=== PATIENT | male | born 1975 | race Caucasian/White ===

== ENCOUNTER 2017-10-21 10:51 | Inpatient (IN) ==
[2017-10-21] MEDS ORDERED: 0.9 % SODIUM CHLORIDE 2,000 ML IV ONE (11:05)
--- NOTE | 2017-10-21 11:15 | Emergency Department Note ---
Altered Mental Status HPI - General Chief Complaint: Altered Mental Status Stated Complaint: n/v, decreased loc Time Seen by Provider: 10/21/17 10:59 Source: patient Mode of arrival: ambulatory Limitations: no limitations - History of Present Illness HPI Narrative: 42-year-old male with altered mental status comes in via EMS. He has a history of cerebral palsy infantile type and has a caregiver. Temperature 100.1 and the ambulance given 1 mg Zofran and IV fluids by EMS. Decreased level of consciousness and unable to give me a reasonable history. I in fact had to do chest rub to get him to answer basic questions-he is able to follow commands, is just not answering questions very well. So very limited review of systems and history. Most from past records and EMS-they report he has been having nausea and vomiting His caregiver followed the ambulance and notes that he is significantly weaker not able to get up on his own or dress himself toilet himself. Last time this happened he had a severe UTI - Related Data Home Medications Medication Instructions Recorded Confirmed venlafaxine ER 150 mg 150 mg PO QAM 06/12/15 10/21/17 tablet,extended release 24 hr buspirone 15 mg tablet 15 mg PO BID 12/15/16 10/21/17 lithium carbonate ER 450 mg 450 mg PO BID tab 12/15/16 10/21/17 tablet,extended release lorazepam 0.5 mg tablet 0.5 mg PO TID PRN tab 12/30/16 10/21/17 Acetaminophen [Non-Aspirin] 325 mg PO Q4HP PRN 10/21/17 10/21/17 Aripiprazole [Abilify] 7 mg PO QHS 10/21/17 10/21/17 Previous Rx's Medication Instructions Recorded ketoconazole 2 % shampoo 1 applic TOPICAL Q2W #120 ml 04/27/16 ketoconazole 2 % topical cream 1 applic TOPICAL BID 14 Days #60 g 08/06/16 Nitrile exam gloves (Large) #200 each 10/28/16 hand held plastic urinal #2 each 10/28/16 silver sulfadiazine 1 % topical 1 applic TOPICAL QDAY 14 Days #25 g 02/10/17 cream meloxicam 7.5 mg tablet 7.5 mg PO QDAY PRN 30 Days #30 tab 04/12/17 clobetasol 0.05 % scalp solution 1 applic TOPICAL .COMPLEX PRN #50 07/14/17 ml nystatin 100,000 unit/gram topical 1 applic TOPICAL .COMPLEX #60 each 07/14/17 powder amlodipine 10 mg tablet 5 mg PO BID 30 Days #30 tab 07/22/17 hydrochlorothiazide 25 mg tablet 25 mg PO QDAY #30 tab 09/28/17 losartan 100 mg tablet 100 mg PO QDAY #30 tab 09/28/17 omeprazole 20 mg capsule,delayed 20 mg PO QDAY #30 cap 09/28/17 release oxybutynin chloride 5 mg tablet 5 mg PO BID #60 tab 09/28/17 carbamide peroxide 6.5 % ear drops 3 drp OTIC .COMPLEX #30 ml 10/04/17 cholecalciferol (vitamin D3) 4,000 4,000 unit PO QDAY #30 cap 10/21/17 unit capsule metoprolol tartrate 50 mg tablet 50 mg PO BID #60 tab 10/21/17 Allergies Allergy/AdvReac Type Severity Reaction Status Date / Time No Known Drug Allergies Allergy Verified 08/09/17 14:35 Review of Systems Limitations: ROS unobtainable due to patients medical condition Past Medical History - Past Medical History Attestation: Yes: The following information was validated with the patient. Medical history: Reports: arthritis, hypertension, other (Cerebral palsy, obesity, obstructive sleep apnea, recurrent UTIs) Psychiatric history: Reports: bipolar, other (Obsessive-compulsive) Surgical history ED: Reports: other (hamstring repair, Achilles tendon repair) - Social History smoking status: Never smoker Alcohol use: Reports: None Drug use: Reports: none Physical Exam Obese male in no acute distress. Normocephalic atraumatic. Conjunctive are clear sclerae nonicteric. Pupils are equal reactive to light. No nasal discharge or congestion. Oropharynx shows crusted material around his mouth , dry mucous membranes and tongue. Neck is supple without lymphadenopathy or thyromegaly. Heart is regular rate and rhythm no murmur appreciated. Lungs are clear to auscultation bilaterally without wheezes rales rhonchi or respiratory distress. Abdomen soft nontender nondistended. Normoactive bowel sounds. No pedal edema. Coello is in place with dark yellow urine. Somnolent but will follow commands such as "take a deep breath, let it out", will answer simple questions with significant prodding Limitations: no limitations Course Vital Signs Temperature 98.4 F 10/21/17 10:52 Pulse Rate 84 10/21/17 10:52 Respiratory Rate 21 10/21/17 10:52 Blood Pressure 155/83 10/21/17 10:52 Pulse Oximetry (%) 97 10/21/17 10:52 Temperature 98.1 F 10/21/17 12:23 Pulse Rate 81 10/21/17 12:23 Respiratory Rate 18 10/21/17 12:23 Blood Pressure 145/82 10/21/17 11:15 Pulse Oximetry (%) 96 10/21/17 12:23 Altered Mental Status - Lab Data Lab results reviewed: Yes I reviewed the patient's lab results. Result diagrams: 10/21/17 11:19 10/21/17 11:18 Lab Results 10/21/17 10/21/17 10/21/17 Range/Units 11:16 11:17 11:18 WBC (4.5-11.0) K/mcL RBC (4.50-5.90) M/mcL Hgb (13.5-16.5) g/dL Hct (41.0-55.0) % POC Hct 41.0 (41.0-55.0) % MCV (80.0-100.0) fL MCH (26.0-34.0) pg MCHC (31.0-36.0) g/dL RDW (11.5-14.5) % Plt Count (140-440) K/mcL MPV (7.4-10.4) fL Gran % (38.0-78.0) % Lymph % (Auto) (15.5-49.0) % [place] % (Auto) (1.0-12.0) % Eos % (Auto) (0.0-7.0) % Baso % (Auto) (0.0-2.0) % Gran # (1.8-8.0) K/mcL Lymph # (Auto) (1.5-4.8) K/mcL [place] # (Auto) (0.1-0.9) K/mcL Eos # (Auto) (0.0-0.7) K/mcL Baso # (Auto) (0.0-0.3) K/mcL POC PT (11.9-14.5) sec POC INR (0.9-1.2) VBG Lactic Acid (0.5-2.2) mmol/L POC Sodium 142 (133-145) mmol/L Sodium 141 (133-145) mmol/L POC Potassium 3.7 (3.3-5.1) mmol/L Potassium 3.8 (3.3-5.1) mmol/L POC Chloride 106 (96-108) mmol/L Chloride 105 (96-108) mmol/L Carbon Dioxide 23 (22-30) mmol/L POC Total CO2 27 (22-30) mmol/L Anion Gap 13.0 (8-16) POC BUN 23 H (6-20) mg/dl BUN 20 (6-20) mg/dl Creatinine 0.8 (0.7-1.2) mg/dl POC Creatinine 0.9 (0.7-1.2) mg/dl GFR Calculation 111 Glucose 101 (70-105) mg/dL POC Glucose 107 H (70-105) mg/dL Calcium 9.5 (8.6-10.4) mg/dl POC WB Ioniz Calcium 1.21 (1.16-1.32) mmol/L Total Bilirubin 0.8 (0.0-1.0) mg/dL AST 19 (0-37) U/l ALT 24 (0-40) U/l Alkaline Phosphatase 78 (39-117) U/L Ammonia (16-60) umol/L Total Creatine Kinase 228 H (24-195) IU/L Troponin T (0-0.03) ng/ml Total Protein 7.3 (5.9-8.4) gm/dL Albumin 4.4 (3.2-5.2) gm/dL Globulin 2.9 (2.2-3.7) gm/dL Albumin/Globulin Ratio 1.5 (1.0-2.3) Urine Color Yellow Urine Appearance Hazy Urine pH 6.0 (5.0-9.0) Ur Specific [place] 1.018 (1.000-1.035) Urine Protein 30 A (NEG) mg/dL Urine Glucose (UA) Negative (NEG) mg/dL Urine Ketones 20 A (NEG) mg/dL Urine Occult Blood Neg (<0.03) mg/dL Urine Nitrate Neg (NEG) Urine Bilirubin Neg (NEG) mg/dL Urine Urobilinogen Neg (NEG) mg/dL Ur Leukocyte Esterase 500 A (NEG) /uL Urine RBC 6 H (0-1) /hpf Urine WBC > 182 H (0-4) /hpf Ur Squamous Epith Cells 2 (0-4) /hpf Ur Transition Epith Cell < 1 (0-2) /hpf Urine Bacteria 0 (0) /hpf Urine Mucus Mod (0) /hpf Ur Culture Indicated? Yes [place] 0.7 mmol/L 10/21/17 10/21/17 10/21/17 Range/Units 11:19 11:19 11:19 WBC 15.0 H (4.5-11.0) K/mcL RBC 5.05 (4.50-5.90) M/mcL Hgb 13.7 (13.5-16.5) g/dL Hct 41.8 (41.0-55.0) % POC Hct (41.0-55.0) % MCV 82.7 (80.0-100.0) fL MCH 27.1 (26.0-34.0) pg MCHC 32.8 (31.0-36.0) g/dL RDW 14.9 H (11.5-14.5) % Plt Count 260 (140-440) K/mcL MPV 7.5 (7.4-10.4) fL Gran % 77.2 (38.0-78.0) % Lymph % (Auto) 12.7 L (15.5-49.0) % [place] % (Auto) 6.9 (1.0-12.0) % Eos % (Auto) 2.9 (0.0-7.0) % Baso % (Auto) 0.3 (0.0-2.0) % Gran # 11.6 H (1.8-8.0) K/mcL Lymph # (Auto) 1.9 (1.5-4.8) K/mcL [place] # (Auto) 1.0 H (0.1-0.9) K/mcL Eos # (Auto) 0.4 (0.0-0.7) K/mcL Baso # (Auto) 0.1 (0.0-0.3) K/mcL POC PT (11.9-14.5) sec POC INR (0.9-1.2) VBG Lactic Acid 0.9 (0.5-2.2) mmol/L POC Sodium (133-145) mmol/L Sodium (133-145) mmol/L POC Potassium (3.3-5.1) mmol/L Potassium (3.3-5.1) mmol/L POC Chloride (96-108) mmol/L Chloride (96-108) mmol/L Carbon Dioxide (22-30) mmol/L POC Total CO2 (22-30) mmol/L Anion Gap (8-16) POC BUN (6-20) mg/dl BUN (6-20) mg/dl Creatinine (0.7-1.2) mg/dl POC Creatinine (0.7-1.2) mg/dl GFR Calculation Glucose (70-105) mg/dL POC Glucose (70-105) mg/dL Calcium (8.6-10.4) mg/dl POC WB Ioniz Calcium (1.16-1.32) mmol/L Total Bilirubin (0.0-1.0) mg/dL AST (0-37) U/l ALT (0-40) U/l Alkaline Phosphatase (39-117) U/L Ammonia 31 (16-60) umol/L Total Creatine Kinase (24-195) IU/L Troponin T (0-0.03) ng/ml Total Protein (5.9-8.4) gm/dL Albumin (3.2-5.2) gm/dL Globulin (2.2-3.7) gm/dL Albumin/Globulin Ratio (1.0-2.3) Urine Color Urine Appearance Urine pH (5.0-9.0) Ur Specific [place] (1.000-1.035) Urine Protein (NEG) mg/dL Urine Glucose (UA) (NEG) mg/dL Urine Ketones (NEG) mg/dL Urine Occult Blood (<0.03) mg/dL Urine Nitrate (NEG) Urine Bilirubin (NEG) mg/dL Urine Urobilinogen (NEG) mg/dL Ur Leukocyte Esterase (NEG) /uL Urine RBC (0-1) /hpf Urine WBC (0-4) /hpf Ur Squamous Epith Cells (0-4) /hpf Ur Transition Epith Cell (0-2) /hpf Urine Bacteria (0) /hpf Urine Mucus (0) /hpf Ur Culture Indicated? [place] mmol/L 10/21/17 10/21/17 Range/Units 11:19 11:49 WBC (4.5-11.0) K/mcL RBC (4.50-5.90) M/mcL Hgb (13.5-16.5) g/dL Hct (41.0-55.0) % POC Hct (41.0-55.0) % MCV (80.0-100.0) fL MCH (26.0-34.0) pg MCHC (31.0-36.0) g/dL RDW (11.5-14.5) % Plt Count (140-440) K/mcL MPV (7.4-10.4) fL Gran % (38.0-78.0) % Lymph % (Auto) (15.5-49.0) % [place] % (Auto) (1.0-12.0) % Eos % (Auto) (0.0-7.0) % Baso % (Auto) (0.0-2.0) % Gran # (1.8-8.0) K/mcL Lymph # (Auto) (1.5-4.8) K/mcL Pike # (Auto) (0.1-0.9) K/mcL Eos # (Auto) (0.0-0.7) K/mcL Baso # (Auto) (0.0-0.3) K/mcL POC PT 14.4 (11.9-14.5) sec POC INR 1.2 (0.9-1.2) VBG Lactic Acid (0.5-2.2) mmol/L POC Sodium (133-145) mmol/L Sodium (133-145) mmol/L POC Potassium (3.3-5.1) mmol/L Potassium (3.3-5.1) mmol/L POC Chloride (96-108) mmol/L Chloride (96-108) mmol/L Carbon Dioxide (22-30) mmol/L POC Total CO2 (22-30) mmol/L Anion Gap (8-16) POC BUN (6-20) mg/dl BUN (6-20) mg/dl Creatinine (0.7-1.2) mg/dl POC Creatinine (0.7-1.2) mg/dl GFR Calculation Glucose (70-105) mg/dL POC Glucose (70-105) mg/dL Calcium (8.6-10.4) mg/dl POC WB Ioniz Calcium (1.16-1.32) mmol/L Total Bilirubin (0.0-1.0) mg/dL AST (0-37) U/l ALT (0-40) U/l Alkaline Phosphatase (39-117) U/L Ammonia (16-60) umol/L Total Creatine Kinase (24-195) IU/L Troponin T < 0.01 (0-0.03) ng/ml Total Protein (5.9-8.4) gm/dL Albumin (3.2-5.2) gm/dL Globulin (2.2-3.7) gm/dL Albumin/Globulin Ratio (1.0-2.3) Urine Color Urine Appearance Urine pH (5.0-9.0) Ur Specific [place] (1.000-1.035) Urine Protein (NEG) mg/dL Urine Glucose (UA) (NEG) mg/dL Urine Ketones (NEG) mg/dL Urine Occult Blood (<0.03) mg/dL Urine Nitrate (NEG) Urine Bilirubin (NEG) mg/dL Urine Urobilinogen (NEG) mg/dL Ur Leukocyte Esterase (NEG) /uL Urine RBC (0-1) /hpf Urine WBC (0-4) /hpf Ur Squamous Epith Cells (0-4) /hpf Ur Transition Epith Cell (0-2) /hpf Urine Bacteria (0) /hpf Urine Mucus (0) /hpf Ur Culture Indicated? [place] mmol/L Preliminary urinalysis with [id number] dipstick shows large amount of leukocytes positive nitrites and a large amount of blood. Antibiotics are started after blood culture - Radiology Data Radiology results reviewed: Yes I reviewed the patient's radiology results. Chest x-ray shows no acute abnormality. CT scan of the head shows possible lateral ventricle enlargements but this is not certain without comparison studies and relevance is questionable - EKG Data EKG attestation: Yes I reviewed and interpreted this EKG. EKG results narrative: EKG shows a rate of 80 right bundle branch block and long NV. No evidence of ischemia Disposition Pt seen by MATE FIRST/PA only: No Clinical Impression: Dehydration Altered mental status Qualifiers: Altered mental status type: somnolence Qualified Code(s): R40.0 - Somnolence UTI (urinary tract infection) Qualifiers: Urinary tract infection type: acute cystitis Hematuria presence: with hematuria Qualified Code(s): N30.01 - Acute cystitis with hematuria Summary: After initial exam and workup, fluids are continued and antibiotic- levaquin- started for UTI dehydration and altered mental status. Workup with further laboratory and imaging. Coello with temp probe was placed He had significant improvement with IV fluids and levofloxacin. He was answering questions better, opened his eyes spontaneously moved his hands. He had no further vomiting. However he was still weak enough that he was not moving around in the bed at all-I do think he requires admission for IV fluid rehydration and IV antibiotics as he has been vomiting. I discussed his case with Dr. Parks who agreed to accept the patient for further inpatient treatment Disposition: Xfer As Inpt ([facility]) Condition: Serious Referrals: Nick Jones MD [Primary Care Provider] -
[2017-10-21] MEDS ORDERED: LEVOFLOXACIN 500 MG/100 ML BAG IV ONE (11:18)
--- NOTE | 2017-10-21 11:38 | XRay Report ---
INDICATION: Altered mental status TECHNIQUE: AP chest x-ray,portable examination performed on the patient's stretcher COMPARISON: Chest x-rays dated 08/09/2016, 02/19/2010 FINDINGS:Lungs are negative. No parenchymal infiltrate or mass. Heart size appears enlarged but this is probably related to AP, supine positioning. No pulmonary edema. No pulmonary congestion. No acute or focal abnormality IMPRESSION: No acute abnormality. Interpreted and Authenticated by: Brent Eldridge 10/21/17
--- NOTE | 2017-10-21 11:41 | Cat Scan Report ---
CLINICAL INFORMATION: Altered mental status. Fever. Nausea and vomiting. COMPARISON: None. TECHNIQUE: Axial noncontrast-enhanced images through the brain. FINDINGS: No acute intracranial hemorrhage. No subdural hematoma. No subarachnoid hemorrhage. No intra-axial hematoma. No focal intra-axial attenuation abnormality. No localized mass effect. No midline shift. Brain stem and cerebellum are negative. There is ventriculomegaly. The lateral ventricles are enlarged. 3rd and 4th ventricles are within normal limits. No other morphologic abnormalities. Chronicity of this lateral ventricular enlargement is not certain without comparison studies. Periventricular white matter is unremarkable without evidence for interstitial edema disappearance may be chronic. If clinically indicated follow-up examination may be of benefit. No calvarial lesions. No lytic lesion or no fracture. Temporal bones are negative. Basilar cisterns are normal. IMPRESSION: 1. Lateral ventricular enlargement. This may be a chronic abnormality. 2. No acute intracranial hemorrhage. No focal abnormality. The exam was performed using radiation dose optimization techniques including, but not limited to, automated exposure control, adjustment of the mA and/or kV according to patient size and use of iterative reconstruction technique. Interpreted and Authenticated by: Brent Eldridge 10/21/17
[2017-10-21 11:48] LABS: Basophils # (Auto) 0.1 K/mcL (0.0-0.3); Basophils % (Auto) 0.3 % (0.0-2.0); Eosinophils # (Auto) 0.4 K/mcL (0.0-0.7); Eosinophils % (Auto) 2.9 % (0.0-7.0); Granulocytes % (Auto) 77.2 % (38.0-78.0); Lymphocytes # (Auto) 1.9 K/mcL (1.5-4.8); Lymphocytes % (Auto) 12.7 % (15.5-49.0); Mean Cell Volume 82.7 fL (80.0-100.0); Mean Corpuscular HGB Conc 32.8 g/dL (31.0-36.0); Mean Corpuscular Hemoglobin 27.1 pg (26.0-34.0); Monocytes % (Auto) 6.9 % (1.0-12.0); Platelet Count 260 K/mcL (140-440); RBC 5.05 M/mcL (4.50-5.90); Red Cell Distribution Width 14.9 % (11.5-14.5)
[2017-10-21 12:05] LABS: Appearance,Urine HAZY; Bacteria,Urine 0 /hpf (0); Bilirubin,Urine NEG (NEG); Color,Urine YELLOW; Glucose,Urine (UA) NEGATIVE (NEG); Leukocyte Esterase,Urine 500 /uL (NEG); Mucus,Urine MOD /hpf (0); Protein,Urine 30 mg/dL (NEG); Specific Gravity,Urine 1.018 (1.000-1.035); Urine Blood NEG mg/dL (<0.03); Urine RBC 6 /hpf (0-1); Urine Squamous Epithelial Cell 2 /hpf (0-4); Urine Transitional Epi Cells < 1 /hpf (0-2); Urine WBC > 182 /hpf (0-4); Urobilinogen,Urine NEG (NEG)
[2017-10-21 12:14] LABS: ALT/SGPT 24 U/l (0-40); Albumin 4.4 gm/dL (3.2-5.2); Albumin/Globulin Ratio 1.5 (1.0-2.3); Alkaline Phosphatase 78 U/L (39-117); Blood Urea Nitrogen 20 mg/dl (6-20); Creatine Kinase 228 IU/L (24-195)
--- NOTE | 2017-10-21 14:27 | Internal Med History&Physical ---
Medical - H&P: HPI Patient information: Note initiated : 10/21/17 at 2:24 pm Service Date, if different from initiated Date: [] Patient: Jorge Luis Castrejon a 42 y/o M admitted on for n/v, decreased loc. Chief Complaint: [] History of present illness: Mr. Castrejon is a 42 year old Male with h/o cerebral palsy infantile type, presents to the emergency room with complaints of altered mental status. Patient's caregiver not available to provide the history, patient has history of cerebral palsy and not able to provide any meaningful history, history obtained from chart review. The patient was brought in with complaints of altered mental status was quite obtunded on presentation, according to the caregivers the patient does have a history of urinary tract infections and resents with altered mental status whenever he has an infection. The patient in the emergency room was quite obtunded according to the ED note needed chest rub to wake him up. He had a chest x-ray which was negative, head CT which showed bilaterally enlarged ventricles acutely not certain. EKG showed right bundle branch block but sinus rhythm, his labs showed leukocytosis with WBC count of 15,000, hemoglobin 13.7 platelets 260, INR 1.2, chemistry unremarkable Patient had an abnormal UA suggestive of UTI. Patient was given IV fluids and IV antibiotics and the patient's condition started to improve by the time of my evaluation the patient was awake and was able to follow some commands however was deemed to be too weak to be able to stand or ambulate The patient is therefore being admitted to the hospital for urinary tract infection and weakness ROS unobtainable: due to mental status Medical - H&P: PMH Medical history: Medical History UTI (urinary tract infection) (Acute) Gastroenteritis (Acute) Dehydration, moderate (Acute) Cerebral palsy (Acute) Conjunctivitis (Chronic) Vitamin D deficiency (Chronic) Toxic encephalopathy (Chronic) Gastroesophageal reflux disease (Chronic) Osteoarthritis (Chronic) Hypokalemia (Chronic) Volume depletion (Chronic) Metabolic acidosis (Chronic) Urinary tract infection (Chronic) Altered level of consciousness (Chronic) Obsessive compulsive disorder (Chronic) Obesity (Chronic) Hypertension, essential (Chronic) Palsy, cerebral infantile (Chronic) Legal blindness (Chronic) Bipolar disorder (Chronic) Surgical history: Past Surgical History Hx of Achilles tendon repair (Acute) Pertinent family history: Family History mother Anxiety disorder, Onset Age: 55 none listed Atherosclerosis of coronary artery father Essential hypertension, Onset Age: 57 Medical - H&P: Meds Home Medications Medication Instructions Recorded Confirmed Type venlafaxine ER 150 mg 150 mg PO QAM 06/12/15 10/21/17 History tablet,extended release 24 hr ketoconazole 2 % shampoo 1 applic TOPICAL Q2W #120 ml 04/27/16 10/21/17 Rx ketoconazole 2 % topical cream 1 applic TOPICAL BID 14 Days #60 g 08/06/1610/21 Rx Nitrile exam gloves (Large) #200 each 10/28/16 08/09/17 Rx hand held plastic urinal #2 each 10/28/16 08/09/17 Rx buspirone 15 mg tablet 15 mg PO BID 12/15/16 10/21/17 History lithium carbonate ER 450 mg 450 mg PO BID tab 12/15/16 10/21/17 History tablet,extended release lorazepam 0.5 mg tablet 0.5 mg PO TID PRN tab 12/30/16 10/21/17 History silver sulfadiazine 1 % topical 1 applic TOPICAL QDAY 14 Days #25 g 02/10/17 Rx cream meloxicam 7.5 mg tablet 7.5 mg PO QDAY PRN 30 Days #30 tab 04/12/17 10/21/17 Rx clobetasol 0.05 % scalp solution 1 applic TOPICAL .COMPLEX PRN #50 07/14/17 Rx ml nystatin 100,000 unit/gram topical 1 applic TOPICAL .COMPLEX #60 each 07/14/17 10/21/17 Rx powder amlodipine 10 mg tablet 5 mg PO BID 30 Days #30 tab 07/22/17 10/21/17 Rx hydrochlorothiazide 25 mg tablet 25 mg PO QDAY #30 tab 09/28/17 10/21/17 Rx losartan 100 mg tablet 100 mg PO QDAY #30 tab 09/28/17 10/21/17 Rx omeprazole 20 mg capsule,delayed 20 mg PO QDAY #30 cap 09/28/17 10/21/17 Rx release oxybutynin chloride 5 mg tablet 5 mg PO BID #60 tab 09/28/17 10/21/17 Rx carbamide peroxide 6.5 % ear drops 3 drp OTIC .COMPLEX #30 ml 10/04/17 10/21/17 Rx Acetaminophen [Non-Aspirin] 325 mg PO Q4HP PRN 10/21/17 10/21/17 History Aripiprazole [Abilify] 7 mg PO QHS 10/21/17 10/21/17 History cholecalciferol (vitamin D3) 4,000 4,000 unit PO QDAY #30 cap 10/21/17 10/21/17 Rx unit capsule metoprolol tartrate 50 mg tablet 50 mg PO BID #60 tab 10/21/17 10/21/17 Rx Allergies Allergy/AdvReac Type Severity Reaction Status Date / Time No Known Drug Allergies Allergy Verified 08/09/17 14:35 Medical - H&P: Exam - Constitutional Vitals: Temp Pulse Resp BP Pulse Ox 98.5 F 80 22 145/78 95 10/21/17 14:22 10/21/17 14:22 10/21/17 14:22 10/21/17 14:16 10/21/17 14:22 Exam: GENERAL: The patient is a well-developed, well-nourished in no apparent distress. Is oriented x3. Obese individual VITAL SIGNS: Reviewed and as noted elsewhere. HEENT: Head is normocephalic and atraumatic. Extraocular muscles are intact. Pupils are equal, round, and reactive to light. Nares appeared normal. Mouth appears any without lesions. Mucous membranes are dry NECK: Normal to inspection, Supple, No lymphadenopathy or thyromegaly. LUNGS: Air entry equal on both sides, no wheezing, crackles or rhonchi noted. No accessory muscles of respiration HEART: Regular rate and rhythm normal, S1 and S2 heard, no Gallop, S3 or Rub Noted, No Gross murmur heard. ABDOMEN: Soft, nontender, and nondistended. Positive bowel sounds. No hepatosplenomegaly was noted. No CVA tenderness noted EXTREMITIES: No cyanosis, clubbing, rash, lesions , edema +1 NEUROLOGIC: Cranial nerves II through XII are grossly intact. Motor and Sensory System Grossly Intact, patient somewhat drowsy PSYCHIATRIC: Flat affect, confused mildly, not agitated SKIN: No ulceration or wounds noted, No jaundice, No rash noted. Medical - H&P: Reslt - Labs CBC & Chem 7: 10/21/17 11:19 10/21/17 11:18 Labs: Short CBC 10/21/17 Range/Units 11:19 WBC 15.0 H (4.5-11.0) K/mcL Hgb 13.7 (13.5-16.5) g/dL Hct 41.8 (41.0-55.0) % Plt Count 260 (140-440) K/mcL BMP 10/21/17 11:18 Sodium 141 Potassium 3.8 Chloride 105 Carbon Dioxide 23 BUN 20 Creatinine 0.8 Glucose 101 Calcium 9.5 Cardiac Enzymes 10/21/17 10/21/17 Range/Units 11:18 11:19 Total Creatine Kinase 228 H (24-195) IU/L Troponin T < 0.01 (0-0.03) ng/ml Liver Function 10/21/17 Range/Units 11:18 Total Bilirubin 0.8 (0.0-1.0) mg/dL AST 19 (0-37) U/l ALT 24 (0-40) U/l Alkaline Phosphatase 78 (39-117) U/L Albumin 4.4 (3.2-5.2) gm/dL Urine 10/21/17 Range/Units 11:17 Urine Color Yellow Urine Appearance Hazy Urine pH 6.0 (5.0-9.0) Ur Specific [place] 1.018 (1.000-1.035) Urine Protein 30 A (NEG) mg/dL Urine Glucose (UA) Negative (NEG) mg/dL Medical - H&P: A/P - Narrative A/P Narrative: A/P Urinary Tract Infection Encephalopathy, Related to UTI vs Medications Obesity Enlarged lateral Ventricles Plan Place to obs status IV rocephin, urine culture sent, await results IV antibiotics, IV fluids, IV thiamine PT/OT/ST eval MRI head to be considered if patients mental status does not improve, not sure regarding enlargement of ventricles , but may be chronic DVT hep sq Diet regular Full code. Social History - Tobacco smoking status: Never smoker - Alcohol alcohol intake frequency: does not drink
[2017-10-21] MEDS ORDERED: CARBAMIDE PEROXIDE OTIC SCH (14:46)
[2017-10-21] MEDS ORDERED: ONDANSETRON 4 MG/2 ML VIAL IV PRN (14:46)
[2017-10-21] MEDS ORDERED: ACETAMINOPHEN 325 MG TABLET PO PRN (14:46)
[2017-10-21] MEDS ORDERED: MELOXICAM 7.5 MG TABLET PO PRN (14:46)
[2017-10-21] MEDS ORDERED: CLOBETASOL 0.05% TOPICAL PRN (15:03)
--- NOTE | 2017-10-21 16:57 | Ultrasound Report ---
CLINICAL INFORMATION: Urinary tract infection TECHNIQUE: Grayscale and color flow Doppler spectral imaging COMPARISON: None. FINDINGS: Right kidney measures 12.7 x 6.6 x 6.7 cm. No solid or cystic mass. No hydronephrosis. No detectable calculi. Normal sinus and cortical echoes. Left kidney measures 13.1 x 5.3 x 5.5 cm. There is a 2.3 cm left lower pole cyst. No solid mass. No hydronephrosis. No detectable calculi. Otherwise normal sinus and cortical echoes. Urinary bladder is not identified as the patient was catheterized IMPRESSION: Negative renal ultrasound Interpreted and Authenticated by: Brent Eldridge 10/21/17
[2017-10-21] MEDS: cefTRIAXone 2 GM VIAL IV SCH (17:01)
[2017-10-21] MEDS: 0.9 % SODIUM CHLORIDE 10 ML SYRINGE IV SCH ×2 (17:01→20:57)
[2017-10-21] MEDS: THIAMINE 100 MG in 0.9 % SODIUM CHLORIDE 50 ML IV SCH (17:12)
[2017-10-21] MEDS: LITHIUM CARBONATE 450 MG TAB.SR.12H PO SCH (17:57)
[2017-10-21] MEDS: OXYBUTYNIN CHLORIDE 5 MG TABLET PO SCH (20:57)
[2017-10-21] MEDS: amLODIPine 5 MG TABLET PO SCH (20:57)
[2017-10-21] MEDS: busPIRone 15 MG TABLET PO SCH (20:57)
[2017-10-21] MEDS: HEPARIN 5,000 UNIT/ML VIAL SQ SCH (20:57)
[2017-10-21] MEDS: METOPROLOL TARTRATE 50 MG TABLET PO SCH (20:57)
[2017-10-21] MEDS: KETOCONAZOLE 2% TOP CRM 15GM TUBE TOPICAL SCH (20:58)
[2017-10-21] MEDS: ARIPIPRAZOLE 7 MG PO SCH (20:58)
[2017-10-22] MEDS: cefTRIAXone 2 GM VIAL IV SCH ×3 (00:05→20:11)
[2017-10-22] MEDS: 0.9 % SODIUM CHLORIDE 10 ML SYRINGE IV SCH ×3 (05:21→20:12)
[2017-10-22] MEDS: LITHIUM CARBONATE 450 MG TAB.SR.12H PO SCH ×2 (07:44→17:47)
[2017-10-22] MEDS: OMEPRAZOLE 20 MG CAPSULE PO SCH (07:44)
[2017-10-22] MEDS: amLODIPine 5 MG TABLET PO SCH ×2 (08:51→20:12)
[2017-10-22] MEDS: VITAMIN D3 1,000 UNIT TABLET PO SCH (08:51)
[2017-10-22] MEDS: VENLAFAXINE 150 MG CAP.XL.24H PO SCH (08:51)
[2017-10-22] MEDS: THIAMINE 100 MG in 0.9 % SODIUM CHLORIDE 50 ML IV SCH (08:51)
[2017-10-22] MEDS: LOSARTAN 50 MG TABLET PO SCH (08:51)
[2017-10-22] MEDS: CLOBETASOL 0.05% TOPICAL SCH (08:52)
[2017-10-22] MEDS: busPIRone 15 MG TABLET PO SCH ×2 (08:52→20:12)
[2017-10-22] MEDS: HYDROCHLOROTHIAZIDE 25 MG TABLET PO SCH (08:52)
[2017-10-22] MEDS: METOPROLOL TARTRATE 50 MG TABLET PO SCH ×2 (08:52→20:12)
[2017-10-22] MEDS: OXYBUTYNIN CHLORIDE 5 MG TABLET PO SCH ×2 (08:52→20:12)
[2017-10-22] MEDS: HEPARIN 5,000 UNIT/ML VIAL SQ SCH ×2 (08:52→20:12)
[2017-10-22] MEDS: KETOCONAZOLE 2% TOP CRM 15GM TUBE TOPICAL SCH ×2 (08:53→20:12)
[2017-10-22 09:09] LABS: Basophils # (Auto) 0 K/mcL (0.0-0.3); Basophils % (Auto) 0.3 % (0.0-2.0); Eosinophils # (Auto) 0.6 K/mcL (0.0-0.7); Granulocytes % (Auto) 74.5 % (38.0-78.0); Lymphocytes # (Auto) 2.4 K/mcL (1.5-4.8); Lymphocytes % (Auto) 15.2 % (15.5-49.0); Mean Cell Volume 83.8 fL (80.0-100.0); Mean Corpuscular Hemoglobin 27.7 pg (26.0-34.0); Platelet Count 275 K/mcL (140-440); RBC 5.35 M/mcL (4.50-5.90); Red Cell Distribution Width 14.7 % (11.5-14.5)
[2017-10-22] MEDS ORDERED: VANCOMYCIN PER PHARMACY IV SCH (09:12)
[2017-10-22 09:35] LABS: ALT/SGPT 25 U/l (0-40); Albumin 4.2 gm/dL (3.2-5.2); Albumin/Globulin Ratio 1.2 (1.0-2.3); Alkaline Phosphatase 86 U/L (39-117); Bilirubin,Direct < 0.2 mg/dL (0.0-0.3); Blood Urea Nitrogen 16 mg/dl (6-20); Gamma Glutamyl Transpeptidase 52 U/L (8-61); Uric Acid 7.8 mg/dL (2.5-8.0)
[2017-10-22] MEDS: VANCOMYCIN 1,500 MG in 0.9 % SODIUM CHLORIDE 500 ML IV SCH ×2 (10:21→20:12)
[2017-10-22] MEDS: SILVER SULFADIAZINE CREAM.TOP 25GM TOPICAL SCH (10:22)
[2017-10-22] MEDS ORDERED: MAGNESIUM HYDROXIDE 30 ML ORAL.SUSP PO ONE (12:06)
[2017-10-22] MEDS ORDERED: MAGNESIUM HYDROXIDE 30 ML ORAL.SUSP PO PRN (12:06)
--- NOTE | 2017-10-22 12:09 | Internal Med Progress Note ---
Medical - PN: Subj Patient information: Note initiated : 10/22/17 at 12:06 pm Service Date, if different from initiated Date: [] Patient: Jorge Luis Castrejon a 42 y/o M admitted on 10/21/17 for n/v, decreased loc. Chief Complaint: [] Interval history: Mr. Castrejon is a 42 year old Male with h/o cerebral palsy infantile type, presents to the emergency room with complaints of altered mental status. Patient's caregiver not available to provide the history, patient has history of cerebral palsy and not able to provide any meaningful history, history obtained from chart review. The patient was brought in with complaints of altered mental status was quite obtunded on presentation, according to the caregivers the patient does have a history of urinary tract infections and resents with altered mental status whenever he has an infection. The patient in the emergency room was quite obtunded according to the ED note needed chest rub to wake him up. He had a chest x-ray which was negative, head CT which showed bilaterally enlarged ventricles acutely not certain. EKG showed right bundle branch block but sinus rhythm, his labs showed leukocytosis with WBC count of 15,000, hemoglobin 13.7 platelets 260, INR 1.2, chemistry unremarkable Patient had an abnormal UA suggestive of UTI. Patient was given IV fluids and IV antibiotics and the patient's condition started to improve by the time of my evaluation the patient was awake and was able to follow some commands however was deemed to be too weak to be able to stand or ambulate The patient is therefore being admitted to the hospital for urinary tract infection and weakness october 22 Patient seen and examined no acute overnight event, pt much more awake this am, he notes he is still very tired and fatigued, feels weak not sure about his baseline status, but it seems he is wheel chair bound Urine culture is growing enterococcus, patient started on vancomycin till sensitivities come back wbc worse today, 15.9, but pt clinically stable Renal USG is negative. Pertinent ROS: Denies headache, dizziness Denies chest pain, palpitations Denies cough or shortness of breath Denies abdominal pain, nausea or vomiting. Does have constipation. - Constitutional Vitals: Vital Signs Temp Pulse Resp BP Pulse Ox 98.6 F 80 18 135/92 90 10/22/17 06:51 10/22/17 04:00 10/22/17 06:51 10/22/17 06:51 10/22/17 06:51 Period Temp Pulse Resp BP Sys/Jung Pulse Ox Last 24 Hr 97.6 F-99.2 F 75-94 15-25 123-154/73-92 90-96 Intake and Output 10/21/17 10/22/17 10/22/17 21:59 05:59 13:59 Intake Total 2171 / 2171 200 / 200 Output Total 2150 / 2150 650 / 650 Balance -450 / -450 Weight 257 lb 8 oz Intake & Output: Intake & Output 10/21/17 10/22/17 10/22/17 21:59 05:59 13:59 Intake Total 2171 / 2171 200 / 200 Output Total 2150 / 2150 650 / 650 Balance -450 / -450 Weight 257 lb 8 oz Intake: IV 2050 Sodium Chloride 0.9% 2,000 ml @ 1999 / 1999 Wide Open IV .Q0M ONE Rx#: [id number] Vitamin B1 100 mg In Sodium 51 / 51 Chloride 0.9% 50 ml @ 50 mls/hr IV DAILY [facility] Rx#:[id number] Oral 120 / 120 200 / 200 Output: Urine Catheter Amount 2150 / 2150 650 / 650 Other: Meal Dinner Percent of Meal Consumed 50% Feeding Ability Needs Supervision Exam: Constitutional; Afebrile, cooperative, alert, not in distress. obese individual Eyes- , No periorbital swelling, did not open eyes, legally blind Ears- Ext ear normal, hearing normal to conversation. Neck- Midline trachea, supple Respiratory system: Air Entry equal on both sides, No crackles or wheezing, no rhonchi. CVS- Rate rhythm regular, S1,S2 heard, no gallop, no rub. Abdomen- Soft nontender abdomen, no organomegaly, no tenderness, no guarding or rigidity, [employer]SING [employer]NER- AOOx3, moving all extremities, no gross focal deficit noted. Medical - PN: Obj Da - Labs CBC & Chem 7: 10/22/17 07:43 10/22/17 07:43 Labs: Abnormal Lab Results 10/22/17 10/22/17 10/21/17 07:43 07:43 11:19 WBC 15.9 H 15.0 H RDW 14.7 H 14.9 H Lymph % (Auto) 15.2 L 12.7 L Gran # 11.9 H 11.6 H [place] # (Auto) 1.0 H 1.0 H Carbon Dioxide 20 L Anion Gap 17.0 H POC BUN POC Glucose Total Creatine Kinase Urine Protein Urine Ketones Ur Leukocyte Esterase Urine RBC Urine WBC 10/21/17 10/21/17 11:18 11:17 WBC RDW Lymph % (Auto) Gran # [place] # (Auto) Carbon Dioxide Anion Gap POC BUN 23 H POC Glucose 107 H Total Creatine Kinase 228 H Urine Protein 30 A Urine Ketones 20 A Ur Leukocyte Esterase 500 A Urine RBC 6 H Urine WBC > 182 H Meds: Medications Acetaminophen (Tylenol) 650 mg PO Q6HP PRN PRN Reason: PAIN/FEVER > 101 Amlodipine Besylate (Norvasc) 5 mg PO BID [facility] Last Admin: 10/22/17 08:51 Dose: 5 mg Buspirone HCl (Buspar) 15 mg PO BID [facility] Last Admin: 10/22/17 08:52 Dose: 15 mg Ceftriaxone Sodium (Rocephin) 2 gm IV Q12H [facility] Last Admin: 10/22/17 08:51 Dose: 2 gm Heparin Sodium (Porcine) (Heparin) 5,000 unit SQ Q12 [facility] Last Admin: 10/22/17 08:52 Dose: 5,000 unit Hydrochlorothiazide (Oretic) 25 mg PO QDAY [facility] Last Admin: 10/22/17 08:52 Dose: 25 mg Thiamine HCl 100 mg/ Sodium (Chloride) 51 mls @ 50 mls/hr IV DAILY [facility] Stop: 10/23/17 10:02 Last Admin: 10/22/17 08:51 Dose: 50 mls/hr Vancomycin HCl 1,500 mg/ (Sodium Chloride) 500 mls @ 333.3 mls/hr IV Q12H [facility] Last Admin: 10/22/17 10:21 Dose: 333.3 mls/hr Ketoconazole (Nizoral 2% Top Crm) 1 dose TOPICAL BID [facility] Last Admin: 10/22/17 08:53 Dose: Not Given [place] Carbonate (Eskalith Cr) 450 mg PO BID@0800,1700 [facility] Last Admin: 10/22/17 07:44 Dose: 450 mg Lorazepam (Ativan) 0.5 mg PO TIDP PRN PRN Reason: agitation Losartan Potassium (Cozaar) 100 mg PO DAILY [facility] Last Admin: 10/22/17 08:51 Dose: 100 mg Meloxicam (Mobic) 7.5 mg PO DAILYP PRN PRN Reason: joint pain Metoprolol Tartrate (Lopressor) 50 mg PO BID [facility] Last Admin: 10/22/17 08:52 Dose: 50 mg Non-Formulary Medication (Aripiprazole) 7 mg PO QHS [facility] Last Admin: 10/21/17 20:58 Dose: 7 mg Omeprazole (Prilosec) 20 mg PO ACB [facility] Last Admin: 10/22/17 07:44 Dose: 20 mg Ondansetron HCl (Zofran) 4 mg IV Q6HP PRN PRN Reason: Nausea And Vomiting Oxybutynin Chloride (Ditropan) 5 mg PO BID [facility] Last Admin: 10/22/17 08:52 Dose: 5 mg Clobetasol 0.05% (Scalp Solution) 1 dose TOPICAL DAILY [facility] Last Admin: 10/22/17 08:52 Dose: Not Given Clobetasol 0.05% (Scalp Solution) 1 dose TOPICAL HSP PRN PRN Reason: Itching Silver Sulfadiazine (Silvadene) 1 dose TOPICAL QDAY [facility] Last Admin: 10/22/17 10:22 Dose: Not Given Sodium Chloride (Saline Flush) 10 ml IV Q8 [facility] Last Admin: 10/22/17 05:21 Dose: 10 ml Vancomycin HCl (Vancomycin Per Pharmacy) 1 order IV UD [facility] Venlafaxine HCl (Effexor Xr) 150 mg PO DAILY [facility] Last Admin: 10/22/17 08:51 Dose: 150 mg Vitamin D (Vitamin D3) 4,000 unit PO DAILY [facility] Last Admin: 10/22/17 08:51 Dose: 4,000 unit Medical - PN: A/P - Time Spent With Patient Total time spent is greater than 50% in coordination of care (as documented) at patient's floor/unit and/or counseling patient: - Narrative A/P Narrative: A/P Urinary Tract Infection Encephalopathy, Related to UTI vs Medications Obesity Enlarged lateral Ventricles Constipation Plan Continue to monitor IV ceftriaxone, given enterococcus the urine IV vancomycin started De-escalate antibiotics based on sensitivity 1 L saline today Continue to see if he can participate in therapy Will defer to outpatient physician for evaluation of enlarged ventricles unless acute change in mental condition, the patient's mental condition seems to have improved since admission Milk of magnesia to be given today Continue home medications DVT hep sq Diet regular Full code. Medical - PN: Qual - VTE Deep Vein Thrombosis/Pulmonary Embolism Present on Admission: No
[2017-10-22] MEDS ORDERED: 0.9 % SODIUM CHLORIDE 1,000 ML IV SCH (12:15)
[2017-10-22] MEDS: ARIPIPRAZOLE 7 MG PO SCH (20:11)
[2017-10-23] MEDS: LORazepam 0.5 MG TABLET PO PRN (00:32)
[2017-10-23] MEDS: 0.9 % SODIUM CHLORIDE 10 ML SYRINGE IV SCH ×3 (05:32→22:34)
[2017-10-23 06:06] LABS: Basophils # (Auto) 0.1 K/mcL (0.0-0.3); Basophils % (Auto) 0.4 % (0.0-2.0); Eosinophils # (Auto) 0.4 K/mcL (0.0-0.7); Eosinophils % (Auto) 2.9 % (0.0-7.0); Granulocytes % (Auto) 70.3 % (38.0-78.0); Lymphocytes # (Auto) 2.8 K/mcL (1.5-4.8); Lymphocytes % (Auto) 19.8 % (15.5-49.0); Mean Cell Volume 83.4 fL (80.0-100.0); Mean Corpuscular HGB Conc 32.8 g/dL (31.0-36.0); Mean Corpuscular Hemoglobin 27.3 pg (26.0-34.0); Monocytes # (Auto) 0.9 K/mcL (0.1-0.9); Monocytes % (Auto) 6.6 % (1.0-12.0); Platelet Count 268 K/mcL (140-440); RBC 5.12 M/mcL (4.50-5.90); Red Cell Distribution Width 14.7 % (11.5-14.5)
[2017-10-23 06:40] LABS: ALT/SGPT 26 U/l (0-40); Albumin/Globulin Ratio 1.3 (1.0-2.3); Alkaline Phosphatase 81 U/L (39-117); Bilirubin,Direct < 0.2 mg/dL (0.0-0.3); Blood Urea Nitrogen 17 mg/dl (6-20); Gamma Glutamyl Transpeptidase 47 U/L (8-61)
[2017-10-23] MEDS: OMEPRAZOLE 20 MG CAPSULE PO SCH (07:35)
[2017-10-23] MEDS: HEPARIN 5,000 UNIT/ML VIAL SQ SCH ×2 (09:47→22:33)
[2017-10-23] MEDS: LITHIUM CARBONATE 450 MG TAB.SR.12H PO SCH ×2 (09:47→17:42)
[2017-10-23] MEDS: amLODIPine 5 MG TABLET PO SCH ×2 (09:48→22:33)
[2017-10-23] MEDS: LOSARTAN 50 MG TABLET PO SCH (09:48)
[2017-10-23] MEDS: HYDROCHLOROTHIAZIDE 25 MG TABLET PO SCH (09:48)
[2017-10-23] MEDS: VENLAFAXINE 150 MG CAP.XL.24H PO SCH (09:48)
[2017-10-23] MEDS: VITAMIN D3 1,000 UNIT TABLET PO SCH (09:48)
[2017-10-23] MEDS: OXYBUTYNIN CHLORIDE 5 MG TABLET PO SCH ×2 (09:48→22:32)
[2017-10-23] MEDS: METOPROLOL TARTRATE 50 MG TABLET PO SCH ×2 (09:48→22:32)
[2017-10-23] MEDS: THIAMINE 100 MG in 0.9 % SODIUM CHLORIDE 50 ML IV SCH (09:48)
[2017-10-23] MEDS: cefTRIAXone 2 GM VIAL IV SCH ×2 (09:49→22:34)
[2017-10-23] MEDS: ARIPIPRAZOLE 5 MG TABLET PO SCH (09:49)
[2017-10-23] MEDS: busPIRone 15 MG TABLET PO SCH ×2 (09:49→22:32)
[2017-10-23] MEDS: VANCOMYCIN 1,500 MG in 0.9 % SODIUM CHLORIDE 500 ML IV SCH (10:52)
[2017-10-23] MEDS: CLOBETASOL 0.05% TOPICAL SCH (10:55)
[2017-10-23] MEDS: KETOCONAZOLE 2% TOP CRM 15GM TUBE TOPICAL SCH ×2 (10:55→22:34)
[2017-10-23] MEDS: SILVER SULFADIAZINE CREAM.TOP 25GM TOPICAL SCH (10:55)
[2017-10-23] MEDS ORDERED: AMPICILLIN SODIUM 1 GM in 0.9 % SODIUM CHLORIDE 50 ML IV SCH (16:00)
--- NOTE | 2017-10-23 16:47 | Internal Med Progress Note ---
Medical - PN: Subj Patient information: Note initiated : 10/23/17 at 4:44 pm Service Date, if different from initiated Date: [] Patient: Jorge Luis Castrejon a 42 y/o M admitted on 10/21/17 for n/v, decreased loc. Chief Complaint: [] Interval history: Mr. Castrejon is a 42 year old Male with h/o cerebral palsy infantile type, presents to the emergency room with complaints of altered mental status. Patient's caregiver not available to provide the history, patient has history of cerebral palsy and not able to provide any meaningful history, history obtained from chart review. The patient was brought in with complaints of altered mental status was quite obtunded on presentation, according to the caregivers the patient does have a history of urinary tract infections and resents with altered mental status whenever he has an infection. The patient in the emergency room was quite obtunded according to the ED note needed chest rub to wake him up. He had a chest x-ray which was negative, head CT which showed bilaterally enlarged ventricles acutely not certain. EKG showed right bundle branch block but sinus rhythm, his labs showed leukocytosis with WBC count of 15,000, hemoglobin 13.7 platelets 260, INR 1.2, chemistry unremarkable Patient had an abnormal UA suggestive of UTI. Patient was given IV fluids and IV antibiotics and the patient's condition started to improve by the time of my evaluation the patient was awake and was able to follow some commands however was deemed to be too weak to be able to stand or ambulate The patient is therefore being admitted to the hospital for urinary tract infection and weakness october 22 Patient seen and examined no acute overnight event, pt much more awake this am, he notes he is still very tired and fatigued, feels weak not sure about his baseline status, but it seems he is wheel chair bound Urine culture is growing enterococcus, patient started on vancomycin till sensitivities come back wbc worse today, 15.9, but pt clinically stable Renal USG is negative. October 23 Patient seen examined, no acute overnight issues, Pt tolerating po diet well. Medical status is much better today. Patient still complains about weakness. WBC count is trending down. Patient is unable to transfers from bed to the wheelchair as he is used to. Patient will likely need to stay another day or 2 to improve his strength so that he can be discharged back to his home. Plan of care reviewed with the patient and his father Pertinent ROS: Denies headache, dizziness Denies chest pain, palpitations Denies cough or shortness of breath Denies abdominal pain, nausea or vomiting. - Constitutional Vitals: Vital Signs Temp Pulse Resp BP Pulse Ox 98.5 F 76 18 148/79 97 10/23/17 16:00 10/23/17 03:57 10/23/17 16:00 10/23/17 16:00 10/23/17 16:13 Period Temp Pulse Resp BP Sys/Jung Pulse Ox Last 24 Hr 97.8 F-99.0 F 70-94 16-20 125-148/79-93 91-97 Intake and Output 10/23/17 10/23/17 10/23/17 05:59 13:59 21:59 Intake Total 2375 / 2375 680 / 680 Output Total 1050 / 1050 1050 / 1050 2 / 2 Balance 1325 / 1325 -370 / -370 -2 / -2 Intake & Output: Intake & Output 10/23/17 10/23/17 10/23/17 05:59 13:59 21:59 Intake Total 2375 / 2375 680 / 680 Output Total 1050 / 1050 1050 / 1050 2 / 2 Balance 1325 / 1325 -370 / -370 -2 / -2 Intake: IV 1500 / 1500 Sodium Chloride 0.9% 1,000 ml @ 1000 / 1000 100 mls/hr IV .Q10H [facility] Rx#: [id number] Vancomycin 1,500 mg In Sodium 500 / 500 Chloride 0.9% 500 ml @ 333.3 mls/hr IV Q12H [facility] Rx#: [id number] Oral 875 / 875 680 / 680 Output: Urine Catheter Amount 1050 / 1050 1050 / 1050 # of times incontinent of urine 2 / 2 Other: Meal Lunch Percent of Meal Consumed 75% Feeding Ability Needs Supervision Stool Size Smear Small # of times incontinent of 1 Bowels Exam: Constitutional; Afebrile, cooperative, alert, not in distress. Morbidly obese individual Eyes- No icterus, , No periorbital swelling Ears- Ext ear normal, hearing normal to conversation. Neck- Midline trachea, supple Respiratory system: Air Entry equal on both sides, No crackles or wheezing, no rhonchi. CVS- Rate rhythm regular, S1,S2 heard, no gallop, no rub. Abdomen- Soft nontender abdomen, no organomegaly, no tenderness, no guarding or rigidity, VEIN PU[employer]ER- AOOx3, moving all extremities, no gross focal deficit noted. Medical - PN: Obj Da - Labs CBC & Chem 7: 10/23/17 04:38 10/23/17 04:38 Labs: Abnormal Lab Results 10/23/17 10/23/17 10/22/17 04:38 04:38 07:43 WBC 13.9 H RDW 14.7 H Lymph % (Auto) Gran # 9.8 H [place] # (Auto) Carbon Dioxide 20 L Anion Gap 17.0 H POC BUN POC Glucose Phosphorus 2.3 L Total Creatine Kinase Urine Protein Urine Ketones Ur Leukocyte Esterase Urine RBC Urine WBC 10/22/17 10/21/17 10/21/17 07:43 11:19 11:18 WBC 15.9 H 15.0 H RDW 14.7 H 14.9 H Lymph % (Auto) 15.2 L 12.7 L Gran # 11.9 H 11.6 H [place] # (Auto) 1.0 H 1.0 H Carbon Dioxide Anion Gap POC BUN 23 H POC Glucose 107 H Phosphorus Total Creatine Kinase 228 H Urine Protein Urine Ketones Ur Leukocyte Esterase Urine RBC Urine WBC 10/21/17 11:17 WBC RDW Lymph % (Auto) Gran # [place] # (Auto) Carbon Dioxide Anion Gap POC BUN POC Glucose Phosphorus Total Creatine Kinase Urine Protein 30 A Urine Ketones 20 A Ur Leukocyte Esterase 500 A Urine RBC 6 H Urine WBC > 182 H Meds: Medications Acetaminophen (Tylenol) 650 mg PO Q6HP PRN PRN Reason: PAIN/FEVER > 101 Amlodipine Besylate (Norvasc) 5 mg PO BID [facility] Last Admin: 10/23/17 09:48 Dose: 5 mg Buspirone HCl (Buspar) 15 mg PO BID [facility] Last Admin: 10/23/17 09:49 Dose: 15 mg Ceftriaxone Sodium (Rocephin) 2 gm IV Q12H [facility] Last Admin: 10/23/17 09:49 Dose: 2 gm Heparin Sodium (Porcine) (Heparin) 5,000 unit SQ Q12 [facility] Last Admin: 10/23/17 09:47 Dose: 5,000 unit Hydrochlorothiazide (Oretic) 25 mg PO QDAY [facility] Last Admin: 10/23/17 09:48 Dose: 25 mg Ketoconazole (Nizoral 2% Top Crm) 1 dose TOPICAL BID [facility] Last Admin: 10/23/17 10:55 Dose: Not Given [place] Carbonate (Eskalith Cr) 450 mg PO BID@0800,1700 [facility] Last Admin: 10/23/17 09:47 Dose: 450 mg Lorazepam (Ativan) 0.5 mg PO TIDP PRN PRN Reason: agitation Last Admin: 10/23/17 00:32 Dose: 0.5 mg Losartan Potassium (Cozaar) 100 mg PO DAILY [facility] Last Admin: 10/23/17 09:48 Dose: 100 mg Magnesium Hydroxide (Milk Of Magnesia) 30 ml PO DAILYP PRN PRN Reason: Constipation Meloxicam (Mobic) 7.5 mg PO DAILYP PRN PRN Reason: joint pain Metoprolol Tartrate (Lopressor) 50 mg PO BID [facility] Last Admin: 10/23/17 09:48 Dose: 50 mg Omeprazole (Prilosec) 20 mg PO ACB [facility] Last Admin: 10/23/17 07:35 Dose: 20 mg Ondansetron HCl (Zofran) 4 mg IV Q6HP PRN PRN Reason: Nausea And Vomiting Oxybutynin Chloride (Ditropan) 5 mg PO BID [facility] Last Admin: 10/23/17 09:48 Dose: 5 mg Clobetasol 0.05% (Scalp Solution) 1 dose TOPICAL DAILY [facility] Last Admin: 10/23/17 10:55 Dose: Not Given Clobetasol 0.05% (Scalp Solution) 1 dose TOPICAL [facility] PRN PRN Reason: Itching Silver Sulfadiazine (Silvadene) 1 dose TOPICAL QDAY [facility] Last Admin: 10/23/17 10:55 Dose: Not Given Sodium Chloride (Saline Flush) 10 ml IV Q8 [facility] Last Admin: 10/23/17 16:04 Dose: 10 ml Venlafaxine HCl (Effexor Xr) 150 mg PO DAILY [facility] Last Admin: 10/23/17 09:48 Dose: 150 mg Vitamin D (Vitamin D3) 4,000 unit PO DAILY [facility] Last Admin: 10/23/17 09:48 Dose: 4,000 unit Medical - PN: A/P - Time Spent With Patient Total time spent is greater than 50% in coordination of care (as documented) at patient's floor/unit and/or counseling patient: - Narrative A/P Narrative: A/P Urinary Tract Infection, enterococcus Encephalopathy, Related to UTI vs Medications- Obesity Enlarged lateral Ventricles Constipation Plan Continue to monitor Mental status seems to be back to baseline She does still fatigued and tired unable to do basic transfers Patient needs ongoing therapy will continue IV antibiotics Today's date to vancomycin, sensitivity reviewed patient patient's enterococcus is pansensitive start on ampicillin Will defer to outpatient physician for evaluation of enlarged ventricles unless acute change in mental condition, the patient's mental condition seems to have Continue home medications Patient had a documented bowel movement DVT hep sq Diet regular Full code. Medical - PN: Qual - VTE Deep Vein Thrombosis/Pulmonary Embolism Present on Admission: No
[2017-10-23] MEDS: SODIUM CHLORIDE 0.9% IV SCH (17:43)
[2017-10-23] MEDS: AMPICILLIN SODIUM IV SCH (17:43)
[2017-10-24] MEDS: AMPICILLIN SODIUM IV SCH ×3 (00:55→11:14)
[2017-10-24] MEDS: SODIUM CHLORIDE 0.9% IV SCH ×3 (00:55→11:14)
[2017-10-24 05:13] LABS: Basophils # (Auto) 0 K/mcL (0.0-0.3); Basophils % (Auto) 0.1 % (0.0-2.0); Eosinophils # (Auto) 0.5 K/mcL (0.0-0.7); Eosinophils % (Auto) 3.4 % (0.0-7.0); Lymphocytes # (Auto) 3.2 K/mcL (1.5-4.8); Lymphocytes % (Auto) 20.4 % (15.5-49.0); Mean Cell Volume 83.4 fL (80.0-100.0); Mean Corpuscular HGB Conc 33.1 g/dL (31.0-36.0); Mean Corpuscular Hemoglobin 27.6 pg (26.0-34.0); Monocytes # (Auto) 0.8 K/mcL (0.1-0.9); Monocytes % (Auto) 5.1 % (1.0-12.0); Platelet Count 290 K/mcL (140-440); RBC 5.22 M/mcL (4.50-5.90); Red Cell Distribution Width 14.8 % (11.5-14.5)
[2017-10-24 05:50] LABS: ALT/SGPT 24 U/l (0-40); Albumin 3.9 gm/dL (3.2-5.2); Albumin/Globulin Ratio 1.1 (1.0-2.3); Alkaline Phosphatase 86 U/L (39-117); Bilirubin,Direct < 0.2 mg/dL (0.0-0.3); Blood Urea Nitrogen 17 mg/dl (6-20); Gamma Glutamyl Transpeptidase 51 U/L (8-61); Uric Acid 6.4 mg/dL (2.5-8.0)
[2017-10-24] MEDS: 0.9 % SODIUM CHLORIDE 10 ML SYRINGE IV SCH ×3 (06:33→20:24)
[2017-10-24] MEDS: OMEPRAZOLE 20 MG CAPSULE PO SCH (08:29)
[2017-10-24] MEDS: busPIRone 15 MG TABLET PO SCH ×2 (10:33→20:22)
[2017-10-24] MEDS: LOSARTAN 50 MG TABLET PO SCH (10:33)
[2017-10-24] MEDS: VENLAFAXINE 150 MG CAP.XL.24H PO SCH (10:33)
[2017-10-24] MEDS: OXYBUTYNIN CHLORIDE 5 MG TABLET PO SCH ×2 (10:34→20:24)
[2017-10-24] MEDS: METOPROLOL TARTRATE 50 MG TABLET PO SCH ×2 (10:34→20:24)
[2017-10-24] MEDS: amLODIPine 5 MG TABLET PO SCH ×2 (10:35→20:24)
[2017-10-24] MEDS: HYDROCHLOROTHIAZIDE 25 MG TABLET PO SCH (10:35)
[2017-10-24] MEDS: VITAMIN D3 1,000 UNIT TABLET PO SCH (10:35)
[2017-10-24] MEDS: HEPARIN 5,000 UNIT/ML VIAL SQ SCH ×2 (10:36→20:24)
[2017-10-24] MEDS: cefTRIAXone 2 GM VIAL IV SCH ×2 (11:01→20:28)
[2017-10-24] MEDS: KETOCONAZOLE 2% TOP CRM 15GM TUBE TOPICAL SCH ×2 (11:27→20:25)
[2017-10-24] MEDS: SILVER SULFADIAZINE CREAM.TOP 25GM TOPICAL SCH (11:27)
[2017-10-24] MEDS: CLOBETASOL 0.05% TOPICAL SCH (11:27)
[2017-10-24] MEDS: LITHIUM CARBONATE 450 MG TAB.SR.12H PO SCH ×2 (11:30→20:21)
[2017-10-24] MEDS: ARIPIPRAZOLE 5 MG TABLET PO SCH ×2 (14:56→20:23)
[2017-10-24] MEDS: AMPICILLIN SODIUM 2 GM in 0.9 % SODIUM CHLORIDE 100 ML IV SCH (17:55)
[2017-10-24] MEDS: ARIPIPRAZOLE 2 MG TABLET PO SCH (20:22)
--- NOTE | 2017-10-24 20:56 | Internal Med Progress Note ---
Medical - PN: Subj Patient information: Note initiated : 10/24/17 at 8:56 pm Service Date, if different from initiated Date: [] Patient: Jorge Luis Castrejon a 42 y/o M admitted on 10/23/17 for N/V, Decreased LOC/ UTI. Chief Complaint: [] Interval history: Mr. Castrejon is a 42 year old Male with h/o cerebral palsy infantile type, presents to the emergency room with complaints of altered mental status. Patient's caregiver not available to provide the history, patient has history of cerebral palsy and not able to provide any meaningful history, history obtained from chart review. The patient was brought in with complaints of altered mental status was quite obtunded on presentation, according to the caregivers the patient does have a history of urinary tract infections and resents with altered mental status whenever he has an infection. The patient in the emergency room was quite obtunded according to the ED note needed chest rub to wake him up. He had a chest x-ray which was negative, head CT which showed bilaterally enlarged ventricles acutely not certain. EKG showed right bundle branch block but sinus rhythm, his labs showed leukocytosis with WBC count of 15,000, hemoglobin 13.7 platelets 260, INR 1.2, chemistry unremarkable Patient had an abnormal UA suggestive of UTI. Patient was given IV fluids and IV antibiotics and the patient's condition started to improve by the time of my evaluation the patient was awake and was able to follow some commands however was deemed to be too weak to be able to stand or ambulate The patient is therefore being admitted to the hospital for urinary tract infection and weakness october 22 Patient seen and examined no acute overnight event, pt much more awake this am, he notes he is still very tired and fatigued, feels weak not sure about his baseline status, but it seems he is wheel chair bound Urine culture is growing enterococcus, patient started on vancomycin till sensitivities come back wbc worse today, 15.9, but pt clinically stable Renal USG is negative. October 23 Patient seen examined, no acute overnight issues, Pt tolerating po diet well. Medical status is much better today. Patient still complains about weakness. WBC count is trending down. Patient is unable to transfers from bed to the wheelchair as he is used to. Patient will likely need to stay another day or 2 to improve his strength so that he can be discharged back to his home. Plan of care reviewed with the patient and his father October 24-patient doing well. However white count trending up. At 15.9. Patient remains unable to transfer from bed to chair. Ongoing physical therapy.no fever chills or concerns per staff.on antibiotic coverage for enterococci. continue existing treatment - Constitutional Vitals: Vital Signs Temp Pulse Resp BP Pulse Ox 98.2 F 86 24 H 167/77 94 10/24/17 20:00 10/24/17 20:00 10/24/17 20:00 10/24/17 20:00 10/24/17 20:00 Period Temp Pulse Resp BP Sys/Jung Pulse Ox Last 24 Hr 98.2 F-98.9 F 72-99 20-24 116-167/77-95 90-94 Intake and Output 10/24/17 10/24/17 10/24/17 05:59 13:59 21:59 Intake Total 450 / 450 300 / 300 1060 / 1060 Output Total 301 / 301 202 / 202 Balance 449 / 449 -1 / -1 858 / 858 Weight 260 lb Patient Weight 10/25/17 05:59 Weight 260 lb Intake & Output: Intake & Output 10/24/17 10/24/17 10/24/17 05:59 13:59 21:59 Intake Total 450 / 450 300 / 300 1060 / 1060 Output Total 301 / 301 202 / 202 Balance 449 / 449 -1 / -1 858 / 858 Weight 260 lb Intake: IV 50 / 50 100 / 100 100 / 100 Ampicillin 2 gm In Sodium 100 / 100 Chloride 0.9% 100 ml @ 100 mls/ hr IV Q6H [facility] Rx#:[id number] Ampicillin 2 gm In Sodium 50 / 50 100 / 100 Chloride 0.9% 50 ml @ 100 mls/ hr IV Q6H [facility] Rx#:[id number] Oral 400 / 400 200 / 200 960 / 960 Output: Void Amount 300 / 300 200 / 200 # of times incontinent of urine 1 / 2 / 2 Other: Meal Lunch Dinner Percent of Meal Consumed 50% 50% Feeding Ability Needs Supervision Independent Stool Size Smear Stool Color Brown Stool Consistency Soft # Bowel Movements 0 # of times incontinent of 1 Bowels General appearance: cooperative, no acute distress, obese Exam: nonlabored breathing Slow to respond no anxiety or agitation Medical - PN: Obj Da - Labs CBC & Chem 7: 10/24/17 03:56 10/24/17 03:56 Labs: Abnormal Lab Results 10/24/17 10/24/17 10/23/17 03:56 03:56 04:38 WBC 15.9 H RDW 14.8 H Lymph % (Auto) Gran # 11.3 H [place] # (Auto) Carbon Dioxide 21 L Anion Gap 18.0 H Phosphorus 2.3 L Lactate Dehydrogenase 252 H 10/23/17 10/22/17 10/22/17 04:38 07:43 07:43 WBC 13.9 H 15.9 H RDW 14.7 H 14.7 H Lymph % (Auto) 15.2 L Gran # 9.8 H 11.9 H [place] # (Auto) 1.0 H Carbon Dioxide 20 L Anion Gap 17.0 H Phosphorus Lactate Dehydrogenase Meds: Medications Acetaminophen (Tylenol) 650 mg PO Q6HP PRN PRN Reason: PAIN/FEVER > 101 Amlodipine Besylate (Norvasc) 5 mg PO BID [facility] Last Admin: 10/24/17 20:24 Dose: 5 mg Buspirone HCl (Buspar) 15 mg PO BID [facility] Last Admin: 10/24/17 20:22 Dose: 15 mg Ceftriaxone Sodium (Rocephin) 2 gm IV Q12H [facility] Last Admin: 10/24/17 20:28 Dose: 2 gm Heparin Sodium (Porcine) (Heparin) 5,000 unit SQ Q12 [facility] Last Admin: 10/24/17 20:24 Dose: 5,000 unit Hydrochlorothiazide (Oretic) 25 mg PO QDAY [facility] Last Admin: 10/24/17 10:35 Dose: 25 mg Ampicillin Sodium 2 gm/ Sodium (Chloride) 100 mls @ 100 mls/hr IV Q6H [facility] Last Infusion: 10/24/17 19:01 Dose: Infused Ketoconazole (Nizoral 2% Top Crm) 1 dose TOPICAL BID [facility] Last Admin: 10/24/17 20:25 Dose: Not Given [place] Carbonate (Eskalith Cr) 450 mg PO BID@0800,1700 [facility] Last Admin: 10/24/17 20:21 Dose: 450 mg Lorazepam (Ativan) 0.5 mg PO TIDP PRN PRN Reason: agitation Last Admin: 10/23/17 00:32 Dose: 0.5 mg Losartan Potassium (Cozaar) 100 mg PO DAILY [facility] Last Admin: 10/24/17 10:33 Dose: 100 mg Magnesium Hydroxide (Milk Of Magnesia) 30 ml PO DAILYP PRN PRN Reason: Constipation Meloxicam (Mobic) 7.5 mg PO DAILYP PRN PRN Reason: joint pain Metoprolol Tartrate (Lopressor) 50 mg PO BID [facility] Last Admin: 10/24/17 20:24 Dose: 50 mg Omeprazole (Prilosec) 20 mg PO ACB [facility] Last Admin: 10/24/17 08:29 Dose: 20 mg Ondansetron HCl (Zofran) 4 mg IV Q6HP PRN PRN Reason: Nausea And Vomiting Oxybutynin Chloride (Ditropan) 5 mg PO BID [facility] Last Admin: 10/24/17 20:24 Dose: 5 mg Clobetasol 0.05% (Scalp Solution) 1 dose TOPICAL DAILY [facility] Last Admin: 10/24/17 11:27 Dose: Not Given Clobetasol 0.05% (Scalp Solution) 1 dose TOPICAL HSP PRN PRN Reason: Itching Aripiprazole 2 Mg (Tablet) 2 dose PO HS [facility] Last Admin: 10/24/17 20:22 Dose: 2 dose Silver Sulfadiazine (Silvadene) 1 dose TOPICAL QDAY [facility] Last Admin: 10/24/17 11:27 Dose: Not Given Sodium Chloride (Saline Flush) 10 ml IV Q8 [facility] Last Admin: 10/24/17 20:24 Dose: 10 ml Venlafaxine HCl (Effexor Xr) 150 mg PO DAILY [facility] Last Admin: 10/24/17 10:33 Dose: 150 mg Vitamin D (Vitamin D3) 4,000 unit PO DAILY [facility] Last Admin: 10/24/17 10:35 Dose: 4,000 unit Medical - PN: A/P - Time Spent With Patient Total time spent is greater than 50% in coordination of care (as documented) at patient's floor/unit and/or counseling patient: 15 - 24 minutes - Narrative A/P Narrative: A/P Urinary Tract Infection, enterococcus-On IV ampicillin Encephalopathy, Related to UTI vs Medications-clinically improving Obesity Enlarged lateral Ventricles Constipation Plan continue IV antibiotics Physical therapy Will defer to outpatient physician for evaluation of enlarged ventricles unless acute change in mental condition, the patient's mental condition seems to have Continue home medications DVT hep sq Diet regular Full code. Medical - PN: Qual - VTE Deep Vein Thrombosis/Pulmonary Embolism Present on Admission: No
[2017-10-25] MEDS: AMPICILLIN SODIUM 2 GM in 0.9 % SODIUM CHLORIDE 100 ML IV SCH ×4 (00:09→17:56)
[2017-10-25 05:47] LABS: Basophils # (Auto) 0 K/mcL (0.0-0.3); Basophils % (Auto) 0.3 % (0.0-2.0); Eosinophils # (Auto) 0.6 K/mcL (0.0-0.7); Eosinophils % (Auto) 4.5 % (0.0-7.0); Granulocytes % (Auto) 67.3 % (38.0-78.0); Lymphocytes % (Auto) 21.5 % (15.5-49.0); Mean Cell Volume 83.2 fL (80.0-100.0); Mean Corpuscular Hemoglobin 27.5 pg (26.0-34.0); Monocytes # (Auto) 0.9 K/mcL (0.1-0.9); Monocytes % (Auto) 6.4 % (1.0-12.0); Platelet Count 286 K/mcL (140-440); RBC 5.24 M/mcL (4.50-5.90); Red Cell Distribution Width 14.6 % (11.5-14.5)
[2017-10-25] MEDS: 0.9 % SODIUM CHLORIDE 10 ML SYRINGE IV SCH ×3 (05:56→20:13)
[2017-10-25 06:09] LABS: ALT/SGPT 34 U/l (0-40); Albumin 4.1 gm/dL (3.2-5.2); Albumin/Globulin Ratio 1.4 (1.0-2.3); Alkaline Phosphatase 79 U/L (39-117); Bilirubin,Direct < 0.2 mg/dL (0.0-0.3); Blood Urea Nitrogen 19 mg/dl (6-20); Gamma Glutamyl Transpeptidase 50 U/L (8-61); Uric Acid 6.8 mg/dL (2.5-8.0)
[2017-10-25] MEDS: OMEPRAZOLE 20 MG CAPSULE PO SCH (08:00)
[2017-10-25] MEDS: OXYBUTYNIN CHLORIDE 5 MG TABLET PO SCH ×2 (09:35→20:13)
[2017-10-25] MEDS: METOPROLOL TARTRATE 50 MG TABLET PO SCH ×2 (09:35→20:13)
[2017-10-25] MEDS: VENLAFAXINE 150 MG CAP.XL.24H PO SCH (09:35)
[2017-10-25] MEDS: HYDROCHLOROTHIAZIDE 25 MG TABLET PO SCH (09:35)
[2017-10-25] MEDS: LOSARTAN 50 MG TABLET PO SCH (09:35)
[2017-10-25] MEDS: VITAMIN D3 1,000 UNIT TABLET PO SCH (09:36)
[2017-10-25] MEDS: amLODIPine 5 MG TABLET PO SCH ×2 (09:36→20:14)
[2017-10-25] MEDS: busPIRone 15 MG TABLET PO SCH ×2 (09:36→20:14)
[2017-10-25] MEDS: LITHIUM CARBONATE 450 MG TAB.SR.12H PO SCH ×2 (09:36→18:04)
[2017-10-25] MEDS: HEPARIN 5,000 UNIT/ML VIAL SQ SCH ×2 (09:36→20:14)
[2017-10-25] MEDS: SILVER SULFADIAZINE CREAM.TOP 25GM TOPICAL SCH (09:37)
[2017-10-25] MEDS: CLOBETASOL 0.05% TOPICAL SCH (09:37)
[2017-10-25] MEDS: KETOCONAZOLE 2% TOP CRM 15GM TUBE TOPICAL SCH ×2 (09:37→20:15)
[2017-10-25] MEDS ORDERED: POTASSIUM CHLORIDE 20 MEQ TABLET PO ONE (10:11)
--- NOTE | 2017-10-25 10:49 | Internal Med Progress Note ---
Medical - PN: Subj Patient information: Note initiated : 10/25/17 at 10:46 am Service Date, if different from initiated Date: [] Patient: Jorge Luis Castrejon a 42 y/o M admitted on 10/23/17 for N/V, Decreased LOC/ UTI. Chief Complaint: [] Interval history: Mr. Castrejon is a 42 year old Male with h/o cerebral palsy infantile type, presents to the emergency room with complaints of altered mental status. Patient's caregiver not available to provide the history, patient has history of cerebral palsy and not able to provide any meaningful history, history obtained from chart review. The patient was brought in with complaints of altered mental status was quite obtunded on presentation, according to the caregivers the patient does have a history of urinary tract infections and resents with altered mental status whenever he has an infection. The patient in the emergency room was quite obtunded according to the ED note needed chest rub to wake him up. He had a chest x-ray which was negative, head CT which showed bilaterally enlarged ventricles acutely not certain. EKG showed right bundle branch block but sinus rhythm, his labs showed leukocytosis with WBC count of 15,000, hemoglobin 13.7 platelets 260, INR 1.2, chemistry unremarkable Patient had an abnormal UA suggestive of UTI. Patient was given IV fluids and IV antibiotics and the patient's condition started to improve by the time of my evaluation the patient was awake and was able to follow some commands however was deemed to be too weak to be able to stand or ambulate The patient is therefore being admitted to the hospital for urinary tract infection and weakness october 22 Patient seen and examined no acute overnight event, pt much more awake this am, he notes he is still very tired and fatigued, feels weak not sure about his baseline status, but it seems he is wheel chair bound Urine culture is growing enterococcus, patient started on vancomycin till sensitivities come back wbc worse today, 15.9, but pt clinically stable Renal USG is negative. October 23 Patient seen examined, no acute overnight issues, Pt tolerating po diet well. Medical status is much better today. Patient still complains about weakness. WBC count is trending down. Patient is unable to transfers from bed to the wheelchair as he is used to. Patient will likely need to stay another day or 2 to improve his strength so that he can be discharged back to his home. Plan of care reviewed with the patient and his father October 24-patient doing well. However white count trending up. At 15.9. Patient remains unable to transfer from bed to chair. Ongoing physical therapy.no fever chills or concerns per staff.on antibiotic coverage for enterococci. continue existing treatment October 25-patient doing well. Sitting on chair eating breakfast. Persistent lethargy but able to get out of bed to chair. Ongoing physical therapy. No overnight fever chills. White count downtrending from 15.6-14.5. No fever chills nausea vomiting or concerns per staff. On IV ampicillin. - Constitutional Vitals: Vital Signs Temp Pulse Resp BP Pulse Ox 97.7 F 77 16 176/76 93 10/25/17 07:51 10/25/17 07:51 10/25/17 07:51 10/25/17 07:51 10/25/17 07:51 Period Temp Pulse Resp BP Sys/Jung Pulse Ox Last 24 Hr 97.7 F-98.9 F 68-99 16-24 120-176/72-95 91-94 Intake and Output 10/24/17 10/25/17 10/25/17 21:59 05:59 13:59 Intake Total 1060 / 1060 500 / 500 Output Total Balance 858 / 858 499 / 499 Weight 258 lb Intake & Output: Intake & Output 10/24/17 10/25/17 10/25/17 21:59 05:59 13:59 Intake Total 1060 / 1060 500 / 500 Output Total Balance 858 / 858 499 / 499 Weight 258 lb Intake: IV 100 / 100 100 / 100 Ampicillin 2 gm In Sodium 100 / 100 100 / 100 Chloride 0.9% 100 ml @ 100 mls/ hr IV Q6H [facility] Rx#:[id number] Oral 960 / 960 400 / 400 Output: Void Amount 200 / 200 # of times incontinent of urine 2 / 2 Other: Meal Dinner Percent of Meal Consumed 50% Feeding Ability Independent # Bowel Movements 0 General appearance: cooperative, morbidly obese, no acute distress Exam: lethargic but responding to commands. NOn labor breathing nondistended abdomen no anxiety Medical - PN: Obj Da - Labs CBC & Chem 7: 10/25/17 04:10 10/25/17 04:10 Labs: Abnormal Lab Results 10/25/17 10/24/17 10/24/17 04:10 03:56 03:56 WBC 14.2 H 15.9 H RDW 14.6 H 14.8 H Gran # 9.5 H 11.3 H Carbon Dioxide 21 L Anion Gap 18.0 H Phosphorus Lactate Dehydrogenase 252 H 10/23/17 10/23/17 04:38 04:38 WBC 13.9 H RDW 14.7 H Gran # 9.8 H Carbon Dioxide Anion Gap Phosphorus 2.3 L Lactate Dehydrogenase Meds: Medications Acetaminophen (Tylenol) 650 mg PO Q6HP PRN PRN Reason: PAIN/FEVER > 101 Amlodipine Besylate (Norvasc) 5 mg PO BID [facility] Last Admin: 10/25/17 09:36 Dose: 5 mg Buspirone HCl (Buspar) 15 mg PO BID [facility] Last Admin: 10/25/17 09:36 Dose: 15 mg Heparin Sodium (Porcine) (Heparin) 5,000 unit SQ Q12 [facility] Last Admin: 10/25/17 09:36 Dose: 5,000 unit Hydrochlorothiazide (Oretic) 25 mg PO QDAY [facility] Last Admin: 10/25/17 09:35 Dose: 25 mg Ampicillin Sodium 2 gm/ Sodium (Chloride) 100 mls @ 100 mls/hr IV Q6H [facility] Last Admin: 10/25/17 05:57 Dose: 100 mls/hr Ketoconazole (Nizoral 2% Top Crm) 1 dose TOPICAL BID [facility] Last Admin: 10/25/17 09:37 Dose: Not Given [place] Carbonate (Eskalith Cr) 450 mg PO BID@0800,1700 [facility] Last Admin: 10/25/17 09:36 Dose: 450 mg Lorazepam (Ativan) 0.5 mg PO TIDP PRN PRN Reason: agitation Last Admin: 10/23/17 00:32 Dose: 0.5 mg Losartan Potassium (Cozaar) 100 mg PO DAILY [facility] Last Admin: 10/25/17 09:35 Dose: 100 mg Magnesium Hydroxide (Milk Of Magnesia) 30 ml PO DAILYP PRN PRN Reason: Constipation Meloxicam (Mobic) 7.5 mg PO DAILYP PRN PRN Reason: joint pain Metoprolol Tartrate (Lopressor) 50 mg PO BID [facility] Last Admin: 03/20/18 09:35 Dose: 50 mg Omeprazole (Prilosec) 20 mg PO ACB [facility] Last Admin: 10/25/17 08:00 Dose: 20 mg Ondansetron HCl (Zofran) 4 mg IV Q6HP PRN PRN Reason: Nausea And Vomiting Oxybutynin Chloride (Ditropan) 5 mg PO BID [facility] Last Admin: 10/25/17 09:35 Dose: 5 mg Clobetasol 0.05% (Scalp Solution) 1 dose TOPICAL DAILY [facility] Last Admin: 10/25/17 09:37 Dose: Not Given Clobetasol 0.05% (Scalp Solution) 1 dose TOPICAL HSP PRN PRN Reason: Itching Aripiprazole 2 Mg (Tablet) 2 dose PO HS [facility] Last Admin: 10/24/17 20:22 Dose: 2 dose Silver Sulfadiazine (Silvadene) 1 dose TOPICAL QDAY [facility] Last Admin: 10/25/17 09:37 Dose: Not Given Sodium Chloride (Saline Flush) 10 ml IV Q8 [facility] Last Admin: 10/25/17 05:56 Dose: 10 ml Venlafaxine HCl (Effexor Xr) 150 mg PO DAILY [facility] Last Admin: 10/25/17 09:35 Dose: 150 mg Vitamin D (Vitamin D3) 4,000 unit PO DAILY [facility] Last Admin: 10/25/17 09:36 Dose: 4,000 unit Medical - PN: A/P - Time Spent With Patient Total time spent is greater than 50% in coordination of care (as documented) at patient's floor/unit and/or counseling patient: 15 - 24 minutes - Narrative A/P Narrative: A/P * complicated enterococcal UTIU- continue IV ampicillin.downtrending white count from 15-14,500 * Toxic Encephalopathy secondary to UTI vs Medications-clinically improving * Obesity * Enlarged lateral Ventricles * Constipation Plan continue IV antibioticsand transition to oral ampicillin on discharge Physical therapy Will defer to outpatient physician for evaluation of enlarged ventricles unless acute change in mental condition, the patient's mental condition seems to have Continue home medications DVT hep sq Diet regular Full code. Medical - PN: Qual - VTE Deep Vein Thrombosis/Pulmonary Embolism Present on Admission: No
[2017-10-25] MEDS: ARIPIPRAZOLE 2 MG TABLET PO SCH (20:14)
[2017-10-25] MEDS: LORazepam 0.5 MG TABLET PO PRN (20:14)
[2017-10-25] MEDS: ARIPIPRAZOLE 5 MG TABLET PO SCH (20:15)
[2017-10-26] MEDS: AMPICILLIN SODIUM 2 GM in 0.9 % SODIUM CHLORIDE 100 ML IV SCH ×2 (01:00→06:23)
[2017-10-26 05:55] LABS: Basophils # (Auto) 0 K/mcL (0.0-0.3); Basophils % (Auto) 0.3 % (0.0-2.0); Eosinophils # (Auto) 0.6 K/mcL (0.0-0.7); Eosinophils % (Auto) 4.5 % (0.0-7.0); Granulocytes % (Auto) 66.2 % (38.0-78.0); Lymphocytes # (Auto) 3.2 K/mcL (1.5-4.8); Lymphocytes % (Auto) 23.6 % (15.5-49.0); Mean Corpuscular Hemoglobin 27.4 pg (26.0-34.0); Monocytes # (Auto) 0.7 K/mcL (0.1-0.9); Monocytes % (Auto) 5.4 % (1.0-12.0); Platelet Count 275 K/mcL (140-440); RBC 5.09 M/mcL (4.50-5.90); Red Cell Distribution Width 14.8 % (11.5-14.5)
[2017-10-26] MEDS: 0.9 % SODIUM CHLORIDE 10 ML SYRINGE IV SCH (06:23)
[2017-10-26 06:44] LABS: ALT/SGPT 40 U/l (0-40); Albumin 3.9 gm/dL (3.2-5.2); Albumin/Globulin Ratio 1.3 (1.0-2.3); Alkaline Phosphatase 78 U/L (39-117); Bilirubin,Direct < 0.2 mg/dL (0.0-0.3); Blood Urea Nitrogen 18 mg/dl (6-20); Gamma Glutamyl Transpeptidase 48 U/L (8-61); Uric Acid 6.5 mg/dL (2.5-8.0)
[2017-10-26] MEDS: OMEPRAZOLE 20 MG CAPSULE PO SCH (07:52)
[2017-10-26] MEDS: LOSARTAN 50 MG TABLET PO SCH (09:28)
[2017-10-26] MEDS: VITAMIN D3 1,000 UNIT TABLET PO SCH (09:28)
[2017-10-26] MEDS: OXYBUTYNIN CHLORIDE 5 MG TABLET PO SCH (09:29)
[2017-10-26] MEDS: amLODIPine 5 MG TABLET PO SCH (09:29)
[2017-10-26] MEDS: LITHIUM CARBONATE 450 MG TAB.SR.12H PO SCH (09:29)
[2017-10-26] MEDS: METOPROLOL TARTRATE 50 MG TABLET PO SCH (09:29)
[2017-10-26] MEDS: HYDROCHLOROTHIAZIDE 25 MG TABLET PO SCH (09:29)
[2017-10-26] MEDS: VENLAFAXINE 150 MG CAP.XL.24H PO SCH (09:29)
[2017-10-26] MEDS: HEPARIN 5,000 UNIT/ML VIAL SQ SCH (09:29)
[2017-10-26] MEDS: busPIRone 15 MG TABLET PO SCH (09:29)
[2017-10-26] MEDS: KETOCONAZOLE 2% TOP CRM 15GM TUBE TOPICAL SCH (09:30)
[2017-10-26] MEDS: SILVER SULFADIAZINE CREAM.TOP 25GM TOPICAL SCH (09:30)
[2017-10-26] MEDS: CLOBETASOL 0.05% TOPICAL SCH (09:30)
--- NOTE | 2017-10-26 10:51 | Discharge Summary ---
Medical - DS: Prov Patient information: Note initiated : 10/26/17 at 10:49 am Service Date, if different from initiated Date: [] Patient: Jorge Luis Castrejon 42 y/o M admitted on 10/23/17 for N/V, Decreased LOC/ UTI. Chief Complaint: [] Date of admission: 10/23/17 09:25 Discharge date: 10/26/17 Primary care physician: Nick Jones Consults: 10/21/17 12:30 Consult to Physician [CONS] Stat Comment: Consulting Provider: Mandeep Parks Reason For Exam: Physician to Consult Medical - DS: Meds - Discharge Medications Prescriptions: Ampicillin Trihydrate 500 mg PO Q6 #32 cap Active and Home Medications: Home Medications venlafaxine ER 150 mg tablet,extended release 24 hr 150 mg PO QAM 06/12/15 [ History Confirmed 10/21/17 Last Taken Unknown] ketoconazole 2 % shampoo 1 applic TOPICAL Q2W #120 ml 04/27/16 [Rx Confirmed Last Taken Unknown] ketoconazole 2 % topical cream 1 applic TOPICAL BID 14 Days #60 g 08/06/16 [Rx Confirmed 10/21/17 Last Taken Unknown] buspirone 15 mg tablet 15 mg PO BID 12/15/16 [History Confirmed 10/21/17 Last Taken Unknown] lithium carbonate ER 450 mg tablet,extended release 450 mg PO BID tab 12/15/16 [History Confirmed 10/21/17 Last Taken Unknown] lorazepam 0.5 mg tablet 0.5 mg PO TID PRN tab 12/30/16 [History Confirmed 10/21 Last Taken Unknown] silver sulfadiazine 1 % topical cream 1 applic TOPICAL QDAY 14 Days #25 g [Rx Confirmed 10/21/17 Last Taken Unknown] meloxicam 7.5 mg tablet 7.5 mg PO QDAY PRN 30 Days #30 tab 04/12/17 [Rx Confirmed 10/21/17 Last Taken Unknown] clobetasol 0.05 % scalp solution 1 applic TOPICAL .COMPLEX PRN #50 ml 07/14/17 [ Rx Confirmed 10/21/17 Last Taken Unknown] nystatin 100,000 unit/gram topical powder 1 applic TOPICAL .COMPLEX #60 each 02/21 [Rx Confirmed 10/21/17 Last Taken Unknown] amlodipine 10 mg tablet 5 mg PO BID 30 Days #30 tab 07/22/17 [Rx Confirmed 10/21 Last Taken Unknown] hydrochlorothiazide 25 mg tablet 25 mg PO QDAY #30 tab 09/28/17 [Rx Confirmed Last Taken Unknown] losartan 100 mg tablet 100 mg PO QDAY #30 tab 09/28/17 [Rx Confirmed 10/21/17 Last Taken Unknown] omeprazole 20 mg capsule,delayed release 20 mg PO QDAY #30 cap 09/28/17 [Rx Confirmed 10/21/17 Last Taken Unknown] oxybutynin chloride 5 mg tablet 5 mg PO BID #60 tab 09/28/17 [Rx Confirmed 10/21 Last Taken Unknown] carbamide peroxide 6.5 % ear drops 3 drp OTIC .COMPLEX #30 ml 10/04/17 [Rx Confirmed 10/21/17 Last Taken Unknown] Acetaminophen [Non-Aspirin] 325 mg PO Q4HP PRN 10/21/17 [History Confirmed 10/21 Last Taken Unknown] Aripiprazole [Abilify] 9 mg PO HS 10/21/17 [History Confirmed 10/24/17 Last Taken Unknown] Hydrochlorothiazide [Oretic] 25 mg PO DAILY 10/21/17 [History Confirmed Last Taken Unknown] cholecalciferol (vitamin D3) 4,000 unit capsule 4,000 unit PO QDAY #30 cap 10/21 [Rx Confirmed 10/21/17 Last Taken Unknown] metoprolol tartrate 50 mg tablet 50 mg PO BID #60 tab 10/21/17 [Rx Confirmed Last Taken Unknown] Ampicillin Trihydrate 500 mg PO Q6 #32 cap 10/26/17 [Rx Last Taken Unknown] Medical - DS: Hosp Hospital course: DISCHARGE DIAGNOSES * complicated enterococcal UTI- continue oral ampicillin for additional 4 days.patient to be stable. Discharge to SNF * Toxic Encephalopathy secondary to UTI vs Medications-daily back to baseline * Obesity * Constipation [facility] Mr. Castrejon is a 42 year old Male with h/o cerebral palsy infantile type, presents to the emergency room with complaints of altered mental status. Patient's caregiver not available to provide the history, patient has history of cerebral palsy and not able to provide any meaningful history, history obtained from chart review. The patient was brought in with complaints of altered mental status was quite obtunded on presentation, according to the caregivers the patient does have a history of urinary tract infections and resents with altered mental status whenever he has an infection. The patient in the emergency room was quite obtunded according to the ED note needed chest rub to wake him up. He had a chest x-ray which was negative, head CT which showed bilaterally enlarged ventricles acutely not certain. EKG showed right bundle branch block but sinus rhythm, his labs showed leukocytosis with WBC count of 15,000, hemoglobin 13.7 platelets 260, INR 1.2, chemistry unremarkable Patient had an abnormal UA suggestive of UTI. Patient was given IV fluids and IV antibiotics and the patient's condition started to improve by the time of my evaluation the patient was awake and was able to follow some commands however was deemed to be too weak to be able to stand or ambulate The patient is therefore being admitted to the hospital for urinary tract infection and weakness october 22 Patient seen and examined no acute overnight event, pt much more awake this am, he notes he is still very tired and fatigued, feels weak not sure about his baseline status, but it seems he is wheel chair bound Urine culture is growing enterococcus, patient started on vancomycin till sensitivities come back wbc worse today, 15.9, but pt clinically stable Renal USG is negative. October 23 Patient seen examined, no acute overnight issues, Pt tolerating po diet well. Medical status is much better today. Patient still complains about weakness. WBC count is trending down. Patient is unable to transfers from bed to the wheelchair as he is used to. Patient will likely need to stay another day or 2 to improve his strength so that he can be discharged back to his home. Plan of care reviewed with the patient and his father October 24-patient doing well. However white count trending up. At 15.9. Patient remains unable to transfer from bed to chair. Ongoing physical therapy.no fever chills or concerns per staff.on antibiotic coverage for enterococci. continue existing treatment October 25-patient doing well. Sitting on chair eating breakfast. Persistent lethargy but able to get out of bed to chair. Ongoing physical therapy. No overnight fever chills. White count downtrending from 15.6-14.5. No fever chills nausea vomiting or concerns per staff. On IV ampicillin. October 26- patient doing well. Ongoing physical therapy. on oral diet. Sitting on chair. Able to transfer from bed to chair. No overnight fever chills concerns per staff. Transferring to SNF. Detailed instructions and recommendations below Discharge diagnosis: . - Time Spent with Patient Total time spent providing and/or coordinating discharge services: Greater than 30 minutes Medical - DS: Exam - Constitutional Vitals: Vital Signs Temp Pulse Resp BP BP Pulse Ox 10/26/17 07:42 97.7 F 66 18 132/79 93 10/26/17 06:48 69 16 93 10/26/17 06:45 93 10/26/17 04:00 97.7 F 68 18 129/82 93 10/25/17 23:56 98.1 F 64 18 128/78 93 10/25/17 23:55 93 10/25/17 20:00 97.5 F 81 18 164/77 92 10/25/17 16:00 98.9 F 75 16 123/75 94 10/25/17 12:00 95 10/25/17 11:38 98.3 F 80 16 143/89 95 Intake and Output 10/25/17 10/26/17 10/26/17 21:59 05:59 13:59 Intake Total 1180 / 1180 400 / 400 600 / 600 Output Total 205 / 205 2 / 2 Balance 975 / 975 398 / 398 600 / 600 Intake: IV 100 / 100 100 / 100 100 / 100 Ampicillin 2 gm In Sodium 100 / 100 100 / 100 100 / 100 Chloride 0.9% 100 ml @ 100 mls/ hr IV Q6H [facility] Rx#:[id number] Oral 1080 / 1080 300 / 300 500 / 500 Output: Void Amount 200 / 200 # of times incontinent of urine 5 / 5 2 / 2 Other: Meal Nourishment/Supplement Breakfast Percent of Meal Consumed 100% 75% Feeding Ability Assist with Tray Set Up Assist with Tray Set Up Weight 258 lb 8 oz Medical - DS: Data Labs on day of discharge: Labs from last 24 hours 10/26/17 10/26/17 04:10 04:10 WBC 13.7 H RBC 5.09 Hgb 14.0 Hct 42.3 MCV 83.0 MCH 27.4 MCHC 33.0 RDW 14.8 H Plt Count 275 MPV 7.5 Gran % 66.2 Lymph % (Auto) 23.6 Jasper % (Auto) 5.4 Eos % (Auto) 4.5 Baso % (Auto) 0.3 Gran # 9.0 H Lymph # (Auto) 3.2 Jasper # (Auto) 0.7 Eos # (Auto) 0.6 Baso # (Auto) 0 Sodium 141 Potassium 3.7 Chloride 105 Carbon Dioxide 23 Anion Gap 13.0 BUN 18 Creatinine 0.8 GFR Calculation 111 Glucose 85 Uric Acid 6.5 Calcium 9.3 Phosphorus 3.2 Magnesium 2.3 Total Bilirubin 0.3 Direct Bilirubin < 0.2 GGT 48 AST 20 ALT 40 Alkaline Phosphatase 78 Lactate Dehydrogenase 186 Total Protein 6.8 Albumin 3.9 Globulin 2.9 Albumin/Globulin Ratio 1.3 Triglycerides 118 Preliminary micro results at discharge 10/21/17 11:34 Blood Culture - Preliminary Blood 10/21/17 11:43 Blood Culture - Preliminary Blood Medical - DS: A/P - Patient/Caregiver Discharge Instructions Activity: as per physical therapy Diet: Regular Diet Additional Instructions: Follow-up PCP in 5 days I recommend SNF physician to check CBC BMP UA as a posthospital follow-up in 1 week. Antibiotics for additional 4 days oral [id number] every 6 hours Continue aggressive bowel regimen to prevent constipation Continue fall precautions Continue aggressive PT OT evaluation and treatment at [facility]. ST eval and treatment if indicated All meals on chair sitting upright at 90 degrees to prevent aspiration Return to ER if worsening fever chills shortness of breath, diarrhea, bleeding Review risk and side effect profile of medications including antibiotics. Side effect may include mild to severe reaction including rash, diarrhea, cdiff and even which can be prevented by close follow-up with PCP and monitoring for side effects Continue diet and activity as advised please encourage hydration Discussed importance of medication adherence Please review medication list with patient prior to discharge Please schedule follow-up with PCP/Providers prior to discharge and provide printouts Portions of this chart may have been created with [employer] voice recognition software. Occasional wrong-word or ?sound-like? substitutions may have occurred due to the inherent limitations of voice recognition software. Please read the chart carefully and recognize, using context, where the substitutions have occurred. CC- PCP Prescriptions: Ampicillin Trihydrate 500 mg PO Q6 #32 cap - Follow up Plan Follow up with: Nick Jones MD [Primary Care Provider] - Disposition: [facility] Prognosis: Serious Rehab Potential: Fair I certify that the patient requires SNF services: Yes Overall status at discharge: patient is back to baseline Medical - DS: Qual - VTE Deep Vein Thrombosis/Pulmonary Embolism Present on Admission: No
== END 2017-10-26 11:40 | DRG 689 ==
LOC: ED 10:51 → MEDSUR 10:51
PROVIDERS: ADMIT Internal Medicine; ATTEND Internal Medicine

== ENCOUNTER 2020-07-23 06:24 | Inpatient (IN) ==
--- NOTE | 2020-07-17 14:00 | XRay Report ---
INDICATION: Pre-Op TECHNIQUE: PA and lateral upright chest x-ray COMPARISON: Previous chest x-rays dated 06/18/2020, 10/21/2017, 08/09/2016 FINDINGS: Lungs: Lungs are negative. No focal pulmonary parenchymal infiltrate or mass Heart, vascular: No significant cardiomegaly. Pulmonary vascularity is normal. No pulmonary edema or pulmonary congestion Mediastinum, lucy: No mediastinal widening. No hilar mass Pleura:No pleural fluid. No pleural-based mass or calcification Thoracic spine, ribs: No thoracic compression fracture. Ribs are negative. No fracture. No lytic lesion IMPRESSION: 1. No acute abnormality 2. No significant interval change Interpreted and Authenticated by: Brent Eldridge 07/17/20
[2020-07-17 15:42] LABS: Basophils # (Auto) 0.05 K/mcL (0.00-0.20); Basophils % (Auto) 0.4 % (0.0-2.0); Eosinophils # (Auto) 0.44 K/mcL (0.00-0.70); Eosinophils % (Auto) 3.5 % (0.0-7.0); Hematocrit 40.7 % (41.0-55.0); Hemoglobin 13.2 g/dL (13.5-16.5); Lymphocytes # (Auto) 2.81 K/mcL (1.50-4.80); Lymphocytes % (Auto) 22.6 % (15.0-49.0); Mean Corpuscular HGB Conc 32.4 g/dL (31.0-36.0); Mean Platelet Volume 9.2 fL (7.4-10.4); Monocytes # (Auto) 0.78 K/mcL (0.10-0.90); Monocytes % (Auto) 6.3 % (1.0-12.0); Neutrophils % (Auto) 67.2 % (38.0-78.0); Platelet Count 244 K/mcL (140-440); RBC 4.79 M/mcL (4.50-5.90); Red Cell Distribution Width 14.6 % (11.5-14.5); WBC 12.4 K/mcL (4.5-11.0)
[2020-07-17 16:09] LABS: INR 0.8 (0.9-1.1); Partial Thromboplastin Time 31.2 sec (20.0-37.0); Prothrombin Time 11.7 sec (11.9-14.5)
[2020-07-17 16:33] LABS: ALT/SGPT 63 U/L (<40); AST/SGOT 29 U/L (<40); Albumin 4.1 gm/dL (3.2-5.2); Albumin/Globulin Ratio 1.3 (1.0-2.3); Alkaline Phosphatase 139 U/L (39-117); Bilirubin,Total 0.5 mg/dL (0.1-1.0); Blood Urea Nitrogen 12 mg/dL (6-20); Calcium 10.4 mg/dL (8.6-10.4); Carbon Dioxide 26 mmol/L (22-30); Chloride 103 mmol/L (96-108); Globulin 3.2 gm/dL (2.2-3.7); Glomerular Filtration Rate 91; Glucose 83 mg/dL (70-105)
[~2020-07-23 06:24] MED LIST: ceFAZolin 3 GM in DEXTROSE 5% IN WATER 50 ML IV SCH
[2020-07-23] MEDS ORDERED: ONDANSETRON 4 MG/2 ML VIAL ONE (07:34)
[2020-07-23] MEDS ORDERED: fentaNYL 100 MCG/2 ML VIAL IV ONE (07:34)
[2020-07-23] MEDS ORDERED: KETAMINE 100 MG/ML ML ONE (07:34)
[2020-07-23] MEDS ORDERED: MIDAZOLAM 2 MG/2 ML VIAL ONE (07:34)
[2020-07-23] MEDS ORDERED: PROPOFOL 200 MG/20 ML VIAL IV ONE (07:34)
[2020-07-23] MEDS ORDERED: LIDOCAINE HCL/PF 100 MG/5 ML SYRINGE IV ONE (07:34)
[2020-07-23] MEDS ORDERED: ROCURONIUM 10 MG/ML ML IV ONE (07:34)
[2020-07-23] MEDS ORDERED: GLYCOPYRROLATE 0.2 MG/ML VIAL IV ONE (07:34)
[2020-07-23] MEDS ORDERED: PHENYLEPHRINE 10 MG/ML VIAL ONE (07:34)
[2020-07-23] MEDS ORDERED: DEXAMETHASONE 10 MG/ML VIAL ONE (07:34)
[2020-07-23] MEDS ORDERED: SUGAMMADEX SODIUM 200 MG/2 ML VIAL IV ONE (07:34)
[2020-07-23] MEDS ORDERED: ACETAMINOPHEN 1,000 MG/100 ML BAG IV ONE (08:34)
[2020-07-23] MEDS ORDERED: MEPERIDINE 50 MG/ML INJECTION IM PRN (08:34)
[2020-07-23] MEDS ORDERED: diphenhydrAMINE 50 MG/ML VIAL IV PRN (08:34)
[2020-07-23] MEDS ORDERED: BENZOCAINE/MENTHOL 1 LOZENGE PO PRN (08:34)
[2020-07-23] MEDS ORDERED: fentaNYL 100 MCG/2 ML VIAL IV PRN (08:34)
[2020-07-23] MEDS ORDERED: MEPERIDINE 25 MG/ML SYRINGE IV PRN (08:34)
[2020-07-23] MEDS ORDERED: KETOROLAC 30 MG/ML VIAL IV PRN (08:34)
[2020-07-23] MEDS ORDERED: IPRATROPIUM/ALBUTEROL 3 ML AMPUL.NEB NEB PRN (08:34)
[2020-07-23] MEDS ORDERED: PROMETHAZINE 25 MG/ML VIAL IV PRN ×2 (08:34→09:59)
[2020-07-23] MEDS ORDERED: PROMETHAZINE 25 MG/ML VIAL IM PRN (08:34)
[2020-07-23] MEDS ORDERED: ONDANSETRON 4 MG/2 ML VIAL IV PRN ×2 (08:34→09:59)
[2020-07-23] MEDS ORDERED: LACTATED RINGERS 1,000 ML IV SCH (08:45)
--- NOTE | 2020-07-23 09:53 | Brief Operative Note ---
Brief Operative Note Date of procedure: 07/23/20 Pre-op diagnosis: ACUTE AND CHRONIC CHOLECYSTITIS Post-op diagnosis: other (ACUTE AND CHRONIC CHOLECYSTITIS) Procedure: LAPAROSCOPIC CHOLECYSTECTOMY Grafts/Implants: No (SYLVIA DRAIN X1) Anesthesia: GETA Findings: SEVERE ACUTE AND CHRONIC INFLAMMATION WITH PUS AND WALL NECROSIS GALLBLADDER FILLED WITH STONES OF VARIABLE SIZE Complications: none Surgeon: Araceli Knight Estimated blood loss (cc): 30 Specimens Removed/Pathology: other (GALLBLADDER AND STONES) Condition: stable Disposition: PACU
[2020-07-23] MEDS ORDERED: 0.9 % SODIUM CHLORIDE 1,000 ML IV SCH (10:00)
[2020-07-23] MEDS: oxyCODONE HCL 5 MG TABLET PO PRN ×3 (14:09→23:11)
[2020-07-23] MEDS: 0.9 % SODIUM CHLORIDE 10 ML SYRINGE IV SCH ×2 (14:10→22:59)
[2020-07-23] MEDS ORDERED: cefTRIAXone 1 GM VIAL IV SCH (15:00)
[2020-07-23] MEDS: ACETAMINOPHEN 1,000 MG/100 ML BAG IV SCH ×2 (15:52→22:46)
[2020-07-23] MEDS: PANTOPRAZOLE 40 MG TABLET PO SCH (16:11)
[2020-07-24] MEDS: ACETAMINOPHEN 1,000 MG/100 ML BAG IV SCH ×2 (04:47→10:57)
[2020-07-24] MEDS: oxyCODONE HCL 5 MG TABLET PO PRN ×2 (04:59→10:24)
[2020-07-24] MEDS: 0.9 % SODIUM CHLORIDE 10 ML SYRINGE IV SCH ×3 (06:32→21:50)
[2020-07-24 06:57] LABS: Basophils # (Auto) 0.02 K/mcL (0.00-0.20); Basophils % (Auto) 0.1 % (0.0-2.0); Eosinophils # (Auto) 0.01 K/mcL (0.00-0.70); Eosinophils % (Auto) 0 % (0.0-7.0); Hematocrit 36.7 % (41.0-55.0); Hemoglobin 11.7 g/dL (13.5-16.5); Lymphocytes # (Auto) 1.79 K/mcL (1.50-4.80); Lymphocytes % (Auto) 8.2 % (15.0-49.0); Mean Cell Volume 85.9 fL (80.0-100.0); Mean Corpuscular HGB Conc 31.9 g/dL (31.0-36.0); Mean Platelet Volume 9.2 fL (7.4-10.4); Monocytes # (Auto) 1.77 K/mcL (0.10-0.90); Monocytes % (Auto) 8.1 % (1.0-12.0); Neutrophils % (Auto) 83.6 % (38.0-78.0); Platelet Count 257 K/mcL (140-440); RBC 4.27 M/mcL (4.50-5.90); Red Cell Distribution Width 14.8 % (11.5-14.5); WBC 21.9 K/mcL (4.5-11.0)
[2020-07-24 07:44] LABS: ALT/SGPT 26 U/L (<40); AST/SGOT 17 U/L (<40); Albumin 3.7 gm/dL (3.2-5.2); Albumin/Globulin Ratio 1.3 (1.0-2.3); Alkaline Phosphatase 109 U/L (39-117); Bilirubin,Direct < 0.2 mg/dL (<0.3); Bilirubin,Total 0.7 mg/dL (0.1-1.0); Blood Urea Nitrogen 12 mg/dL (6-20); Calcium 10.1 mg/dL (8.6-10.4); Carbon Dioxide 24 mmol/L (22-30); Chloride 101 mmol/L (96-108); Globulin 2.9 gm/dL (2.2-3.7); Glomerular Filtration Rate 73; Glucose 114 mg/dL (70-105); Lactate Dehydrogenase 150 U/L (135-225); Phosphorous 3.7 mg/dL (2.5-4.5); Triglycerides 59 mg/dL (<150); Uric Acid 8.1 mg/dL (2.5-8.0)
[2020-07-24] MEDS: PANTOPRAZOLE 40 MG TABLET PO SCH ×2 (07:50→16:50)
[2020-07-24] MEDS: PIPERACILLIN SODIUM/TAZOBACTAM 3.375 GM in DEXTROSE 5% IN WATER 50 ML IV SCH ×3 (10:21→20:00)
[2020-07-24] MEDS: MAGNESIUM HYDROXIDE 30 ML ORAL.SUSP PO SCH ×4 (10:27→21:50)
[2020-07-24] MEDS: METOCLOPRAMIDE 10 MG/2 ML VIAL IV SCH ×2 (11:51→20:00)
--- NOTE | 2020-07-24 14:28 | XRay Report ---
CLINICAL INFORMATION: hypoxia COMPARISON: 07/17/2020 FINDINGS: The heart is mildly large but stable. There is mild stable mediastinal widening. Pulmonary vessels are normal. Small infiltrate is developing in the left base. No effusion IMPRESSION: Small left basilar infiltrate Interpreted and Authenticated by: Brent Prabhakar 07/24/20
--- NOTE | 2020-07-24 14:41 | General Surgery Progress Note ---
SUBJECTIVE Subjective Patient information: Note initiated : 07/24/20 at 2:40 pm Service Date, if different from initiated Date: [] Patient: Jorge Luis Castrejon 45 y/o M admitted on 07/24/20 for Laparoscopic Cholecystectomy. Chief Complaint: [] Principal diagnosis: postoperative cholecystectomy Interval history: patient is clinically stable but he's had low-grade temperatures and his weight blood count is elevated to 21,000. Liver panel is normal with normal LFTs and bilirubin. Hemoglobin 11.7, hematocrit 36.7; chest x-ray shows bilateral basilar atelectasis with poor inspiratory effort which is probably the reason for his mild hypoxemia. His MABLE drain has bilious drainage which suggest either a duct of Luschka leak or failed transection of the cystic duct with the automatic stapler. This was explained to the patient. He will need to have been ERCP if Dr. Arreola can perform it tomorrow. Constitutional Vitals: Vital Signs Temp Pulse Resp BP Pulse Ox 99.5 F H 106 H 20 130/70 92 07/24/20 13:35 07/24/20 13:35 07/24/20 13:35 07/24/20 13:35 07/24/20 14:34 Period Temp Pulse Resp BP Sys/Jung Pulse Ox Last 24 Hr 98.3 F-99.5 F 89-106 20-20 120-158/70-104 90-98 Intake and Output 07/24/20 07/24/20 07/24/20 05:59 13:59 21:59 Intake Total 790 250 Output Total 445 275 Balance 345 -25 Intake & Output: Intake & Output 07/24/20 07/24/20 07/24/20 05:59 13:59 21:59 Intake Total 790 250 Output Total 445 275 Balance 345 -25 Intake: IV 100 250 Zosyn 3.375 gm In Dextrose 5% 50 in Water 50 ml @ 100 mls/hr IV Q6H [facility] Rx#:[id number] Oral 690 Output: Drainage 145 Abdomen 145 Void Amount 300 275 Other: Urine Appearance Clear Clear Urine Color Dark Yellow Bright Yellow Neck Neck exam: Present full ROM; Absent lymphadenopathy Respiratory Respiratory exam: Present normal respiratory exam Additional comments: poor inspiratory effort but no evidence of wheezes or rhonchi. Cardiovascular Cardiovascular exam: Present RRR, +S1 and +S2; Absent JVD and tachycardia GI/Abdominal GI/Abdominal exam: Present normal bowel sounds, soft and distended Additional comments: port sites areunremarkable but there is bilious drainage via his MABLE Extremities Exam Extremities exam: Present full ROM, normal inspection and neurovascular intact Neurological Exam Neurological exam: Present alert and oriented X3 Psychiatric Psychiatric exam: Present flat affect Skin Skin exam: Present normal color A/P Assessment and plan (1) Cholelithiasis and acute cholecystitis without obstruction: Status: Acute (2) Postprocedural leakage from bile duct: Status: Acute (3) Hypoventilation associated with obesity syndrome: Status: Acute Narrative A/P Narrative: chest x-ray single view Reglan every 6 hours Milk of magnesia 4 doses. Discontinue Rocephin and start Zosyn for antibiotic coverage. Supplemental O2 as needed. Discuss possibility of ERCP with Dr. Arreola Time Spent With Patient Time: Total time spent is greater than 50% in coordination of care (as documented) at patient's floor/unit and/or counseling patient:
--- NOTE | 2020-07-24 15:32 | Surgical Pathology Report ---
Histology Microscopic Diagnosis Specimen A- GALLBLADDER, CHOLECYSTECTOMY: -- ACUTE/CHRONIC CHOLECYSTITIS WITH CHOLELITHIASIS AND GRANULATION TISSUE. (RLF:sln) Procedural Impression Cholelithiasis; cholecystitis. Gross Description Received in formalin labeled gallbladder, is a disrupted purple-brothers gallbladder measuring 6.3 x 2.7 x 1.3 cm. The duct is stapled. There are multiple yellow stones within the duct up to 0.5 cm in aggregate. Additionally there are multiple stones from less than 0.1 to 2.6 cm. The mucosa is dusky cervantes-brown. The wall is up to 0.5 cm thick. [employer]per sections are submitted in two cassettes with the factory representative sections of the duct and gallbladder neck in A1 and additional sections in A2. (SCB:adj) Electronically Signed Sera Thomas MD, FCAP Electronically Signed 07/24/2020 3:31 PM
[2020-07-24] MEDS ORDERED: NITROGLYCERIN 0.6 MG/HR PATCH TD ONE (16:19)
[2020-07-24] MEDS ORDERED: INDOMETHACIN 25 MG CAPSULE PO ONE (16:22)
--- NOTE | 2020-07-24 16:56 | Internal Medicine Consult Note ---
HPI Data of Consult Primary Care Provider: Nick Jones MD Consult Narrative Patient Information: Note initiated : 07/24/20 at 4:50 pm Service Date, if different from initiated Date: [] Patient: Jorge Luis Castrejon 45 y/o M admitted on 07/24/20 for Laparoscopic Cholecystectomy. Chief Complaint: [bile leak] 45 year old white male with cerebral palsy who presented with acute gangrenous cholecystitis and underwent laparoscopic cholecystectomy. He had persisting abdominal pain and started leaking bile from his MABLE. GI is consulted for ERCP with biliary stent placement to treat bile leak. cc:: CC: Araceli Knight MD [facility] PFS All Active Problems Hypoventilation associated with obesity syndrome (Acute) Postprocedural leakage from bile duct (Acute) Cholelithiasis and acute cholecystitis without obstruction (Acute) Cholelithiasis and cholecystitis with obstruction (Acute) Salmonella enteritis (Acute) Diarrhea (Acute) Bowel incontinence (Acute) Seborrheic dermatitis (Acute) Depression (Acute) Generalized anxiety disorder (Acute) Bipolar disorder with psychotic features (Acute) Urinary incontinence (Chronic) Cerebral palsy (Acute) Altered mental status (Acute) Hyperglycemia (Acute) Vitamin D deficiency (Chronic) Gastroesophageal reflux disease (Chronic) Osteoarthritis (Chronic) Hx of Achilles tendon repair (Acute) Obsessive compulsive disorder (Chronic) Obesity (Chronic) Hypertension, essential (Chronic) Legal blindness (Chronic) Bipolar disorder (Chronic) Medical History Acute conjunctivitis, bilateral (Inactive) Altered level of consciousness (Resolved) With other behavior changes and anorexia Bilateral impacted cerumen (Inactive) Bipolar disorder (Chronic) Cerebral palsy (Acute) Conjunctivitis (Resolved) On Ophthalmic Erythromycin ointment for five more days Dehydration (Inactive) Dehydration, moderate (Resolved) Gastroenteritis (Resolved) Gastroesophageal reflux disease (Chronic) Hypertension, essential (Chronic) Hypokalemia (Resolved) Possibly secondary to diuretic use Legal blindness (Chronic) Metabolic acidosis (Resolved) Anion gap metabolic acidosis, possibly secondary to starvation (Lactic acid level is normal at 0.83) Obesity (Chronic) Obsessive compulsive disorder (Chronic) Osteoarthritis (Chronic) With chronic use of anti-inflammatories Salmonella enteritis (Acute) Seborrheic dermatitis (Acute) Toxic encephalopathy (Resolved) Secondary to infection Urinary incontinence (Chronic) Urinary tract infection (Resolved) Partially treated UTI (urinary tract infection) (Resolved) Vitamin D deficiency (Chronic) Now on replacement therapy Volume depletion (Resolved) Volume depletion secondary to infection without renal injury at this time Surgical History Hx of Achilles tendon repair (Acute) bilateral hamstring and achelles tendon releases Family History mother Anxiety disorder, Onset Age: 55 none listed Atherosclerosis of coronary artery father Essential hypertension, Onset Age: 57 Social History education level: high school smoking status: Former smoker alcohol intake frequency: does not drink substance use type: does not use MEDS/ALLERGIES Home Medications and Allergies Home Medications Medication Instructions Recorded Confirmed Type Core Spun Compression Garments (to 1 dose .ROUTE .MEDSUPPLY 09/15/18 07/23/20 History below knees) Wheelchair 1 each .ROUTE DAILY 09/15/18 07/23/20 History Funnel for top of plastic urinal #1 ea 04/25/19 07/23/20 Rx nystatin 100,000 unit/gram topical 1 applic TOPICAL .COMPLEX #60 each 05/09/19 07/23/20 Rx powder Depends (Adult Underwear) #1 each 08/14/19 07/23/20 Rx Powder Free Nitrile gloves #1 ea 08/14/19 07/23/20 Rx Surgical masks #1 each 08/14/19 07/23/20 Rx bedisde commode #1 ea 08/14/19 07/23/20 Rx castile towelettes #1 ea 08/14/19 07/23/20 Rx acetaminophen 325 mg tablet 325 mg PO Q4HP PRN #100 tab 08/23/19 07/23/20 Rx carbamide peroxide 6.5 % ear drops 3 drp OTIC .COMPLEX #30 ml 08/23/19 07/23/20 Rx benzocaine 20 %-menthol 0.1 %-zinc 1 each MUCOUS MEM QID PRN #5.1 g 02/13/20 07/23/20 Rx chloride 0.15 % mucosal gel cholecalciferol (vitamin D3) 50 4,000 unit PO QDAY 90 Days #180 cap 02/15/20 07/23/20 Rx mcg (2,000 unit) capsule venlafaxine 150 mg 150 mg PO QAM #30 cap 02/20/20 07/23/20 Rx capsule,extended release 24 hr zinc oxide 13 % topical cream See Rx Instructions TOPICAL 5XD 04/16/20 07/23/20 Rx PRN #454 g losartan 100 mg tablet 100 mg PO QDAY #30 tab 04/23/20 07/23/20 Rx ketoconazole 2 % shampoo 1 applic TOPICAL .COMPLEX #120 ml 05/01/20 07/23/20 Rx lithium carbonate 450 mg 900 mg PO QHS #62 tab 05/14/20 07/23/20 Rx tablet,extended release amlodipine 10 mg tablet 5 mg PO BID #90 tab 05/20/20 07/23/20 Rx metoprolol tartrate 50 mg tablet 50 mg PO BID #180 tab 05/20/20 07/23/20 Rx omeprazole 20 mg capsule,delayed 20 mg PO QDAY #90 cap 05/20/20 07/23/20 Rx release cranberry fruit concentrate 450 mg 450 mg PO BID #180 tab 06/18/20 07/23/20 Rx tablet ondansetron 4 mg PO Q6H PRN #10 tab 06/18/20 07/23/20 Rx D-MANNOSE 500 MG CAPS 500 Capsule 1 cap PO DAILY 07/18/20 07/23/20 History aripiprazole [Abilify] 10 mg PO QHS 07/18/20 07/23/20 History ketoconazole 1 applic TOPICAL BID PRN 07/18/20 07/23/20 History lorazepam [Ativan] 0.5 mg PO QDAY PRN 07/18/20 07/23/20 History meloxicam [Mobic] 7.5 mg PO QDAY PRN 07/18/20 07/23/20 History venlafaxine 75 mg PO QAM 07/18/20 07/23/20 History Allergies Allergy/AdvReac Type Severity Reaction Status Date / Time No Known Drug Allergies Allergy Verified 07/23/20 06:29 EXAM Constitutional Vitals: Temp Pulse Resp BP Pulse Ox 99.5 F H 106 H 20 130/70 92 07/24/20 13:35 07/24/20 13:35 07/24/20 13:35 07/24/20 13:35 07/24/20 14:34 Head Head exam: Present atraumatic, normal inspection and normocephalic Eye Additional comments: legally blind Neck Neck exam: Present normal inspection and thyromegaly; Absent lymphadenopathy Respiratory Respiratory exam: Present normal respiratory exam and CTAB; Absent accessory muscle use GI/Abdominal GI/Abdominal exam: Present normal bowel sounds, hernia and tenderness; Absent organomegaly Additional comments: MABLE draining bile, erythema over umbilicus Psychiatric Psychiatric exam: Present normal affect and normal mood Skin Additional comments: erythema over umbilicus DATA Data Completed and Pending Labs: Labs from last 24 hours 07/24/20 07/24/20 05:43 05:43 WBC 21.9 H RBC 4.27 L Hgb 11.7 L Hct 36.7 L MCV 85.9 MCH 27.4 MCHC 31.9 RDW 14.8 H Plt Count 257 MPV 9.2 Neut % (Auto) 83.6 H Lymph % (Auto) 8.2 L [place] % (Auto) 8.1 Eos % (Auto) 0 Baso % (Auto) 0.1 Lymph # (Auto) 1.79 [place] # (Auto) 1.77 H Eos # (Auto) 0.01 Baso # (Auto) 0.02 Absolute Neutrophils 18.33 H Sodium 139 Potassium 3.9 Chloride 101 Carbon Dioxide 24 Anion Gap 14.0 BUN 12 Creatinine 1.2 GFR Calculation 73 Glucose 114 H Uric Acid 8.1 H Calcium 10.1 Phosphorus 3.7 Magnesium 1.9 Total Bilirubin 0.7 Direct Bilirubin < 0.2 GGT 104 H AST 17 ALT 26 Alkaline Phosphatase 109 Lactate Dehydrogenase 150 Total Protein 6.6 Albumin 3.7 Globulin 2.9 Albumin/Globulin Ratio 1.3 Triglycerides 59 Preliminary micro results at discharge 07/23/20 08:18 Anaerobic Culture - Preliminary Gallbladder 07/23/20 08:19 Gram Stain - Preliminary Gallbladder Body Fluid Culture - Preliminary A/P Narrative A/P Narrative: Bile leak: We will arrange for ERCP this afternoon with Dr. Arreola. The patient asked I call his father and stepmother, Navi and Анна Castrejon. I explained the purpose of the procedure including the need for biliary stent removal in several weeks and potential risks/complications of bleeding, perforation, infection or pancreatitis. He will be given nitro patch and oral indocin prior to ERCP. Time Spent With Patient Time: Total time spent is greater than 50% in coordination of care (as documented) at patient's floor/unit and/or counseling patient: Total time spent with greater than 50% in coordination of care (as documented) at patient's floor/unit and/or counseling patient:: 15 - 24 minutes
[2020-07-24] MEDS ORDERED: ROCURONIUM 10 MG/ML ML IV ONE (17:04)
[2020-07-24] MEDS ORDERED: fentaNYL 100 MCG/2 ML VIAL IV ONE (17:04)
[2020-07-24] MEDS ORDERED: DEXAMETHASONE 10 MG/ML VIAL ONE (17:04)
[2020-07-24] MEDS ORDERED: SUGAMMADEX SODIUM 200 MG/2 ML VIAL IV ONE (17:04)
[2020-07-24] MEDS ORDERED: ONDANSETRON 4 MG/2 ML VIAL ONE (17:04)
[2020-07-24] MEDS ORDERED: KETAMINE 100 MG/ML ML ONE (17:04)
[2020-07-24] MEDS ORDERED: LIDOCAINE HCL/PF 100 MG/5 ML SYRINGE IV ONE (17:04)
[2020-07-24] MEDS ORDERED: PROPOFOL 200 MG/20 ML VIAL IV ONE (17:04)
[2020-07-24] MEDS ORDERED: GLYCOPYRROLATE 0.2 MG/ML VIAL IV ONE (17:04)
[2020-07-24] MEDS ORDERED: GLUCAGON,HUMAN RECOMBINANT 1 MG VIAL IV PRN (17:12)
[2020-07-24] MEDS ORDERED: GENTAMICIN SULFATE 80 MG/2 ML VIAL IR ONE (17:50)
[2020-07-24] MEDS ORDERED: IOPAMIDOL 50 ML BOTTLE IJ ONE (18:38)
[2020-07-24] MEDS ORDERED: ONDANSETRON 4 MG/2 ML VIAL IV PRN (18:42)
[2020-07-24] MEDS ORDERED: BENZOCAINE/MENTHOL 1 LOZENGE PO PRN (18:42)
[2020-07-24] MEDS ORDERED: IPRATROPIUM/ALBUTEROL 3 ML AMPUL.NEB NEB PRN (18:42)
[2020-07-24] MEDS ORDERED: fentaNYL 100 MCG/2 ML VIAL IV PRN (18:42)
[2020-07-24] MEDS ORDERED: METHOCARBAMOL 1,000 MG/10 ML VIAL IV PRN (18:42)
[2020-07-24] MEDS ORDERED: LACTATED RINGERS 1,000 ML IV SCH (18:45)
[2020-07-24] MEDS ORDERED: METOPROLOL TARTRATE 5 MG/5 ML VIAL IV ONE ×2 (18:56→19:04)
[2020-07-24] MEDS: LACTATED RINGERS 1,000 ML IV SCH (20:00)
[2020-07-25] MEDS: PIPERACILLIN SODIUM/TAZOBACTAM 3.375 GM in DEXTROSE 5% IN WATER 50 ML IV SCH ×5 (00:17→23:51)
[2020-07-25] MEDS: METOCLOPRAMIDE 10 MG/2 ML VIAL IV SCH ×5 (00:18→23:51)
[2020-07-25] MEDS: LACTATED RINGERS 1,000 ML IV SCH ×4 (01:18→17:45)
[2020-07-25] MEDS: 0.9 % SODIUM CHLORIDE 10 ML SYRINGE IV SCH ×3 (06:58→20:57)
--- NOTE | 2020-07-25 08:17 | ERCP Procedure Note ---
ERCP Procedure Note Procedure Information Patient information: Note initiated : 07/25/20 at 8:13 am Service Date: 07/24/20 Patient: Jorge Luis Castrejon 45 y/o M admitted on 07/24/20 for Laparoscopic Cholecystectomy. Bile leak. Pre-op diagnosis general: Bile leak. Post-op diagnosis general: Bile leak. Procedure: ERCP with Stent Placement Procedure narrative: The procedures, alternatives and risks were discussed with the patient and the patient's questions were answered. With endoscopist-administered intravenous sedation, the Olympus side viewing operating duodenoscope was introduced into the esophagus and advanced to the second part of the duodenum without difficulty. The ampulla of Vater was identified and the pancreatic duct was cannulated. A pancreatic stent was placed . A precut papillotomy was performed. I could not identify the bile leak due to the quailty of the fluorsocopy and patient's supine positioning. The bile duct was cannulated and a 10 x 7fr biliary stent was placed. The scope was withdrawn. Assessment: Bile leak. He will require ERCP again in 3-4 weeks for stent removal.
[2020-07-25 09:30] LABS: ALT/SGPT 19 U/L (<40); AST/SGOT 12 U/L (<40); Albumin 3.9 gm/dL (3.2-5.2); Albumin/Globulin Ratio 1.3 (1.0-2.3); Alkaline Phosphatase 105 U/L (39-117); Bilirubin,Direct < 0.2 mg/dL (<0.3); Bilirubin,Total 0.8 mg/dL (0.1-1.0); Blood Urea Nitrogen 12 mg/dL (6-20); Calcium 10.3 mg/dL (8.6-10.4); Carbon Dioxide 25 mmol/L (22-30); Chloride 103 mmol/L (96-108); Globulin 2.9 gm/dL (2.2-3.7); Glomerular Filtration Rate 66; Glucose 135 mg/dL (70-105); Lactate Dehydrogenase 156 U/L (135-225); Phosphorous 2.6 mg/dL (2.5-4.5); Triglycerides 67 mg/dL (<150)
[2020-07-25] MEDS: PANTOPRAZOLE 40 MG TABLET PO SCH ×3 (09:55→17:45)
[2020-07-25 13:28] LABS: Basophils # (Auto) 0.03 K/mcL (0.00-0.20); Basophils % (Auto) 0.1 % (0.0-2.0); Eosinophils # (Auto) 0 K/mcL (0.00-0.70); Eosinophils % (Auto) 0 % (0.0-7.0); Hematocrit 36.6 % (41.0-55.0); Hemoglobin 11.5 g/dL (13.5-16.5); Lymphocytes # (Auto) 1.72 K/mcL (1.50-4.80); Lymphocytes % (Auto) 8.1 % (15.0-49.0); Mean Cell Volume 88.4 fL (80.0-100.0); Mean Corpuscular HGB Conc 31.4 g/dL (31.0-36.0); Mean Platelet Volume 9.3 fL (7.4-10.4); Monocytes # (Auto) 1.21 K/mcL (0.10-0.90); Monocytes % (Auto) 5.7 % (1.0-12.0); Neutrophils % (Auto) 86.1 % (38.0-78.0); Platelet Count 285 K/mcL (140-440); RBC 4.14 M/mcL (4.50-5.90); Red Cell Distribution Width 15.1 % (11.5-14.5); WBC 21.4 K/mcL (4.5-11.0)
--- NOTE | 2020-07-25 16:01 | General Surgery Progress Note ---
SUBJECTIVE Subjective Patient information: Note initiated : 07/25/20 at 3:56 pm Service Date, if different from initiated Date: [] Patient: Jorge Luis Castrejon 45 y/o M admitted on 07/24/20 for Laparoscopic Cholecystectomy. Chief Complaint: [] Principal diagnosis: postoperative cholecystectomy Interval history: patient is significantly improved. He is not having any respiratory difficulty. His white blood count is down to 12.4 AND HIS LIVER PANEL is normal. Drainage from his MABLE is very thin and has significantly decreased in volume. Patient's pain is controlled and he is oxygenating well. Arrangements have been made for him to be discharged to the nursing care facility and if he remains stable he can be discharged tomorrow. Constitutional Vitals: Vital Signs Temp Pulse Resp BP Pulse Ox 98.8 F 115 H 22 158/84 91 07/25/20 13:00 07/25/20 13:00 07/25/20 13:00 07/25/20 13:00 07/25/20 13:00 Period Temp Pulse Resp BP Sys/Jung Pulse Ox Last 24 Hr 97.1 F-99.9 F 83-118 15-28 123-201/79-106 78-96 Intake and Output 07/25/20 07/25/20 07/25/20 05:59 13:59 21:59 Intake Total 819 50 Output Total 453 Balance 366 50 Intake & Output: Intake & Output 07/25/20 07/25/20 07/25/20 05:59 13:59 21:59 Intake Total 819 50 Output Total 453 Balance 366 50 Intake: IV 819 50 Lactated Ringers 1,000 ml @ 125 769 mls/hr IV .Q8H [facility] Rx#: [id number] Zosyn 3.375 gm In Dextrose 5% 50 50 in Water 50 ml @ 100 mls/hr IV Q6H [facility] Rx#:[id number] Output: Drainage 30 Abdomen 30 Void Amount 420 # of times incontinent of urine 3 Head Head exam: Present atraumatic, normal inspection and normocephalic Eye Eye exam: Present EOMI; Absent scleral icterus Pupils: Present PERRL ENT ENT exam: Present normal exam and normal oropharynx Neck Neck exam: Present full ROM; Absent tenderness Respiratory Respiratory exam: Present rhonchi (hypoventilation with decreased breath sounds at bases; no wheezes noted) Cardiovascular Cardiovascular exam: Present RRR, +S1 and +S2; Absent JVD and tachycardia GI/Abdominal GI/Abdominal exam: Present normal bowel sounds, soft and distended Additional comments: port sites are unremarkable but there is decreased bilious drainage via his MABLE Extremities Exam Extremities exam: Present full ROM, normal inspection and neurovascular intact Psychiatric Psychiatric exam: Present flat affect A/P Assessment and plan (1) Cholelithiasis and acute cholecystitis without obstruction: Status: Acute (2) Postprocedural leakage from bile duct: Status: Acute (3) Hypoventilation associated with obesity syndrome: Status: Acute (4) Generalized anxiety disorder: Status: Acute (5) Cerebral palsy: Status: Acute Qualifiers: Cerebral palsy type: unspecified type Qualified Code(s): G80.9 - Cerebral palsy, unspecified (6) Legal blindness: Status: Chronic Narrative A/P Narrative: patient is clinically stable and can probably be [facility]. I will follow him up in the office in 2 weeks. Time Spent With Patient Time: Total time spent is greater than 50% in coordination of care (as documented) at patient's floor/unit and/or counseling patient:
[2020-07-25] MEDS: oxyCODONE HCL 5 MG TABLET PO PRN (23:51)
[2020-07-26] MEDS: PIPERACILLIN SODIUM/TAZOBACTAM 3.375 GM in DEXTROSE 5% IN WATER 50 ML IV SCH ×4 (05:28→23:41)
[2020-07-26] MEDS: METOCLOPRAMIDE 10 MG/2 ML VIAL IV SCH ×4 (05:28→23:40)
[2020-07-26] MEDS: 0.9 % SODIUM CHLORIDE 10 ML SYRINGE IV SCH ×3 (05:29→20:57)
[2020-07-26 06:33] LABS: Basophils # (Auto) 0.03 K/mcL (0.00-0.20); Basophils % (Auto) 0.2 % (0.0-2.0); Eosinophils # (Auto) 0.46 K/mcL (0.00-0.70); Eosinophils % (Auto) 3.2 % (0.0-7.0); Hematocrit 35.2 % (41.0-55.0); Hemoglobin 10.9 g/dL (13.5-16.5); Lymphocytes # (Auto) 3.14 K/mcL (1.50-4.80); Lymphocytes % (Auto) 21.9 % (15.0-49.0); Mean Cell Volume 88.4 fL (80.0-100.0); Neutrophils % (Auto) 67.7 % (38.0-78.0); Platelet Count 249 K/mcL (140-440); RBC 3.98 M/mcL (4.50-5.90); Red Cell Distribution Width 14.8 % (11.5-14.5); WBC 14.4 K/mcL (4.5-11.0)
[2020-07-26] MEDS: PANTOPRAZOLE 40 MG TABLET PO SCH ×2 (08:52→16:59)
--- NOTE | 2020-07-26 09:41 | General Surgery Progress Note ---
SUBJECTIVE Subjective Patient information: Note initiated : 07/26/20 at 9:24 am Service Date, if different from initiated Date: [] Patient: Jorge Luis Castrejon 45 y/o M admitted on 07/25/20 for Laparoscopic Cholecystectomy. Feeling well, minimal abdominal pain, hungery Has yet to mobilize since surgery CP in wheel chair Principal diagnosis: postoperative cholecystectomy Constitutional Vitals: Looks well sitting up eating breakfast Speach clear, making needs known abd rotund, soft, wounds CDI, umbilical hernia nontender Drain in place with serosang output, no bile, much reduced output after ERCP Vital Signs Temp Pulse Resp BP Pulse Ox 36.3 C 73 18 153/95 94 07/26/20 08:00 07/26/20 08:00 07/26/20 08:00 07/26/20 08:00 07/26/20 08:00 Period Temp Pulse Resp BP Sys/Jung Pulse Ox Last 24 Hr 36.3 C-37.1 C 63-115 18-22 120-158/77-95 91-94 Intake and Output 07/25/20 07/26/20 07/26/20 21:59 05:59 13:59 Intake Total 850 850 50 Output Total 42 Balance 850 808 50 Weight 108.771 kg Intake & Output: Intake & Output 07/25/20 07/26/20 07/26/20 21:59 05:59 13:59 Intake Total 850 850 50 Output Total 42 Balance 850 808 50 Weight 108.771 kg Intake: IV 850 50 50 Lactated Ringers 1,000 ml @ 125 800 mls/hr IV .Q8H [facility] Rx#: [id number] Zosyn 3.375 gm In Dextrose 5% 50 50 50 in Water 50 ml @ 100 mls/hr IV Q6H [facility] Rx#:[id number] Oral 800 Output: Drainage 40 Abdomen 40 # of times incontinent of urine 2 Other: Urine Appearance Clear Urine Color Bright Yellow Urine Odor Normal A/P Assessment and plan (1) Cholelithiasis and acute cholecystitis without obstruction: Status: Acute Comment: 45 yo man with BMI of 37 POD3 s/p lap mel for acute gangrenous cholecystitis with post op bile leak. Has surgical drain in place s/p ERCP wed. Now doing well. Plan: WBC falling will stop Pip/tax tomorrow Mobilize with PT today Lives in home with roommate, with cognative challanges plan to keep over weekend and discharge on tuesday. will likely remove drain upon discharge SQ heparin for DVT proph OK for general diet Royer Murray MD - Surgery Time Spent With Patient Time: Total time spent is greater than 50% in coordination of care (as documented) at patient's floor/unit and/or counseling patient:
--- NOTE | 2020-07-26 10:15 | XRay Report ---
CLINICAL INFORMATION: History of laparoscopic cholecystectomy. Evaluate for bile leak COMPARISON: None. FINDINGS: Procedure report not available the time of dictation. Common bile was cannulated and injected by Dr. Escobar. Common hepatic and common bile ducts are mildly dilated. Small bile leak was seen within the cystic duct. A stent was placed satisfactorily: the proximal in the common hepatic duct. Apparently the pancreatic duct was stented with final films do not demonstrate pancreatic duct stent IMPRESSION: Bile leak from cystic duct stump successfully stented by Dr. Escobar. Interpreted and Authenticated by: Brent Prabhakar 07/26/20
[2020-07-26] MEDS: ACETAMINOPHEN 325 MG TABLET PO PRN ×2 (13:25→21:53)
[2020-07-26] MEDS: HEPARIN 5,000 UNIT/ML VIAL SQ SCH ×2 (14:07→20:56)
[2020-07-26] MEDS: oxyCODONE HCL 5 MG TABLET PO PRN (21:03)
[2020-07-26] MEDS: diphenhydrAMINE 25 MG CAPSULE PO PRN (23:21)
[2020-07-27] MEDS: oxyCODONE HCL 5 MG TABLET PO PRN ×2 (02:30→21:01)
[2020-07-27] MEDS: PIPERACILLIN SODIUM/TAZOBACTAM 3.375 GM in DEXTROSE 5% IN WATER 50 ML IV SCH ×4 (05:45→23:26)
[2020-07-27] MEDS: METOCLOPRAMIDE 10 MG/2 ML VIAL IV SCH ×4 (05:45→23:26)
[2020-07-27] MEDS: HEPARIN 5,000 UNIT/ML VIAL SQ SCH ×3 (05:45→21:03)
[2020-07-27] MEDS: 0.9 % SODIUM CHLORIDE 10 ML SYRINGE IV SCH ×3 (05:46→21:03)
[2020-07-27 06:25] LABS: Basophils # (Auto) 0.04 K/mcL (0.00-0.20); Basophils % (Auto) 0.3 % (0.0-2.0); Eosinophils # (Auto) 0.76 K/mcL (0.00-0.70); Eosinophils % (Auto) 4.8 % (0.0-7.0); Hematocrit 35.1 % (41.0-55.0); Lymphocytes # (Auto) 2.98 K/mcL (1.50-4.80); Lymphocytes % (Auto) 18.8 % (15.0-49.0); Mean Cell Volume 87.1 fL (80.0-100.0); Mean Corpuscular HGB Conc 31.3 g/dL (31.0-36.0); Mean Platelet Volume 8.7 fL (7.4-10.4); Monocytes % (Auto) 8.2 % (1.0-12.0); Neutrophils % (Auto) 67.9 % (38.0-78.0); Platelet Count 275 K/mcL (140-440); RBC 4.03 M/mcL (4.50-5.90); Red Cell Distribution Width 14.6 % (11.5-14.5); WBC 15.9 K/mcL (4.5-11.0)
[2020-07-27] MEDS: ACETAMINOPHEN 325 MG TABLET PO PRN ×2 (07:59→13:33)
[2020-07-27] MEDS: PANTOPRAZOLE 40 MG TABLET PO SCH ×2 (07:59→18:01)
[2020-07-27] MEDS ORDERED: LORazepam 0.5 MG TABLET PO ONE (09:53)
[2020-07-27] MEDS ORDERED: LORazepam 0.5 MG TABLET PO PRN (10:48)
[2020-07-27] MEDS ORDERED: ONDANSETRON 4 MG ODT TABLET SL PRN (11:00)
[2020-07-27] MEDS ORDERED: VENLAFAXINE 150 MG CAP.XL.24H PO SCH (11:00)
[2020-07-27] MEDS: VENLAFAXINE 75 MG CAP.XL.24H PO SCH (11:17)
--- NOTE | 2020-07-27 11:23 | General Surgery Progress Note ---
SUBJECTIVE Subjective Patient information: Note initiated : 07/27/20 at 11:13 am Service Date, if different from initiated Date: [] Patient: Jorge Luis Castrejon 45 y/o M admitted on 07/25/20 for Laparoscopic Cholecystectomy. S: considerable anziety this am, given hm lorazapam with improvement, Has not m eaningfully mobilized since surgery. Passing flatus, BM 2 days ago. Still with RUQ pain at ribs - feeling about the same O: Tm 38 Tc 37.6 NAD, RR somewhat elevated, Minimal wheeze on auscultation RRR no mger Abd soft mimially tender wounds CDI, umbilical hernia nontender, drain 40ml of serrous output periphery warm 45 yo man with BMI of 37 POD4 s/p lap mel for acute gangrenous cholecystitis w ith post op bile leak. Has surgical drain in place s/p ERCP wed. Now doing well. Plan: WBC elevated today, with fever overnight - will continue abx Mobilize with PT t Will likely need SNF SQ heparin for DVT proph OK for general diet Royer Murray MD - Surgery Principal diagnosis: postoperative cholecystectomy Constitutional Vitals: Vital Signs Temp Pulse Resp BP Pulse Ox 37.6 C H 89 20 157/92 91 07/27/20 08:00 07/27/20 08:00 07/27/20 08:00 07/27/20 08:00 07/27/20 08:00 Period Temp Pulse Resp BP Sys/Jung Pulse Ox Last 24 Hr 36.6 C-38.0 C 68-89 14-20 130-157/71-92 91-96 Intake and Output 07/26/20 07/27/20 07/27/20 21:59 05:59 13:59 Intake Total 1330 850 610 Output Total 478 10 1 Balance 852 840 609 Weight 109.633 kg Intake & Output: Intake & Output 07/26/20 07/27/20 07/27/20 21:59 05:59 13:59 Intake Total 1330 850 610 Output Total 478 10 1 Balance 852 840 609 Weight 109.633 kg Intake: IV 50 50 50 Zosyn 3.375 gm In Dextrose 5% 50 50 50 in Water 50 ml @ 100 mls/hr IV Q6H [facility] Rx#:[id number] Oral 1280 800 560 Output: Drainage 10 Abdomen 10 Void Amount 475 # of times incontinent of urine 3 1 Other: Meal Lunch Breakfast Percent of Meal Consumed 25% 0% Feeding Ability Independent Urine Appearance Clear Urine Color Pale # Voids 1 1 A/P Assessment and plan (1) Cholelithiasis and acute cholecystitis without obstruction: Status: Acute Comment: 45 yo man with BMI of 37 POD4 s/p lap mel for acute gangrenous cholecystitis with post op bile leak. Has surgical drain in place s/p ERCP wed. slow to mobilize. Anxiety. Plan: RR elevated, checking CXR - may need diuretic Restarting home venlafaxine, lithium, aripiprazole WBC elevated today with isolated fever to 38 overnight - will continue Pip/karuna today Very much needs to mobilize - to chair with lift. Will likely need SNF upon discharge FEN Off ivf, E pending, General diet Proph SQ heparin for DVT proph PEG daily Royer Murray MD - Surgery Time Spent With Patient Time: Total time spent is greater than 50% in coordination of care (as documented) at patient's floor/unit and/or counseling patient:
[2020-07-27] MEDS ORDERED: FUROSEMIDE 20 MG/2 ML VIAL IV ONE (11:24)
[2020-07-27 12:34] LABS: Blood Urea Nitrogen 9 mg/dL (6-20); Calcium 9.7 mg/dL (8.6-10.4); Carbon Dioxide 26 mmol/L (22-30); Chloride 99 mmol/L (96-108); Glomerular Filtration Rate 91; Glucose 100 mg/dL (70-105)
[2020-07-27] MEDS ORDERED: POTASSIUM CHLORIDE 20 MEQ TABLET PO ONE (14:06)
--- NOTE | 2020-07-27 14:44 | XRay Report ---
CLINICAL INFORMATION: SOB COMPARISON: 07/24/2020 FINDINGS: Cardiomediastinal silhouette and pulmonary vasculature are accentuated by poor inspiratory result. Small patchy bibasilar infiltrates have progressed. No effusion IMPRESSION: Small patchy bibasilar infiltrates - progressing from exam three days ago Interpreted and Authenticated by: Brent Prabhakar 07/27/20
[2020-07-27] MEDS: ARIPIPRAZOLE 5 MG TABLET PO SCH (21:02)
[2020-07-27] MEDS: diphenhydrAMINE 25 MG CAPSULE PO PRN (21:02)
[2020-07-27] MEDS: METOPROLOL TARTRATE 50 MG TABLET PO SCH (21:02)
[2020-07-27] MEDS: NYSTATIN POWDER BOTTLE 15GM TOPICAL PRN (21:02)
[2020-07-27] MEDS: LITHIUM CARBONATE 450 MG TAB.SR.12H PO SCH (21:03)
[2020-07-28] MEDS: oxyCODONE HCL 5 MG TABLET PO PRN (03:46)
[2020-07-28 06:02] LABS: Basophils # (Auto) 0.05 K/mcL (0.00-0.20); Basophils % (Auto) 0.3 % (0.0-2.0); Hematocrit 36.3 % (41.0-55.0); Hemoglobin 11.4 g/dL (13.5-16.5); Lymphocytes % (Auto) 17.3 % (15.0-49.0); Mean Corpuscular HGB Conc 31.4 g/dL (31.0-36.0); Mean Platelet Volume 8.7 fL (7.4-10.4); Monocytes # (Auto) 1.15 K/mcL (0.10-0.90); Monocytes % (Auto) 7.6 % (1.0-12.0); Neutrophils % (Auto) 70.8 % (38.0-78.0); Platelet Count 274 K/mcL (140-440); RBC 4.22 M/mcL (4.50-5.90); Red Cell Distribution Width 14.5 % (11.5-14.5); WBC 15.1 K/mcL (4.5-11.0)
[2020-07-28] MEDS: HEPARIN 5,000 UNIT/ML VIAL SQ SCH ×3 (06:29→21:38)
[2020-07-28] MEDS: METOCLOPRAMIDE 10 MG/2 ML VIAL IV SCH ×4 (06:29→23:32)
[2020-07-28] MEDS: PIPERACILLIN SODIUM/TAZOBACTAM 3.375 GM in DEXTROSE 5% IN WATER 50 ML IV SCH ×2 (06:29→12:37)
[2020-07-28] MEDS: 0.9 % SODIUM CHLORIDE 10 ML SYRINGE IV SCH ×3 (06:29→21:41)
[2020-07-28 06:47] LABS: Blood Urea Nitrogen 12 mg/dL (6-20); Calcium 10.1 mg/dL (8.6-10.4); Carbon Dioxide 25 mmol/L (22-30); Chloride 102 mmol/L (96-108); Glomerular Filtration Rate 81; Glucose 92 mg/dL (70-105)
[2020-07-28] MEDS: PANTOPRAZOLE 40 MG TABLET PO SCH ×2 (08:14→17:38)
[2020-07-28] MEDS: METOPROLOL TARTRATE 50 MG TABLET PO SCH ×2 (08:21→20:25)
[2020-07-28] MEDS: VENLAFAXINE 75 MG CAP.XL.24H PO SCH (08:21)
[2020-07-28] MEDS: POLYETHYLENE GLYCOL 3350 17 GM PACKET PO SCH (08:21)
[2020-07-28] MEDS: VITAMIN D3 1,000 UNIT TABLET PO SCH (08:21)
[2020-07-28] MEDS ORDERED: FUROSEMIDE 20 MG/2 ML VIAL IV ONE (09:13)
[2020-07-28] MEDS: D MANNOSE 500 MG PO SCH (09:45)
--- NOTE | 2020-07-28 13:12 | General Surgery Progress Note ---
SUBJECTIVE Subjective Patient information: Note initiated : 07/28/20 at 1:06 pm Service Date, if different from initiated Date: [] Patient: Jorge Luis Castrejon 45 y/o M admitted on 07/25/20 for Laparoscopic Cholecystectomy. Chief Complaint: [] S: up in chair this morning, eating breakfast with ease. still reporting RUQ pain, Some anziety. All hm psyche meds started yesterday O: VSS Looks well LCTAB RRR Abd rotund, wounds CDI, drain in GB fossa with serrous output, total amount falling, minimally tender in RUQ, no wound errythema Periphery warm WBC minimally down today 14 45 yo man with BMI of 37 POD5 s/p lap mel for acute gangrenous cholecystitis with post op bile leak. Has surgical drain in place s/p ERCP wed. Now doing well but with persistently elevated waxing and waining leukocytosis Plan: Clinically well but with perisistent leukocytotis, stopping pip/tax, trial of meropenum - institutionalized in care home ?ESBL, gangrenous gallbladder reportedly difficulty. Probiotic Ongoing mobilization Furosemide x 1 again today for volume overload SQ heparin for DVT proph OK for general diet will need SNF upon discharge pending WBC resolution Royer Murray MD - Surgery Principal diagnosis: postoperative cholecystectomy Constitutional Vitals: Vital Signs Temp Pulse Resp BP Pulse Ox 37.4 C H 83 22 155/97 93 07/28/20 07:49 07/28/20 07:49 07/28/20 07:49 07/28/20 07:49 07/28/20 07:49 Period Temp Pulse Resp BP Sys/Jung Pulse Ox Last 24 Hr 36.8 C-37.4 C 64-104 18-25 142-155/75-97 88-101 Intake and Output 07/27/20 07/28/20 07/28/20 21:59 05:59 13:59 Intake Total 1290 250 170 Output Total 2 8 203 Balance 1288 242 -33 Weight 105.324 kg Intake & Output: Intake & Output 07/27/20 07/28/20 07/28/20 21:59 05:59 13:59 Intake Total 1290 250 170 Output Total 2 8 203 Balance 1288 242 -33 Weight 105.324 kg Intake: IV 50 50 50 Zosyn 3.375 gm In Dextrose 5% 50 50 50 in Water 50 ml @ 100 mls/hr IV Q6H [facility] Rx#:[id number] Oral 1240 200 120 Output: Drainage 8 Abdomen 8 Void Amount 200 # of times incontinent of urine 2 3 Other: Meal Dinner Breakfast Percent of Meal Consumed 75% 50% Feeding Ability Assist with Tray Set Up Independent Urine Appearance Clear Clear Urine Color Bright Yellow Bright Yellow Bright Yellow Stool Size Copious Stool Color Brown Stool Consistency Soft # Voids 1 # Bowel Movements 1 # of times incontinent of 1 Bowels A/P Time Spent With Patient Time: Total time spent is greater than 50% in coordination of care (as documented) at patient's floor/unit and/or counseling patient:
[2020-07-28] MEDS: MEROPENEM 1 GM in 0.9 % SODIUM CHLORIDE 50 ML IV SCH ×2 (13:55→21:38)
[2020-07-28] MEDS: POTASSIUM CHLORIDE 20 MEQ TABLET PO SCH (17:39)
[2020-07-28] MEDS: ARIPIPRAZOLE 5 MG TABLET PO SCH (20:25)
[2020-07-28] MEDS: LACTOBACILLUS 1 CAPSULE PO SCH (20:25)
[2020-07-28] MEDS: LITHIUM CARBONATE 450 MG TAB.SR.12H PO SCH (20:26)
[2020-07-28] MEDS: diphenhydrAMINE 25 MG CAPSULE PO PRN (22:45)
[2020-07-29] MEDS: HEPARIN 5,000 UNIT/ML VIAL SQ SCH ×3 (05:57→20:09)
[2020-07-29] MEDS: MEROPENEM 1 GM in 0.9 % SODIUM CHLORIDE 50 ML IV SCH ×3 (05:57→20:07)
[2020-07-29] MEDS: METOCLOPRAMIDE 10 MG/2 ML VIAL IV SCH ×2 (05:57→12:56)
[2020-07-29] MEDS: 0.9 % SODIUM CHLORIDE 10 ML SYRINGE IV SCH ×3 (05:59→20:09)
[2020-07-29 06:44] LABS: Basophils # (Auto) 0.07 K/mcL (0.00-0.20); Basophils % (Auto) 0.4 % (0.0-2.0); Eosinophils # (Auto) 0.64 K/mcL (0.00-0.70); Eosinophils % (Auto) 4.1 % (0.0-7.0); Hematocrit 35.9 % (41.0-55.0); Hemoglobin 11.4 g/dL (13.5-16.5); Lymphocytes # (Auto) 3.14 K/mcL (1.50-4.80); Lymphocytes % (Auto) 20.1 % (15.0-49.0); Mean Cell Volume 86.1 fL (80.0-100.0); Mean Corpuscular HGB Conc 31.8 g/dL (31.0-36.0); Neutrophils % (Auto) 68.4 % (38.0-78.0); Platelet Count 275 K/mcL (140-440); RBC 4.17 M/mcL (4.50-5.90); Red Cell Distribution Width 14.4 % (11.5-14.5); WBC 15.6 K/mcL (4.5-11.0)
[2020-07-29] MEDS: PANTOPRAZOLE 40 MG TABLET PO SCH ×2 (07:03→20:09)
[2020-07-29 07:08] LABS: Blood Urea Nitrogen 14 mg/dL (6-20); Calcium 9.7 mg/dL (8.6-10.4); Carbon Dioxide 26 mmol/L (22-30); Chloride 101 mmol/L (96-108); Glomerular Filtration Rate 91; Glucose 88 mg/dL (70-105)
[2020-07-29] MEDS: POTASSIUM CHLORIDE 20 MEQ TABLET PO SCH ×4 (07:57→20:12)
[2020-07-29] MEDS: VENLAFAXINE 75 MG CAP.XL.24H PO SCH (09:19)
[2020-07-29] MEDS: METOPROLOL TARTRATE 50 MG TABLET PO SCH ×2 (09:20→20:08)
[2020-07-29] MEDS: D MANNOSE 500 MG PO SCH (09:20)
[2020-07-29] MEDS: LACTOBACILLUS 1 CAPSULE PO SCH ×2 (09:20→20:08)
[2020-07-29] MEDS: VITAMIN D3 1,000 UNIT TABLET PO SCH (09:20)
[2020-07-29] MEDS: POLYETHYLENE GLYCOL 3350 17 GM PACKET PO SCH (09:20)
[2020-07-29] MEDS ORDERED: FUROSEMIDE 20 MG/2 ML VIAL IV ONE (13:08)
--- NOTE | 2020-07-29 13:30 | General Surgery Progress Note ---
SUBJECTIVE Subjective Patient information: Note initiated : 07/29/20 at 1:25 pm Service Date, if different from initiated Date: [] Patient: Jorge Luis Castrejon 45 y/o M admitted on 07/25/20 for Laparoscopic Cholecystectomy. Chief Complaint: post op S: continues to eat better, anziety resolved, feels is clearly getting better, breathing improved. O: VSS Looks well LCTAB, breath sounds distant RRR Abd rotund, wounds CDI, drain in GB fossa with serrous output, minimally tender in RUQ, no wound errythema, large umbilical hernia is nontender. Periphery warm WBC elevated after switch to meropenum yesterday 45 yo man with BMI of 37 POD6 s/p lap mel for acute gangrenous cholecystitis with post op bile leak. Has surgical drain in place s/p ERCP wed. Now doing well but with persistently elevated waxing and waining leukocytosis - clinically he does not apper infected IE continues to improve. Plan for infectious workup today. If unremarkable may be drug/residual effect Plan: CT abd/pelvis to eval for post op abscess, CXR, C diff testing with diarrhea On going empiric meropenum Probiotic Ongoing mobilization Furosemide x 1 again today for volume overload, ongoing K repletion SQ heparin for DVT proph OK for general diet will need SNF upon discharge pending WBC resolution/plan Royer Murray MD - Surgery Principal diagnosis: postoperative cholecystectomy Constitutional Vitals: Vital Signs Temp Pulse Resp BP Pulse Ox 37.2 C 74 28 H 152/90 90 07/29/20 08:00 07/29/20 08:00 07/29/20 08:00 07/29/20 08:00 07/29/20 08:00 Period Temp Pulse Resp BP Sys/Jung Pulse Ox Last 24 Hr 36.9 C-37.3 C 63-88 22-28 141-152/79-94 90-94 Intake and Output 07/28/20 07/29/20 07/29/20 21:59 05:59 13:59 Intake Total 590 670 Output Total 227 211 1 Balance 363 459 -1 Weight 105.233 kg Intake & Output: Intake & Output 07/28/20 07/29/20 07/29/20 21:59 05:59 13:59 Intake Total 590 670 Output Total 227 211 1 Balance 363 459 -1 Weight 105.233 kg Intake: IV 50 50 Merrem 1 gm In Sodium Chloride 50 50 0.9% 50 ml @ 100 mls/hr IV Q8H [facility] Rx#:[id number] Oral 540 620 Output: Drainage 10 Abdomen 10 Void Amount 225 200 # of times incontinent of urine 2 1 1 Other: Meal Dinner Percent of Meal Consumed 50% Feeding Ability Needs Supervision Urine Appearance Clear Clear Urine Color Bright Yellow Bright Yellow Stool Size Moderate Stool Color Brown Black Stool Consistency Liquid # of times incontinent of 1 Bowels A/P Time Spent With Patient Time: Total time spent is greater than 50% in coordination of care (as documented) at patient's floor/unit and/or counseling patient:
--- NOTE | 2020-07-29 13:33 | XRay Report ---
CLINICAL INFORMATION: leukocytosis workup COMPARISON: 07/27/2020 FINDINGS: The heart is accentuated by suboptimal inspiratory result, lordotic positioning and right rotation. It is within normal limits. Mediastinum and pulmonary vessels are normal. Bibasilar infiltrates have improved considerably over the past two days: The left is nearly resolved in the right is smaller. IMPRESSION: Improving bibasilar infiltrates. Interpreted and Authenticated by: Brent Prabhakar 07/29/20
[2020-07-29] MEDS ORDERED: IOPAMIDOL 100 ML BOTTLE IV ONE (16:28)
--- NOTE | 2020-07-29 16:53 | Cat Scan Report ---
CLINICAL INFORMATION: Recent laparoscopic cholecystectomy. Elevated white blood cell count and abdominal pain. COMPARISON: None. TECHNIQUE: Following enteric contrast, 80 cc of Isovue-370 were injected intravenously, and 60 seconds later, 0.625 mm helical slices were obtained from the mid heart through the subtrochanteric regions. Following reconstruction, 2.5 mm sagittal, coronal and axial reformatted images were processed and reviewed at bone, lung and soft tissue windows. Five minutes later, 0.625 mm helical slices were obtained from the mid heart through the kidneys and viewed at soft tissue windows.The exam was performed using radiation dose optimization techniques including, but not limited to, automated exposure control, adjustment of the mA and/or kV according to patient size and use of iterative reconstruction technique. FINDINGS: Lung bases show a small right pleural effusion and subsegmental atelectasis in the posterior right lower lobe with minimal atelectasis in the posterior left lower lobe. Visualized heart is normal. Abdominal images show cholecystectomy changes. An internal biliary stent is properly positioned within the common bile duct. The intrahepatic and common hepatic ducts are normal caliber: stent appears to be functional. No periductal fluid appreciated to suggest leak. Cholecystectomy changes noted. A surgical drain in the nila hepatis region extends through the inferior subhepatic space and at the exit anteriorly in the right mid abdomen. A small amount of ascites is present in the inferior and superior perihepatic space. Superiorly, there is a 2.8 cm fluid collection with a small amount of gas invaginating the posterior segment right hepatic lobe in the subdiaphragmatic regions. This may represent a small subcapsular hepatic abscess. It is incompletely imaged. The pancreas is normal in size, configuration and attenuation. A small (3.5 cm) focus of edema in the peripancreatic fat, lateral to the pancreatic tail, is uncertain etiology and significance. It could represent focal pancreatitis. There is a 1 mm nonobstructing stone mid calyx of the left kidney. Afew small simple cysts are present in both kidneys range up to 2.6 cm in the inferior pole the left kidney. Both adrenal glands spleen and aorta are normal. There is no free air or adenopathy Pelvic images show prostate, seminal vesicles and urinary bladder are normal. The distal sigmoid and rectum are moderately dilated. The remaining colon, appendix small bowel and stomach are grossly normal. Bone windows show no osseous abnormality. A 5 cm periumbilical hernia contains mesenteric fat. IMPRESSION: 1. Internal biliary stent in satisfactory position. Intrahepatic and common hepatic ducts are normal caliber: stent appears to be functional. No periductal fluid to suggest biliary leak 2. Small amount of ascites in the perihepatic region. There is a 3 cm low-attenuation fluid collection with gas in the posterior segment of the right hepatic lobe. This may represent a subcapsular abscess. 3. Focal edema in the fat planes adjacent to the pancreatic tail. Exact etiology and significance unknown. Please correlate with lipase and amylase to ensure the absence of focal simple pancreatitis. 4. 1 mm nonobstructing stone mid calyx left kidney. Scattered simple cysts in both kidneys ranging up to 3 cm inferior pole left kidney. 5. 5 cm periumbilical hernia containing only mesenteric fat. 6. Small right pleural effusion with subsegmental atelectasis posterior right lower lobe Interpreted and Authenticated by: Brent Prabhakar 07/29/20
[2020-07-29] MEDS: LITHIUM CARBONATE 450 MG TAB.SR.12H PO SCH (20:07)
[2020-07-29] MEDS: ARIPIPRAZOLE 5 MG TABLET PO SCH (20:09)
[2020-07-30] MEDS: POTASSIUM CHLORIDE 20 MEQ TABLET PO SCH ×5 (02:24→19:08)
[2020-07-30] MEDS: MEROPENEM 1 GM in 0.9 % SODIUM CHLORIDE 50 ML IV SCH ×2 (04:59→14:10)
[2020-07-30] MEDS: HEPARIN 5,000 UNIT/ML VIAL SQ SCH ×3 (04:59→20:32)
[2020-07-30] MEDS: 0.9 % SODIUM CHLORIDE 10 ML SYRINGE IV SCH ×3 (05:00→23:03)
[2020-07-30] MEDS: VENLAFAXINE 75 MG CAP.XL.24H PO SCH (10:22)
[2020-07-30] MEDS: METOPROLOL TARTRATE 50 MG TABLET PO SCH ×2 (10:22→20:32)
[2020-07-30] MEDS: D MANNOSE 500 MG PO SCH (10:23)
[2020-07-30] MEDS: VITAMIN D3 1,000 UNIT TABLET PO SCH (10:23)
[2020-07-30] MEDS: LACTOBACILLUS 1 CAPSULE PO SCH ×2 (10:23→20:32)
[2020-07-30 12:54] LABS: Basophils # (Auto) 0.08 K/mcL (0.00-0.20); Basophils % (Auto) 0.4 % (0.0-2.0); Eosinophils # (Auto) 0.67 K/mcL (0.00-0.70); Eosinophils % (Auto) 3.4 % (0.0-7.0); Hematocrit 38.5 % (41.0-55.0); Hemoglobin 12.2 g/dL (13.5-16.5); Lymphocytes % (Auto) 15.2 % (15.0-49.0); Mean Cell Volume 86.7 fL (80.0-100.0); Mean Corpuscular HGB Conc 31.7 g/dL (31.0-36.0); Mean Platelet Volume 8.9 fL (7.4-10.4); Monocytes # (Auto) 1.26 K/mcL (0.10-0.90); Monocytes % (Auto) 6.4 % (1.0-12.0); Neutrophils % (Auto) 74.6 % (38.0-78.0); Platelet Count 335 K/mcL (140-440); RBC 4.44 M/mcL (4.50-5.90); Red Cell Distribution Width 14.3 % (11.5-14.5); WBC 19.7 K/mcL (4.5-11.0)
[2020-07-30 13:18] LABS: Blood Urea Nitrogen 13 mg/dL (6-20); Calcium 10.6 mg/dL (8.6-10.4); Carbon Dioxide 24 mmol/L (22-30); Chloride 104 mmol/L (96-108); Glomerular Filtration Rate 81; Glucose 108 mg/dL (70-105)
--- NOTE | 2020-07-30 13:24 | General Surgery Progress Note ---
SUBJECTIVE Subjective Patient information: Note initiated : 07/30/20 at 1:12 pm Service Date, if different from initiated Date: [] Patient: Jorge Luis Castrejon 45 y/o M admitted on 07/25/20 for Laparoscopic Cholecystectomy. Chief Complaint: POST OP S: Eating well, a bit more depressed today, post op pain continues to improved. denies R medial flank/back pain O: VSS Looks well LCTAB RRR Abd rotund, wounds CDI, drain in GB fossa with minimal serrous output, minimally tender in RUQ continues to improve. Mild tenderness to deep palpation on posterior flank, no wound erythema, large umbilical hernia is nontender. Periphery warm WBC continues to be elevated to 19 today 45 yo man with BMI of 37 POD7 s/p lap mel for acute gangrenous cholecystitis with post op bile leak. Has surgical drain in place s/p ERCP wed. Now clinically well but now with climbing WBC. Work up yesterday demonstrated a 3cm subcapsular vs parahepatic abscess posterior to the R hepatic lobe quite high - adjacent to posterior diaphragm. Images reviewed with radiology this am. No feasible way for IR drainage. Surgical drainage option is via exlap and hepatic mobilization - a not a insignificant undertaking. Given clinically well - plan for ID consult and trial of abx therapy. may need tailoring given elevation of leukocytosis today. Call out to ID. Plan: ID consult as above On going empiric meropenem Probiotic Ongoing mobilization SQ heparin for DVT proph OK for general diet will need SNF upon discharge pending parahepatic abscess plan Royer Murray MD - Surgery Principal diagnosis: postoperative cholecystectomy Constitutional Vitals: Vital Signs Temp Pulse Resp BP Pulse Ox 37.4 C H 86 20 145/92 92 07/30/20 12:00 07/30/20 12:00 07/30/20 12:00 07/30/20 12:00 07/30/20 12:00 Period Temp Pulse Resp BP Sys/Jung Pulse Ox Last 24 Hr 36.3 C-37.6 C 68-95 18-24 141-151/72-94 91-97 Intake and Output 07/29/20 07/30/20 07/30/20 21:59 05:59 13:59 Intake Total 2000 500 740 Output Total 332 360 1 Balance 1668 140 739 Weight 106.776 kg Intake & Output: Intake & Output 07/29/20 07/30/20 07/30/20 21:59 05:59 13:59 Intake Total 1999 500 740 Output Total 332 360 1 Balance 1668 140 739 Weight 106.776 kg Intake: IV 100 Merrem 1 gm In Sodium Chloride 100 0.9% 50 ml @ 100 mls/hr IV Q8H [facility] Rx#:[id number] Oral 1900 500 740 Output: Drainage 8 Abdomen 8 Void Amount 325 350 # of times incontinent of urine 7 2 1 Other: Meal Dinner Breakfast Percent of Meal Consumed 25% 100% Feeding Ability Assist with Tray Set Up Total Assistance Urine Appearance Clear Clear Clear Urine Color Pale Bright Yellow Pale Urine Odor Normal Normal Stool Size Copious Small Stool Color Brown Brown Brown Stool Consistency Soft Loose Soft # of times incontinent of 1 1 1 Bowels A/P Time Spent With Patient Time: Total time spent is greater than 50% in coordination of care (as documented) at patient's floor/unit and/or counseling patient:
[2020-07-30] MEDS ORDERED: VANCOMYCIN PER PHARMACY IV SCH (13:43)
[2020-07-30] MEDS ORDERED: MEROPENEM 2 GM in 0.9 % SODIUM CHLORIDE 50 ML IV SCH (13:49)
--- NOTE | 2020-07-30 13:51 | General Surgery Progress Note ---
SUBJECTIVE Subjective Patient information: Note initiated : 07/30/20 at 1:49 pm PT discussed with Dr Kendrick - ID With hepatic/para hepatic abscess Rec Vanco coverage for enterococcus and MRSA Increase Meropenum to 2g Q8 Royer Murray MD Principal diagnosis: postoperative cholecystectomy Constitutional Vitals: Vital Signs Temp Pulse Resp BP Pulse Ox 37.4 C H 86 20 145/92 92 07/30/20 12:00 07/30/20 12:00 07/30/20 12:00 07/30/20 12:00 07/30/20 12:00 Period Temp Pulse Resp BP Sys/Jung Pulse Ox Last 24 Hr 36.3 C-37.6 C 68-95 18-24 141-151/72-94 91-97 Intake and Output 07/29/20 07/30/20 07/30/20 21:59 05:59 13:59 Intake Total 1999 500 740 Output Total 332 360 1 Balance 1668 140 739 Weight 106.776 kg Intake & Output: Intake & Output 07/29/20 07/30/20 07/30/20 21:59 05:59 13:59 Intake Total 1999 500 740 Output Total 332 360 1 Balance 1668 140 739 Weight 106.776 kg Intake: IV 100 Merrem 1 gm In Sodium Chloride 100 0.9% 50 ml @ 100 mls/hr IV Q8H [facility] Rx#:[id number] Oral 1900 500 740 Output: Drainage 8 Abdomen 8 Void Amount 325 350 # of times incontinent of urine 7 2 1 Other: Meal Dinner Breakfast Percent of Meal Consumed 25% 100% Feeding Ability Assist with Tray Set Up Total Assistance Urine Appearance Clear Clear Clear Urine Color Pale Bright Yellow Pale Urine Odor Normal Normal Stool Size Copious Small Stool Color Brown Brown Brown Stool Consistency Soft Loose Soft # of times incontinent of 1 1 1 Bowels A/P Time Spent With Patient Time: Total time spent is greater than 50% in coordination of care (as documented) at patient's floor/unit and/or counseling patient:
[2020-07-30] MEDS ORDERED: MEROPENEM 2 GM in 0.9 % SODIUM CHLORIDE 100 ML IV SCH (14:00)
[2020-07-30] MEDS ORDERED: MEROPENEM 1 GM in 0.9 % SODIUM CHLORIDE 50 ML IV ONE (15:00)
[2020-07-30] MEDS: VANCOMYCIN 1,500 MG in 0.9 % SODIUM CHLORIDE 500 ML IV SCH ×2 (15:31→23:03)
[2020-07-30] MEDS: LITHIUM CARBONATE 450 MG TAB.SR.12H PO SCH (20:31)
[2020-07-30] MEDS: PANTOPRAZOLE 40 MG TABLET PO SCH (20:32)
[2020-07-30] MEDS: oxyCODONE HCL 5 MG TABLET PO PRN (20:32)
[2020-07-30] MEDS: ARIPIPRAZOLE 5 MG TABLET PO SCH (20:33)
[2020-07-30] MEDS: MEROPENEM 2 GM in 0.9 % SODIUM CHLORIDE 100 ML IV SCH (23:02)
[2020-07-31] MEDS: 0.9 % SODIUM CHLORIDE 10 ML SYRINGE IV SCH ×3 (05:44→21:42)
[2020-07-31] MEDS: HEPARIN 5,000 UNIT/ML VIAL SQ SCH ×3 (05:45→21:41)
[2020-07-31] MEDS: oxyCODONE HCL 5 MG TABLET PO PRN (05:45)
[2020-07-31 06:44] LABS: Basophils % (Auto) 0.6 % (0.0-2.0); Eosinophils % (Auto) 3.6 % (0.0-7.0); Hematocrit 39.5 % (41.0-55.0); Lymphocytes # (Auto) 3.61 K/mcL (1.50-4.80); Lymphocytes % (Auto) 21.7 % (15.0-49.0); Mean Cell Volume 89.2 fL (80.0-100.0); Mean Corpuscular HGB Conc 30.4 g/dL (31.0-36.0); Mean Platelet Volume 8.9 fL (7.4-10.4); Monocytes # (Auto) 1.24 K/mcL (0.10-0.90); Monocytes % (Auto) 7.5 % (1.0-12.0); Neutrophils % (Auto) 66.6 % (38.0-78.0); Platelet Count 308 K/mcL (140-440); RBC 4.43 M/mcL (4.50-5.90); Red Cell Distribution Width 14.3 % (11.5-14.5); WBC 16.6 K/mcL (4.5-11.0)
[2020-07-31] MEDS: MEROPENEM 2 GM in 0.9 % SODIUM CHLORIDE 100 ML IV SCH ×3 (06:47→21:42)
[2020-07-31 07:19] LABS: Blood Urea Nitrogen 13 mg/dL (6-20); Calcium 10.1 mg/dL (8.6-10.4); Carbon Dioxide 24 mmol/L (22-30); Chloride 108 mmol/L (96-108); Glomerular Filtration Rate 81; Glucose 93 mg/dL (70-105)
[2020-07-31] MEDS: VENLAFAXINE 75 MG CAP.XL.24H PO SCH (08:23)
[2020-07-31] MEDS: LACTOBACILLUS 1 CAPSULE PO SCH ×2 (08:23→21:41)
[2020-07-31] MEDS: POTASSIUM CHLORIDE 20 MEQ TABLET PO SCH (08:23)
[2020-07-31] MEDS: VITAMIN D3 1,000 UNIT TABLET PO SCH (08:23)
[2020-07-31] MEDS: METOPROLOL TARTRATE 50 MG TABLET PO SCH ×2 (08:24→21:41)
[2020-07-31] MEDS ORDERED: FUROSEMIDE 20 MG/2 ML VIAL IV ONE (08:45)
[2020-07-31] MEDS ORDERED: POTASSIUM CHLORIDE 20 MEQ TABLET PO ONE (08:45)
[2020-07-31] MEDS: D MANNOSE 500 MG PO SCH (09:02)
[2020-07-31] MEDS: VANCOMYCIN 1,500 MG in 0.9 % SODIUM CHLORIDE 500 ML IV SCH ×2 (09:21→22:26)
--- NOTE | 2020-07-31 11:29 | General Surgery Progress Note ---
SUBJECTIVE Subjective Patient information: Note initiated : 07/31/20 at 11:24 am Service Date, if different from initiated Date: [] Patient: Jorge Luis Castrejon 45 y/o M admitted on 07/25/20 for Laparoscopic Cholecystectomy. Chief Complaint: S: continues to feel well. pain improving, denies significant flank pain O: VSS Looks well LCTAB RRR Abd rotund, wounds CDI, drain in GB fossa with minimal serrous output, large umbilical hernia is nontender. Significant pressure in R flank is non tender Periphery warm WBC 19->16 45 yo man with BMI of 37 POD8 s/p lap mel for acute gangrenous cholecystitis with post op bile leak. Has surgical drain in place s/p ERCP. Now clinically well but with recent climbing WBC from 3cm subcapsular vs parahepatic abscess posterior to the R hepatic lobe quite high - adjacent to posterior diaphragm - not accessable to non operative drainage. Improving wbc with addition of vanco/enterococcus coverage and increasing meropenum dosing Will continue to tx via abx Plan: ID consulted with abx choices in place On going empiric meropenem/vanco therapy Probiotic Ongoing mobilization Additional gentle diuresis today for post op edema SQ heparin for DVT proph OK for general diet will need SNF upon discharge pending parahepatic abscess plan Royer Murray MD - Surgery Principal diagnosis: postoperative cholecystectomy Constitutional Vitals: Vital Signs Temp Pulse Resp BP Pulse Ox 36.4 C 64 14 128/69 93 07/31/20 06:59 07/31/20 06:59 07/31/20 08:00 07/31/20 06:59 07/31/20 08:00 Period Temp Pulse Resp BP Sys/Jung Pulse Ox Last 24 Hr 36.4 C-37.4 C 64-86 14-24 128-162/69-98 90-93 Intake and Output 07/30/20 07/31/20 07/31/20 21:59 05:59 13:59 Intake Total 1260 200 240 Output Total 4 2 301 Balance 1256 198 -61 Weight 107.093 kg 107.093 kg Patient Weight 08/01/20 05:59 Weight 107.093 kg Intake & Output: Intake & Output 07/30/20 07/31/20 07/31/20 21:59 05:59 13:59 Intake Total 1260 200 240 Output Total 4 2 301 Balance 1256 198 -61 Weight 107.093 kg 107.093 kg Intake: IV 500 100 Merrem 2 gm In Sodium Chloride 100 0.9% 100 ml @ 100 mls/hr IV Q8H [facility] Rx#:[id number] Vancomycin 1,500 mg In Sodium 500 Chloride 0.9% 500 ml @ 333.3 mls/hr IV Q12H [facility] Rx#: [id number] Oral 760 100 240 Output: Void Amount 300 # of times incontinent of urine 4 2 1 Other: Meal Dinner Breakfast Percent of Meal Consumed 100% 100% Feeding Ability Independent Assist with Tray Set Up Urine Appearance Clear Clear Urine Color Pale Bright Yellow Urine Odor Normal Stool Size Moderate Stool Color Brown Stool Consistency Liquid # Voids 1 # of times incontinent of 1 Bowels A/P Time Spent With Patient Time: Total time spent is greater than 50% in coordination of care (as documented) at patient's floor/unit and/or counseling patient:
[2020-07-31] MEDS: ARIPIPRAZOLE 5 MG TABLET PO SCH (21:41)
[2020-07-31] MEDS: LITHIUM CARBONATE 450 MG TAB.SR.12H PO SCH (21:42)
[2020-07-31] MEDS: PANTOPRAZOLE 40 MG TABLET PO SCH (21:42)
[2020-08-01] MEDS: MEROPENEM 2 GM in 0.9 % SODIUM CHLORIDE 100 ML IV SCH ×3 (05:43→21:36)
[2020-08-01] MEDS: 0.9 % SODIUM CHLORIDE 10 ML SYRINGE IV SCH ×3 (05:43→21:36)
[2020-08-01] MEDS: HEPARIN 5,000 UNIT/ML VIAL SQ SCH ×3 (05:46→21:37)
[2020-08-01 07:52] LABS: Basophils # (Auto) 0.04 K/mcL (0.00-0.20); Basophils % (Auto) 0.3 % (0.0-2.0); Eosinophils # (Auto) 0.52 K/mcL (0.00-0.70); Eosinophils % (Auto) 4.2 % (0.0-7.0); Hematocrit 37.3 % (41.0-55.0); Hemoglobin 11.6 g/dL (13.5-16.5); Lymphocytes # (Auto) 2.33 K/mcL (1.50-4.80); Lymphocytes % (Auto) 18.8 % (15.0-49.0); Mean Cell Volume 87.1 fL (80.0-100.0); Mean Corpuscular HGB Conc 31.1 g/dL (31.0-36.0); Monocytes # (Auto) 1.03 K/mcL (0.10-0.90); Monocytes % (Auto) 8.3 % (1.0-12.0); Neutrophils % (Auto) 68.4 % (38.0-78.0); Platelet Count 291 K/mcL (140-440); RBC 4.28 M/mcL (4.50-5.90); Red Cell Distribution Width 14.2 % (11.5-14.5); WBC 12.4 K/mcL (4.5-11.0)
[2020-08-01 08:22] LABS: ALT/SGPT 28 U/L (<40); AST/SGOT 15 U/L (<40); Albumin 3.5 gm/dL (3.2-5.2); Albumin/Globulin Ratio 1.2 (1.0-2.3); Alkaline Phosphatase 107 U/L (39-117); Bilirubin,Total 0.3 mg/dL (0.1-1.0); Blood Urea Nitrogen 12 mg/dL (6-20); Calcium 9.9 mg/dL (8.6-10.4); Carbon Dioxide 25 mmol/L (22-30); Chloride 101 mmol/L (96-108); Globulin 2.9 gm/dL (2.2-3.7); Glomerular Filtration Rate 91; Glucose 92 mg/dL (70-105)
[2020-08-01] MEDS: METOPROLOL TARTRATE 50 MG TABLET PO SCH ×2 (09:46→21:37)
[2020-08-01] MEDS: VENLAFAXINE 75 MG CAP.XL.24H PO SCH (09:46)
[2020-08-01] MEDS: VITAMIN D3 1,000 UNIT TABLET PO SCH (09:46)
[2020-08-01] MEDS: LACTOBACILLUS 1 CAPSULE PO SCH ×2 (09:46→21:37)
[2020-08-01] MEDS: NYSTATIN POWDER BOTTLE 15GM TOPICAL PRN (09:47)
[2020-08-01] MEDS: D MANNOSE 500 MG PO SCH (09:47)
--- NOTE | 2020-08-01 18:14 | General Surgery Progress Note ---
SUBJECTIVE Subjective Patient information: Note initiated : 08/01/20 at 6:13 pm Service Date, if different from initiated Date: [] Patient: Jorge Luis Castrejon 45 y/o M admitted on 07/25/20 for Laparoscopic Cholecystectomy. Chief Complaint: [] S: continues to feel well. no flank pain O: VSS Looks well Abd rotund, wounds CDI, drain in GB fossa with minimal serrous output, large umbilical hernia is nontender. Significant pressure in R flank is non tender - drain removed Periphery warm WBC 19->16->12 45 yo man with BMI of 37 POD9 s/p lap mel for acute gangrenous cholecystitis with post op bile leak. s/p ERCP. Now clinically well but with recent climbing WBC from 3cm subcapsular vs parahepatic abscess posterior to the R hepatic lobe quite high - adjacent to posterior diaphragm - not accessable to non operative drainage. Clearly improving wbc with addition of vanco/enterococcus coverage and increasing meropenum dosing Will continue to tx via abx Plan: ID consulted with abx choices in place On going empiric meropenem/vanco therapy Probiotic Ongoing mobilization SQ heparin for DVT proph OK for general diet will need SNF upon discharge pending parahepatic abscess plan Principal diagnosis: postoperative cholecystectomy Constitutional Vitals: Vital Signs Temp Pulse Resp BP Pulse Ox 36.9 C 61 18 129/84 94 08/01/20 15:57 08/01/20 15:57 08/01/20 15:57 08/01/20 15:57 08/01/20 15:57 Period Temp Pulse Resp BP Sys/Jung Pulse Ox Last 24 Hr 36.9 C-38.0 C 60-94 16-20 128-146/74-87 92-99 Intake and Output 08/01/20 08/01/20 08/01/20 05:59 13:59 21:59 Intake Total 600 100 580 Output Total 3 2 Balance 597 98 580 Intake & Output: Intake & Output 08/01/20 08/01/20 08/01/20 05:59 13:59 21:59 Intake Total 600 100 580 Output Total 3 2 Balance 597 98 580 Intake: IV 600 100 100 Merrem 2 gm In Sodium Chloride 100 100 100 0.9% 100 ml @ 100 mls/hr IV Q8H [facility] Rx#:[id number] Vancomycin 1,500 mg In Sodium 500 Chloride 0.9% 500 ml @ 333.3 mls/hr IV Q12H [facility] Rx#: [id number] Oral 480 Output: # of times incontinent of urine 3 2 Other: Meal Breakfast Lunch Percent of Meal Consumed 100% 25% Feeding Ability Independent Nourishment/Supplement name Boost # Voids 2 A/P Time Spent With Patient Time: Total time spent is greater than 50% in coordination of care (as documented) at patient's floor/unit and/or counseling patient:
[2020-08-01] MEDS: ARIPIPRAZOLE 5 MG TABLET PO SCH (21:37)
[2020-08-01] MEDS: PANTOPRAZOLE 40 MG TABLET PO SCH (21:37)
[2020-08-01] MEDS: LITHIUM CARBONATE 450 MG TAB.SR.12H PO SCH (21:42)
[2020-08-02] MEDS: oxyCODONE HCL 5 MG TABLET PO PRN ×2 (04:13→18:26)
[2020-08-02] MEDS: 0.9 % SODIUM CHLORIDE 10 ML SYRINGE IV SCH ×3 (05:57→21:11)
[2020-08-02] MEDS: MEROPENEM 2 GM in 0.9 % SODIUM CHLORIDE 100 ML IV SCH ×3 (05:57→22:20)
[2020-08-02] MEDS: HEPARIN 5,000 UNIT/ML VIAL SQ SCH ×3 (06:36→21:27)
[2020-08-02 07:04] LABS: Basophils # (Auto) 0.07 K/mcL (0.00-0.20); Basophils % (Auto) 0.5 % (0.0-2.0); Eosinophils # (Auto) 0.54 K/mcL (0.00-0.70); Eosinophils % (Auto) 3.6 % (0.0-7.0); Hematocrit 38.1 % (41.0-55.0); Hemoglobin 11.7 g/dL (13.5-16.5); Lymphocytes # (Auto) 3.24 K/mcL (1.50-4.80); Lymphocytes % (Auto) 21.7 % (15.0-49.0); Mean Corpuscular HGB Conc 30.7 g/dL (31.0-36.0); Mean Platelet Volume 8.9 fL (7.4-10.4); Monocytes # (Auto) 1.35 K/mcL (0.10-0.90); Monocytes % (Auto) 9.1 % (1.0-12.0); Neutrophils % (Auto) 65.1 % (38.0-78.0); Platelet Count 270 K/mcL (140-440); RBC 4.28 M/mcL (4.50-5.90); Red Cell Distribution Width 14.2 % (11.5-14.5); WBC 14.9 K/mcL (4.5-11.0)
[2020-08-02] MEDS: D MANNOSE 500 MG PO SCH (08:48)
[2020-08-02] MEDS ORDERED: VANCOMYCIN 1,500 MG in 0.9 % SODIUM CHLORIDE 500 ML IV SCH (09:00)
[2020-08-02] MEDS: VITAMIN D3 1,000 UNIT TABLET PO SCH (09:18)
[2020-08-02] MEDS: LACTOBACILLUS 1 CAPSULE PO SCH ×2 (09:19→21:27)
[2020-08-02] MEDS: VENLAFAXINE 75 MG CAP.XL.24H PO SCH (09:19)
[2020-08-02] MEDS: METOPROLOL TARTRATE 50 MG TABLET PO SCH ×2 (09:45→21:27)
[2020-08-02] MEDS: VANCOMYCIN 1,000 MG in 0.9 % SODIUM CHLORIDE 250 ML IV SCH ×2 (10:25→21:10)
--- NOTE | 2020-08-02 15:08 | General Surgery Progress Note ---
SUBJECTIVE Subjective Patient information: Note initiated : 08/02/20 at 3:05 pm Service Date, if different from initiated Date: [] Patient: Jorge Luis Castrejon 45 y/o M admitted on 07/25/20 for Laparoscopic Cholecystectomy. Chief Complaint: S: withdrawn and fatigued today. Some drain site pain after removal yesteray. O: VSS Looks well Abd rotund, wounds CDI, large umbilical hernia is nontender. Significant pressure in R flank is non tender again Periphery warm WBC 19->16->12 ->14 45 yo man with BMI of 37 POD10 s/p lap mel for acute gangrenous cholecystitis with post op bile leak. s/p ERCP. Now clinically well but with recent climbing WBC from 3cm subcapsular vs parahepatic abscess posterior to the R hepatic lobe quite high - adjacent to posterior diaphragm - not accessable to non operative drainage. Had improving wbc with addition of vanco/enterococcus coverage and increasing meropenum dosing until today when again triending upward Will continue to tx via abx Plan: ID consulted with abx choices in place On going empiric meropenem/vanco therapy - will continue, f/u WBC tomorrow Probiotic Ongoing mobilization SQ heparin for DVT proph OK for general diet will need SNF upon discharge pending parahepatic abscess plan Principal diagnosis: postoperative cholecystectomy Constitutional Vitals: Vital Signs Temp Pulse Resp BP Pulse Ox 36.7 C 73 14 140/92 98 08/02/20 11:46 08/02/20 11:46 08/02/20 11:46 08/02/20 11:46 08/02/20 11:46 Period Temp Pulse Resp BP Sys/Jung Pulse Ox Last 24 Hr 36.6 C-37.5 C 52-73 14-22 127-145/74-92 93-98 Intake and Output 08/02/20 08/02/20 08/02/20 05:59 13:59 21:59 Intake Total 100 820 Output Total 2 1 1 Balance 98 819 -1 Intake & Output: Intake & Output 08/02/20 08/02/20 08/02/20 05:59 13:59 21:59 Intake Total 100 820 Output Total 2 1 1 Balance 98 819 -1 Intake: IV 100 100 Merrem 2 gm In Sodium Chloride 100 100 0.9% 100 ml @ 100 mls/hr IV Q8H [facility] Rx#:[id number] Oral 0 720 Output: # of times incontinent of urine 2 1 1 Other: Meal Breakfast Percent of Meal Consumed 75% Feeding Ability Assist with Tray Set Up Stool Color Brown Stool Consistency Soft # Voids 1 1 # Bowel Movements 1 # of times incontinent of 1 Bowels A/P Time Spent With Patient Time: Total time spent is greater than 50% in coordination of care (as documented) at patient's floor/unit and/or counseling patient:
[2020-08-02] MEDS: PANTOPRAZOLE 40 MG TABLET PO SCH (21:27)
[2020-08-02] MEDS: ARIPIPRAZOLE 5 MG TABLET PO SCH (21:27)
[2020-08-02] MEDS: LITHIUM CARBONATE 450 MG TAB.SR.12H PO SCH (21:27)
[2020-08-03] MEDS: MEROPENEM 2 GM in 0.9 % SODIUM CHLORIDE 100 ML IV SCH ×4 (05:56→22:34)
[2020-08-03] MEDS: 0.9 % SODIUM CHLORIDE 10 ML SYRINGE IV SCH ×3 (05:56→21:28)
[2020-08-03] MEDS: HEPARIN 5,000 UNIT/ML VIAL SQ SCH ×3 (05:58→21:29)
[2020-08-03 07:01] LABS: Basophils # (Auto) 0.07 K/mcL (0.00-0.20); Basophils % (Auto) 0.5 % (0.0-2.0); Eosinophils # (Auto) 0.58 K/mcL (0.00-0.70); Eosinophils % (Auto) 4.2 % (0.0-7.0); Hematocrit 39.2 % (41.0-55.0); Hemoglobin 12.1 g/dL (13.5-16.5); Lymphocytes # (Auto) 2.94 K/mcL (1.50-4.80); Lymphocytes % (Auto) 21.3 % (15.0-49.0); Mean Cell Volume 87.7 fL (80.0-100.0); Mean Corpuscular HGB Conc 30.9 g/dL (31.0-36.0); Mean Platelet Volume 9.1 fL (7.4-10.4); Monocytes # (Auto) 1.27 K/mcL (0.10-0.90); Monocytes % (Auto) 9.2 % (1.0-12.0); Neutrophils % (Auto) 64.8 % (38.0-78.0); Platelet Count 260 K/mcL (140-440); RBC 4.47 M/mcL (4.50-5.90); WBC 13.8 K/mcL (4.5-11.0)
[2020-08-03 07:47] LABS: Blood Urea Nitrogen 14 mg/dL (6-20); Calcium 10.1 mg/dL (8.6-10.4); Carbon Dioxide 24 mmol/L (22-30); Chloride 103 mmol/L (96-108); Glomerular Filtration Rate 103; Glucose 85 mg/dL (70-105)
[2020-08-03] MEDS: VENLAFAXINE 75 MG CAP.XL.24H PO SCH (09:28)
[2020-08-03] MEDS: LACTOBACILLUS 1 CAPSULE PO SCH ×2 (09:28→21:29)
[2020-08-03] MEDS: METOPROLOL TARTRATE 50 MG TABLET PO SCH ×2 (09:28→21:29)
[2020-08-03] MEDS: VITAMIN D3 1,000 UNIT TABLET PO SCH (09:28)
[2020-08-03] MEDS: D MANNOSE 500 MG PO SCH (09:29)
[2020-08-03] MEDS: VANCOMYCIN 1,000 MG in 0.9 % SODIUM CHLORIDE 250 ML IV SCH ×2 (09:56→21:24)
--- NOTE | 2020-08-03 11:48 | General Surgery Progress Note ---
SUBJECTIVE Subjective Patient information: Note initiated : 08/03/20 at 11:46 am Service Date, if different from initiated Date: [] Patient: Jorge Luis Castrejon 45 y/o M admitted on 07/25/20 for Laparoscopic Cholecystectomy. Chief Complaint: S: no complaints, eating O: VSS Looks well Abd rotund, wounds CDI, large umbilical hernia is nontender. Significant pressure in R flank is tender today. Periphery warm WBC 19->16->12 ->14->13 45 yo man with BMI of 37 POD11 s/p lap mel for acute gangrenous cholecystitis with post op bile leak. s/p ERCP. Now clinically well but with recent climbing WBC from 3cm subcapsular vs parahepatic abscess posterior to the R hepatic lobe quite high - adjacent to posterior diaphragm - not accessable to non operative drainage. Had improving wbc with addition of vanco/enterococcus coverage and increasing meropenum now waxing and waining - somewhat improved today Will continue to tx via abx Plan: ID consulted with abx choices in place On going empiric meropenem/vanco therapy - will continue, f/u WBC tomorrow if not clearly improving will re CT abdomen Probiotic Ongoing mobilization SQ heparin for DVT proph OK for general diet will need SNF upon discharge pending parahepatic abscess plan Principal diagnosis: postoperative cholecystectomy Constitutional Vitals: Vital Signs Temp Pulse Resp BP Pulse Ox 36.8 C 74 18 123/82 98 08/03/20 07:30 08/03/20 07:30 08/03/20 07:30 08/03/20 07:30 08/03/20 07:30 Period Temp Pulse Resp BP Sys/Jung Pulse Ox Last 24 Hr 36.2 C-36.9 C 55-74 - 121-139/72-85 91-98 Intake and Output 08/02/20 08/03/20 08/03/20 21:59 05:59 13:59 Intake Total 1670 350 960 Output Total 2 3 501 Balance 1668 347 459 Weight 107.774 kg Intake & Output: Intake & Output 08/02/20 08/03/20 08/03/20 21:59 05:59 13:59 Intake Total 1670 350 960 Output Total 2 3 501 Balance 1668 347 459 Weight 107.774 kg Intake: IV 100 350 Merrem 2 gm In Sodium Chloride 100 100 0.9% 100 ml @ 100 mls/hr IV Q8H [facility] Rx#:[id number] Vancomycin 1,000 mg In Sodium 250 Chloride 0.9% 250 ml @ 250 mls/ hr IV Q12H [facility] Rx#:[id number] Oral 1570 0 960 Output: Void Amount 500 # of times incontinent of urine 2 3 1 Other: Meal Dinner Breakfast Percent of Meal Consumed 95% 25% Feeding Ability Assist with Tray Set Up Assist with Tray Set Up Urine Appearance Clear Urine Color Bright Yellow Stool Size Large Stool Color Brown Brown Stool Consistency Soft Soft # Voids 1 1 # Bowel Movements 1 1 # of times incontinent of 1 1 Bowels A/P Time Spent With Patient Time: Total time spent is greater than 50% in coordination of care (as documented) at patient's floor/unit and/or counseling patient:
[2020-08-03] MEDS: oxyCODONE HCL 5 MG TABLET PO PRN (19:33)
[2020-08-03] MEDS: ARIPIPRAZOLE 5 MG TABLET PO SCH (21:29)
[2020-08-03] MEDS: LITHIUM CARBONATE 450 MG TAB.SR.12H PO SCH (21:29)
[2020-08-03] MEDS: PANTOPRAZOLE 40 MG TABLET PO SCH (21:29)
[2020-08-04] MEDS: oxyCODONE HCL 5 MG TABLET PO PRN (05:43)
[2020-08-04] MEDS: HEPARIN 5,000 UNIT/ML VIAL SQ SCH ×3 (05:59→20:46)
[2020-08-04] MEDS: MEROPENEM 2 GM in 0.9 % SODIUM CHLORIDE 100 ML IV SCH ×2 (05:59→17:57)
[2020-08-04] MEDS: 0.9 % SODIUM CHLORIDE 10 ML SYRINGE IV SCH ×2 (05:59→17:57)
[2020-08-04 06:39] LABS: Basophils # (Auto) 0.09 K/mcL (0.00-0.20); Basophils % (Auto) 0.6 % (0.0-2.0); Eosinophils # (Auto) 0.64 K/mcL (0.00-0.70); Eosinophils % (Auto) 4.3 % (0.0-7.0); Hematocrit 40.6 % (41.0-55.0); Hemoglobin 12.5 g/dL (13.5-16.5); Lymphocytes # (Auto) 3.31 K/mcL (1.50-4.80); Lymphocytes % (Auto) 22.5 % (15.0-49.0); Mean Cell Volume 87.1 fL (80.0-100.0); Mean Corpuscular HGB Conc 30.8 g/dL (31.0-36.0); Mean Platelet Volume 9.1 fL (7.4-10.4); Monocytes # (Auto) 1.23 K/mcL (0.10-0.90); Monocytes % (Auto) 8.4 % (1.0-12.0); Neutrophils % (Auto) 64.2 % (38.0-78.0); Platelet Count 315 K/mcL (140-440); RBC 4.66 M/mcL (4.50-5.90); Red Cell Distribution Width 14.1 % (11.5-14.5); WBC 14.7 K/mcL (4.5-11.0)
[2020-08-04 07:04] LABS: Blood Urea Nitrogen 15 mg/dL (6-20); Carbon Dioxide 22 mmol/L (22-30); Chloride 102 mmol/L (96-108); Glomerular Filtration Rate 103; Glucose 96 mg/dL (70-105)
[2020-08-04] MEDS: METOPROLOL TARTRATE 50 MG TABLET PO SCH ×2 (08:45→20:46)
[2020-08-04] MEDS: VENLAFAXINE 75 MG CAP.XL.24H PO SCH (08:45)
[2020-08-04] MEDS: VITAMIN D3 1,000 UNIT TABLET PO SCH (08:45)
[2020-08-04] MEDS: LACTOBACILLUS 1 CAPSULE PO SCH ×2 (08:45→20:45)
[2020-08-04] MEDS: D MANNOSE 500 MG PO SCH (08:45)
[2020-08-04] MEDS ORDERED: IOPAMIDOL 100 ML BOTTLE IV ONE (09:58)
[2020-08-04] MEDS: VANCOMYCIN 750 MG in 0.9 % SODIUM CHLORIDE 250 ML IV SCH ×2 (10:18→20:56)
--- NOTE | 2020-08-04 10:20 | Cat Scan Report ---
History: Follow-up liver abscess TECHNIQUE: The patient was imaged following injection of intravenous nonionic contrast scanning from the lung bases to the iliac crest. Sagittal and coronal reformats were created. The radiation exposure was limited using dose reduction technology. FINDINGS: There is a small right-sided pleural effusion which has diminished in volume since 07/29/20. There is no thickening of the pleura to indicate an empyema. There is mild atelectasis in the adjacent posterior basal segment of the right lower lobe. This has improved. A band of discoid atelectasis is also present posteriorly in the left lung base. This has also improved. No left-sided pleural effusion is present. A subcapsular abscess is again seen posteriorly and high in segment seven of the right lobe. It contains a tiny bubble of gas. The fluid collection measures 1.8 x 2.2 x 4.1 cm. This has remained stable since the prior CT done on 07/29/20. The remainder of the liver is homogeneous. There is a small amount of gas in the central portion of the intrahepatic ducts near the nila hepatis. This was not seen on the prior exam. There is a stent extending from the common hepatic duct into the duodenum. The percutaneous drain seen previously in the gallbladder fossa has been removed. There is stranding of the fat in the gallbladder fossa but no evidence of an abscess or fluid collection. Small amount of ascites is seen inferiorly to the right lobe of the liver, extending to the upper recess of the paracolic gutter. This is unchanged. The pancreas is normal without evidence of inflammation or dilatation of the duct. The spleen is normal in size and homogeneous. The adrenals are normal. There are stable simple cysts in the left kidney. There is no kidney stone or hydronephrosis. The aorta and inferior vena cava are normal. No adenopathy is present. The bowel pattern is normal. IMPRESSION: Stable small subcapsular abscess high in segment seven of the right lobe of the liver Improving small right-sided pleural effusion and improving atelectasis in both lung bases. Small amount gas within the intrahepatic bile ducts. This may be related to the biliary stent. Interpreted and Authenticated by: Samm Castillo 08/04/20
[2020-08-04] MEDS: VANCOMYCIN 1,000 MG in 0.9 % SODIUM CHLORIDE 250 ML IV SCH (10:34)
--- NOTE | 2020-08-04 13:39 | General Surgery Progress Note ---
SUBJECTIVE Subjective Patient information: Note initiated : 08/04/20 at 1:37 pm Service Date, if different from initiated Date: [] Patient: Jorge Luis Castrejon 45 y/o M admitted on 07/25/20 for Laparoscopic Cholecystectomy. Chief Complaint: [] Chief Complaint: S: patient and father in room fatigued with long hospitalization, Pt hungry, having normal bowel function. Denies significant abdominal pain, no pluritic chest pain O: VSS Looks well Abd rotund, wounds CDI, large umbilical hernia is nontender. Significant pressure on R flank continues to be tender. Periphery warm WBC 19->16->12 ->14->13->[address] abd today - perihepatic vs sub capsular abscess quite superior in R posterior/superior liver. 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 Essentially the same size 45 yo man with BMI of 37 POD12 s/p lap mel for acute gangrenous cholecystitis with post op bile leak. s/p ERCP with biliary stent in place. Now clinically well but non resolving 4 cm subcapsular vs parahepatic abscess in R hepatic lobe quite high - adjacent to posterior diaphragm - not accessable to non operative drainage. WBC continues to vasilate in mid teens. Abx day 6 of vanco/enterococcus coverage + increasing meropenum dose Prior to this on pip/karuna for 1 week Plan: Given significant surgical risk in nontoxic pt - plan for trial of personal lines sales executive abx therapy - if fails will need transperitoneal drainage with hepatic mobilization. Obtain PICC today Dr Paty Kendrick of ID will see today - much appreciated. Probiotic Ongoing mobilization SQ heparin for DVT proph OK for general diet will need SNF upon discharge once Abx plan established Royer Murray MD Surgery Principal diagnosis: postoperative cholecystectomy Constitutional Vitals: Vital Signs Temp Pulse Resp BP Pulse Ox 37.0 C 67 20 133/85 96 08/04/20 07:52 08/04/20 07:52 08/04/20 07:52 08/04/20 07:52 08/04/20 07:52 Period Temp Pulse Resp BP Sys/Jung Pulse Ox Last 24 Hr 36.4 C-37.0 C 58-73 16-20 120-138/77-85 94-98 Intake and Output 08/03/20 08/04/20 08/04/20 21:59 05:59 13:59 Intake Total 1260 475 Output Total 2 1 1 Balance 1258 474 -1 Weight 108.046 kg Intake & Output: Intake & Output 08/03/20 08/04/20 08/04/20 21:59 05:59 13:59 Intake Total 1260 475 Output Total 2 1 1 Balance 1258 474 -1 Weight 108.046 kg Intake: IV 100 100 Merrem 2 gm In Sodium Chloride 100 100 0.9% 100 ml @ 100 mls/hr IV Q8H [facility] Rx#:[id number] Oral 1160 375 Output: # of times incontinent of urine 2 1 1 Other: Meal Dinner Percent of Meal Consumed 90% Stool Size Large Stool Color Brown Stool Consistency Soft # Bowel Movements 1 # of times incontinent of 1 Bowels A/P Time Spent With Patient Time: Total time spent is greater than 50% in coordination of care (as documented) at patient's floor/unit and/or counseling patient:
--- NOTE | 2020-08-04 15:56 | Infectious Disease Consult ---
HPI Data of Consult Primary Care Provider: Nick Jones MD Consult Narrative Patient Information: Note initiated : 08/04/20 at 3:34 pm Service Date, if different from initiated Date: [] Patient: Jorge Luis Castrejon a 45 y/o M admitted on 07/25/20 for Laparoscopic Cholecystectomy. Chief Complaint: [] Jorge Luis is a 45-year-old obese cerebral palsy man who was admitted into the hospital July 23 for laparoscopic cholecystectomy. He is postop day #12. He developed biliary leak requiring common hepatic duct stenting and ERCP on July 24. He developed postoperative leukocytosis. A follow-up CT scan was completed July 29 which identified a collection right hepatic lobe of the liver subcapsular. Postoperatively, he was receiving Zosyn. Antibiotic treatment was expanded to meropenem and vancomycin. There was an intraoperative culture on July 23 that only grew an alpha strep. CT scan was not repeated today revealing stable collection measuring 1.8 x 2.2 x 4.1 cm. White count 14.7 today. Meropenem dosing currently at 2 g IV every 8 hours and vancomycin at 1.5 g IV every 12 hours. Jorge Luis denies abdominal pain. He has minimal movement of lower extremities secondary to CP. He is being transferred to [facility] tomorrow. Interestingly, he has a history of Salmonella enteritis on May 30, 2020. It was not speciated nor sensitivities provided. General surgery asked for consultation. Dr. nick Jones is his primary provider. Dr. Knight completed the original cho lecystectomy. cc:: CC: Araceli Knight MD Constitutional Additional comments: General: No complaints of fevers or chills. HEENT: No history of eye surgery. He is considered legally blind. No neck complaints. Pulmonary: No complaints of cough or shortness of breath. Cardiac: No chest pain. GI: No abdominal pain. Extremities: Minimal lower extremity movement. No history of lumbar surgery. He is currently getting a PICC line placed in his right arm. Skin: History of seborrheic dermatitis on the face. PFSH PFSH All Active Problems (Updated 08/04/20 @ 15:45 by Blake Kendrick MD) Liver abscess (Acute) Hypoventilation associated with obesity syndrome (Acute) Postprocedural leakage from bile duct (Acute) Cholelithiasis and acute cholecystitis without obstruction (Acute) Cholelithiasis and cholecystitis with obstruction (Acute) Salmonella enteritis (Acute) Diarrhea (Acute) Bowel incontinence (Acute) Seborrheic dermatitis (Acute) Depression (Acute) Generalized anxiety disorder (Acute) Bipolar disorder with psychotic features (Acute) Urinary incontinence (Chronic) Cerebral palsy (Acute) Altered mental status (Acute) Hyperglycemia (Acute) Vitamin D deficiency (Chronic) Gastroesophageal reflux disease (Chronic) Osteoarthritis (Chronic) Hx of Achilles tendon repair (Acute) Obsessive compulsive disorder (Chronic) Obesity (Chronic) Hypertension, essential (Chronic) Legal blindness (Chronic) Bipolar disorder (Chronic) Medical History (Updated 08/04/20 @ 15:45 by Blake Kendrick MD) Acute conjunctivitis, bilateral (Inactive) Altered level of consciousness (Resolved) With other behavior changes and anorexia Bilateral impacted cerumen (Inactive) Bipolar disorder (Chronic) Cerebral palsy (Acute) Conjunctivitis (Resolved) On Ophthalmic Erythromycin ointment for five more days Dehydration (Inactive) Dehydration, moderate (Resolved) Gastroenteritis (Resolved) Gastroesophageal reflux disease (Chronic) Hypertension, essential (Chronic) Hypokalemia (Resolved) Possibly secondary to diuretic use Legal blindness (Chronic) Metabolic acidosis (Resolved) Anion gap metabolic acidosis, possibly secondary to starvation (Lactic acid level is normal at 0.83) Obesity (Chronic) Obsessive compulsive disorder (Chronic) Osteoarthritis (Chronic) With chronic use of anti-inflammatories Salmonella enteritis (Acute) Seborrheic dermatitis (Acute) Toxic encephalopathy (Resolved) Secondary to infection Urinary incontinence (Chronic) Urinary tract infection (Resolved) Partially treated UTI (urinary tract infection) (Resolved) Vitamin D deficiency (Chronic) Now on replacement therapy Volume depletion (Resolved) Volume depletion secondary to infection without renal injury at this time Surgical History (Updated 08/04/20 @ 10:02 by Aliya Navas [facility]) History of laparoscopic cholecystectomy (Acute) 07/25/2020 Hx of Achilles tendon repair (Acute) bilateral hamstring and achelles tendon releases Family History mother Anxiety disorder, Onset Age: 55 none listed Atherosclerosis of coronary artery father Essential hypertension, Onset Age: 57 Social History education level: high school smoking status: Former smoker alcohol intake frequency: does not drink substance use type: does not use MEDS/ALLERGIES Home Medications and Allergies Home Medications Medication Instructions Recorded Confirmed Type Core Spun Compression Garments (to 1 dose .ROUTE .MEDSUPPLY 09/15/18 07/23/20 History below knees) Wheelchair 1 each .ROUTE DAILY 09/15/18 07/23/20 History Funnel for top of plastic urinal #1 ea 04/25/19 07/23/20 Rx nystatin 100,000 unit/gram topical 1 applic TOPICAL .COMPLEX #60 each 05/09/19 07/23/20 Rx powder Depends (Adult Underwear) #1 each 08/14/19 07/23/20 Rx Powder Free Nitrile gloves #1 ea 08/14/19 07/23/20 Rx Surgical masks #1 each 08/14/19 07/23/20 Rx bedisde commode #1 ea 08/14/19 07/23/20 Rx castile towelettes #1 ea 08/14/19 07/23/20 Rx acetaminophen 325 mg tablet 325 mg PO Q4HP PRN #100 tab 08/23/19 07/23/20 Rx carbamide peroxide 6.5 % ear drops 3 drp OTIC .COMPLEX #30 ml 08/23/19 07/23/20 Rx benzocaine 20 %-menthol 0.1 %-zinc 1 each MUCOUS MEM QID PRN #5.1 g 02/13/20 07/23/20 Rx chloride 0.15 % mucosal gel cholecalciferol (vitamin D3) 50 4,000 unit PO QDAY 90 Days #180 cap 02/15/20 07/23/20 Rx mcg (2,000 unit) capsule venlafaxine 150 mg 150 mg PO QAM #30 cap 02/20/20 07/23/20 Rx capsule,extended release 24 hr zinc oxide 13 % topical cream See Rx Instructions TOPICAL 5XD 04/16/20 07/23/20 Rx PRN #454 g losartan 100 mg tablet 100 mg PO QDAY #30 tab 04/23/20 07/23/20 Rx ketoconazole 2 % shampoo 1 applic TOPICAL .COMPLEX #120 ml 05/01/20 07/23/20 Rx lithium carbonate 450 mg 900 mg PO QHS #62 tab 05/14/20 07/23/20 Rx tablet,extended release amlodipine 10 mg tablet 5 mg PO BID #90 tab 05/20/20 07/23/20 Rx metoprolol tartrate 50 mg tablet 50 mg PO BID #180 tab 05/20/20 07/23/20 Rx omeprazole 20 mg capsule,delayed 20 mg PO QDAY #90 cap 05/20/20 07/23/20 Rx release cranberry fruit concentrate 450 mg 450 mg PO BID #180 tab 06/18/20 07/23/20 Rx tablet ondansetron 4 mg PO Q6H PRN #10 tab 06/18/20 07/23/20 Rx D-MANNOSE 500 MG CAPS 500 Capsule 1 cap PO DAILY 07/18/20 07/23/20 History aripiprazole [Abilify] 10 mg PO QHS 07/18/20 07/23/20 History ketoconazole 1 applic TOPICAL BID PRN 07/18/20 07/23/20 History lorazepam [Ativan] 0.5 mg PO QDAY PRN 07/18/20 07/23/20 History meloxicam [Mobic] 7.5 mg PO QDAY PRN 07/18/20 07/23/20 History venlafaxine 75 mg PO QAM 07/18/20 07/23/20 History Allergies Allergy/AdvReac Type Severity Reaction Status Date / Time No Known Drug Allergies Allergy Verified 07/23/20 06:29 Physical Examination Vital Signs Vital signs: Temp Pulse Resp BP Pulse Ox 98.6 F 67 20 133/85 96 08/04/20 07:52 08/04/20 07:52 08/04/20 07:52 08/04/20 07:52 08/04/20 07:52 Additional Exam Additional exam: General: He is laying in bed. He has developmental delay. HEENT: Strabismus present. Anicteric sclera. Seborrheic dermatitis in facial chin skin folds. Neck is full. Lungs: Clear without wheezing. Heart: Regular rate and rhythm without murmur. Abdomen: Soft nontender positive bowel sounds. Obese. Supraumbilical laparoscopic staple line intact no erythema nontender no drainage. No right upper quadrant tenderness. Extremities: Mild differential specialist strength bilateral hands. Minimal movement feet. Results Laboratory Findings CBC and BMP: 08/04/20 05:40 08/04/20 05:40 ABG, PT/INR, D-dimer: PT/INR, D-dimer PT 11.7 sec (11.9-14.5) L 07/17/20 13:53 INR 0.8 (0.9-1.1) L 07/17/20 13:53 Abnormal lab findings: Abnormal Labs 07/17/20 07/17/20 07/17/20 13:53 13:53 13:53 WBC 12.4 H RBC Hgb 13.2 L Hct 40.7 L MCHC RDW 14.6 H Neut % (Auto) Lymph % (Auto) Hughes # (Auto) Eos # (Auto) Absolute Neutrophils 8.35 H PT 11.7 L INR 0.8 L Creatinine Glucose Uric Acid Calcium GGT ALT 63 H Alkaline Phosphatase 139 H Vancomycin Trough 07/24/20 07/24/20 07/25/20 05:43 05:43 07:47 WBC 21.9 H RBC 4.27 L Hgb 11.7 L Hct 36.7 L MCHC RDW 14.8 H Neut % (Auto) 83.6 H Lymph % (Auto) 8.2 L Hughes # (Auto) 1.77 H Eos # (Auto) Absolute Neutrophils 18.33 H PT INR Creatinine 1.3 H Glucose 114 H 135 H Uric Acid 8.1 H Calcium GGT 104 H 91 H ALT Alkaline Phosphatase Vancomycin Trough 07/25/20 07/26/20 07/27/20 08:20 05:06 05:41 WBC 21.4 H 14.4 H 15.9 H RBC 4.14 L 3.98 L 4.03 L Hgb 11.5 L 10.9 L 11.0 L Hct 36.6 L 35.2 L 35.1 L MCHC RDW 15.1 H 14.8 H 14.6 H Neut % (Auto) 86.1 H Lymph % (Auto) 8.1 L Hughes # (Auto) 1.21 H 1.00 H 1.30 H Eos # (Auto) 0.76 H Absolute Neutrophils 18.40 H 9.72 H 10.77 H PT INR Creatinine Glucose Uric Acid Calcium GGT ALT Alkaline Phosphatase Vancomycin Trough 07/28/20 07/29/20 07/30/20 05:14 05:17 12:02 WBC 15.1 H 15.6 H 19.7 H RBC 4.22 L 4.17 L 4.44 L Hgb 11.4 L 11.4 L 12.2 L Hct 36.3 L 35.9 L 38.5 L MCHC RDW Neut % (Auto) Lymph % (Auto) Hughes # (Auto) 1.15 H 1.10 H 1.26 H Eos # (Auto) Absolute Neutrophils 10.65 H 10.67 H 14.72 H PT INR Creatinine Glucose Uric Acid Calcium GGT ALT Alkaline Phosphatase Vancomycin Trough 07/30/20 07/31/20 07/31/20 12:02 05:49 07:58 WBC 16.6 H RBC 4.43 L Hgb 12.0 L Hct 39.5 L MCHC 30.4 L RDW Neut % (Auto) Lymph % (Auto) Hughes # (Auto) 1.24 H Eos # (Auto) Absolute Neutrophils 11.09 H PT INR Creatinine Glucose 108 H Uric Acid Calcium 10.6 H GGT ALT Alkaline Phosphatase Vancomycin Trough 21.9 H* 08/01/20 08/02/20 08/03/20 06:28 05:46 05:58 WBC 12.4 H 14.9 H 13.8 H RBC 4.28 L 4.28 L 4.47 L Hgb 11.6 L 11.7 L 12.1 L Hct 37.3 L 38.1 L 39.2 L MCHC 30.7 L 30.9 L RDW Neut % (Auto) Lymph % (Auto) Hughes # (Auto) 1.03 H 1.35 H 1.27 H Eos # (Auto) Absolute Neutrophils 8.49 H 9.70 H 8.92 H PT INR Creatinine Glucose Uric Acid Calcium GGT ALT Alkaline Phosphatase Vancomycin Trough 08/04/20 05:40 WBC 14.7 H RBC Hgb 12.5 L Hct 40.6 L MCHC 30.8 L RDW Neut % (Auto) Lymph % (Auto) Hughes # (Auto) 1.23 H Eos # (Auto) Absolute Neutrophils 9.46 H PT INR Creatinine Glucose Uric Acid Calcium GGT ALT Alkaline Phosphatase Vancomycin Trough Microbiology: Microbiology 07/29/20 17:52 Stool C. difficile GDH Antigen & Toxins - Final 07/23/20 08:18 Gallbladder Gram Stain - Final 07/23/20 08:18 Gallbladder Gram Stain - Final 07/23/20 08:18 Gallbladder Anaerobic Culture - Final 07/23/20 08:19 Gallbladder Gram Stain - Preliminary 07/23/20 08:19 Gallbladder Body Fluid Culture - Preliminary Alpha strep 07/23/20 08:19 Gallbladder Wound Culture - Final 07/17/20 13:50 Nose MRSA (PCR) - Final A/P Assessment and plan (1) Liver abscess: Status: Acute (2) Postprocedural leakage from bile duct: Status: Acute (3) Cerebral palsy: Status: Acute Qualifiers: Cerebral palsy type: unspecified type Qualified Code(s): G80.9 - Cereb ral palsy, unspecified (4) Obesity: Status: Chronic Narrative A/P Narrative: Jorge Luis is a 45-year-old obese cerebral palsy patient with history of bipolar illness. He is postop day #12 from laparoscopic cholecystectomy. Postoperatively, he had a biliary leak requiring ERCP and common hepatic duct stent. He was found to have a right hepatic lobe subcapsular fluid collection postoperatively with leukocytosis. Today's white count 14.7. Collection today remains stable at 1.8 x 2.2 x 4.1 cm. The location of the collection is in a challenging area for percutaneous drainage. Patient was initially placed on Zosyn followed by IV meropenem and vancomycin. There is a culture from July 23 that only grew alpha strep. No further identification available. General surgery has suggested open procedure if unable to resolve with medical treatment. Therefore, he is on maximal antibiotic therapy of meropenem and vancomycin. It does not appear that collection has increased in size from comp [facility] CAT scans July 29 to August 04. I have recommended weekly labs to include CBC CMP Vanco trough and sed rate. I would also recommend repeat CAT scan in 2 to 3 weeks. Sooner if white blood cell count increases. White blood cell count appears stable at this time. I will arrange televideo visit in 2 weeks. Patient to be discharged to [facility] nursing [facility] tomorrow. I am estimating 4 more weeks of current regimen. Continue to evaluate in follow-up CAT scans to determine if collection becomes percutaneously accessible by radiology. If collection increases in size after antibiotic course completed, open surgical procedure may need to be completed. Thank you very much for allowing me to be involved in Jorge Luis's consultative care. Time Spent With Patient Time: Total time spent is greater than 50% in coordination of care (as documented) at patient's floor/unit and/or counseling patient:
--- NOTE | 2020-08-04 16:45 | XRay Report ---
HISTORY: PICC line insertion FINDINGS: A PICC line has been inserted through the right arm. The tip of the catheter is looped upon itself in the region of the innominate vein. I was informed that they could not advance the catheter and the catheter was subsequently removed. There is no widening of the mediastinum, pneumothorax or pleural effusion. Lung volumes are relatively small due to suboptimal inspiration. The heart appears mildly enlarged but is also magnified by poor inspiration and AP technique. There is a thin band of discoid atelectasis or scar medially in the right upper lobe. IMPRESSION: PICC line looped in the innominate vein Interpreted and Authenticated by: Samm Castillo 08/04/20
--- NOTE | 2020-08-04 17:10 | XRay Report ---
HISTORY: PICC line placement FINDINGS: PICC line passes through the right arm and superior vena cava into the right atrium of heart. There is no widening in the mediastinum, pleural effusion or pneumothorax. There are bands of discoid atelectasis in the right lower thorax and medially in the right upper lobe. The discoid atelectasis in right lower thorax has developed since the earlier study done at 1449 on the same date. The left lung is clear. The heart size is upper limits of normal. There is improved aeration of both lungs since the earlier study. IMPRESSION: no complication following PICC line insertion. Discoid atelectasis in the right lung Nursing was called with the results Interpreted and Authenticated by: Samm Castillo 08/04/20
[2020-08-04] MEDS: ARIPIPRAZOLE 5 MG TABLET PO SCH (20:45)
[2020-08-04] MEDS: PANTOPRAZOLE 40 MG TABLET PO SCH (20:46)
[2020-08-04] MEDS: LITHIUM CARBONATE 450 MG TAB.SR.12H PO SCH (20:50)
[2020-08-05] MEDS: 0.9 % SODIUM CHLORIDE 10 ML SYRINGE IV SCH (00:01)
[2020-08-05] MEDS ORDERED: 0.9 % SODIUM CHLORIDE 10 ML SYRINGE IV PRN (00:23)
[2020-08-05] MEDS: HEPARIN 5,000 UNIT/ML VIAL SQ SCH (05:40)
[2020-08-05] MEDS: MEROPENEM 2 GM in 0.9 % SODIUM CHLORIDE 100 ML IV SCH ×2 (05:40)
[2020-08-05] MEDS ORDERED: 0.9 % SODIUM CHLORIDE 10 ML SYRINGE IV SCH (09:00)
[2020-08-05] MEDS: VENLAFAXINE 75 MG CAP.XL.24H PO SCH (09:26)
[2020-08-05] MEDS: VITAMIN D3 1,000 UNIT TABLET PO SCH (09:27)
[2020-08-05] MEDS: D MANNOSE 500 MG PO SCH (09:27)
[2020-08-05] MEDS: METOPROLOL TARTRATE 50 MG TABLET PO SCH (09:27)
[2020-08-05] MEDS: LACTOBACILLUS 1 CAPSULE PO SCH (09:27)
--- NOTE | 2020-08-05 10:42 | Discharge Summary ---
Discharge Provider Provider Patient information: Note initiated : 08/05/20 at 10:28 am Service Date, if different from initiated Date: [] Patient: Jorge Luis Castrejon 45 y/o M admitted on 07/25/20 for Laparoscopic Cholecystectomy. Chief Complaint: [] Date of admission: 07/25/20 16:55 Discharge date: 08/05/20 Primary care physician: Nick Jones MD Consults: 08/04/20 15:07 Consult to Physician [CONS] Routine Comment: Consulting Provider: Blake Kendrick Reason For Exam: Physician to Consult COURSE Hospital Course Hospital course: 45 yo Man with BMI 37 and cerebral palsy also with history of bipolar illness, he had a late presentation of acute cholecystitis and went to OR 13 days ago for a difficult lap cholecystectomy - gallbladder was gangrenous. His post operative course with notable for tenuous respiratory status compounded by obesity hypoventilation syndrome. He responded to ongoing furosemide. He developed a bile leak controled by surgical drain and underwent ERCP with reduction and eventual resolution of bilious drain outputs. Drain was removed POD10. After initially improving pt developed a leukocytosis to 19 - he had been on pip/karuna since the time of surgery. Work revealed a very superior R posterior hepatic lobe pyogenic liver abscess. His antibiotics were expanded with the help of ID to meropenum/vanco - his WBC fell but then then ossilated in the 12-16 range for nearly a week. Follow up CT showed stable hepatic collection 1.8 x 2.2 x 4.1 cm. The location is quite superior - at the level of the 7th rib and inferior tip of scapula. It is not amenable to percutaneous drainage. As pt showed only mild R flank tenderness and no physiologic evidence of systemic infection decision was made to commit to long abx course. Dr Kendrick of Infectious disease was consulted and is managing outpt antibiotics a picc was placed with plans for on going meropenum/Vanco at SNF. Weekly CBC, CMP, Sed rate, Vanco trough all ordered with follow up abd CT to asses changes in liver abscess in 2 weeks. Anticipated 4 weeks of IV abx therapy as outpt. If fails to resolve or progresses would need significant dissection to access high location of abscess Discharge diagnosis: R hepatic abscess Secondary discharge diagnosis: acute gangrenous cholecystitis obesity cerebral palsy Bipolar mood disorder post operative bile leak Reason for admission: abd pain Complications: 1) bile leak 2) hepatic abscess Time Spent with Patient Time attestation: Total time spent providing and/or coordinating discharge services: Time spent: Greater than 30 minutes Specific discharge activities: No lifting over 15 lbs for 6 weeks after surgery Ok to bath and shower. wounds can get wet Ok to mobilize ad maryjane Physical Examination Vital Signs Vital signs: Temp Pulse Resp BP Pulse Ox 36.6 C 66 18 125/79 95 08/05/20 08:00 08/05/20 08:00 08/05/20 08:00 08/05/20 08:00 08/05/20 08:00 General physical appearance General physical exam: other (Well, NAD, some what withdrawn affect. abd soft nontender nondistended, wounds CDI, periphery warm ) Discharge Plan Patient/Caregiver Discharge Instructions Activity: increase activity as tolerated Diet: Regular Diet Instructions: Endoscopic Biliary Stent Placement (DC), Laparoscopic Chol ecystectomy (DC), ERCP (Endoscopic Retrograde Cholangiopancreatography) (DC) Activity Restrictions/Additional Instructions: Your next ERCP will be August 14 at 2:00 pm. Please call and confirm this appointment. 1) Ok to shower 2) OK to bath in tub after August 08 3) No lifting over 15lbs for 6 weeks post surgery Weekly CBC, CMP, Vanco trough, Sed rate CT scan abdomen with contrast in 2 weeks to eval for interval change of hepatic abscess Prescriptions: [facility] 10 billion cell -200 mg Capsule, Sprinkle 1 cap PO BID Qty: 60 RF: 0 meropenem 1 gram recon soln 2 g IV Q8H Qty: 84 RF: 0 vancomycin 750 mg recon soln 750 mg IV Q12H 28 Days Qty: 56 RF: 0 ascorbic acid (vitamin C) [Vitamin C] 1,000 mg tablet 1 g PO QDAY Qty: 30 RF: 0 Continued venlafaxine 150 mg capsule,extended release 24hr 150 mg PO QAM Qty: 30 RF: 5 nystatin 100,000 unit/gram powder 1 applic TOPICAL .COMPLEX Qty: 60 RF: 1 acetaminophen 325 mg tablet 325 mg PO Q4HP PRN (Reason: Pain/Fever > 101) Qty: 100 RF: 2 carbamide peroxide [Debrox] 6.5 % drops 3 drp OTIC .COMPLEX Qty: 30 RF: 5 Orajel 3X Mouth Sores 20-0.1-0.15 % gel 1 each MUCOUS MEM QID PRN (Reason: dental pain) Qty: 5.1 RF: 2 cholecalciferol (vitamin D3) [Vitamin D3] 50 mcg (2,000 unit) capsule 4,000 unit PO QDAY 90 Days Qty: 180 RF: 1 Desitin Rapid Relief 13 % cream See Rx Instructions TOPICAL 5XD PRN (Reason: skin irritation) Qty: 454 RF: 0 losartan [Cozaar] 100 mg tablet 100 mg PO QDAY Qty: 30 RF: 5 ketoconazole [Nizoral] 2 % shampoo 1 applic TOPICAL .COMPLEX Qty: 120 RF: 2 lithium carbonate 450 mg tablet extended release 900 mg PO QHS Qty: 62 RF: 3 metoprolol tartrate [Lopressor] 50 mg tablet 50 mg PO BID Qty: 180 RF: 1 amlodipine [Norvasc] 10 mg tablet 5 mg PO BID Qty: 90 RF: 1 omeprazole 20 mg capsule,delayed release(DR/EC) 20 mg PO QDAY Qty: 90 RF: 1 cranberry fruit concentrate 450 mg tablet 450 mg PO BID Qty: 180 RF: 1 (DME) Funnel for top of plastic urinal Qty: 1 RF: 0 (DME) Depends (Adult Underwear) Each 0 .Route .MEDSUPPLY Qty: 1 RF: 12 (DME) Powder Free Nitrile gloves Each 0 .Route .MEDSUPPLY Qty: 1 RF: 12 (DME) Surgical masks Qty: 1 RF: 12 (DME) bedisde commode Qty: 1 RF: 0 (DME) castile towelettes Qty: 1 RF: 12 Core Spun Compression Garments (to below knees) 1 dose .Route .MEDSUPPLY RF: 0 Wheelchair Each 1 each .Route DAILY RF: 0 ondansetron 4 mg tablet,disintegrating 4 mg PO Q6H PRN (Reason: nausea and vomiting) Qty: 10 RF: 0 venlafaxine 75 mg capsule,extended release 24hr 75 mg PO QAM RF: 0 meloxicam [Mobic] 7.5 mg tablet 7.5 mg PO QDAY PRN (Reason: Joint Pain) RF: 0 lorazepam [Ativan] 0.5 mg tablet 0.5 mg PO QDAY PRN (Reason: Anxiety) RF: 0 ketoconazole 2 % cream 1 applic TOPICAL BID PRN (Reason: Rash) RF: 0 aripiprazole [Abilify] 10 mg tablet 10 mg PO QHS RF: 0 D-MANNOSE 500 MG CAPS 500 Capsule 1 cap PO DAILY RF: 0 Other Ambulatory Orders: Complete Blood Count (WEEKLY) Timeframe: 20200812 Facility: [facility] - Location: Laboratory Ordered By: Royer Murray Comprehensive Metabolic Panel (WEEKLY) Timeframe: 20200812 Facility: [facility] - Location: Laboratory Ordered By: Royer Murray Erythrocyte Sedimentation Rate (WEEKLY) Timeframe: 20200812 Facility: [facility] - Location: Laboratory Ordered By: Royer Murray Vancomycin,Trough (WEEKLY) Timeframe: 20200812 Facility: [facility] - Location: Laboratory Ordered By: Royer Murray CT abdomen w con (Routine) Timeframe: 2 Weeks Facility: [facility] - Location: Radiology Ordered By: Royer Murray Follow Up Plan Follow up with: Araceli Knight MD [Physician] - 08/11/20 9:45 am Patient Disposition: Xfer SNF Rehab Potential: Fair I certify that the patient requires SNF services: Yes Overall status at discharge: patient is progressing back to baseline Discharge Orders: Discharge Order (Routine); Ordered 08/05/20 Ordered By: Royer Murray Pending Pending Pending: Resuscitation Status Full Code Diet Regular Diet Start TueAug 04 1334 Acetaminophen (Tylenol) 650 mg PO Q6HP PRN; Protocol PRN Reason: Per Pain Protocol Last Admin: 07/27/20 13:33 Dose: 650 mg Documented by: Admin: 07/27/20 07:59 Dose: 650 mg Documented by: Admin: 07/26/20 21:53 Dose: 650 mg Documented by: Admin: 07/26/20 13:25 Dose: 650 mg Documented by: ANTONIO Diphenhydramine HCl (Benadryl) 50 mg PO HSP PRN PRN Reason: Insomnia Last Admin: 07/28/20 22:45 Dose: 50 mg Documented by: Admin: 07/27/20 21:02 Dose: 50 mg Documented by: Admin: 07/26/20 23:21 Dose: 50 mg Documented by: ENRICO Heparin Sodium (Porcine) (Heparin) 5,000 unit SQ Q8 [facility] Admin: 08/05/20 05:40 Dose: 5,000 unit Documented by: Admin: 08/04/20 20:46 Dose: 5,000 unit Documented by: Admin: 08/04/20 17:57 Dose: 5,000 unit Documented by: Admin: 08/04/20 05:59 Dose: 5,000 unit Documented by: Admin: 08/03/20 21:29 Dose: 5,000 unit Documented by: Admin: 08/03/20 14:29 Dose: 5,000 unit Documented by: Admin: 08/03/20 05:58 Dose: 5,000 unit Documented by: Admin: 08/02/20 21:27 Dose: 5,000 unit Documented by: Admin: 08/02/20 13:45 Dose: 5,000 unit Documented by: Admin: 08/02/20 06:36 Dose: 5,000 unit Documented by: Admin: 08/01/20 21:37 Dose: 5,000 unit Documented by: Admin: 08/01/20 14:36 Dose: 5,000 unit Documented by: Admin: 08/01/20 05:46 Dose: 5,000 unit Documented by: Admin: 07/31/20 21:41 Dose: 5,000 unit Documented by: Admin: 07/31/20 13:09 Dose: 5,000 unit Documented by: Admin: 07/31/20 05:45 Dose: 5,000 unit Documented by: Admin: 07/30/20 20:32 Dose: 5,000 unit Documented by: Admin: 07/30/20 14:11 Dose: 5,000 unit Documented by: Admin: 07/30/20 04:59 Dose: 5,000 unit Documented by: Admin: 07/29/20 20:09 Dose: 5,000 unit Documented by: Admin: 07/29/20 14:08 Dose: 5,000 unit Documented by: Admin: 07/29/20 05:57 Dose: 5,000 unit Documented by: Admin: 07/28/20 21:38 Dose: 5,000 unit Documented by: Admin: 07/28/20 13:55 Dose: 5,000 unit Documented by: Admin: 07/28/20 06:29 Dose: 5,000 unit Documented by: Admin: 07/27/20 21:03 Dose: 5,000 unit Documented by: Admin: 07/27/20 15:43 Dose: 5,000 unit Documented by: Admin: 07/27/20 05:45 Dose: 5,000 unit Documented by: Admin: 07/26/20 20:56 Dose: 5,000 unit Documented by: Admin: 07/26/20 14:07 Dose: 5,000 unit Documented by: ANTONIO Heparin Sodium (Porcine) (Heparin 10 Units/Ml Flush) 2 ml IV Q12 [facility] Last Admin: 08/05/20 09:26 Dose: 2 ml Documented by: Admin: 08/04/20 20:46 Dose: 2 ml Documented by: ROMAIN Meropenem 2 gm/ Sodium (Chloride) 100 mls @ 100 mls/hr IV Q8H [facility] Last Admin: 08/05/20 05:40 Dose: 100 mls/hr Documented by: Infusion: 08/05/20 01:00 Dose: 0 mls/hr Documented by: Admin: 08/05/20 00:00 Dose: 100 mls/hr Documented by: Infusion: 08/04/20 19:00 Dose: 0 mls/hr Documented by: Admin: 08/04/20 17:57 Dose: 100 mls/hr Documented by: Infusion: 08/04/20 06:59 Dose: 100 mls/hr Documented by: Admin: 08/04/20 05:59 Dose: 100 mls/hr Documented by: Infusion: 08/03/20 23:34 Dose: 100 mls/hr Documented by: Admin: 08/03/20 22:34 Dose: 100 mls/hr Documented by: Infusion: 08/03/20 15:31 Dose: 100 mls/hr Documented by: Admin: 08/03/20 14:31 Dose: 100 mls/hr Documented by: Infusion: 08/03/20 07:34 Dose: 100 mls/hr Documented by: Admin: 08/03/20 06:34 Dose: 100 mls/hr Documented by: Infusion: 08/02/20 23:20 Dose: 100 mls/hr Documented by: Admin: 08/02/20 22:20 Dose: 100 mls/hr Documented by: Infusion: 08/02/20 14:46 Dose: 100 mls/hr Documented by: Admin: 08/02/20 13:46 Dose: 100 mls/hr Documented by: Infusion: 08/02/20 07:00 Dose: 0 mls/hr Documented by: Admin: 08/02/20 05:57 Dose: 100 mls/hr Documented by: Infusion: 08/01/20 22:36 Dose: 100 mls/hr Documented by: Admin: 08/01/20 21:36 Dose: 100 mls/hr Documented by: Infusion: 08/01/20 15:30 Dose: 0 mls/hr Documented by: [email or web address] Admin: 08/01/20 14:30 Dose: 100 mls/hr Documented by: [email or web address] Infusion: 08/01/20 06:43 Dose: 0 mls/hr Documented by: [email or web address] Admin: 08/01/20 05:43 Dose: 100 mls/hr Documented by: Infusion: 07/31/20 22:42 Dose: 100 mls/hr Documented by: Admin: 07/31/20 21:42 Dose: 100 mls/hr Documented by: Infusion: 07/31/20 14:39 Dose: 100 mls/hr Documented by: Admin: 07/31/20 13:39 Dose: 100 mls/hr Documented by: Infusion: 07/31/20 07:47 Dose: 100 mls/hr Documented by: Admin: 07/31/20 06:47 Dose: 100 mls/hr Documented by: Infusion: 07/31/20 00:02 Dose: 100 mls/hr Documented by: Admin: 07/30/20 23:02 Dose: 100 mls/hr Documented by: SLICK Vancomycin HCl 750 mg/ Sodium (Chloride) 250 mls @ 250 mls/hr IV Q12H [facility] Last Admin: 08/04/20 20:56 Dose: 250 mls/hr Documented by: Infusion: 08/04/20 11:18 Dose: 250 mls/hr Documented by: Admin: 08/04/20 10:18 Dose: 250 mls/hr Documented by: WILLIE Lactobacillus Rhamnosus (Culturelle) 1 cap PO BID [facility] Last Admin: 08/05/20 09:27 Dose: 1 cap Documented by: Admin: 08/04/20 20:45 Dose: 1 cap Documented by: Admin: 08/04/20 08:45 Dose: 1 cap Documented by: Admin: 08/03/20 21:29 Dose: 1 cap Documented by: Admin: 08/03/20 09:28 Dose: 1 cap Documented by: Admin: 08/02/20 21:27 Dose: 1 cap Documented by: Admin: 08/02/20 09:19 Dose: 1 cap Documented by: Admin: 08/01/20 21:37 Dose: 1 cap Documented by: Admin: 08/01/20 09:46 Dose: 1 cap Documented by: Admin: 07/31/20 21:41 Dose: 1 cap Documented by: Admin: 07/31/20 08:23 Dose: 1 cap Documented by: Admin: 07/30/20 20:32 Dose: 1 cap Documented by: Admin: 07/30/20 10:23 Dose: 1 cap Documented by: Admin: 07/29/20 20:08 Dose: 1 cap Documented by: Admin: 07/29/20 09:20 Dose: 1 cap Documented by: Admin: 07/28/20 20:25 Dose: 1 cap Documented by: HAGENTHE Sinton Carbonate (Eskalith Cr) 900 mg PO QHS [facility] Last Admin: 08/04/20 20:50 Dose: 900 mg Documented by: Admin: 08/03/20 21:29 Dose: 900 mg Documented by: Admin: 08/02/20 21:27 Dose: 900 mg Documented by: Admin: 08/01/20 21:42 Dose: 900 mg Documented by: Admin: 07/31/20 21:42 Dose: 900 mg Documented by: Admin: 07/30/20 20:31 Dose: 900 mg Documented by: Admin: 07/29/20 20:07 Dose: 900 mg Documented by: Admin: 07/28/20 20:26 Dose: 900 mg Documented by: Admin: 07/27/20 21:03 Dose: 900 mg Documented by: KAILASH Lorazepam (Ativan) 0.5 mg PO QDAY PRN PRN Reason: Anxiety Last Admin: 07/30/20 11:11 Dose: 0.5 mg Documented by: MJ Metoprolol Tartrate (Lopressor) 50 mg PO BID [facility] Admin: 08/05/20 09:27 Dose: 50 mg Documented by: Admin: 08/04/20 20:46 Dose: 50 mg Documented by: Admin: 08/04/20 08:45 Dose: 50 mg Documented by: Admin: 08/03/20 21:29 Dose: 50 mg Documented by: Admin: 08/03/20 09:28 Dose: 50 mg Documented by: Admin: 08/02/20 21:27 Dose: 50 mg Documented by: Admin: 08/02/20 09:45 Dose: 50 mg Documented by: Admin: 08/01/20 21:37 Dose: 50 mg Documented by: Admin: 08/01/20 09:46 Dose: 50 mg Documented by: Admin: 07/31/20 21:41 Dose: 50 mg Documented by: Admin: 07/31/20 08:24 Dose: 50 mg Documented by: Admin: 07/30/20 20:32 Dose: 50 mg Documented by: Admin: 07/30/20 10:22 Dose: 50 mg Documented by: Admin: 07/29/20 20:08 Dose: 50 mg Documented by: Admin: 07/29/20 09:20 Dose: 50 mg Documented by: Admin: 07/28/20 20:25 Dose: 50 mg Documented by: Admin: 07/28/20 08:21 Dose: 50 mg Documented by: Admin: 07/27/20 21:02 Dose: 50 mg Documented by: KAILASH Nystatin (Nystatin) 0 dose TOPICAL DAILYP PRN PRN Reason: Rash Last Admin: 08/01/20 09:47 Dose: 15 dose Documented by: Admin: 07/27/20 21:02 Dose: 1 dose Documented by: KAILASH Ondansetron HCl (Zofran) 4 mg IV Q4HP PRN; Protocol PRN Reason: Nausea/Vomiting Last Admin: 07/25/20 09:21 Dose: 4 mg Documented by: ANTONIO Oxycodone HCl (Roxicodone) 10 mg PO Q4HP PRN; Protocol PRN Reason: Per Pain Protocol Last Admin: 08/04/20 05:43 Dose: 10 mg Documented by: Admin: 08/03/20 19:33 Dose: 10 mg Documented by: Admin: 08/02/20 18:26 Dose: 10 mg Documented by: Admin: 08/02/20 04:13 Dose: 10 mg Documented by: Admin: 07/31/20 05:45 Dose: 10 mg Documented by: Admin: 07/30/20 20:32 Dose: 10 mg Documented by: Admin: 07/28/20 03:46 Dose: 10 mg Documented by: Admin: 07/27/20 21:01 Dose: 10 mg Documented by: Admin: 07/27/20 02:30 Dose: 10 mg Documented by: Admin: 07/26/20 21:03 Dose: 10 mg Documented by: Admin: 07/25/20 23:51 Dose: 10 mg Documented by: Admin: 07/24/20 10:24 Dose: 10 mg Documented by: Admin: 07/24/20 04:59 Dose: 10 mg Documented by: Admin: 07/23/20 23:11 Dose: 10 mg Documented by: Admin: 07/23/20 18:38 Dose: 10 mg Documented by: Admin: 07/23/20 14:09 Dose: 10 mg Documented by: WILLIE Pantoprazole Sodium (Protonix) 40 mg PO HS [facility] Last Admin: 08/04/20 20:46 Dose: 40 mg Documented by: Admin: 08/03/20 21:29 Dose: 40 mg Documented by: Admin: 08/02/20 21:27 Dose: 40 mg Documented by: Admin: 08/01/20 21:37 Dose: 40 mg Documented by: Admin: 07/31/20 21:42 Dose: 40 mg Documented by: Admin: 07/30/20 20:32 Dose: 40 mg Documented by: Admin: 07/29/20 20:09 Dose: 40 mg Documented by: SLICK D-Mannose 500 Mg (Caps) 1 dose PO DAILY [facility] Admin: 08/05/20 09:27 Dose: Not Given Documented by: Admin: 08/04/20 08:45 Dose: Not Given Documented by: Admin: 08/03/20 09:29 Dose: Not Given Documented by: Admin: 08/02/20 08:48 Dose: Not Given Documented by: Admin: 08/01/20 09:47 Dose: Not Given Documented by: [email or web address] Admin: 07/31/20 09:02 Dose: Not Given Documented by: Admin: 07/30/20 10:23 Dose: 1 dose Documented by: Admin: 07/29/20 09:20 Dose: 1 dose Documented by: Admin: 07/28/20 09:45 Dose: Not Given Documented by: WILLIE Sodium Chloride (Saline Flush) 10 ml IV Q12 [facility] Last Admin: 08/05/20 09:27 Dose: 10 ml Documented by: WILLIE Venlafaxine HCl (Effexor Xr) 225 mg PO QAM [facility] Last Admin: 08/05/20 09:26 Dose: 225 mg Documented by: Admin: 08/04/20 08:45 Dose: 225 mg Documented by: Admin: 08/03/20 09:28 Dose: 225 mg Documented by: Admin: 08/02/20 09:19 Dose: 225 mg Documented by: Admin: 08/01/20 09:46 Dose: 225 mg Documented by: Admin: 07/31/20 08:23 Dose: 225 mg Documented by: Admin: 07/30/20 10:22 Dose: 225 mg Documented by: Admin: 07/29/20 09:19 Dose: 225 mg Documented by: Admin: 07/28/20 08:21 Dose: 225 mg Documented by: Admin: 07/27/20 11:17 Dose: 225 mg Documented by: ANTONIO Vitamin D (Vitamin D3) 4,000 unit PO QDAY [facility] Last Admin: 08/05/20 09:27 Dose: 4,000 unit Documented by: Admin: 08/04/20 08:45 Dose: 4,000 unit Documented by: Admin: 08/03/20 09:28 Dose: 4,000 unit Documented by: Admin: 08/02/20 09:18 Dose: 4,000 unit Documented by: Admin: 08/01/20 09:46 Dose: 4,000 unit Documented by: Admin: 07/31/20 08:23 Dose: 4,000 unit Documented by: Admin: 07/30/20 10:23 Dose: 4,000 unit Documented by: Admin: 07/29/20 09:20 Dose: 4,000 unit Documented by: Admin: 07/28/20 08:21 Dose: 4,000 unit Documented by: WILLIE Shift Summary 08/05/20 03:46 Shift Summary by Alexus Younger A&O x4, slow to respond. Lap sites to abdomen, open to air with marcelino. Incontinent of bowel and bladder, large BM tonight, semi-liquid soft. Triple lumen PICC placed yesterday to right basilic. Receiving Vanco and Meropenem for noc shift. No complaints of pain. VSS on RA. ATR sheet with heelzup in use, turn Q2h. Up with 2 assist and Lubna Steady. D/C to [facility] [employer] ([place] today. Initialized on 08/05/20 03:46 - END OF NOTE
[2020-08-05] MEDS: VANCOMYCIN 750 MG in 0.9 % SODIUM CHLORIDE 250 ML IV SCH (10:56)
[2020-08-05] MEDS: oxyCODONE HCL 5 MG TABLET PO PRN (12:36)
--- NOTE | 2020-09-02 09:06 | Operative Note ---
DATE OF OPERATION: 07/25/2020 DATE OF PROCEDURE: 07/23/2020 PREOPERATIVE DIAGNOSIS: Acute and chronic cholecystitis. POSTOPERATIVE DIAGNOSIS: Acute and chronic cholecystitis. PROCEDURE: Laparoscopic cholecystectomy. SURGEON: Araceli Knight M.D. FINDINGS: Severe acute and chronic inflammation with pus and wall necrosis. The gallbladder was filled with stones of variable size. DESCRIPTION OF PROCEDURE: Under general anesthesia, the patient's abdomen was prepped and draped in the sterile field. Timeout procedure was carried out as per protocol. Supraumbilical incision was made and Veress needle was inserted. Abdomen was insufflated with 3 liters of CO2. A 12 mm port was placed. Laparoscope was placed. Under videoscopic guidance, a 12 mm port and two 5 mm ports were placed in the right subcostal region. The gallbladder was densely encased in omentum. It was removed with blunt dissection and electrocautery. Once the dome of the gallbladder could be found, the omentum was removed down to the infundibulum. The gallbladder was difficult to grasp because of the severe inflammation and thickness. The gallbladder was also filled with stones. I tried to decompress the gallbladder, but only a small amount of pus could be removed. The remainder of the contents were stones. Using blunt dissection, the cystic duct and cystic artery were carefully dissected. The cystic duct was very thick and would not hold clips. The window between the cystic duct and cystic artery was made larger, and the Endo ALISA stapler was placed through this window, and the duct was transected on the wall of the gallbladder. Cystic artery was clipped with four clips on the wall of the gallbladder. It was divided. The gallbladder was then from the infrahepatic bed. The wall was extremely thick posteriorly. Multiple stones spilled. All of these that could be seen or irrigated were removed using the stone forceps. The posterior wall of the gallbladder was totally necrotic. There was no plane noticeable. Posterior wall was left intact and the rest of the gallbladder with the stones were removed. Irrigation was carried out. The residual mucosa of the wall was cauterized. A #10 Agusto drain was placed. More irrigation was carried out. CO2 was allowed to escape from the abdomen and the ports were removed. Port at the umbilicus was closed with 0 Vicryl. The drain was secured with 2-0 nylon. Gabriels were used to close the incisions at port sites. Tegaderm dressings were placed. The patient tolerated the procedure well. He was awakened and transferred to the postanesthetic care unit in satisfactory condition. LCS:rafat Job ID: [id number] Doc ID: [id number] Araceli Knight M.D.
== END 2020-08-05 14:46 | DRG 417 ==
LOC: SUR 06:24 → MEDSUR 06:24
PROVIDERS: ADMIT Family Medicine Adult Medicine; ATTEND Surgery

== ENCOUNTER 2020-10-28 10:05 | Inpatient (IN) ==
[2020-10-28] MEDS ORDERED: IOPAMIDOL 100 ML BOTTLE IV ONE (10:06)
[2020-10-28] MEDS ORDERED: 0.9 % SODIUM CHLORIDE 1,000 ML IV ONE ×3 (10:32→13:53)
[2020-10-28] MEDS ORDERED: ACETAMINOPHEN 325 MG TABLET PO ONE (10:32)
--- NOTE | 2020-10-28 10:40 | Emergency Department Note ---
Fever HPI General Chief Complaint: Fever Stated Complaint: fever Time Seen by Provider: 10/28/20 10:23 Source: patient, EMS, RN notes reviewed, old records reviewed and other Mode of arrival: EMS Limitations: other History of Present Illness HPI Narrative: Narrative: Mr. Castrejon is a 45-year-old male. He is a CP patient and is total care. He has a known liver abscess for with which he just finished a course of Augmentin. [facility] from the [facility] and has home health care. Patient was noted to have a fever of 102.5 today. Complains of fevers chills and rigors. He has new thoracic back pain which is differentiated from his chronic lower back pain. He denies any nausea vomiting chest pain shortness of breath nominal pain bowel or bladder changes. States his bowel movements are normal a nd he has not had diarrhea. Patient is slow to respond but responds completely incoherently. MD complaint: fever Onset (ago): day(s) Maximum Temperature: 102.5 F Temperature Source: tympanic Context: recent antibiotic use (Known liver abscess) Associated symptoms: Reports chills, rigors, night sweats and other (Thoracic back pain new and different from his chronic lower back pain); Denies myalgias, headache, rhinorrhea, nasal congestion, sore throat, stiff neck, cough, chest pain, shortness of breath, abdominal pain, nausea, vomiting, dysuria, rash and weight loss Improves with: acetaminophen Worsens with: in morning Treatments prior to arrival fever: none Related Data Home Medications Medication Instructions Recorded Confirmed Wheelchair 1 each .ROUTE DAILY 09/15/18 08/18/20 D-MANNOSE 500 MG CAPS 500 Capsule 1 cap PO DAILY 07/18/20 10/15/20 ketoconazole 1 applic TOPICAL BID PRN 07/18/20 10/15/20 meloxicam [Mobic] 7.5 mg PO QDAY PRN 07/18/20 10/15/20 bisacodyl [Dulcolax (bisacodyl)] 10 mg VA ONCE PRN 08/18/20 10/15/20 magnesium hydroxide [Milk of 400 mg PO QDAY PRN 08/18/20 10/15/20 Magnesia] naproxen 500 mg PO BID PRN 08/18/20 10/15/20 sodium phosphates [Fleet Enema] 118 ml VA ONCE PRN 08/18/20 10/15/20 zinc oxide [Desitin Rapid Relief] 1 applic TOPICAL QID PRN 08/18/20 10/15/20 ascorbic acid (vitamin C) 1,000 mg 500 mg PO QDAY tab 10/15/20 tablet Previous Rx's Medication Instructions Recorded nystatin 100,000 unit/gram topical 1 applic TOPICAL .COMPLEX #60 each 05/09/19 powder Depends (Adult Underwear) #1 each 08/14/19 Powder Free Nitrile gloves #1 ea 08/14/19 Surgical masks #1 each 08/14/19 losartan 100 mg tablet 100 mg PO QDAY #30 tab 04/23/20 ketoconazole 2 % shampoo 1 applic TOPICAL .COMPLEX #120 ml 05/01/20 lithium carbonate 450 mg 900 mg PO QHS #62 tab 05/14/20 tablet,extended release amlodipine 10 mg tablet 5 mg PO BID #90 tab 05/20/20 metoprolol tartrate 50 mg tablet 50 mg PO BID #180 tab 05/20/20 omeprazole 20 mg capsule,delayed 20 mg PO QDAY #90 cap 05/20/20 release cranberry fruit concentrate 450 mg 450 mg PO BID #180 tab 06/18/20 tablet Lactobac. rhamnosus GG-inulin 1 cap PO BID #60 cap 08/05/20 [[facility]] aripiprazole 10 mg tablet See Rx Instructions .ROUTE 10/27/20 .COMPLEX #31 tablet venlafaxine 150 mg 150 mg PO QAM #30 cap 10/27/20 capsule,extended release 24 hr venlafaxine 75 mg capsule,extended 75 mg PO QAM #30 cap 10/27/20 release 24 hr acetaminophen 325 mg tablet 325 mg PO Q4HP PRN #100 tab 10/28/20 cholecalciferol (vitamin D3) 50 4,000 unit PO QDAY 90 Days #180 cap 10/28/20 mcg (2,000 unit) capsule hydralazine 10 mg tablet 10 mg PO TID 90 Days #270 tab 10/28/20 Allergies Allergy/AdvReac Type Severity Reaction Status Date / Time No Known Drug Allergies Allergy Verified 10/28/20 10:11 Review of Systems ROS ROS Narrative: Narrative: Constitutional: Reports fever and chills; Denies weakness Eyes: Reports vision change ENT ED: Denies throat pain Cardiovascular: Denies chest pain Respiratory: Denies shortness of breath Gastrointestinal: Denies abdominal pain, nausea, vomiting and diarrhea Genitourinary: Reports incontinence; Denies dysuria Musculoskeletal: Reports back pain Integumentary: Reports rash and lesions (Known pressure ulcers and tinea infections) Neurological: Reports as per HPI; Denies headache Psychiatric: Reports as per HPI; Denies depression Endocrine: Denies fatigue Hematological/Lymphatic: Denies easy bruising Allergic/Immunologic: Denies urticaria PFSH Narrative Patient History Narrative: Narrative: Medical/Surgical/Family History All Active Problems (Updated 10/28/20 @ 14:35 by Tim Gonzalez MD) Bacterial prostatitis (Acute) Sepsis associated hypotension (Acute) Tachycardia (Acute) Thrombophlebitis (Acute) Deep vein thrombosis (DVT) of right upper extremity (Acute) Medicare welcome visit (Acute) Liver abscess (Acute) Hypoventilation associated with obesity syndrome (Acute) Postprocedural leakage from bile duct (Acute) Cholelithiasis and acute cholecystitis without obstruction (Acute) Cholelithiasis and cholecystitis with obstruction (Acute) Salmonella enteritis (Acute) Diarrhea (Acute) Bowel incontinence (Acute) Seborrheic dermatitis (Acute) Depression (Acute) Generalized anxiety disorder (Acute) Bipolar disorder with psychotic features (Acute) Urinary incontinence (Chronic) Cerebral palsy (Acute) Altered mental status (Acute) Hyperglycemia (Acute) Vitamin D deficiency (Chronic) Gastroesophageal reflux disease (Chronic) Osteoarthritis (Chronic) Hx of Achilles tendon repair (Acute) Obsessive compulsive disorder (Chronic) Obesity (Chronic) Hypertension, essential (Chronic) Legal blindness (Chronic) Bipolar disorder (Chronic) Medical History Acute conjunctivitis, bilateral Altered level of consciousness With other behavior changes and anorexia Bilateral impacted cerumen Bipolar disorder Cerebral palsy Conjunctivitis On Ophthalmic Erythromycin ointment for five more days Deep vein thrombosis (DVT) of right upper extremity Dehydration Dehydration, moderate Gastroenteritis Gastroesophageal reflux disease Hypertension, essential Hypokalemia Possibly secondary to diuretic use Legal blindness Medicare welcome visit Metabolic acidosis Anion gap metabolic acidosis, possibly secondary to starvation (Lactic acid level is normal at 0.83) Obesity Obsessive compulsive disorder Osteoarthritis With chronic use of anti-inflammatories Salmonella enteritis Seborrheic dermatitis Tachycardia Thrombophlebitis Toxic encephalopathy Secondary to infection Urinary incontinence Urinary tract infection Partially treated UTI (urinary tract infection) Vitamin D deficiency Now on replacement therapy Volume depletion Volume depletion secondary to infection without renal injury at this time Surgical History History of laparoscopic cholecystectomy 07/25/2020 Hx of Achilles tendon repair bilateral hamstring and achelles tendon releases Family History mother Anxiety disorder, Onset Age: 55 none listed Atherosclerosis of coronary artery father Essential hypertension, Onset Age: 57 Social History Smoking Status: Former smoker Alcohol Intake Frequency: does not drink Substance Use: does not use Exam Narrative Narrative: Narrative: General Limitations: other General appearance: Present alert, in no apparent distress and obese Head Head: Present atraumatic Eye Eye: Present other (Legally blind) ENT ENT: Present mucous membranes dry Neck Neck: Present normal inspection and full ROM Chest Chest: Present normal inspection; Absent tenderness Respiratory Respiratory: Present normal lung sounds bilaterally; Absent respiratory distress Cardiovascular Cardiovascular: Present regular rate and normal rhythm; Absent systolic murmur Adbominal Abdominal: Present soft; Absent distention, tenderness, guarding and rebound Rectal Rectal: Present decreased rectal tone, heme (-) stool, prostate tenderness and prostate enlargement; Absent black stool, fecal impaction and hemorrhoids Extremities Extremities: Present tenderness, pedal edema and pretibial edema Back Back: Absent CVA tenderness (R) and CVA tenderness (L) Neurological Neurological: Present alert Psychiatric Psychiatric: Present polite and pleasant Skin Skin: Present rash and other Course Vital Signs Vital signs: Vital Signs Temperature 100.3 F H 10/28/20 10:06 Pulse Rate 96 H 10/28/20 10:06 Respiratory Rate 16 10/28/20 10:06 Blood Pressure 116/68 10/28/20 10:06 Pulse Oximetry (%) 94 10/28/20 10:06 Temperature 101.1 F H 10/28/20 12:10 Pulse Rate 73 10/28/20 13:17 Respiratory Rate 31 H 10/28/20 13:17 Blood Pressure 86/58 10/28/20 13:16 Pulse Oximetry (%) 91 10/28/20 13:17 MDM MDM Narrative Medical decision making narrative: Narrative: Jorge Luis Castrejon is a 45-year-old male with CP who is admitted for a liver abscess after his cholecystectomy in July of last year. He was at a [facility] and then discharged home today he started developing a fever of 102.5. CT scan of the abdomen shows marginal increase of the liver abscess area but it is felt by the general surgeon and the radiologist that this does not represent pus as it appears to be thinning and it does not appear to be empyema. His abdomen is soft and nontender his prostate is enlarged firm and boggy he does show a markedly elevated white count at 36.8 with greater than 100 WBCs in the urine and enlarged inflamed prostate with thickened bladder wall on CT scan compared to previous CT scan patient was evaluated by general surgery Dr. Knight. I discussed patient with ID doc who recommended Rocephin and Flagyl. Patient has received 3 L of IV normal saline Rocephin and Flagyl after culture. His lactate is 1.4 and this will also be followed discussed patient with hospitalist who graciously agreed to admission for IV antibiotics and IV fluids. Diagnosis 1 is CP diagnosis to his prostatitis diagnosis 3 his history of liver abscess Medical Records Medical records reviewed: Yes I reviewed the patient's medical records. Lab Data Lab results reviewed: Yes I reviewed the patient's lab results. Result diagrams: 10/28/20 11:06 10/28/20 11:06 Labs: Lab Results 10/28/20 10/28/20 10/28/20 Range/Units 11:06 11:06 11:06 WBC 36.8 H* (4.5-11.0) K/mcL RBC 4.05 L (4.50-5.90) M/mcL Hgb 10.9 L (13.5-16.5) g/dL Hct 34.0 L (41.0-55.0) % MCV 84.0 (80.0-100.0) fL MCH 26.9 (26.0-34.0) pg MCHC 32.1 (31.0-36.0) g/dL RDW 15.7 H (11.5-14.5) % Plt Count 149 (140-440) K/mcL MPV 9.9 (7.4-10.4) fL Neut % (Auto) 83.9 H (38.0-78.0) % Lymph % (Auto) 6.3 L (15.0-49.0) % [place] % (Auto) 9.5 (1.0-12.0) % Eos % (Auto) 0 (0.0-7.0) % Baso % (Auto) 0.3 (0.0-2.0) % Lymph # (Auto) 2.31 (1.50-4.80) K/mcL [place] # (Auto) 3.48 H (0.10-0.90) K/mcL Eos # (Auto) 0.01 (0.00-0.70) K/mcL Baso # (Auto) 0.11 (0.00-0.20) K/mcL Absolute Neutrophils 30.87 H (1.80-8.00) K/mcL VBG Lactic Acid 1.4 (0.5-2.0) mmol/L Sodium 135 (133-145) mmol/L Potassium 3.3 (3.3-5.1) mmol/L Chloride 106 (96-108) mmol/L Carbon Dioxide 18 L (22-30) mmol/L Anion Gap 11.0 (8.0-16.0) BUN 11 (6-20) mg/dL Creatinine 1.2 (0.7-1.2) mg/dL POC Creatinine 1.1 (0.6-1.2) mg/dL GFR Calculation 73 Glucose 111 H (70-105) mg/dL Calcium 9.2 (8.6-10.4) mg/dL Total Bilirubin 1.6 H (0.1-1.0) mg/dL AST 16 (<40) U/L ALT 18 (<40) U/L Alkaline Phosphatase 88 (39-117) U/L Total Protein 6.6 (5.9-8.4) gm/dL Albumin 3.3 (3.2-5.2) gm/dL Globulin 3.3 (2.2-3.7) gm/dL Albumin/Globulin Ratio 1.0 (1.0-2.3) Urine Color Urine Appearance (Clear) Urine pH (5.0-9.0) Ur Specific [place] (1.000-1.035) Urine Protein (Negative) mg/dL Urine Glucose (UA) (Negative) mg/dL Urine Ketones (Negative) mg/dL Urine Occult Blood (Negative) pa/mcL Urine Nitrate (Negative) Urine Bilirubin (Negative) mg/dL Urine Urobilinogen mg/dL Ur Leukocyte Esterase (Negative) /ug Urine RBC (0-3) /hpf Urine WBC (0-4) /hpf Ur Squamous Epith Cells (0-4) /hpf Urine Bacteria (0) /hpf Urine Mucus (None) /hpf Ur Culture Indicated? 10/28/20 Range/Units 11:10 WBC (4.5-11.0) K/mcL RBC (4.50-5.90) M/mcL Hgb (13.5-16.5) g/dL Hct (41.0-55.0) % MCV (80.0-100.0) fL MCH (26.0-34.0) pg MCHC (31.0-36.0) g/dL RDW (11.5-14.5) % Plt Count (140-440) K/mcL MPV (7.4-10.4) fL Neut % (Auto) (38.0-78.0) % Lymph % (Auto) (15.0-49.0) % [place] % (Auto) (1.0-12.0) % Eos % (Auto) (0.0-7.0) % Baso % (Auto) (0.0-2.0) % Lymph # (Auto) (1.50-4.80) K/mcL [place] # (Auto) (0.10-0.90) K/mcL Eos # (Auto) (0.00-0.70) K/mcL Baso # (Auto) (0.00-0.20) K/mcL Absolute Neutrophils (1.80-8.00) K/mcL VBG Lactic Acid (0.5-2.0) mmol/L Sodium (133-145) mmol/L Potassium (3.3-5.1) mmol/L Chloride (96-108) mmol/L Carbon Dioxide (22-30) mmol/L Anion Gap (8.0-16.0) BUN (6-20) mg/dL Creatinine (0.7-1.2) mg/dL POC Creatinine (0.6-1.2) mg/dL GFR Calculation Glucose (70-105) mg/dL Calcium (8.6-10.4) mg/dL Total Bilirubin (0.1-1.0) mg/dL AST (<40) U/L ALT (<40) U/L Alkaline Phosphatase (39-117) U/L Total Protein (5.9-8.4) gm/dL Albumin (3.2-5.2) gm/dL Globulin (2.2-3.7) gm/dL Albumin/Globulin Ratio (1.0-2.3) Urine Color Yellow Urine Appearance Clear (Clear) Urine pH 6.0 (5.0-9.0) Ur Specific [place] 1.015 (1.000-1.035) Urine Protein 30 mg/dl A (Negative) mg/dL Urine Glucose (UA) Negative (Negative) mg/dL Urine Ketones 15 mg/dl A (Negative) mg/dL Urine Occult Blood Trace-intact A (Negative) pa/mcL Urine Nitrate Negative (Negative) Urine Bilirubin Negative (Negative) mg/dL Urine Urobilinogen Normal mg/dL Ur Leukocyte Esterase Small A (Negative) /ug Urine RBC 5 H (0-3) /hpf Urine WBC > 182 H (0-4) /hpf Ur Squamous Epith Cells 1 (0-4) /hpf Urine Bacteria None (0) /hpf Urine Mucus Few A (None) /hpf Ur Culture Indicated? yes Radiology Data Radiology results reviewed: Yes I reviewed the patient's radiology results. Pulse Oximetry Data Pulse Ox %: 91 Interpretation: 91% on room air within normal limits for this patient CC TIME Critical Care Time Total Critical Care Time: 60 Attestation: 60 minutes critical care time on this patient. Critical care included treating patient's hypotension and treating patient's infection coordinating care with general surgeon radiologist infectious disease and hospitalist. Ordering labs reviewing lab results and responding to. This is exclusive of all separately billed procedures. Discharge Plan Patient/Caregiver Discharge Instructions Pt seen by SENIOR ART DIRECTOR/PA only: No Clinical Impression: Bacterial prostatitis, Sepsis associated hypotension Patient Disposition: Xfer As Inpt ([facility]) Follow up with: Nick Jones MD [Primary Care Provider] - Prescriptions: No Action nystatin 100,000 unit/gram powder 1 applic TOPICAL .COMPLEX Qty: 60 RF: 1 losartan [Cozaar] 100 mg tablet 100 mg PO QDAY Qty: 30 RF: 5 ketoconazole [Nizoral] 2 % shampoo 1 applic TOPICAL .COMPLEX Qty: 120 RF: 2 lithium carbonate 450 mg tablet extended release 900 mg PO QHS Qty: 62 RF: 3 metoprolol tartrate [Lopressor] 50 mg tablet 50 mg PO BID Qty: 180 RF: 1 amlodipine [Norvasc] 10 mg tablet 5 mg PO BID Qty: 90 RF: 1 omeprazole 20 mg capsule,delayed release(DR/EC) 20 mg PO QDAY Qty: 90 RF: 1 cranberry fruit concentrate 450 mg tablet 450 mg PO BID Qty: 180 RF: 1 aripiprazole 10 mg tablet See Rx Instructions .ROUTE .COMPLEX Qty: 31 RF: 1 venlafaxine 150 mg capsule,extended release 24hr 150 mg PO QAM Qty: 30 RF: 5 venlafaxine 75 mg capsule,extended release 24hr 75 mg PO QAM Qty: 30 RF: 2 acetaminophen 325 mg tablet 325 mg PO Q4HP PRN (Reason: Pain/Fever > 101) Qty: 100 RF: 2 hydralazine 10 mg tablet 10 mg PO TID 90 Days Qty: 270 RF: 0 cholecalciferol (vitamin D3) [Vitamin D3] 50 mcg (2,000 unit) capsule 4,000 unit PO QDAY 90 Days Qty: 180 RF: 1 (DME) Depends (Adult Underwear) Each 0 .Route .MEDSUPPLY Qty: 1 RF: 12 (DME) Powder Free Nitrile gloves Each 0 .Route .MEDSUPPLY Qty: 1 RF: 12 (DME) Surgical masks Qty: 1 RF: 12 ascorbic acid (vitamin C) [Vitamin C] 1,000 mg tablet 500 mg PO QDAY RF: 0 Wheelchair Each 1 each .Route DAILY RF: 0 meloxicam [Mobic] 7.5 mg tablet 7.5 mg PO QDAY PRN (Reason: Joint Pain) RF: 0 ketoconazole 2 % cream 1 applic TOPICAL BID PRN (Reason: Rash) RF: 0 D-MANNOSE 500 MG CAPS 500 Capsule 1 cap PO DAILY RF: 0 Culturee Digestive Health 10 billion cell -200 mg Capsule, Sprinkle 1 cap PO BID Qty: 60 RF: 0 magnesium hydroxide [Milk of Magnesia] 400 mg/5 mL Suspension 400 mg PO QDAY PRN (Reason: Constipation) RF: 0 bisacodyl [Dulcolax (bisacodyl)] 10 mg Suppository 10 mg VA ONCE PRN (Reason: Constipation) RF: 0 Fleet Enema 19-7 gram/118 mL Enema 118 ml VA ONCE PRN (Reason: Constipation) RF: 0 naproxen 500 mg Tablet 500 mg PO BID PRN (Reason: Pain) RF: 0 Desitin Rapid Relief 13 % Cream 1 applic TOPICAL QID PRN (Reason: after BM) RF: 0
[2020-10-28 11:24] LABS: POC Creatinine 1.1 mg/dL (0.6-1.2)
--- NOTE | 2020-10-28 11:28 | XRay Report ---
CLINICAL INFORMATION: FEVER COMPARISON: 07/27/2020 FINDINGS: Heart is accentuated by lordotic positioning right rotation and portable technique. It is borderline enlarged. Mediastinum and pulmonary vessels are unremarkable. Lungs are clear. No effusions. IMPRESSION: Borderline cardiomegaly otherwise negative Interpreted and Authenticated by: Brent Prabhakar 10/28/20
--- NOTE | 2020-10-28 12:08 | Cat Scan Report ---
CLINICAL INFORMATION: Fever follow subcapsular abscess COMPARISON: Abdomen and pelvic CT 09/26/2020 TECHNIQUE: Following enteric contrast, 80 cc of Isovue-[id number] were injected intravenously, and 60 seconds later, 0.625 mm helical slices were obtained from the mid heart through the subtrochanteric regions. Following reconstruction, 2.5 mm sagittal, coronal and axial reformatted images were processed and reviewed at bone, lung and soft tissue windows. Five minutes later, 0.625 mm helical slices were obtained from the mid heart through the kidneys and viewed at soft tissue windows.The exam was performed using radiation dose optimization techniques including, but not limited to, automated exposure control, adjustment of the mA and/or kV according to patient size and use of iterative reconstruction technique. FINDINGS: Lung bases show minor atelectasis. No effusion. Visualized heart is grossly normal The small subcapsular fluid collections in the superior right hepatic lobe show slight increase from comparison exam over one month prior. On today's exam, the larger, more anterior fluid collection spanning 2.3 cm. The smaller more posterior fluid collection is 1.8 cm. The remainder of the liver is normal. Gallbladder is surgically absent. Common bile ducts are normal caliber: CBD is 5 mm. Both kidneys, adrenal glands, spleen, pancreas and aorta including aortic branches are normal in size configuration and attenuation without focal lesion. There is no free air, or adenopathy Pelvic images show mild prostate enlargement 6.2 x 4.5 cm - increased from previous exam. There is also equivocal in injection in the periprosthetic fat. Small amount of free fluid is noted in the deep true pelvis. The stomach, small bowel appendix and large bowel are unremarkable. There is a periumbilical hernia spanning 5 cm there are only mesenteric fat. Bone windows show no osseous abnormality. IMPRESSION: 1. Slight increase in adjacent subcapsular fluid collections in the superior right hepatic lobe 2.3 cm 1.8 cm respectively 2. Moderate prostate enlargement with inflammation. 3. Pancreatic fat planes of small bowel or free fluid in the retrovesical space suggesting but not diagnostic of prostatitis. 4. Moderate periumbilical herniation containing only mesenteric fat stable Interpreted and Authenticated by: Brent Prabhakar 10/28/20
[2020-10-28] MEDS ORDERED: IBUPROFEN 600 MG TABLET PO ONE (12:13)
[2020-10-28 12:41] LABS: ALT/SGPT 18 U/L (<40); AST/SGOT 16 U/L (<40); Albumin 3.3 gm/dL (3.2-5.2); Alkaline Phosphatase 88 U/L (39-117); Bilirubin,Total 1.6 mg/dL (0.1-1.0); Blood Urea Nitrogen 11 mg/dL (6-20); Calcium 9.2 mg/dL (8.6-10.4); Carbon Dioxide 18 mmol/L (22-30); Chloride 106 mmol/L (96-108); Globulin 3.3 gm/dL (2.2-3.7); Glomerular Filtration Rate 73; Glucose 111 mg/dL (70-105)
[2020-10-28 13:26] LABS: Basophils # (Auto) 0.11 K/mcL (0.00-0.20); Basophils % (Auto) 0.3 % (0.0-2.0); Eosinophils # (Auto) 0.01 K/mcL (0.00-0.70); Eosinophils % (Auto) 0 % (0.0-7.0); Hemoglobin 10.9 g/dL (13.5-16.5); Lymphocytes # (Auto) 2.31 K/mcL (1.50-4.80); Lymphocytes % (Auto) 6.3 % (15.0-49.0); Mean Corpuscular HGB Conc 32.1 g/dL (31.0-36.0); Mean Platelet Volume 9.9 fL (7.4-10.4); Monocytes # (Auto) 3.48 K/mcL (0.10-0.90); Monocytes % (Auto) 9.5 % (1.0-12.0); Neutrophils % (Auto) 83.9 % (38.0-78.0); Platelet Count 149 K/mcL (140-440); RBC 4.05 M/mcL (4.50-5.90); Red Cell Distribution Width 15.7 % (11.5-14.5); WBC 36.8 K/mcL (4.5-11.0)
[2020-10-28 13:36] LABS: Appearance,Urine Clear (Clear); Bilirubin,Urine Negative (Negative); Color,Urine Yellow; Culture Indicated,Urine yes; Glucose,Urine (UA) Negative (Negative); Ketones,Urine 15 mg/dL mg/dL (Negative); Leukocyte Esterase,Urine Small /ug (Negative); Mucus,Urine FEW /hpf; Nitrate,Urine Negative (Negative); Specific Gravity,Urine 1.015 (1.000-1.035); Urine Blood Trace-intact ery/mcL (Negative); Urine RBC 5 /hpf (0-3); Urine Squamous Epithelial Cell 1 /hpf (0-4); Urine WBC > 182 /hpf (0-4); Urobilinogen,Urine Normal
[2020-10-28] MEDS ORDERED: metroNIDAZOLE 500 MG/100 ML BAG IV SCH (13:45)
[2020-10-28] MEDS ORDERED: cefTRIAXone 2 GM in DEXTROSE 5% IN WATER 50 ML IV SCH (13:45)
--- NOTE | 2020-10-28 14:29 | General Surgery Consult Note ---
HPI Data of Consult Consult date: 10/28/20 Requesting physician: Tim Gonzalez Primary Care Provider: Nick Jones MD Consult Narrative Patient Information: Note initiated : 10/28/20 at 2:26 pm Service Date, if different from initiated Date: [] Patient: Jorge Luis Castrejon 45 y/o M admitted on for fever. Chief Complaint: [] Chief complaint: FEVER AND CHILLS Reason for consult: SEPSIS cc:: CC: 45-year-old male seen in the emergency room for complaint of fever with findings of white blood count of 36,000. Patient has a history of having a cholecystectomy in early July. He developed a bile leak and had a subsequent development of probable hepatic abscesses. He has been treated with antibiotics for 3 months and had been doing well. He had acute onset of fever and chills. He denies dysuria and he denies abdominal pain. CT shows the fluid collections in his liver essentially unchanged since July though he has been on antibiotics. His prostate shows significant edema with periprosthetic fluid more suggestive of prostatitis. He has pyuria and bacteriuria which would suggest acute prostatitis as the source of his fever and leukocytosis. I have discussed this with the radiologist who also feels as if he has prostatic infection. Urine has been sent for C&S and the patient will be admitted to the medical service. There is no indication for further evaluation of the hepatic lesions at this time. If he is treated for his prostatitis and he is growing gram-negative rods compatible with infection then he will not need drainage of the liver lesions. Though they are present they are probably sterile at this time because of their presence for over 3 months and no major change. Review of Systems All systems: reviewed and no additional remarkable complaints except as stated PFSH PFSH All Active Problems (Updated 10/28/20 @ 14:40 by Araceli Knight MD) Bacterial prostatitis (Acute) Sepsis associated hypotension (Acute) Tachycardia (Acute) Thrombophlebitis (Acute) Deep vein thrombosis (DVT) of right upper extremity (Acute) Medicare welcome visit (Acute) Liver abscess (Acute) Hypoventilation associated with obesity syndrome (Acute) Postprocedural leakage from bile duct (Acute) Cholelithiasis and acute cholecystitis without obstruction (Acute) Cholelithiasis and cholecystitis with obstruction (Acute) Salmonella enteritis (Acute) Diarrhea (Acute) Bowel incontinence (Acute) Seborrheic dermatitis (Acute) Depression (Acute) Generalized anxiety disorder (Acute) Bipolar disorder with psychotic features (Acute) Urinary incontinence (Chronic) Cerebral palsy (Acute) Altered mental status (Acute) Hyperglycemia (Acute) Vitamin D deficiency (Chronic) Gastroesophageal reflux disease (Chronic) Osteoarthritis (Chronic) Hx of Achilles tendon repair (Acute) Obsessive compulsive disorder (Chronic) Obesity (Chronic) Hypertension, essential (Chronic) Legal blindness (Chronic) Bipolar disorder (Chronic) Medical History Acute conjunctivitis, bilateral Altered level of consciousness With other behavior changes and anorexia Bilateral impacted cerumen Bipolar disorder Cerebral palsy Conjunctivitis On Ophthalmic Erythromycin ointment for five more days Deep vein thrombosis (DVT) of right upper extremity Dehydration Dehydration, moderate Gastroenteritis Gastroesophageal reflux disease Hypertension, essential Hypokalemia Possibly secondary to diuretic use Legal blindness Medicare welcome visit Metabolic acidosis Anion gap metabolic acidosis, possibly secondary to starvation (Lactic acid level is normal at 0.83) Obesity Obsessive compulsive disorder Osteoarthritis With chronic use of anti-inflammatories Salmonella enteritis Seborrheic dermatitis Tachycardia Thrombophlebitis Toxic encephalopathy Secondary to infection Urinary incontinence Urinary tract infection Partially treated UTI (urinary tract infection) Vitamin D deficiency Now on replacement therapy Volume depletion Volume depletion secondary to infection without renal injury at this time Surgical History History of laparoscopic cholecystectomy 07/25/2020 Hx of Achilles tendon repair bilateral hamstring and achelles tendon releases Family History mother Anxiety disorder, Onset Age: 55 none listed Atherosclerosis of coronary artery father Essential hypertension, Onset Age: 57 Social History education level: high school smoking status: Former smoker alcohol intake frequency: does not drink substance use type: does not use MEDS/ALLERGIES Home Medications and Allergies Home Medications Medication Instructions Recorded Confirmed Type Wheelchair 1 each .ROUTE DAILY 09/15/18 08/18/20 History nystatin 100,000 unit/gram topical 1 applic TOPICAL .COMPLEX #60 each 05/09/19 10/15/20 Rx powder Depends (Adult Underwear) #1 each 08/14/19 10/15/20 Rx Powder Free Nitrile gloves #1 ea 08/14/19 08/15/20 Rx Surgical masks #1 each 08/14/19 08/15/20 Rx losartan 100 mg tablet 100 mg PO QDAY #30 tab 04/23/20 10/15/20 Rx ketoconazole 2 % shampoo 1 applic TOPICAL .COMPLEX #120 ml 05/01/20 10/15/20 Rx lithium carbonate 450 mg 900 mg PO QHS #62 tab 05/14/20 10/15/20 Rx tablet,extended release amlodipine 10 mg tablet 5 mg PO BID #90 tab 05/20/20 10/15/20 Rx metoprolol tartrate 50 mg tablet 50 mg PO BID #180 tab 05/20/20 10/15/20 Rx omeprazole 20 mg capsule,delayed 20 mg PO QDAY #90 cap 05/20/20 10/15/20 Rx release cranberry fruit concentrate 450 mg 450 mg PO BID #180 tab 06/18/20 10/15/20 Rx tablet D-MANNOSE 500 MG CAPS 500 Capsule 1 cap PO DAILY 07/18/20 10/15/20 History ketoconazole 1 applic TOPICAL BID PRN 07/18/20 10/15/20 History meloxicam [Mobic] 7.5 mg PO QDAY PRN 07/18/20 10/15/20 History Lactobac. rhamnosus GG-inulin 1 cap PO BID #60 cap 08/05/20 10/15/20 Rx [[facility]] bisacodyl [Dulcolax (bisacodyl)] 10 mg ME ONCE PRN 08/18/20 10/15/20 History magnesium hydroxide [Milk of 400 mg PO QDAY PRN 08/18/20 10/15/20 History Magnesia] naproxen 500 mg PO BID PRN 08/18/20 10/15/20 History sodium phosphates [Fleet Enema] 118 ml ME ONCE PRN 08/18/20 10/15/20 History zinc oxide [Desitin Rapid Relief] 1 applic TOPICAL QID PRN 08/18/20 10/15/20 History ascorbic acid (vitamin C) 1,000 mg 500 mg PO QDAY tab 10/15/20 History tablet aripiprazole 10 mg tablet See Rx Instructions .ROUTE 10/27/20 Rx .COMPLEX #31 tablet venlafaxine 150 mg 150 mg PO QAM #30 cap 10/27/20 Rx capsule,extended release 24 hr venlafaxine 75 mg capsule,extended 75 mg PO QAM #30 cap 10/27/20 Rx release 24 hr acetaminophen 325 mg tablet 325 mg PO Q4HP PRN #100 tab 10/28/20 Rx cholecalciferol (vitamin D3) 50 4,000 unit PO QDAY 90 Days #180 cap 10/28/20 Rx mcg (2,000 unit) capsule hydralazine 10 mg tablet 10 mg PO TID 90 Days #270 tab 10/28/20 Rx Allergies Allergy/AdvReac Type Severity Reaction Status Date / Time No Known Drug Allergies Allergy Verified 10/28/20 10:11 Physical Examination Vital Signs Vital signs: Temp Pulse Resp BP Pulse Ox 101.1 F H 73 31 H 86/58 91 10/28/20 12:10 10/28/20 13:17 10/28/20 13:17 10/28/20 13:16 10/28/20 13:17 General physical appearance General physical exam: well developed, well nourished, no distress, no pain and obese Eyes Eye exam: PERRL and normal ocular movement ENT ENT exam: normal pinna, normal nares and normal mucosa Head Head exam IM: Present atraumatic, normal inspection and normocephalic Neck Neck exam: no masses, no bruits, trachea midline, no lymphadenopathy and no venous distension Cardiovascular Cardiovascular exam IM: Present normal rate and rhythm Respiratory Respiratory exam: normal expansion, normal respiratory effort and clear to auscultation Abdomen Abdomen: Present soft and non tender; Absent bowel sounds (Normal bowel sounds) and distended Integumentary Integumentary: Present no rash and no growths Neurologic Neurologic: Present normal coordination Musculoskeletal Musculoskeletal: Present normal posture Psychiatric Psychiatric: Present oriented to time, oriented to person, oriented to place and speech is normal Results Labs Result diagrams: 10/28/20 11:06 10/28/20 11:06 Labs: Abnormal lab results 10/28/20 10/28/20 10/28/20 Range/Units 11:06 11:06 11:10 WBC 36.8 H* (4.5-11.0) K/mcL RBC 4.05 L (4.50-5.90) M/mcL Hgb 10.9 L (13.5-16.5) g/dL Hct 34.0 L (41.0-55.0) % RDW 15.7 H (11.5-14.5) % Neut % (Auto) 83.9 H (38.0-78.0) % Lymph % (Auto) 6.3 L (15.0-49.0) % [place] # (Auto) 3.48 H (0.10-0.90) K/mcL Absolute Neutrophils 30.87 H (1.80-8.00) K/mcL Carbon Dioxide 18 L (22-30) mmol/L Glucose 111 H (70-105) mg/dL Total Bilirubin 1.6 H (0.1-1.0) mg/dL Urine Protein 30 mg/dl A (Negative) mg/dL Urine Ketones 15 mg/dl A (Negative) mg/dL Urine Occult Blood Trace-intact A (Negative) pa/mcL Ur Leukocyte Esterase Small A (Negative) /ug Urine RBC 5 H (0-3) /hpf Urine WBC > 182 H (0-4) /hpf Urine Mucus Few A (None) /hpf Diabetes panel 10/28/20 Range/Units 11:06 Sodium 135 (133-145) mmol/L Potassium 3.3 (3.3-5.1) mmol/L Chloride 106 (96-108) mmol/L Carbon Dioxide 18 L (22-30) mmol/L BUN 11 (6-20) mg/dL Creatinine 1.2 (0.7-1.2) mg/dL Glucose 111 H (70-105) mg/dL Calcium 9.2 (8.6-10.4) mg/dL AST 16 (<40) U/L ALT 18 (<40) U/L Alkaline Phosphatase 88 (39-117) U/L Total Protein 6.6 (5.9-8.4) gm/dL Albumin 3.3 (3.2-5.2) gm/dL Calcium panel 10/28/20 Range/Units 11:06 Calcium 9.2 (8.6-10.4) mg/dL Albumin 3.3 (3.2-5.2) gm/dL Pituitary panel 10/28/20 Range/Units 11:06 Sodium 135 (133-145) mmol/L Potassium 3.3 (3.3-5.1) mmol/L Chloride 106 (96-108) mmol/L Carbon Dioxide 18 L (22-30) mmol/L BUN 11 (6-20) mg/dL Creatinine 1.2 (0.7-1.2) mg/dL Glucose 111 H (70-105) mg/dL Calcium 9.2 (8.6-10.4) mg/dL Adrenal panel 10/28/20 Range/Units 11:06 Sodium 135 (133-145) mmol/L Potassium 3.3 (3.3-5.1) mmol/L Chloride 106 (96-108) mmol/L Carbon Dioxide 18 L (22-30) mmol/L BUN 11 (6-20) mg/dL Creatinine 1.2 (0.7-1.2) mg/dL Glucose 111 H (70-105) mg/dL Calcium 9.2 (8.6-10.4) mg/dL Total Bilirubin 1.6 H (0.1-1.0) mg/dL AST 16 (<40) U/L ALT 18 (<40) U/L Alkaline Phosphatase 88 (39-117) U/L Total Protein 6.6 (5.9-8.4) gm/dL Albumin 3.3 (3.2-5.2) gm/dL All other labs normal. A/P Assessment and plan (1) Sepsis associated hypotension: Status: Acute (2) Tachycardia: Status: Acute (3) Bacterial prostatitis: Status: Acute (4) Liver abscess: Status: Acute (5) Gastroesophageal reflux disease: Status: Chronic Qualifiers: Esophagitis presence: esophagitis presence not specified Qualified Code(s): K21.9 - Gastro-esophageal reflux disease without esophagitis Narrative A/P Narrative: Patient is demonstrating evidence of sepsis that is probably not related to his fluid collections in his liver since these have been clinically stable for over 3 months and he has had long courses of antibiotics. With the new findings of prostate inflammation and per- prostatic fluid would consider this as the major source of his infection pending urine and blood cultures. I will follow peripherally if my services are needed. Time Spent With Patient Time: Total time spent is greater than 50% in coordination of care (as documented) at patient's floor/unit and/or counseling patient:
--- NOTE | 2020-10-28 14:58 | Internal Med History&Physical ---
HPI History of Present Illness Patient information: Note initiated : 10/28/20 at 2:50 pm Service Date, if different from initiated Date: [] Patient: Jorge Luis Castrejon a 45 y/o M admitted on for fever. Chief Complaint: [] History of present illness: Mr. Castrejon is a 45 year old M Presents the ED for fevers. Does have a history of liver abscess and finished Augmentin last Tuesday. CT imaging did show some slight enlargement but per the radiologist reading his surgeon today did not feel it was infected. Case was also discussed with infectious disease specialist who is previously involved with care. Radiologist did read the CT abdomen pelvis showing findings of processing day which were concern for prostatitis and a urine with some mild leukocyte esterase and elevated WBCs and it was felt that fevers are coming from urine. He was mildly hypotensive and tachypneic. Give IV fluid in the ED. Blood cultures obtained in ED. And infectious disease with specialist recommended Rocephin and Flagyl. Patient fevers and chills but denies any chest pain coughing and dysuria. Review of Systems: Pertinent positives as above denies headache/nausea/vomiting/chest or abdominal pain/cough/dyspnea/diarrhea. Remaining 10 point review of system reviewed n egative PFSH PFSH All Active Problems (Updated 10/28/20 @ 14:40 by Araceli Knight MD) Bacterial prostatitis (Acute) Sepsis associated hypotension (Acute) Tachycardia (Acute) Thrombophlebitis (Acute) Deep vein thrombosis (DVT) of right upper extremity (Acute) Medicare welcome visit (Acute) Liver abscess (Acute) Hypoventilation associated with obesity syndrome (Acute) Postprocedural leakage from bile duct (Acute) Cholelithiasis and acute cholecystitis without obstruction (Acute) Cholelithiasis and cholecystitis with obstruction (Acute) Salmonella enteritis (Acute) Diarrhea (Acute) Bowel incontinence (Acute) Seborrheic dermatitis (Acute) Depression (Acute) Generalized anxiety disorder (Acute) Bipolar disorder with psychotic features (Acute) Urinary incontinence (Chronic) Cerebral palsy (Acute) Altered mental status (Acute) Hyperglycemia (Acute) Vitamin D deficiency (Chronic) Gastroesophageal reflux disease (Chronic) Osteoarthritis (Chronic) Hx of Achilles tendon repair (Acute) Obsessive compulsive disorder (Chronic) Obesity (Chronic) Hypertension, essential (Chronic) Legal blindness (Chronic) Bipolar disorder (Chronic) Medical History Acute conjunctivitis, bilateral Altered level of consciousness With other behavior changes and anorexia Bilateral impacted cerumen Bipolar disorder Cerebral palsy Conjunctivitis On Ophthalmic Erythromycin ointment for five more days Deep vein thrombosis (DVT) of right upper extremity Dehydration Dehydration, moderate Gastroenteritis Gastroesophageal reflux disease Hypertension, essential Hypokalemia Possibly secondary to diuretic use Legal blindness Medicare welcome visit Metabolic acidosis Anion gap metabolic acidosis, possibly secondary to starvation (Lactic acid level is normal at 0.83) Obesity Obsessive compulsive disorder Osteoarthritis With chronic use of anti-inflammatories Salmonella enteritis Seborrheic dermatitis Tachycardia Thrombophlebitis Toxic encephalopathy Secondary to infection Urinary incontinence Urinary tract infection Partially treated UTI (urinary tract infection) Vitamin D deficiency Now on replacement therapy Volume depletion Volume depletion secondary to infection without renal injury at this time Surgical History History of laparoscopic cholecystectomy 07/25/2020 Hx of Achilles tendon repair bilateral hamstring and achelles tendon releases Family History mother Anxiety disorder, Onset Age: 55 none listed Atherosclerosis of coronary artery father Essential hypertension, Onset Age: 57 Social History education level: high school smoking status: Former smoker alcohol intake frequency: does not drink substance use type: does not use MEDS/ALLERGIES Home Medications and Allergies Home Medications Medication Instructions Recorded Confirmed Type Wheelchair 1 each .ROUTE DAILY 09/15/18 08/18/20 History nystatin 100,000 unit/gram topical 1 applic TOPICAL .COMPLEX #60 each 05/09/19 10/15/20 Rx powder Depends (Adult Underwear) #1 each 08/14/19 10/15/20 Rx Powder Free Nitrile gloves #1 ea 08/14/19 08/15/20 Rx Surgical masks #1 each 08/14/19 08/15/20 Rx losartan 100 mg tablet 100 mg PO QDAY #30 tab 04/23/20 10/15/20 Rx ketoconazole 2 % shampoo 1 applic TOPICAL .COMPLEX #120 ml 05/01/20 10/15/20 Rx lithium carbonate 450 mg 900 mg PO QHS #62 tab 05/14/20 10/15/20 Rx tablet,extended release amlodipine 10 mg tablet 5 mg PO BID #90 tab 05/20/20 10/15/20 Rx metoprolol tartrate 50 mg tablet 50 mg PO BID #180 tab 05/20/20 10/15/20 Rx omeprazole 20 mg capsule,delayed 20 mg PO QDAY #90 cap 05/20/20 10/15/20 Rx release cranberry fruit concentrate 450 mg 450 mg PO BID #180 tab 06/18/20 10/15/20 Rx tablet D-MANNOSE 500 MG CAPS 500 Capsule 1 cap PO DAILY 07/18/20 10/15/20 History ketoconazole 1 applic TOPICAL BID PRN 07/18/20 10/15/20 History meloxicam [Mobic] 7.5 mg PO QDAY PRN 07/18/20 10/15/20 History Lactobac. rhamnosus GG-inulin 1 cap PO BID #60 cap 08/05/20 10/15/20 Rx [[facility]] bisacodyl [Dulcolax (bisacodyl)] 10 mg IA ONCE PRN 08/18/20 10/15/20 History magnesium hydroxide [Milk of 400 mg PO QDAY PRN 08/18/20 10/15/20 History Magnesia] naproxen 500 mg PO BID PRN 08/18/20 10/15/20 History sodium phosphates [Fleet Enema] 118 ml IA ONCE PRN 08/18/20 10/15/20 History zinc oxide [Desitin Rapid Relief] 1 applic TOPICAL QID PRN 08/18/20 10/15/20 History ascorbic acid (vitamin C) 1,000 mg 500 mg PO QDAY tab 10/15/20 History tablet aripiprazole 10 mg tablet See Rx Instructions .ROUTE 10/27/20 Rx .COMPLEX #31 tablet venlafaxine 150 mg 150 mg PO QAM #30 cap 10/27/20 Rx capsule,extended release 24 hr venlafaxine 75 mg capsule,extended 75 mg PO QAM #30 cap 10/27/20 Rx release 24 hr acetaminophen 325 mg tablet 325 mg PO Q4HP PRN #100 tab 10/28/20 Rx cholecalciferol (vitamin D3) 50 4,000 unit PO QDAY 90 Days #180 cap 10/28/20 Rx mcg (2,000 unit) capsule hydralazine 10 mg tablet 10 mg PO TID 90 Days #270 tab 10/28/20 Rx Allergies Allergy/AdvReac Type Severity Reaction Status Date / Time No Known Drug Allergies Allergy Verified 10/28/20 10:11 EXAM Constitutional Vitals: Temp Pulse Resp BP Pulse Ox 101.1 F H 73 31 H 86/58 91 10/28/20 12:10 10/28/20 13:17 10/28/20 13:17 10/28/20 13:16 10/28/20 13:17 Exam: General: Alert, Awake, No acute Distress, obese Eyes/N/T: EOMI, PERRL, Head/Neck: neck supple, normocephalic atraumatic CV: RRR, No murmurs, normal s1/s2 Pulm: Clear b/l, no wheezing/rhonchi/rales Abd: soft, nontender, +BS x4 Ext: no clubbing/cyanosis/edema, withered lower extremity musculature patient wheelchair-bound Neuro: Alert, no focal deficits, moves all extremities, CN 2-12 grossly intact, Skin: warm/dry DATA Data Completed and Pending Labs: Labs from last 24 hours 10/28/20 10/28/20 10/28/20 11:10 11:06 11:06 WBC RBC Hgb Hct MCV MCH MCHC RDW Plt Count MPV Neut % (Auto) Lymph % (Auto) [place] % (Auto) Eos % (Auto) Baso % (Auto) Lymph # (Auto) [place] # (Auto) Eos # (Auto) Baso # (Auto) Absolute Neutrophils VBG Lactic Acid 1.4 Sodium 135 Potassium 3.3 Chloride 106 Carbon Dioxide 18 L Anion Gap 11.0 BUN 11 Creatinine 1.2 POC Creatinine 1.1 GFR Calculation 73 Glucose 111 H Calcium 9.2 Total Bilirubin 1.6 H AST 16 ALT 18 Alkaline Phosphatase 88 Total Protein 6.6 Albumin 3.3 Globulin 3.3 Albumin/Globulin Ratio 1.0 Urine Color Yellow Urine Appearance Clear Urine pH 6.0 Ur Specific [place] 1.015 Urine Protein 30 mg/dl A Urine Glucose (UA) Negative Urine Ketones 15 mg/dl A Urine Occult Blood Trace-intact A Urine Nitrate Negative Urine Bilirubin Negative Urine Urobilinogen Normal Ur Leukocyte Esterase Small A Urine RBC 5 H Urine WBC > 182 H Ur Squamous Epith Cells 1 Urine Bacteria None Urine Mucus Few A Ur Culture Indicated? yes 10/28/20 11:06 WBC 36.8 H* RBC 4.05 L Hgb 10.9 L Hct 34.0 L MCV 84.0 MCH 26.9 MCHC 32.1 RDW 15.7 H Plt Count 149 MPV 9.9 Neut % (Auto) 83.9 H Lymph % (Auto) 6.3 L [place] % (Auto) 9.5 Eos % (Auto) 0 Baso % (Auto) 0.3 Lymph # (Auto) 2.31 [place] # (Auto) 3.48 H Eos # (Auto) 0.01 Baso # (Auto) 0.11 Absolute Neutrophils 30.87 H VBG Lactic Acid Sodium Potassium Chloride Carbon Dioxide Anion Gap BUN Creatinine POC Creatinine GFR Calculation Glucose Calcium Total Bilirubin AST ALT Alkaline Phosphatase Total Protein Albumin Globulin Albumin/Globulin Ratio Urine Color Urine Appearance Urine pH Ur Specific [place] Urine Protein Urine Glucose (UA) Urine Ketones Urine Occult Blood Urine Nitrate Urine Bilirubin Urine Urobilinogen Ur Leukocyte Esterase Urine RBC Urine WBC Ur Squamous Epith Cells Urine Bacteria Urine Mucus Ur Culture Indicated? A/P Narrative A/P Narrative: A: *Sepsis w/hypotension: felt related as opposed to liver abscess *Prostatitis: *h/o Liver abscess: Recently finished Augmentin -radiologist and surgeon felt imaging not indicative of active infection -also was discussed with ID from the ED *Cerebral palsy/Debility: wheelchair-bound *Bipolar: *Chronic LBP: *HTN: *Obesity: * P: -Rocephin/Flagyl, will need prolonged course of abx if prostatitis and f/u with urology -ID consult and Gen Surg following -IVF -pending BC/UC -hold home BP meds -Clarify home medications -ppx: heparin Time Spent With Patient Time: Total time spent is greater than 50% in coordination of care (as documented) at patient's floor/unit and/or counseling patient:
[2020-10-28] MEDS ORDERED: POLYETHYLENE GLYCOL 3350 17 GM PACKET PO PRN (16:46)
[2020-10-28] MEDS ORDERED: ONDANSETRON 4 MG/2 ML VIAL IV PRN (16:46)
[2020-10-28] MEDS ORDERED: POTASSIUM CHLORIDE 40 MEQ in DEXTROSE 5% IN WATER 500 ML IV PRN (16:46)
[2020-10-28] MEDS ORDERED: HYDROcodone/APAP 5/325MG TABLET PO PRN (16:46)
[2020-10-28] MEDS ORDERED: SENNOSIDES 1 TABLET PO PRN (16:46)
[2020-10-28] MEDS ORDERED: POTASSIUM CHLORIDE 20 MEQ TABLET PO PRN (16:46)
[2020-10-28] MEDS ORDERED: ACETAMINOPHEN 325 MG TABLET PO PRN (16:46)
[2020-10-28] MEDS ORDERED: IPRATROPIUM/ALBUTEROL 3 ML AMPUL.NEB NEB PRN (16:46)
[2020-10-28] MEDS ORDERED: MAGNESIUM SULFATE 2 GM/50 ML BAG IV PRN (16:46)
[2020-10-28] MEDS: 0.9 % SODIUM CHLORIDE 1,000 ML IV SCH (16:56)
[2020-10-28 18:46] LABS: Band Neutrophils % 1 % (0-10); Lymphocytes % 8 % (15-49); Monocytes % (Manual) 7 % (1-12); Platelet Estimate NORMAL (Normal); RBC Morphology NORMAL (Normal); Segmented Neutrophils % 84 % (38-78)
[2020-10-28] MEDS: DOCUSATE SODIUM 100 MG CAPSULE PO SCH (21:50)
[2020-10-28] MEDS: LACTOBACILLUS 1 CAPSULE PO SCH (21:50)
[2020-10-28] MEDS: HEPARIN 5,000 UNIT/ML VIAL SQ SCH (21:50)
[2020-10-28] MEDS: metroNIDAZOLE 500 MG/100 ML BAG IV SCH (21:57)
[2020-10-28] MEDS: 0.9 % SODIUM CHLORIDE 10 ML SYRINGE IV SCH (21:58)
[2020-10-29] MEDS: 0.9 % SODIUM CHLORIDE 1,000 ML IV SCH ×2 (04:04→13:15)
[2020-10-29] MEDS: 0.9 % SODIUM CHLORIDE 10 ML SYRINGE IV SCH ×3 (04:05→20:29)
[2020-10-29] MEDS: metroNIDAZOLE 500 MG/100 ML BAG IV SCH ×2 (05:34→13:49)
[2020-10-29 07:18] LABS: Basophils # (Auto) 0.07 K/mcL (0.00-0.20); Basophils % (Auto) 0.2 % (0.0-2.0); Eosinophils # (Auto) 0.11 K/mcL (0.00-0.70); Eosinophils % (Auto) 0.4 % (0.0-7.0); Hematocrit 33.3 % (41.0-55.0); Hemoglobin 10.4 g/dL (13.5-16.5); Lymphocytes # (Auto) 1.95 K/mcL (1.50-4.80); Lymphocytes % (Auto) 6.7 % (15.0-49.0); Mean Cell Volume 84.9 fL (80.0-100.0); Mean Corpuscular HGB Conc 31.2 g/dL (31.0-36.0); Mean Platelet Volume 9.5 fL (7.4-10.4); Monocytes # (Auto) 1.95 K/mcL (0.10-0.90); Monocytes % (Auto) 6.7 % (1.0-12.0); Platelet Count 179 K/mcL (140-440); RBC 3.92 M/mcL (4.50-5.90); Red Cell Distribution Width 15.9 % (11.5-14.5)
--- NOTE | 2020-10-29 07:39 | Internal Med Progress Note ---
SUBJECTIVE Subjective Patient information: Note initiated : 10/29/20 at 7:33 am Service Date, if different from initiated Date: [] Patient: Jorge Luis Castrejon a 45 y/o M admitted on 10/28/20 for fever. Chief Complaint: [] Interval history: History of present illness: Mr. Castrejon is a 45 year old M Presents the ED for fevers. Does have a history of liver abscess and finished Augmentin last Tuesday. CT imaging did show some slight enlargement but per the radiologist reading his surgeon today did not feel it was infected. Case was also discussed with infectious disease specialist who is previously involved with care. Radiologist did read the CT abdomen pelvis showing findings of processing day which were concern for prostatitis and a urine with some mild leukocyte esterase and elevated WBCs and it was felt that fevers are coming from urine. He was mildly hypotensive and tachypneic. Give IV fluid in the ED. Blood cultures obtained in ED. And infectious disease with specialist recommended Rocephin and Flagyl. Patient fevers and chills but denies any chest pain coughing and dysuria. 10/29 No overnight events or new complaints. aFebrile overnight. Awaiting urine culture. Electrolytes low will replace. Leukocytosis mildly improved Review of Systems: denies headache/fever/chills/nausea/vomiting/chest or abdominal pain/cough/dyspnea/diarrhea. Otherwise see above. Constitutional Vitals: Vital Signs Temp Pulse Resp BP Pulse Ox 98.6 F 101 H 20 129/74 91 10/29/20 04:13 10/29/20 04:13 10/29/20 04:13 10/29/20 04:13 10/29/20 04:13 Period Temp Pulse Resp BP Sys/Jung Pulse Ox Last 24 Hr 97.5 F-101.1 F 71-101 9-31 80-129/53-74 90-100 Intake and Output 10/28/20 10/29/20 10/29/20 21:59 05:59 13:59 Intake Total 2150 1400 Output Total 2850 Balance 2150 -1450 Weight 108.681 kg Intake & Output: Intake & Output 10/28/20 10/29/20 10/29/20 21:59 05:59 13:59 Intake Total 2150 1400 Output Total 2850 Balance 2150 -1450 Weight 108.681 kg Intake: IV 2150 1100 Sodium Chloride 0.9% 1,000 ml @ 2000 1000 100 mls/hr IV .Q10H [facility] Rx#: [id number] Rocephin 2 gm In Dextrose 5% in 50 Water 50 ml @ 100 mls/hr IV Q24H [facility] Rx#:[id number] Oral 300 Output: Urine Catheter Amount 2850 Other: Urine Appearance Cloudy Uretheral (Coello) Cloudy Urine Color Dark Yellow Uretheral (Coello) Bright Yellow Exam: General: Alert, Awake, No acute Distress, obese Eyes/N/T: EOMI, Head/Neck: neck supple, CV: RRR, No murmurs, Pulm: Clear b/l, no wheezing/rhonchi/rales Abd: soft, nontender, +BS x4 Ext: no clubbing/cyanosis/edema, withered lower extremity musculature patient wheelchair-bound Neuro: Alert, no focal deficits, moves all extremities, Skin: warm/dry OBJ DATA Labs CBC & Chem 7: 10/29/20 05:30 10/29/20 05:30 Labs: Abnormal Lab Results 10/29/20 10/28/20 10/28/20 05:30 17:22 17:22 WBC 29.0 H RBC 3.92 L Hgb 10.4 L Hct 33.3 L RDW 15.9 H Neut % (Auto) 86.0 H Lymph % (Auto) 6.7 L [place] # (Auto) 1.95 H Seg Neutrophils % 84 H Lymphocytes % 8 L Absolute Neutrophils 24.94 H Carbon Dioxide Glucose Total Bilirubin Procalcitonin 4.74 H Urine Protein Urine Ketones Urine Occult Blood Ur Leukocyte Esterase Urine RBC Urine WBC Urine Mucus 10/28/20 10/28/20 10/28/20 11:10 11:06 11:06 WBC 36.8 H* RBC 4.05 L Hgb 10.9 L Hct 34.0 L RDW 15.7 H Neut % (Auto) 83.9 H Lymph % (Auto) 6.3 L [place] # (Auto) 3.48 H Seg Neutrophils % Lymphocytes % Absolute Neutrophils 30.87 H Carbon Dioxide 18 L Glucose 111 H Total Bilirubin 1.6 H Procalcitonin Urine Protein 30 mg/dl A Urine Ketones 15 mg/dl A Urine Occult Blood Trace-intact A Ur Leukocyte Esterase Small A Urine RBC 5 H Urine WBC > 182 H Urine Mucus Few A Meds: Medications Acetaminophen (Acetaminophen 325 Mg Tablet) 650 mg PO Q6HP PRN PRN Reason: PAIN/FEVER > 101 Hydrocodone Bitart/Acetaminophen (Hydrocodone/Apap 5/325mg Tablet) 1 tab PO Q4H P PRN PRN Reason: PAIN LEVEL 3-6 Albuterol/Ipratropium (Ipratropium/Albuterol 3 Ml Ampul.Neb) 3 ml NEB Q4HP PRN PRN Reason: Shortness Of Breath Docusate Sodium (Docusate Sodium 100 Mg Capsule) 100 mg PO BID [facility] Last Admin: 10/28/20 21:50 Dose: Not Given Documented by: Heparin Sodium (Porcine) (Heparin 5,000 Unit/Ml Vial) 5,000 unit SQ Q12 [facility] Last Admin: 10/28/20 21:50 Dose: 5,000 unit Documented by: Ceftriaxone Sodium 2 gm/ (Dextrose) 50 mls @ 100 mls/hr IV Q24H [facility]; Protocol Metronidazole (Flagyl) 500 mg in 100 mls @ 100 mls/hr IV Q8H [facility]; Protocol Last Admin: 10/29/20 05:34 Dose: 100 mls/hr Documented by: Potassium Chloride 40 meq/ (Dextrose) 520 mls @ 130 mls/hr IV UD PRN PRN Reason: Potassium < 3 Magnesium Sulfate (Magnesium Sulfate) 2 gm in 50 mls @ 50 mls/hr IV UD PRN PRN Reason: Magnesium </= 1.6 Sodium Chloride (Sodium Chloride 0.9%) 1,000 mls @ 100 mls/hr IV .Q10H [facility] Last Admin: 10/29/20 04:04 Dose: 100 mls/hr Documented by: Lactobacillus Rhamnosus (Lactobacillus 1 Capsule) 1 cap PO BID [facility] Last Admin: 10/28/20 21:50 Dose: 1 cap Documented by: Ondansetron HCl (Ondansetron 4 Mg/2 Ml Vial) 4 mg IV Q4HP PRN PRN Reason: Nausea And Vomiting Polyethylene Glycol (Polyethylene Glycol 3350 17 Gm Packet) 17 gm PO DAILYP PRN PRN Reason: Constipation Potassium Chloride (Potassium Chloride 20 Meq Tablet) 40 meq PO UD PRN PRN Reason: Potssium is 3-3.5 Potassium Chloride (Potassium Chloride 20 Meq Tablet) 40 meq PO UD PRN PRN Reason: Potassium < 3 Senna (Sennosides 1 Tablet) 2 tab PO DAILYP PRN PRN Reason: Constipation Sodium Chloride (0.9 % Sodium Chloride 10 Ml Syringe) 10 ml IV Q8 [facility] Last Admin: 10/29/20 04:05 Dose: Not Given Documented by: A/P Narrative A/P Narrative: A: *Sepsis w/hypotension: felt related as opposed to liver abscess -hypotension resolved with IVF -Severe leukocytosis slowly improving -afebrile o/n *Prostatitis: *h/o Liver abscess: Recently finished Augmentin -radiologist and surgeon felt imaging not indicative of active infection -also was discussed with ID from the ED *Cerebral palsy/Debility: wheelchair-bound *Bipolar: *Chronic LBP: *HTN: *Obesity: * P: -Rocephin/Flagyl, will need prolonged course of abx if prostatitis and f/u with urology -ID consulted in ED and Gen Surg following -IVF d/c today -pending BC/UC -hold home BP meds -Clarify home medications, nurse to update and call to start psych meds -ppx: lovenox/home ppi Time Spent With Patient Time: Total time spent is greater than 50% in coordination of care (as documented) at patient's floor/unit and/or counseling patient: QUALITY VTE Deep Vein Thrombosis/Pulmonary Embolism Present on Admission: No
[2020-10-29 08:13] LABS: ALT/SGPT 15 U/L (<40); AST/SGOT 12 U/L (<40); Albumin/Globulin Ratio 0.8 (1.0-2.3); Alkaline Phosphatase 108 U/L (39-117); Bilirubin,Direct 0.3 mg/dL (<0.3); Blood Urea Nitrogen 7 mg/dL (6-20); Calcium 9.6 mg/dL (8.6-10.4); Carbon Dioxide 19 mmol/L (22-30); Chloride 110 mmol/L (96-108); Globulin 3.7 gm/dL (2.2-3.7); Glomerular Filtration Rate 91; Glucose 71 mg/dL (70-105); Lactate Dehydrogenase 127 U/L (135-225); Triglycerides 82 mg/dL (<150); Uric Acid 5.5 mg/dL (2.5-8.0)
[2020-10-29] MEDS: VITAMIN D3 1,000 UNIT TABLET PO SCH (08:19)
[2020-10-29] MEDS: HEPARIN 5,000 UNIT/ML VIAL SQ SCH (08:19)
[2020-10-29] MEDS: DOCUSATE SODIUM 100 MG CAPSULE PO SCH ×2 (08:19→20:27)
[2020-10-29] MEDS: cefTRIAXone 2 GM in DEXTROSE 5% IN WATER 50 ML IV SCH (08:19)
[2020-10-29] MEDS: LACTOBACILLUS 1 CAPSULE PO SCH ×2 (08:19→20:27)
[2020-10-29] MEDS: CRANBERRY FRUIT 450 MG PO SCH ×2 (08:20→21:15)
[2020-10-29] MEDS: D MANNOSE 500 MG PO SCH (08:20)
[2020-10-29] MEDS: POTASSIUM CHLORIDE 20 MEQ TABLET PO PRN (09:45)
[2020-10-29] MEDS ORDERED: PHOSPHORUS 250 MG TABLET PO ONE (10:45)
[2020-10-29] MEDS ORDERED: VENLAFAXINE 150 MG CAP.XL.24H PO SCH (14:05)
[2020-10-29] MEDS: VENLAFAXINE 75 MG CAP.XL.24H PO SCH (14:30)
--- NOTE | 2020-10-29 19:36 | Infectious Disease Consult ---
HPI Data of Consult Primary Care Provider: Nick Jones MD Consult Narrative Patient Information: Note initiated : 10/29/20 at 7:17 pm Service Date, if different from initiated Date: [] Patient: Jorge Luis Castrejon a 45 y/o M admitted on 10/28/20 for fever. Chief Complaint: [] Jorge Luis is a 45-year-old obese man with cerebral palsy. I have previously seen him in consultation at [facility]. I last saw him in clinic on August 25. He finished IV meropenem plus vancomycin on August 30 after 4 weeks of treatment for a liver abscess. He had an alpha Streptococcus grow intraoperatively at the time of cholecystectomy. The liver abscess was unable to be sampled. Therefore I empirically gave him broad-spectrum antibiotic therapy. On August 30, I switched him to oral Augmentin for 2 weeks. He finished that regimen approximately September 13. He had been off antibiotics for approximately 6 weeks according to my records. He only recently returned to community living from a longterm facility approximately 3 days ago. He had a fever 2 days ago to 102. He came to the emergency department yesterday and was admitted. I spoke with the emergency department physician yesterday who was concerned about returning hepatic abscess. With that information I recommended Rocephin and Flagyl. Upon further review, he has 2 subcapsular collections measuring 2.3 x 1.3 cm which reviewed very little change from previous CAT scan. His UA revealed greater than 182 white cells and 5 red cells and 1 squamous epithelial cells. Urine culture pending blood cultures pending. On the CT scan prostate was enlarged to 6.2 x 4.5 cm. Patient has enuresis and incontinence. He has a history of urinary tract infections. His creatinine yesterday was 1.2 with a white count of 36,000. White blood cell count is down to 29,000 84% segs. He had a T-max yesterday of 101.1 with a temperature today of 100.3. Dr. Hatfield asked for consultation. cc:: CC: Jose Hatfield Constitutional Additional comments: General: Fever to 102 on October 27. HEENT: No headache or sore throat. No neck complaints. Pulmonary: No cough or shortness of breath. Cardiac: No chest pain. GI: No abdominal pain or diarrhea. : Urinary incontinence. He does have a Coello catheter now. Skin no complaints of rash. Neurologic: Cerebral palsy. PFSH PFS All Active Problems (Updated 10/29/20 @ 19:35 by Blake Kendrick MD) Urinary tract infection (Acute) Bacterial prostatitis (Acute) Sepsis associated hypotension (Acute) Tachycardia (Acute) Thrombophlebitis (Acute) Deep vein thrombosis (DVT) of right upper extremity (Acute) Medicare welcome visit (Acute) Liver abscess (Acute) Hypoventilation associated with obesity syndrome (Acute) Postprocedural leakage from bile duct (Acute) Cholelithiasis and acute cholecystitis without obstruction (Acute) Cholelithiasis and cholecystitis with obstruction (Acute) Salmonella enteritis (Acute) Diarrhea (Acute) Bowel incontinence (Acute) Seborrheic dermatitis (Acute) Depression (Acute) Generalized anxiety disorder (Acute) Bipolar disorder with psychotic features (Acute) Urinary incontinence (Chronic) Cerebral palsy (Acute) Altered mental status (Acute) Hyperglycemia (Acute) Vitamin D deficiency (Chronic) Gastroesophageal reflux disease (Chronic) Osteoarthritis (Chronic) Hx of Achilles tendon repair (Acute) Obsessive compulsive disorder (Chronic) Obesity (Chronic) Hypertension, essential (Chronic) Legal blindness (Chronic) Bipolar disorder (Chronic) Medical History Acute conjunctivitis, bilateral Altered level of consciousness With other behavior changes and anorexia Bilateral impacted cerumen Bipolar disorder Cerebral palsy Conjunctivitis On Ophthalmic Erythromycin ointment for five more days Deep vein thrombosis (DVT) of right upper extremity Dehydration Dehydration, moderate Gastroenteritis Gastroesophageal reflux disease Hypertension, essential Hypokalemia Possibly secondary to diuretic use Legal blindness Medicare welcome visit Metabolic acidosis Anion gap metabolic acidosis, possibly secondary to starvation (Lactic acid level is normal at 0.83) Obesity Obsessive compulsive disorder Osteoarthritis With chronic use of anti-inflammatories Salmonella enteritis Seborrheic dermatitis Tachycardia Thrombophlebitis Toxic encephalopathy Secondary to infection Urinary incontinence Urinary tract infection Partially treated UTI (urinary tract infection) Vitamin D deficiency Now on replacement therapy Volume depletion Volume depletion secondary to infection without renal injury at this time Surgical History History of laparoscopic cholecystectomy 07/25/2020 Hx of Achilles tendon repair bilateral hamstring and achelles tendon releases Family History mother Anxiety disorder, Onset Age: 55 none listed Atherosclerosis of coronary artery father Essential hypertension, Onset Age: 57 Social History education level: high school alcohol intake frequency: does not drink substance use type: does not use MEDS/ALLERGIES Home Medications and Allergies Home Medications Medication Instructions Recorded Confirmed Type Wheelchair 1 each .ROUTE DAILY 09/15/18 10/29/20 History losartan 100 mg tablet 100 mg PO QDAY #30 tab 04/23/20 10/29/20 Rx lithium carbonate 450 mg 900 mg PO QHS #62 tab 05/14/20 10/29/20 Rx tablet,extended release amlodipine 10 mg tablet 5 mg PO BID #90 tab 05/20/20 10/28/20 Rx metoprolol tartrate 50 mg tablet 50 mg PO BID #180 tab 05/20/20 10/29/20 Rx omeprazole 20 mg capsule,delayed 20 mg PO QDAY #90 cap 05/20/20 10/29/20 Rx release cranberry fruit concentrate 450 mg 450 mg PO BID #180 tab 06/18/20 10/28/20 Rx tablet D-MANNOSE 500 MG CAPS 500 Capsule 1 cap PO DAILY 07/18/20 10/28/20 History Lactobac. rhamnosus GG-inulin 1 cap PO BID #60 cap 08/05/20 10/29/20 Rx [[facility]] magnesium hydroxide [Milk of 400 mg PO QDAY PRN 08/18/20 10/29/20 History Magnesia] ascorbic acid (vitamin C) 1,000 mg 500 mg PO QDAY tab 10/15/20 10/28/20 History tablet aripiprazole 10 mg tablet See Rx Instructions .ROUTE 10/27/20 10/29/20 Rx .COMPLEX #31 tablet venlafaxine 150 mg 150 mg PO QAM #30 cap 10/27/20 10/29/20 Rx capsule,extended release 24 hr venlafaxine 75 mg capsule,extended 75 mg PO QAM #30 cap 10/27/20 10/29/20 Rx release 24 hr acetaminophen 325 mg tablet 325 mg PO Q4HP PRN #100 tab 10/28/20 10/28/20 Rx cholecalciferol (vitamin D3) 50 4,000 unit PO QDAY 90 Days #180 cap 10/28/20 10/28/20 Rx mcg (2,000 unit) capsule hydralazine 10 mg tablet 10 mg PO TID 90 Days #270 tab 10/28/20 10/29/20 Rx Allergies Allergy/AdvReac Type Severity Reaction Status Date / Time No Known Drug Allergies Allergy Verified 10/28/20 10:11 Physical Examination Vital Signs Vital signs: Temp Pulse Resp BP Pulse Ox 100.3 F H 108 H 20 125/73 95 10/29/20 17:58 10/29/20 16:00 10/29/20 16:00 10/29/20 16:00 10/29/20 16:00 Additional Exam Additional exam: General: He is laying in bed. He does recall seeing me previously. HEENT: Strabismus. No conjunctival drainage. Mouth is moist. N sherine is full. Lungs: Clear bilaterally. Heart: Regular rate and rhythm without murmur. Abdomen: Soft nontender positive bowel sounds. No right upper quadrant tenderness. No hepatosplenomegaly. : Positive Coello cath with clear yellow urine. Extremities lower extremities thin with muscular atrophy. No lower extremity edema. Results Laboratory Findings CBC and BMP: 10/29/20 05:30 10/29/20 05:30 Abnormal lab findings: Abnormal Labs 10/28/20 10/28/20 10/28/20 11:06 11:06 11:10 WBC 36.8 H* RBC 4.05 L Hgb 10.9 L Hct 34.0 L RDW 15.7 H Neut % (Auto) 83.9 H Lymph % (Auto) 6.3 L [place] # (Auto) 3.48 H Seg Neutrophils % Lymphocytes % Absolute Neutrophils 30.87 H Potassium Chloride Carbon Dioxide 18 L Glucose 111 H Phosphorus Total Bilirubin 1.6 H Direct Bilirubin Lactate Dehydrogenase Albumin Albumin/Globulin Ratio Procalcitonin Urine Protein 30 mg/dl A Urine Ketones 15 mg/dl A Urine Occult Blood Trace-intact A Ur Leukocyte Esterase Small A Urine RBC 5 H Urine WBC > 182 H Urine Mucus Few A 10/28/20 10/28/20 10/29/20 17:22 17:22 05:30 WBC 29.0 H RBC 3.92 L Hgb 10.4 L Hct 33.3 L RDW 15.9 H Neut % (Auto) 86.0 H Lymph % (Auto) 6.7 L [place] # (Auto) 1.95 H Seg Neutrophils % 84 H Lymphocytes % 8 L Absolute Neutrophils 24.94 H Potassium Chloride Carbon Dioxide Glucose Phosphorus Total Bilirubin Direct Bilirubin Lactate Dehydrogenase Albumin Albumin/Globulin Ratio Procalcitonin 4.74 H Urine Protein Urine Ketones Urine Occult Blood Ur Leukocyte Esterase Urine RBC Urine WBC Urine Mucus 10/29/20 10/29/20 05:30 05:30 WBC RBC Hgb Hct RDW Neut % (Auto) Lymph % (Auto) [place] # (Auto) Seg Neutrophils % Lymphocytes % Absolute Neutrophils Potassium 3.1 L Chloride 110 H Carbon Dioxide 19 L Glucose Phosphorus 2.0 L Total Bilirubin Direct Bilirubin 0.3 H Lactate Dehydrogenase 127 L Albumin 3.0 L Albumin/Globulin Ratio 0.8 L Procalcitonin 3.35 H Urine Protein Urine Ketones Urine Occult Blood Ur Leukocyte Esterase Urine RBC Urine WBC Urine Mucus Microbiology: Microbiology 10/28/20 11:10 Urine - Clean Void Mid-Stream Urine Culture - Preliminary Gram negative bacillus Gram negative bacillus#2 10/28/20 10:51 Blood Blood Culture - Preliminary 10/28/20 10:51 Blood Blood Culture - Preliminary Urine cultures October 28 pending but Gram stain reveals gram-negative rods. Blood cultures also pending from October 28. Creatinine yesterday 1.2 with a white count of 36,000. Today H&H point White count 29 with 84% segs. UA revealed greater than 182 white cells 1 squamous epithelial cell and [address] scan yesterday showed 2 subcapsular hepatic collections measuring 2.3 and 1.3 cm. Not much change from last CT scan. Prostate enlarged 6.2 x 4.5 cm with some inflammation seen by radiology. A/P Assessment and plan (1) Sepsis associated hypotension: Status: Acute Comment: Jorge Luis is a 45-year-old obese cerebral palsy patient who is currently hospital day 2 for sepsis associated with a urinary tract infection. He has a history of urinary tract infections. There was initial concern for possible returning liver abscess. From my records, I have indicated that he would have finished antibiotic therapy approximately September 13 after 4 weeks of IV therapy followed by 2 weeks of oral therapy for for subcapsular liver abscess. He does not appear that he has worsening liver abscess after being off antibiotics for approximately 6 weeks. (2) Urinary tract infection: Status: Acute Comment: Gram-negative rods identified by Gram stain on urine culture. He has a history of urinary tract infections. It appears that he has UTI as source of sepsis. Prostatitis also being considered in differential diagnosis. No further need for flagyl. Current Rocephin dose of 2 g daily. White blood cell count and fever improving. It will be important to continue to follow-up on urine culture and blood culture results. I would recommend continued IV therapy until white blood cell count normalizes. There will be difference in duration of antibiotic therapy if this is urinary tract infection versus prostatitis. (3) Urinary incontinence: Status: Chronic Comment: Chronic. Qualifiers: Urinary Incontinence type: functional incontinence Qualified Code(s): R39.81 - Functional urinary incontinence (4) Cerebral palsy: Status: Acute Comment: Wheelchair-bound. Thank you very much for allowing me to be involved in Jorge Luis's consultative care again. Further recommendations to follow. Please call with urine culture results and I can assist with transition of antibiotics. Qualifiers: Cerebral palsy type: unspecified type Qualified Code(s): G80.9 - Cerebral palsy, unspecified Time Spent With Patient Time: Total time spent is greater than 50% in coordination of care (as docu mented) at patient's floor/unit and/or counseling patient:
[2020-10-29] MEDS: SODIUM BICARBONATE 650 MG TABLET PO SCH (20:27)
[2020-10-29] MEDS: LITHIUM CARBONATE ER 300 MG TAB PO SCH (20:27)
[2020-10-30] MEDS: 0.9 % SODIUM CHLORIDE 10 ML SYRINGE IV SCH ×3 (06:06→21:06)
--- NOTE | 2020-10-30 07:09 | Internal Med Progress Note ---
SUBJECTIVE Subjective Patient information: Note initiated : 10/30/20 at 7:04 am Service Date, if different from initiated Date: [] Patient: Jorge Luis Castrejon a 45 y/o M admitted on 10/28/20 for fever. Chief Complaint: [] Interval history: History of present illness: Mr. Castrejon is a 45 year old M Presents the ED for fevers. Does have a history of liver abscess and finished Augmentin last Tuesday. CT imaging did show some slight enlargement but per the radiologist reading his surgeon today did not feel it was infected. Case was also discussed with infectious disease specialist who is previously involved with care. Radiologist did read the CT abdomen pelvis showing findings of day which were concern for prostatitis and a urine with some mild leukocyte esterase and elevated WBCs and it was felt that fevers are coming from urine. He was mildly hypotensive and tachypneic. Give IV fluid in the ED. Blood cultures obtained in ED. And infectious disease with specialist recommended Rocephin and Flagyl. Patient fevers and chills but denies any chest pain coughing and dysuria. 10/29 No overnight events or new complaints. aFebrile overnight. Awaiting urine culture. Electrolytes low will replace. Leukocytosis mildly improved 10/30 No overnight event or new complaints. Leukocytosis trending down. Procalcitonin improved. Review of Systems: denies headache/fever/chills/nausea/vomiting/chest or abdominal pain/cough/dyspnea/diarrhea. Otherwise see above. Constitutional Vitals: Vital Signs Temp Pulse Resp BP Pulse Ox 98.3 F 89 20 139/85 93 10/30/20 06:47 10/30/20 06:47 10/30/20 06:47 10/30/20 06:47 10/30/20 06:47 Period Temp Pulse Resp BP Sys/Jung Pulse Ox Last 24 Hr 98.3 F-100.8 F 89-114 20-24 115-141/66-85 93-95 Intake and Output 10/29/20 10/30/20 10/30/20 21:59 05:59 13:59 Intake Total 3700 350 Output Total 3150 1200 Balance 550 -850 Weight 108.091 kg Intake & Output: Intake & Output 10/29/20 10/30/20 10/30/20 21:59 05:59 13:59 Intake Total 3700 350 Output Total 3150 1200 Balance 550 -850 Weight 108.091 kg Intake: IV 100 Oral 3600 350 Output: Urine Catheter Amount 3150 1200 Other: Meal Lunch Percent of Meal Consumed 50% Urine Appearance Clear Cloudy Uretheral ([place]) Clear Urine Color Bright Yellow Pale Uretheral ([place]) Bright Yellow Stool Color Brown Stool Consistency Loose # of times incontinent of 3 Bowels Exam: General: Alert, Awake, No acute Distress, obese Eyes/N/T: EOMI, Head/Neck: neck supple, CV: RRR, No murmurs, Pulm: Clear b/l, no wheezing/rhonchi/rales Abd: soft, nontender, +BS x4 Ext: no clubbing/cyanosis/edema, withered lower extremity musculature patient wheelchair-bound Neuro: Alert, no focal deficits, moves all extremities, Skin: warm/dry OBJ DATA Labs CBC & Chem 7: 10/30/20 05:57 10/30/20 05:57 Labs: Abnormal Lab Results 10/29/20 10/29/20 10/29/20 05:30 05:30 05:30 WBC 29.0 H RBC 3.92 L Hgb 10.4 L Hct 33.3 L RDW 15.9 H Neut % (Auto) 86.0 H Lymph % (Auto) 6.7 L [place] # (Auto) 1.95 H Seg Neutrophils % Lymphocytes % Absolute Neutrophils 24.94 H Potassium 3.1 L Chloride 110 H Carbon Dioxide 19 L Glucose Phosphorus 2.0 L Total Bilirubin Direct Bilirubin 0.3 H Lactate Dehydrogenase 127 L Albumin 3.0 L Albumin/Globulin Ratio 0.8 L Procalcitonin 3.35 H Urine Protein Urine Ketones Urine Occult Blood Ur Leukocyte Esterase Urine RBC Urine WBC Urine Mucus 10/28/20 10/28/20 10/28/20 17:22 17:22 11:10 WBC RBC Hgb Hct RDW Neut % (Auto) Lymph % (Auto) [place] # (Auto) Seg Neutrophils % 84 H Lymphocytes % 8 L Absolute Neutrophils Potassium Chloride Carbon Dioxide Glucose Phosphorus Total Bilirubin Direct Bilirubin Lactate Dehydrogenase Albumin Albumin/Globulin Ratio Procalcitonin 4.74 H Urine Protein 30 mg/dl A Urine Ketones 15 mg/dl A Urine Occult Blood Trace-intact A Ur Leukocyte Esterase Small A Urine RBC 5 H Urine WBC > 182 H Urine Mucus Few A 10/28/20 10/28/20 11:06 11:06 WBC 36.8 H* RBC 4.05 L Hgb 10.9 L Hct 34.0 L RDW 15.7 H Neut % (Auto) 83.9 H Lymph % (Auto) 6.3 L [place] # (Auto) 3.48 H Seg Neutrophils % Lymphocytes % Absolute Neutrophils 30.87 H Potassium Chloride Carbon Dioxide 18 L Glucose 111 H Phosphorus Total Bilirubin 1.6 H Direct Bilirubin Lactate Dehydrogenase Albumin Albumin/Globulin Ratio Procalcitonin Urine Protein Urine Ketones Urine Occult Blood Ur Leukocyte Esterase Urine RBC Urine WBC Urine Mucus Meds: Medications Acetaminophen (Acetaminophen 325 Mg Tablet) 650 mg PO Q6HP PRN PRN Reason: PAIN/FEVER > 101 Last Admin: 10/29/20 17:51 Dose: 650 mg Documented by: Hydrocodone Bitart/Acetaminophen (Hydrocodone/Apap 5/325mg Tablet) 1 tab PO Q4HP PRN PRN Reason: PAIN LEVEL 3-6 Albuterol/Ipratropium (Ipratropium/Albuterol 3 Ml Ampul.Neb) 3 ml NEB Q4HP PRN PRN Reason: Shortness Of Breath Docusate Sodium (Docusate Sodium 100 Mg Capsule) 100 mg PO BID [facility] Last Admin: 10/29/20 20:27 Dose: 100 mg Documented by: Enoxaparin Sodium (Enoxaparin 40 Mg/0.4 Ml Syringe) 40 mg SQ DAILY [facility] Ceftriaxone Sodium 2 gm/ (Dextrose) 50 mls @ 100 mls/hr IV Q24H [facility]; Protocol Last Infusion: 10/29/20 08:55 Dose: Infused Documented by: Potassium Chloride 40 meq/ (Dextrose) 520 mls @ 130 mls/hr IV UD PRN PRN Reason: Potassium < 3 Magnesium Sulfate (Magnesium Sulfate) 2 gm in 50 mls @ 50 mls/hr IV UD PRN PRN Reason: Magnesium </= 1.6 Lactobacillus Rhamnosus (Lactobacillus 1 Capsule) 1 cap PO BID [facility] Last Admin: 10/29/20 20:27 Dose: 1 cap Documented by: [place] Carbonate Er (300 Mg Tab) 3 dose PO QHS [facility] Last Admin: 10/29/20 20:27 Dose: 3 dose Documented by: Omeprazole (Omeprazole 20 Mg Capsule) 20 mg PO QDAY [facility] Ondansetron HCl (Ondansetron 4 Mg/2 Ml Vial) 4 mg IV Q4HP PRN PRN Reason: Nausea And Vomiting Pantoprazole Sodium (Pantoprazole 40 Mg Packet) 40 mg PO QAMAC [facility] Cranberry Fruit Concentrate 450 Mg Tablet 1 dose PO BID [facility] Last Admin: 10/29/20 21:15 Dose: Not Given Documented by: D-Mannose 500 Mg (Caps 500 Capsule) 1 dose PO DAILY [facility] Last Admin: 10/29/20 08:20 Dose: Not Given Documented by: Polyethylene Glycol (Polyethylene Glycol 3350 17 Gm Packet) 17 gm PO DAILYP PRN PRN Reason: Constipation Potassium Chloride (Potassium Chloride 20 Meq Tablet) 40 meq PO UD PRN PRN Reason: Potssium is 3-3.5 Last Admin: 10/29/20 09:45 Dose: 40 meq Documented by: Potassium Chloride (Potassium Chloride 20 Meq Tablet) 40 meq PO UD PRN PRN Reason: Potassium < 3 Senna (Sennosides 1 Tablet) 2 tab PO DAILYP PRN PRN Reason: Constipation Sodium Bicarbonate (Sodium Bicarbonate 650 Mg Tablet) 1,300 mg PO BID [facility] Stop: 10/30/20 09:01 Last Admin: 10/29/20 20:27 Dose: 1,300 mg Documented by: Sodium Chloride (0.9 % Sodium Chloride 10 Ml Syringe) 10 ml IV Q8 [facility] Last Admin: 10/30/20 06:06 Dose: 10 ml Documented by: Venlafaxine HCl (Venlafaxine 75 Mg Cap.Xl.24h) 225 mg PO QAM [facility] Last Admin: 10/29/20 14:30 Dose: 225 mg Documented by: Vitamin D (Vitamin D3 1,000 Unit Tablet) 4,000 unit PO QDAY [facility] Last Admin: 10/29/20 08:19 Dose: 4,000 unit Documented by: A/P Narrative A/P Narrative: A: *Sepsis w/hypotension: likely 2/2 source as opposed to liver abscess -hypotension resolved with IVF -Severe leukocytosis slowly improving -mild fever yesterday evening *Prostatitis(GNB): w/elevated psa *h/o Liver abscess: Recently finished Augmentin -radiologist and surgeon felt imaging not indicative of active infection -also was discussed with ID from the ED *Cerebral palsy/Debility: wheelchair-bound *Bipolar: *Chronic LBP: *HTN: *Obesity: * P: -Rocephin, will need prolonged course of abx given likely prostatitis and f/u with urology -ID consulted in ED and Gen Surg following -pending final UC for abx regimen -restart home hydralazine/norvasc, hold ARB for now -ppx: lovenox/home ppi Time Spent With Patient Time: Total time spent is greater than 50% in coordination of care (as documented) at patient's floor/unit and/or counseling patient: QUALITY VTE Deep Vein Thrombosis/Pulmonary Embolism Present on Admission: No
[2020-10-30] MEDS: PANTOPRAZOLE 40 MG PACKET PO SCH (07:30)
[2020-10-30 08:07] LABS: Basophils # (Auto) 0.07 K/mcL (0.00-0.20); Basophils % (Auto) 0.3 % (0.0-2.0); Eosinophils # (Auto) 0.46 K/mcL (0.00-0.70); Hematocrit 34.6 % (41.0-55.0); Hemoglobin 10.9 g/dL (13.5-16.5); Lymphocytes % (Auto) 9.4 % (15.0-49.0); Mean Corpuscular HGB Conc 31.5 g/dL (31.0-36.0); Mean Platelet Volume 9.8 fL (7.4-10.4); Monocytes # (Auto) 1.45 K/mcL (0.10-0.90); Monocytes % (Auto) 6.2 % (1.0-12.0); Neutrophils % (Auto) 82.1 % (38.0-78.0); Platelet Count 205 K/mcL (140-440); RBC 4.07 M/mcL (4.50-5.90); Red Cell Distribution Width 15.7 % (11.5-14.5); WBC 23.3 K/mcL (4.5-11.0)
[2020-10-30 08:08] LABS: ALT/SGPT 12 U/L (<40); AST/SGOT 9 U/L (<40); Albumin 2.9 gm/dL (3.2-5.2); Albumin/Globulin Ratio 0.8 (1.0-2.3); Alkaline Phosphatase 120 U/L (39-117); Bilirubin,Direct < 0.2 mg/dL (0-0.3); Bilirubin,Total 0.5 mg/dL (0.1-1.0); Blood Urea Nitrogen 6 mg/dL (6-20); Calcium 9.6 mg/dL (8.6-10.4); Carbon Dioxide 22 mmol/L (22-30); Chloride 110 mmol/L (96-108); Globulin 3.7 gm/dL (2.2-3.7); Glomerular Filtration Rate 91; Glucose 93 mg/dL (70-105); Lactate Dehydrogenase 126 U/L (135-225); Phosphorous 2.1 mg/dL (2.5-4.5); Triglycerides 77 mg/dL (<150); Uric Acid 5.9 mg/dL (2.5-8.0)
[2020-10-30] MEDS: CRANBERRY FRUIT 450 MG PO SCH ×2 (08:25→21:07)
[2020-10-30] MEDS ORDERED: OMEPRAZOLE 20 MG CAPSULE PO SCH (09:00)
[2020-10-30] MEDS: DOCUSATE SODIUM 100 MG CAPSULE PO SCH ×2 (10:47→21:06)
--- NOTE | 2020-10-30 10:58 | Discharge Summary ---
Discharge Provider Provider Patient information: Note initiated : 10/30/20 at 10:56 am Service Date, if different from initiated Date: [] Patient: Jorge Luis Castrejon 45 y/o M admitted on 10/28/20 for fever. Chief Complaint: [] Date of admission: 10/28/20 16:30 Primary care physician: Nick Joens MD Consults: 10/28/20 14:26 Consult to Physician [CONS] Stat Comment: Consulting Provider: Jose Hatfield Reason For Exam: Physician to Consult 10/28/20 16:46 Consult to Physician [CONS] Routine Comment: Consulting Provider: Araceli Knight Reason For Exam: Physician to Consult Consult to Physician [CONS] Routine Comment: Consulting Provider: Blake Kendrick Reason For Exam: Physician to Consult Discharge Meds Discharge Medications Home Medications Wheelchair 1 each .ROUTE DAILY 09/15/18 [History Confirmed 10/29/20 Last Taken 10/28/20] losartan 100 mg tablet 100 mg PO QDAY #30 tab 04/23/20 [Rx Confirmed 10/29/20 Last Taken 10/28/20 08:00] lithium carbonate 450 mg tablet,extended release 900 mg PO QHS #62 tab 05/14/20 [Rx Confirmed 10/29/20 Last Taken 10/27/20 20:00] amlodipine 10 mg tablet 5 mg PO BID #90 tab 05/20/20 [Rx Confirmed 10/28/20 Last Taken 10/28/20] metoprolol tartrate 50 mg tablet 50 mg PO BID #180 tab 05/20/20 [Rx Confirmed 10/29/20 Last Taken 10/28/20 17:00] omeprazole 20 mg capsule,delayed release 20 mg PO QDAY #90 cap 05/20/20 [Rx Confirmed 10/29/20 Last Taken 10/28/20 08:00] cranberry fruit concentrate 450 mg tablet 450 mg PO BID #180 tab 06/18/20 [Rx Confirmed 10/28/20 Last Taken 10/27/20] D-MANNOSE 500 MG CAPS 500 Capsule 1 cap PO DAILY 07/18/20 [History Confirmed 10/28/20 Last Taken 10/27/20] Lactobac. rhamnosus GG-inulin [[facility]] 1 cap PO BID #60 cap 08/05/20 [Rx Confirmed 10/29/20 Last Taken 10/28/20] magnesium hydroxide [Milk of Magnesia] 400 mg PO QDAY PRN 08/18/20 [History Confirmed 10/29/20 Last Taken Unknown] ascorbic acid (vitamin C) 1,000 mg tablet 500 mg PO QDAY tab 10/15/20 [History Confirmed 10/28/20 Last Taken 10/28/20] aripiprazole 10 mg tablet See Rx Instructions .ROUTE .COMPLEX #31 tablet 10/27/20 [Rx Confirmed 10/29/20 Last Taken 10/28/20 20:00] venlafaxine 150 mg capsule,extended release 24 hr 150 mg PO QAM #30 cap 10/27/20 [Rx Confirmed 10/29/20 Last Taken 10/28/20] venlafaxine 75 mg capsule,extended release 24 hr 75 mg PO QAM #30 cap 10/27/20 [Rx Confirmed 10/29/20 Last Taken 10/28/20] acetaminophen 325 mg tablet 325 mg PO Q4HP PRN #100 tab 10/28/20 [Rx Confirmed 10/28/20 Last Taken 10/04/20] cholecalciferol (vitamin D3) 50 mcg (2,000 unit) capsule 4,000 unit PO QDAY 90 Days #180 cap 10/28/20 [Rx Confirmed 10/28/20 Last Taken 10/28/20] hydralazine 10 mg tablet 10 mg PO TID 90 Days #270 tab 10/28/20 [Rx Confirmed 10/29/20 Last Taken 10/27/20] COURSE Hospital Course Hospital course: History of present illness: Mr. Castrejon is a 45 year old M Presents the ED for fevers. Does have a history of liver abscess and finished Augmentin last Tuesday. CT imaging did show some slight enlargement but per the radiologist reading his surgeon today did not feel it was infected. Case was also discussed with infectious disease specialist who is previously involved with care. Radiologist did read the CT abdomen pelvis showing findings of day which were concern for prostatitis and a urine with some mild leukocyte esterase and elevated WBCs and it was felt that fevers are coming from urine. He was mildly hypotensive and tachypneic. Give IV fluid in the ED. Blood cultures obtained in ED. And infectious disease with specialist re commended [place]. Patient fevers and chills but denies any chest pain coughing and dysuria. 10/29 No overnight events or new complaints. aFebrile overnight. Awaiting urine culture. Electrolytes low will replace. Leukocytosis mildly improved 10/30 No overnight event or new complaints. Leukocytosis trending down. Procalcitonin improved. A: *Sepsis w/hypotension: likely 2/2 source as opposed to liver abscess *Prostatitis(GNB): w/elevated psa *h/o Liver abscess: Recently finished Augmentin -radiologist and surgeon felt imaging not indicative of active infection -also was discussed with ID from the ED *Cerebral palsy/Debility: wheelchair-bound *Bipolar: *Chronic LBP: *HTN: *Obesity: * Discharge diagnosis: Prostatitis sepsis Secondary discharge diagnosis: Cerebral palsy bipolar disorder chronic low back pain hypertension obesity Time Spent with Patient Time attestation: Total time spent providing and/or coordinating discharge services: Time spent: Greater than 30 minutes EXAM Constitutional Vitals: Temp Pulse Resp BP Pulse Ox 98.3 F 89 20 139/85 93 10/30/20 06:47 10/30/20 06:47 10/30/20 06:47 10/30/20 06:47 10/30/20 06:47 Discharge Data Data Completed and Pending Labs on day of discharge: Labs from last 24 hours 10/30/20 10/30/20 10/30/20 05:57 05:57 05:57 WBC RBC Hgb Hct MCV MCH MCHC RDW Plt Count MPV Neut % (Auto) Lymph % (Auto) [place] % (Auto) Eos % (Auto) Baso % (Auto) Lymph # (Auto) [place] # (Auto) Eos # (Auto) Baso # (Auto) Absolute Neutrophils Sodium 141 Potassium 3.2 L Chloride 110 H Carbon Dioxide 22 Anion Gap 9.0 BUN 6 Creatinine 1.0 GFR Calculation 91 Glucose 93 Uric Acid 5.9 Calcium 9.6 Phosphorus 2.1 L Magnesium 1.7 Total Bilirubin 0.5 Direct Bilirubin < 0.2 GGT 35 AST 9 ALT 12 Alkaline Phosphatase 120 H Lactate Dehydrogenase 126 L Total Protein 6.6 Albumin 2.9 L Globulin 3.7 Albumin/Globulin Ratio 0.8 L Triglycerides 77 Prostate Specific Ag 46.52 H Procalcitonin 2.31 H 10/30/20 05:57 WBC 23.3 H RBC 4.07 L Hgb 10.9 L Hct 34.6 L MCV 85.0 MCH 26.8 MCHC 31.5 RDW 15.7 H Plt Count 205 MPV 9.8 Neut % (Auto) 82.1 H Lymph % (Auto) 9.4 L [place] % (Auto) 6.2 Eos % (Auto) 2.0 Baso % (Auto) 0.3 Lymph # (Auto) 2.20 [place] # (Auto) 1.45 H Eos # (Auto) 0.46 Baso # (Auto) 0.07 Absolute Neutrophils 19.13 H Sodium Potassium Chloride Carbon Dioxide Anion Gap BUN Creatinine GFR Calculation Glucose Uric Acid Calcium Phosphorus Magnesium Total Bilirubin Direct Bilirubin GGT AST ALT Alkaline Phosphatase Lactate Dehydrogenase Total Protein Albumin Globulin Albumin/Globulin Ratio Triglycerides Prostate Specific Ag Procalcitonin Preliminary micro results at discharge 10/28/20 11:10 Urine Culture - Preliminary Urine - Clean Void Mid-Stream Gram negative bacillus Gram negative bacillus#2 10/28/20 10:51 Blood Culture - Preliminary Blood 10/28/20 10:51 Blood Culture - Preliminary Blood Discharge Plan Patient/Caregiver Discharge Instructions Activity: increase activity as tolerated Diet: Regular Diet Prescriptions: No Action losartan [Cozaar] 100 mg tablet 100 mg PO QDAY Qty: 30 RF: 5 lithium carbonate 450 mg tablet extended release 900 mg PO QHS Qty: 62 RF: 3 metoprolol tartrate [Lopressor] 50 mg tablet 50 mg PO BID Qty: 180 RF: 1 amlodipine [Norvasc] 10 mg tablet 5 mg PO BID Qty: 90 RF: 1 omeprazole 20 mg capsule,delayed release(DR/EC) 20 mg PO QDAY Qty: 90 RF: 1 cranberry fruit concentrate 450 mg tablet 450 mg PO BID Qty: 180 RF: 1 aripiprazole 10 mg tablet See Rx Instructions .ROUTE .COMPLEX Qty: 31 RF: 1 venlafaxine 150 mg capsule,extended release 24hr 150 mg PO QAM Qty: 30 RF: 5 venlafaxine 75 mg capsule,extended release 24hr 75 mg PO QAM Qty: 30 RF: 2 acetaminophen 325 mg tablet 325 mg PO Q4HP PRN (Reason: Pain/Fever > 101) Qty: 100 RF: 2 hydralazine 10 mg tablet 10 mg PO TID 90 Days Qty: 270 RF: 0 cholecalciferol (vitamin D3) [Vitamin D3] 50 mcg (2,000 unit) capsule 4,000 unit PO QDAY 90 Days Qty: 180 RF: 1 ascorbic acid (vitamin C) [Vitamin C] 1,000 mg tablet 500 mg PO QDAY RF: 0 Wheelchair Each 1 each .Route DAILY RF: 0 D-MANNOSE 500 MG CAPS 500 Capsule 1 cap PO DAILY RF: 0 [facility] 10 billion cell -200 mg Capsule, Sprinkle 1 cap PO BID Qty: 60 RF: 0 magnesium hydroxide [Milk of Magnesia] 400 mg/5 mL Suspension 400 mg PO QDAY PRN (Reason: Constipation) RF: 0 Follow Up Plan Follow up with: Nick Jones MD [Primary Care Provider] - QUALITY VTE Deep Vein Thrombosis/Pulmonary Embolism Present on Admission: No
[2020-10-30] MEDS: VITAMIN D3 1,000 UNIT TABLET PO SCH (11:02)
[2020-10-30] MEDS: hydrALAZINE 10 MG TABLET PO SCH ×3 (11:03→21:06)
[2020-10-30] MEDS: LACTOBACILLUS 1 CAPSULE PO SCH ×2 (11:03→21:06)
[2020-10-30] MEDS: ARIPIPRAZOLE 5 MG TABLET PO SCH (11:03)
[2020-10-30] MEDS: amLODIPine 5 MG TABLET PO SCH ×2 (11:03→21:06)
[2020-10-30] MEDS: SODIUM BICARBONATE 650 MG TABLET PO SCH (11:03)
[2020-10-30] MEDS: VENLAFAXINE 75 MG CAP.XL.24H PO SCH (11:03)
[2020-10-30] MEDS: D MANNOSE 500 MG PO SCH (11:06)
[2020-10-30] MEDS: cefTRIAXone 2 GM in DEXTROSE 5% IN WATER 50 ML IV SCH (11:10)
[2020-10-30] MEDS: ENOXAPARIN 40 MG/0.4 ML SYRINGE SQ SCH (11:18)
[2020-10-30] MEDS: POTASSIUM CHLORIDE 20 MEQ TABLET PO PRN (18:00)
[2020-10-30] MEDS: PHOSPHORUS 250 MG TABLET PO SCH (21:06)
[2020-10-30] MEDS: LITHIUM CARBONATE ER 300 MG TAB PO SCH (21:06)
[2020-10-31] MEDS: 0.9 % SODIUM CHLORIDE 10 ML SYRINGE IV SCH ×3 (04:42→21:24)
[2020-10-31 06:34] LABS: Basophils # (Auto) 0.05 K/mcL (0.00-0.20); Basophils % (Auto) 0.3 % (0.0-2.0); Eosinophils # (Auto) 0.48 K/mcL (0.00-0.70); Eosinophils % (Auto) 3.2 % (0.0-7.0); Hematocrit 33.5 % (41.0-55.0); Hemoglobin 10.4 g/dL (13.5-16.5); Lymphocytes # (Auto) 2.28 K/mcL (1.50-4.80); Lymphocytes % (Auto) 15.3 % (15.0-49.0); Mean Cell Volume 84.2 fL (80.0-100.0); Mean Platelet Volume 9.7 fL (7.4-10.4); Monocytes # (Auto) 0.87 K/mcL (0.10-0.90); Monocytes % (Auto) 5.9 % (1.0-12.0); Neutrophils % (Auto) 75.3 % (38.0-78.0); Platelet Count 231 K/mcL (140-440); RBC 3.98 M/mcL (4.50-5.90); Red Cell Distribution Width 15.7 % (11.5-14.5); WBC 14.9 K/mcL (4.5-11.0)
--- NOTE | 2020-10-31 07:23 | Internal Med Progress Note ---
SUBJECTIVE Subjective Patient information: Note initiated : 10/31/20 at 7:20 am Service Date, if different from initiated Date: [] Patient: Jorge Luis Castrejon a 45 y/o M admitted on 10/28/20 for fever. Chief Complaint: [] Interval history: History of present illness: Mr. Castrejon is a 45 year old M Presents the ED for fevers. Does have a history of liver abscess and finished Augmentin last Tuesday. CT imaging did show some slight enlargement but per the radiologist reading his surgeon today did not feel it was infected. Case was also discussed with infectious disease specialist who is previously involved with care. Radiologist did read the CT abdomen pelvis showing findings of day which were concern for prostatitis and a urine with some mild leukocyte esterase and elevated WBCs and it was felt that fevers are coming from urine. He was mildly hypotensive and tachypneic. Give IV fluid in the ED. Blood cultures obtained in ED. And infectious disease with specialist recommended Rocephin and Flagyl. Patient fevers and chills but denies any chest pain coughing and dysuria. 10/29 No overnight events or new complaints. aFebrile overnight. Awaiting urine culture. Electrolytes low will replace. Leukocytosis mildly improved 10/30 No overnight event or new complaints. Leukocytosis trending down. Procalcitonin improved. 10/31 Leukocytosis trending down. No overnight event or new complaints. Urine culture with Pseudomonas as well as a second gram-negative. Review of Systems: denies headache/fever/chills/nausea/vomiting/chest or abdominal pain/cough/dyspnea/diarrhea. Otherwise see above. Constitutional Vitals: Vital Signs Temp Pulse Resp BP Pulse Ox 98.9 F 85 20 142/79 96 10/31/20 07:09 10/31/20 07:09 10/31/20 07:09 10/31/20 07:09 10/31/20 07:09 Period Temp Pulse Resp BP Sys/Jung Pulse Ox Last 24 Hr 98.5 F-99.5 F 85-97 16-24 125-142/76-81 92-96 Intake and Output 10/30/20 10/31/20 10/31/20 21:59 05:59 13:59 Intake Total 3270 480 Output Total 2850 1550 400 Balance 420 -1070 -400 Weight 107.586 kg Intake & Output: Intake & Output 10/30/20 10/31/20 10/31/20 21:59 05:59 13:59 Intake Total 3270 480 Output Total 2850 1550 400 Balance 420 -1070 -400 Weight 107.586 kg Intake: IV 1050 Sodium Chloride 0.9% 1,000 ml @ 1000 100 mls/hr IV .Q10H [facility] Rx#: [id number] Rocephin 2 gm In Dextrose 5% in 50 Water 50 ml @ 100 mls/hr IV Q24H [facility] Rx#:[id number] Oral 2220 480 Output: Urine Catheter Amount 2850 1550 400 Other: Meal Lunch Percent of Meal Consumed 75% Urine Appearance Clear Uretheral ([place]) Clear Urine Color Bright Yellow Bright Yellow Bright Yellow Uretheral ([place]) Bright Yellow Urine Odor Normal Stool Size Large Stool Color Brown Yellow Green Stool Consistency Loose # of times incontinent of 1 Bowels Exam: General: Alert, Awake, No acute Distress, obese Eyes/N/T: EOMI, Head/Neck: neck supple, CV: RRR, No murmurs, Pulm: Clear b/l, no wheezing/rhonchi/rales Abd: soft, nontender, +BS x4 Ext: no clubbing/cyanosis/edema, atrophied lower extremity musculature patient wheelchair-bound Neuro: Alert, no focal deficits, moves all extremities, Skin: warm/dry OBJ DATA Labs CBC & Chem 7: 10/31/20 05:23 10/30/20 05:57 Labs: Abnormal Lab Results 10/31/20 10/30/20 10/30/20 05:23 05:57 05:57 WBC 14.9 H RBC 3.98 L Hgb 10.4 L Hct 33.5 L RDW 15.7 H Neut % (Auto) Lymph % (Auto) [place] # (Auto) Seg Neutrophils % Lymphocytes % Absolute Neutrophils 11.18 H Potassium 3.2 L Chloride 110 H Carbon Dioxide Glucose Phosphorus 2.1 L Total Bilirubin Direct Bilirubin Alkaline Phosphatase 120 H Lactate Dehydrogenase 126 L Albumin 2.9 L Albumin/Globulin Ratio 0.8 L Prostate Specific Ag 46.52 H Procalcitonin Urine Protein Urine Ketones Urine Occult Blood Ur Leukocyte Esterase Urine RBC Urine WBC Urine Mucus 10/30/20 10/30/20 10/29/20 05:57 05:57 05:30 WBC 23.3 H RBC 4.07 L Hgb 10.9 L Hct 34.6 L RDW 15.7 H Neut % (Auto) 82.1 H Lymph % (Auto) 9.4 L [place] # (Auto) 1.45 H Seg Neutrophils % Lymphocytes % Absolute Neutrophils 19.13 H Potassium Chloride Carbon Dioxide Glucose Phosphorus Total Bilirubin Direct Bilirubin Alkaline Phosphatase Lactate Dehydrogenase Albumin Albumin/Globulin Ratio Prostate Specific Ag Procalcitonin 2.31 H 3.35 H Urine Protein Urine Ketones Urine Occult Blood Ur Leukocyte Esterase Urine RBC Urine WBC Urine Mucus 10/29/20 10/29/20 10/28/20 05:30 05:30 17:22 WBC 29.0 H RBC 3.92 L Hgb 10.4 L Hct 33.3 L RDW 15.9 H Neut % (Auto) 86.0 H Lymph % (Auto) 6.7 L [place] # (Auto) 1.95 H Seg Neutrophils % Lymphocytes % Absolute Neutrophils 24.94 H Potassium 3.1 L Chloride 110 H Carbon Dioxide 19 L Glucose Phosphorus 2.0 L Total Bilirubin Direct Bilirubin 0.3 H Alkaline Phosphatase Lactate Dehydrogenase 127 L Albumin 3.0 L Albumin/Globulin Ratio 0.8 L Prostate Specific Ag Procalcitonin 4.74 H Urine Protein Urine Ketones Urine Occult Blood Ur Leukocyte Esterase Urine RBC Urine WBC Urine Mucus 10/28/20 10/28/20 10/28/20 17:22 11:10 11:06 WBC RBC Hgb Hct RDW Neut % (Auto) Lymph % (Auto) [place] # (Auto) Seg Neutrophils % 84 H Lymphocytes % 8 L Absolute Neutrophils Potassium Chloride Carbon Dioxide 18 L Glucose 111 H Phosphorus Total Bilirubin 1.6 H Direct Bilirubin Alkaline Phosphatase Lactate Dehydrogenase Albumin Albumin/Globulin Ratio Prostate Specific Ag Procalcitonin Urine Protein 30 mg/dl A Urine Ketones 15 mg/dl A Urine Occult Blood Trace-intact A Ur Leukocyte Esterase Small A Urine RBC 5 H Urine WBC > 182 H Urine Mucus Few A 10/28/20 11:06 WBC 36.8 H* RBC 4.05 L Hgb 10.9 L Hct 34.0 L RDW 15.7 H Neut % (Auto) 83.9 H Lymph % (Auto) 6.3 L [place] # (Auto) 3.48 H Seg Neutrophils % Lymphocytes % Absolute Neutrophils 30.87 H Potassium Chloride Carbon Dioxide Glucose Phosphorus Total Bilirubin Direct Bilirubin Alkaline Phosphatase Lactate Dehydrogenase Albumin Albumin/Globulin Ratio Prostate Specific Ag Procalcitonin Urine Protein Urine Ketones Urine Occult Blood Ur Leukocyte Esterase Urine RBC Urine WBC Urine Mucus Meds: Medications Acetaminophen (Acetaminophen 325 Mg Tablet) 650 mg PO Q6HP PRN PRN Reason: PAIN/FEVER > 101 Last Admin: 10/29/20 17:51 Dose: 650 mg Documented by: Hydrocodone Bitart/Acetaminophen (Hydrocodone/Apap 5/325mg Tablet) 1 tab PO Q4HP PRN PRN Reason: PAIN LEVEL 3-6 Albuterol/Ipratropium (Ipratropium/Albuterol 3 Ml Ampul.Neb) 3 ml NEB Q4HP PRN PRN Reason: Shortness Of Breath Amlodipine Besylate (Amlodipine 5 Mg Tablet) 5 mg PO BID [facility] Last Admin: 10/30/20 21:06 Dose: 5 mg Documented by: Docusate Sodium (Docusate Sodium 100 Mg Capsule) 100 mg PO BID [facility] Last Admin: 10/30/20 21:06 Dose: 100 mg Documented by: Enoxaparin Sodium (Enoxaparin 40 Mg/0.4 Ml Syringe) 40 mg SQ DAILY [facility] Last Admin: 10/30/20 11:18 Dose: 40 mg Documented by: Hydralazine HCl (Hydralazine 10 Mg Tablet) 10 mg PO TID [facility] Last Admin: 10/30/20 21:06 Dose: 10 mg Documented by: Ceftriaxone Sodium 2 gm/ (Dextrose) 50 mls @ 100 mls/hr IV Q24H [facility]; Protocol Last Infusion: 10/30/20 14:15 Dose: Infused Documented by: Potassium Chloride 40 meq/ (Dextrose) 520 mls @ 130 mls/hr IV UD PRN PRN Reason: Potassium < 3 Magnesium Sulfate (Magnesium Sulfate) 2 gm in 50 mls @ 50 mls/hr IV UD PRN PRN Reason: Magnesium </= 1.6 Lactobacillus Rhamnosus (Lactobacillus 1 Capsule) 1 cap PO BID [facility] Last Admin: 10/30/20 21:06 Dose: 1 cap Documented by: [place] Carbonate Er (300 Mg Tab) 3 dose PO QHS [facility] Last Admin: 10/30/20 21:06 Dose: 3 dose Documented by: Omeprazole (Omeprazole 20 Mg Capsule) 20 mg PO QDAY [facility] Last Admin: 10/30/20 11:02 Dose: 20 mg Documented by: Ondansetron HCl (Ondansetron 4 Mg/2 Ml Vial) 4 mg IV Q4HP PRN PRN Reason: Nausea And Vomiting Pantoprazole Sodium (Pantoprazole 40 Mg Packet) 40 mg PO QAMAC [facility] Last Admin: 10/30/20 07:30 Dose: 40 mg Documented by: Cranberry Fruit Concentrate 450 Mg Tablet 1 dose PO BID [facility] Last Admin: 10/30/20 21:07 Dose: Not Given Documented by: D-Mannose 500 Mg (Caps 500 Capsule) 1 dose PO DAILY [facility] Last Admin: 10/30/20 11:06 Dose: 1 dose Documented by: Polyethylene Glycol (Polyethylene Glycol 3350 17 Gm Packet) 17 gm PO DAILYP PRN PRN Reason: Constipation Potassium Chloride (Potassium Chloride 20 Meq Tablet) 40 meq PO UD PRN PRN Reason: Potssium is 3-3.5 Last Admin: 10/30/20 18:00 Dose: 40 meq Documented by: Potassium Chloride (Potassium Chloride 20 Meq Tablet) 40 meq PO UD PRN PRN Reason: Potassium < 3 Senna (Sennosides 1 Tablet) 2 tab PO DAILYP PRN PRN Reason: Constipation Sodium Chloride (0.9 % Sodium Chloride 10 Ml Syringe) 10 ml IV Q8 [facility] Last Admin: 10/31/20 04:42 Dose: 10 ml Documented by: Sodium Phosphate (Phosphorus 250 Mg Tablet) 250 mg PO BID [facility] Stop: 10/31/20 09:01 Last Admin: 10/30/20 21:06 Dose: 250 mg Documented by: Venlafaxine HCl (Venlafaxine 75 Mg Cap.Xl.24h) 225 mg PO QAM [facility] Last Admin: 10/30/20 11:03 Dose: 225 mg Documented by: Vitamin D (Vitamin D3 1,000 Unit Tablet) 4,000 unit PO QDAY [facility] Last Admin: 10/30/20 11:02 Dose: 4,000 unit Documented by: A/P Narrative A/P Narrative: A: *Sepsis w/hypotension: likely 2/2 source as opposed to liver abscess -hypotension resolved with IVF -eukocytosis improving -now afebrile *Prostatitis(Pseudomonals & 2nd GNB): elevated psa *h/o Liver abscess: Recently finished Augmentin -radiologist and surgeon felt imaging not indicative of active infection -also was discussed with ID from the ED *Cerebral palsy/Debility: wheelchair-bound *Bipolar: *Chronic LBP: *HTN: *Obesity: * P: -Cefepime, will need prolonged course of oral abx given prostatitis and f/u with urology -ID recommends cont IV therapy until wbc normalizes -pending final UC for abx regimen -restarted home hydralazine/norvasc/ARB -ppx: lovenox/home ppi Time Spent With Patient Time: Total time spent is greater than 50% in coordination of care (as documented) at patient's floor/unit and/or counseling patient: QUALITY VTE Deep Vein Thrombosis/Pulmonary Embolism Present on Admission: No
[2020-10-31] MEDS ORDERED: PIPERACILLIN SODIUM/TAZOBACTAM 3.375 GM in DEXTROSE 5% IN WATER 50 ML IV SCH (07:30)
[2020-10-31] MEDS: VITAMIN D3 1,000 UNIT TABLET PO SCH (08:57)
[2020-10-31] MEDS: hydrALAZINE 10 MG TABLET PO SCH ×3 (08:57→21:24)
[2020-10-31] MEDS: LACTOBACILLUS 1 CAPSULE PO SCH ×2 (08:57→21:24)
[2020-10-31] MEDS: VENLAFAXINE 75 MG CAP.XL.24H PO SCH (08:58)
[2020-10-31] MEDS: ARIPIPRAZOLE 5 MG TABLET PO SCH (08:58)
[2020-10-31] MEDS: PHOSPHORUS 250 MG TABLET PO SCH (08:59)
[2020-10-31] MEDS: LOSARTAN 50 MG TABLET PO SCH (08:59)
[2020-10-31] MEDS: amLODIPine 5 MG TABLET PO SCH ×2 (08:59→21:24)
[2020-10-31] MEDS: ENOXAPARIN 40 MG/0.4 ML SYRINGE SQ SCH (09:00)
[2020-10-31] MEDS: DOCUSATE SODIUM 100 MG CAPSULE PO SCH (09:00)
[2020-10-31] MEDS: OMEPRAZOLE 20 MG CAPSULE PO SCH (09:00)
[2020-10-31] MEDS: CRANBERRY FRUIT 450 MG PO SCH ×2 (09:01→21:24)
[2020-10-31] MEDS ORDERED: LOPERAMIDE 2 MG CAPSULE PO PRN (10:03)
[2020-10-31] MEDS: PANTOPRAZOLE 40 MG PACKET PO SCH (10:19)
[2020-10-31] MEDS: CEFEPIME 2 GM VIAL IV SCH ×2 (10:28→21:24)
[2020-10-31] MEDS: D MANNOSE 500 MG PO SCH (10:56)
--- NOTE | 2020-10-31 12:37 | Internal Med Progress Note ---
SUBJECTIVE Subjective Patient information: Note initiated : 11/01/20 at 12:34 pm Service Date, if different from initiated Date: [] Patient: Jorge Luis Castrejon a 45 y/o M admitted on 10/28/20 for fever. Chief Complaint: [] Interval history: History of present illness: Mr. Castrejon is a 45 year old male who presented to the ED for fevers. The patient has a history of liver abscess and finished Augmentin last Tuesday. CT imaging did show some slight enlargement but radiology did not feel it was infected. Case was also discussed with infectious disease specialist who is previously involved with care. Radiologist did read the CT abdomen pelvis showing findings of day which were concern for prostatitis and a urine with some mild leukocyte esterase and elevated WBCs and it was felt that fevers are coming from urine. He was mildly hypotensive and tachypneic, given IV fluid in the ED. Blood cultures obtained in ED. And infectious disease with specialist recommended Rocephin and Flagyl. Patient fevers and chills but denies any chest pain coughing and dysuria. 10/29 No overnight events or new complaints, afebrile overnight. Awaiting urine culture. Electrolytes low will replace. Leukocytosis mildly improved 10/30 No overnight event or new complaints. Leukocytosis trending down. Procalcitonin improved. 10/31 Leukocytosis trending down. No overnight event or new complaints. Urine culture with Pseudomonas as well as a second gram-negative. 11/01 Stable, WBC continues to trend down and near normal. Transitioned to oral Ciprof loxacin, removed betancourt catheter and trial of bladder scan/straight cath. Review of Systems: denies headache/fever/chills/nausea/vomiting/chest or abdominal pain/cough/dyspnea/diarrhea. Otherwise see above. Constitutional Vitals: Vital Signs Temp Pulse Resp BP Pulse Ox 98.9 F 90 18 128/78 92 10/31/20 11:18 10/31/20 11:18 10/31/20 11:18 10/31/20 11:18 10/31/20 11:18 Period Temp Pulse Resp BP Sys/Jung Pulse Ox Last 24 Hr 98.5 F-99.5 F 85-97 16-24 125-142/76-81 92-96 Intake and Output 03/25/21 03/26/21 03/26/21 21:59 05:59 13:59 Intake Total 3270 480 240 Output Total 2850 1550 1300 Balance 420 -1070 -1060 Weight 107.586 kg Intake & Output: Intake & Output 10/30/20 10/31/20 10/31/20 21:59 05:59 13:59 Intake Total 3270 480 240 Output Total 2850 1550 1300 Balance 420 -1070 -1060 Weight 107.586 kg Intake: IV 1050 Sodium Chloride 0.9% 1,000 ml @ 1000 100 mls/hr IV .Q10H [facility] Rx#: [id number] Rocephin 2 gm In Dextrose 5% in 50 Water 50 ml @ 100 mls/hr IV Q24H [facility] Rx#:[id number] Oral 2220 480 240 Output: Urine Catheter Amount 2850 1550 1300 Other: Meal Lunch Breakfast Percent of Meal Consumed 75% 100% Feeding Ability Independent Urine Appearance Clear Cloudy Uretheral (Bet[place]ourt) Clear Clear Urine Color Bright Yellow Bright Yellow Bright Yellow Uretheral (Betancourt) Bright Yellow Bright Yellow Urine Odor Normal Uretheral (Betancourt) Normal Stool Size Large Large Stool Color Brown Brown Yellow Green Stool Consistency Loose Liquid Loose # of times incontinent of 1 Bowels Exam: General: Alert, Awake, No acute Distress, obese Eyes/N/T: EOMI, Head/Neck: neck supple, CV: RRR, No murmurs, Pulm: Clear b/l, no wheezing/rhonchi/rales Abd: soft, nontender, +BS x4 Ext: no clubbing/cyanosis/edema, atrophied lower extremity musculature patient wheelchair-bound Neuro: Alert, no focal deficits, moves all extremities, Skin: warm/dry OBJ DATA Labs CBC & Chem 7: 11/01/20 05:09 10/31/20 05:22 Labs: Abnormal Lab Results 10/31/20 10/30/20 10/30/20 05:23 05:57 05:57 WBC 14.9 H RBC 3.98 L Hgb 10.4 L Hct 33.5 L RDW 15.7 H Neut % (Auto) Lymph % (Auto) [place] # (Auto) Seg Neutrophils % Lymphocytes % Absolute Neutrophils 11.18 H Potassium 3.2 L Chloride 110 H Carbon Dioxide Glucose Phosphorus 2.1 L Total Bilirubin Direct Bilirubin Alkaline Phosphatase 120 H Lactate Dehydrogenase 126 L Albumin 2.9 L Albumin/Globulin Ratio 0.8 L Prostate Specific Ag 46.52 H Procalcitonin Urine Protein Urine Ketones Urine Occult Blood Ur Leukocyte Esterase Urine RBC Urine WBC Urine Mucus 10/30/20 10/30/20 10/29/20 05:57 05:57 05:30 WBC 23.3 H RBC 4.07 L Hgb 10.9 L Hct 34.6 L RDW 15.7 H Neut % (Auto) 82.1 H Lymph % (Auto) 9.4 L [place] # (Auto) 1.45 H Seg Neutrophils % Lymphocytes % Absolute Neutrophils 19.13 H Potassium Chloride Carbon Dioxide Glucose Phosphorus Total Bilirubin Direct Bilirubin Alkaline Phosphatase Lactate Dehydrogenase Albumin Albumin/Globulin Ratio Prostate Specific Ag Procalcitonin 2.31 H 3.35 H Urine Protein Urine Ketones Urine Occult Blood Ur Leukocyte Esterase Urine RBC Urine WBC Urine Mucus 10/29/20 10/29/20 10/28/20 05:30 05:30 17:22 WBC 29.0 H RBC 3.92 L Hgb 10.4 L Hct 33.3 L RDW 15.9 H Neut % (Auto) 86.0 H Lymph % (Auto) 6.7 L [place] # (Auto) 1.95 H Seg Neutrophils % Lymphocytes % Absolute Neutrophils 24.94 H Potassium 3.1 L Chloride 110 H Carbon Dioxide 19 L Glucose Phosphorus 2.0 L Total Bilirubin Direct Bilirubin 0.3 H Alkaline Phosphatase Lactate Dehydrogenase 127 L Albumin 3.0 L Albumin/Globulin Ratio 0.8 L Prostate Specific Ag Procalcitonin 4.74 H Urine Protein Urine Ketones Urine Occult Blood Ur Leukocyte Esterase Urine RBC Urine WBC Urine Mucus 10/28/20 10/28/20 10/28/20 17:22 11:10 11:06 WBC RBC Hgb Hct RDW Neut % (Auto) Lymph % (Auto) [place] # (Auto) Seg Neutrophils % 84 H Lymphocytes % 8 L Absolute Neutrophils Potassium Chloride Carbon Dioxide 18 L Glucose 111 H Phosphorus Total Bilirubin 1.6 H Direct Bilirubin Alkaline Phosphatase Lactate Dehydrogenase Albumin Albumin/Globulin Ratio Prostate Specific Ag Procalcitonin Urine Protein 30 mg/dl A Urine Ketones 15 mg/dl A Urine Occult Blood Trace-intact A Ur Leukocyte Esterase Small A Urine RBC 5 H Urine WBC > 182 H Urine Mucus Few A 10/28/20 11:06 WBC 36.8 H* RBC 4.05 L Hgb 10.9 L Hct 34.0 L RDW 15.7 H Neut % (Auto) 83.9 H Lymph % (Auto) 6.3 L [place] # (Auto) 3.48 H Seg Neutrophils % Lymphocytes % Absolute Neutrophils 30.87 H Potassium Chloride Carbon Dioxide Glucose Phosphorus Total Bilirubin Direct Bilirubin Alkaline Phosphatase Lactate Dehydrogenase Albumin Albumin/Globulin Ratio Prostate Specific Ag Procalcitonin Urine Protein Urine Ketones Urine Occult Blood Ur Leukocyte Esterase Urine RBC Urine WBC Urine Mucus Meds: Medications Acetaminophen (Acetaminophen 325 Mg Tablet) 650 mg PO Q6HP PRN PRN Reason: PAIN/FEVER > 101 Last Admin: 10/29/20 17:51 Dose: 650 mg Documented by: Hydrocodone Bitart/Acetaminophen (Hydrocodone/Apap 5/325mg Tablet) 1 tab PO Q4HP PRN PRN Reason: PAIN LEVEL 3-6 Albuterol/Ipratropium (Ipratropium/Albuterol 3 Ml Ampul.Neb) 3 ml NEB Q4HP PRN PRN Reason: Shortness Of Breath Amlodipine Besylate (Amlodipine 5 Mg Tablet) 5 mg PO BID [facility] Last Admin: 10/31/20 08:59 Dose: 5 mg Documented by: Cefepime HCl (Cefepime 2 Gm Vial) 2 gm IV Q12H [facility]; Protocol Last Admin: 10/31/20 10:28 Dose: 2 gm Documented by: Enoxaparin Sodium (Enoxaparin 40 Mg/0.4 Ml Syringe) 40 mg SQ DAILY [facility] Last Admin: 10/31/20 09:00 Dose: 40 mg Documented by: Hydralazine HCl (Hydralazine 10 Mg Tablet) 10 mg PO TID [facility] Last Admin: 10/31/20 08:57 Dose: 10 mg Documented by: Potassium Chloride 40 meq/ (Dextrose) 520 mls @ 130 mls/hr IV UD PRN PRN Reason: Potassium < 3 Magnesium Sulfate (Magnesium Sulfate) 2 gm in 50 mls @ 50 mls/hr IV UD PRN PRN Reason: Magnesium </= 1.6 Lactobacillus Rhamnosus (Lactobacillus 1 Capsule) 1 cap PO BID [facility] Last Admin: 10/31/20 08:57 Dose: 1 cap Documented by: Loperamide HCl (Loperamide 2 Mg Capsule) 2 mg PO PRN PRN PRN Reason: Diarrhea Losartan Potassium (Losartan 50 Mg Tablet) 100 mg PO DAILY [facility] Last Admin: 10/31/20 08:59 Dose: 100 mg Documented by: [place] Carbonate Er (300 Mg Tab) 3 dose PO QHS [facility] Last Admin: 10/30/20 21:06 Dose: 3 dose Documented by: Omeprazole (Omeprazole 20 Mg Capsule) 20 mg PO ACB [facility] Last Admin: 10/31/20 09:00 Dose: 20 mg Documented by: Ondansetron HCl (Ondansetron 4 Mg/2 Ml Vial) 4 mg IV Q4HP PRN PRN Reason: Nausea And Vomiting Cranberry Fruit Concentrate 450 Mg Tablet 1 dose PO BID [facility] Last Admin: 10/31/20 09:01 Dose: Not Given Documented by: D-Mannose 500 Mg (Caps 500 Capsule) 1 dose PO DAILY [facility] Last Admin: 10/31/20 10:56 Dose: Not Given Documented by: Polyethylene Glycol (Polyethylene Glycol 3350 17 Gm Packet) 17 gm PO DAILYP PRN PRN Reason: Constipation Potassium Chloride (Potassium Chloride 20 Meq Tablet) 40 meq PO UD PRN PRN Reason: Potssium is 3-3.5 Last Admin: 10/30/20 18:00 Dose: 40 meq Documented by: Potassium Chloride (Potassium Chloride 20 Meq Tablet) 40 meq PO UD PRN PRN Reason: Potassium < 3 Senna (Sennosides 1 Tablet) 2 tab PO DAILYP PRN PRN Reason: Constipation Sodium Chloride (0.9 % Sodium Chloride 10 Ml Syringe) 10 ml IV Q8 [facility] Last Admin: 10/31/20 04:42 Dose: 10 ml Documented by: Venlafaxine HCl (Venlafaxine 75 Mg Cap.Xl.24h) 225 mg PO QAM [facility] Last Admin: 10/31/20 08:58 Dose: 225 mg Documented by: Vitamin D (Vitamin D3 1,000 Unit Tablet) 4,000 unit PO QDAY [facility] Last Admin: 10/31/20 08:57 Dose: 4,000 unit Documented by: A/P Narrative A/P Narrative: Assessment: 45-year-old male with history of cerebral palsy, bipolar disorder, obesity, recently treated liver abscess with a prolonged c ourse of IV then PO antibiotics now admitted for sepsis secondary to prostatitis, culture growing Pseudomonas aeruginosa. *Sepsis: now resolved sepsis physiology-likely due to source as opposed to liver abscess *Prostatitis(Pseudomonals & 2nd GNB): *h/o Liver abscess: Recently finished Augmentin -radiologist and surgeon felt imaging not indicative of active infection -also was discussed with ID from the ED *Cerebral palsy/Debility: wheelchair-bound *Bipolar disorder: *Chronic LBP: *HTN: *Urinary incontinence:currently has betancourt catheter *Obesity: P: -Deescalate from Cefepime to Ciprofloxacin PO, will need prolonged course of oral abx given prostatitis (4-6 weeks) and f/u with urology -ID recommends cont IV therapy until wbc normalizes -pending final UC for abx regimen -home hydralazine/norvasc/ARB -remove betancourt catheter, transition trial to bladder scans/straight cath prn -consider urology consult depending on how patient does after betancourt catheter removal -ppx: lovenox/home ppi Time Spent With Patient Time: Total time spent is greater than 50% in coordination of care (as documented) at patient's floor/unit and/or counseling patient: QUALITY VTE Deep Vein Thrombosis/Pulmonary Embolism Present on Admission: No
[2020-10-31] MEDS: LITHIUM CARBONATE ER 300 MG TAB PO SCH (21:24)
[2020-10-31 23:51] LABS: Blood Urea Nitrogen 9 mg/dL (6-20); Calcium 9.3 mg/dL (8.6-10.4); Carbon Dioxide 21 mmol/L (22-30); Chloride 110 mmol/L (96-108); Glomerular Filtration Rate 91; Glucose 89 mg/dL (70-105)
[2020-11-01] MEDS: 0.9 % SODIUM CHLORIDE 10 ML SYRINGE IV SCH ×3 (04:33→20:19)
[2020-11-01 06:16] LABS: Basophils # (Auto) 0.05 K/mcL (0.00-0.20); Basophils % (Auto) 0.5 % (0.0-2.0); Eosinophils # (Auto) 0.58 K/mcL (0.00-0.70); Eosinophils % (Auto) 5.2 % (0.0-7.0); Hematocrit 35.1 % (41.0-55.0); Lymphocytes # (Auto) 2.02 K/mcL (1.50-4.80); Lymphocytes % (Auto) 18.2 % (15.0-49.0); Mean Cell Volume 84.6 fL (80.0-100.0); Mean Corpuscular HGB Conc 31.3 g/dL (31.0-36.0); Mean Platelet Volume 10.5 fL (7.4-10.4); Monocytes # (Auto) 0.85 K/mcL (0.10-0.90); Monocytes % (Auto) 7.7 % (1.0-12.0); Neutrophils % (Auto) 68.4 % (38.0-78.0); Platelet Count 207 K/mcL (140-440); RBC 4.15 M/mcL (4.50-5.90); Red Cell Distribution Width 15.4 % (11.5-14.5); WBC 11.1 K/mcL (4.5-11.0)
[2020-11-01] MEDS: VENLAFAXINE 75 MG CAP.XL.24H PO SCH (10:00)
[2020-11-01] MEDS: hydrALAZINE 10 MG TABLET PO SCH ×3 (10:00→20:19)
[2020-11-01] MEDS: ENOXAPARIN 40 MG/0.4 ML SYRINGE SQ SCH (10:00)
[2020-11-01] MEDS: VITAMIN D3 1,000 UNIT TABLET PO SCH (10:01)
[2020-11-01] MEDS: LACTOBACILLUS 1 CAPSULE PO SCH ×2 (10:01→20:19)
[2020-11-01] MEDS: amLODIPine 5 MG TABLET PO SCH ×2 (10:01→20:19)
[2020-11-01] MEDS: LOSARTAN 50 MG TABLET PO SCH (10:01)
[2020-11-01] MEDS: OMEPRAZOLE 20 MG CAPSULE PO SCH (10:01)
[2020-11-01] MEDS: D MANNOSE 500 MG PO SCH (10:02)
[2020-11-01] MEDS: CRANBERRY FRUIT 450 MG PO SCH ×2 (10:02→20:19)
[2020-11-01] MEDS: ARIPIPRAZOLE 5 MG TABLET PO SCH (10:02)
[2020-11-01] MEDS: CEFEPIME 2 GM VIAL IV SCH (10:34)
[2020-11-01] MEDS: CIPROFLOXACIN 500 MG TABLET PO SCH (20:19)
[2020-11-01] MEDS: LITHIUM CARBONATE ER 300 MG TAB PO SCH (20:19)
[2020-11-02] MEDS: 0.9 % SODIUM CHLORIDE 10 ML SYRINGE IV SCH ×4 (05:00→20:13)
[2020-11-02] MEDS: OMEPRAZOLE 20 MG CAPSULE PO SCH (07:17)
[2020-11-02] MEDS: LACTOBACILLUS 1 CAPSULE PO SCH ×2 (09:09→20:13)
[2020-11-02] MEDS: VITAMIN D3 1,000 UNIT TABLET PO SCH (09:09)
[2020-11-02] MEDS: LOSARTAN 50 MG TABLET PO SCH (09:09)
[2020-11-02] MEDS: VENLAFAXINE 75 MG CAP.XL.24H PO SCH (09:09)
[2020-11-02] MEDS: ARIPIPRAZOLE 5 MG TABLET PO SCH (09:09)
[2020-11-02] MEDS: CIPROFLOXACIN 500 MG TABLET PO SCH (09:09)
[2020-11-02] MEDS: amLODIPine 5 MG TABLET PO SCH ×2 (09:09→20:13)
[2020-11-02] MEDS: ENOXAPARIN 40 MG/0.4 ML SYRINGE SQ SCH (09:09)
[2020-11-02] MEDS: hydrALAZINE 10 MG TABLET PO SCH ×3 (09:09→20:13)
[2020-11-02] MEDS: CRANBERRY FRUIT 450 MG PO SCH ×2 (09:10→20:13)
[2020-11-02] MEDS: D MANNOSE 500 MG PO SCH (09:10)
[2020-11-02 10:12] LABS: Hemoglobin 11.8 g/dL (13.5-16.5); Mean Cell Volume 84.6 fL (80.0-100.0); Mean Corpuscular HGB Conc 31.1 g/dL (31.0-36.0); Mean Platelet Volume 9.4 fL (7.4-10.4); Platelet Count 297 K/mcL (140-440); RBC 4.49 M/mcL (4.50-5.90); Red Cell Distribution Width 15.2 % (11.5-14.5); WBC 12.3 K/mcL (4.5-11.0)
[2020-11-02 10:29] LABS: Blood Urea Nitrogen 11 mg/dL (6-20); Calcium 9.5 mg/dL (8.6-10.4); Carbon Dioxide 25 mmol/L (22-30); Chloride 105 mmol/L (96-108); Glomerular Filtration Rate 108; Glucose 101 mg/dL (70-105)
[2020-11-02] MEDS: POTASSIUM CHLORIDE 20 MEQ TABLET PO PRN (11:07)
[2020-11-02 11:54] LABS: Eosinophils % (Manual) 5 % (0-7); Lymphocytes % 23 % (15-49); Monocytes % (Manual) 5 % (1-12); Platelet Estimate NORMAL (Normal); RBC Morphology NORMAL (Normal); Reactive Lymphocytes 2 % (0-2); Segmented Neutrophils % 65 % (38-78)
--- NOTE | 2020-11-02 12:40 | Internal Med Progress Note ---
SUBJECTIVE Subjective Patient information: Note initiated : 11/02/20 at 12:35 pm Service Date, if different from initiated Date: [] Patient: Jorge Luis Castrejon a 45 y/o M admitted on 10/28/20 for fever. Chief Complaint: [] Interval history: History of present illness: Mr. Castrejon is a 45 year old male who presented to the ED for fevers. The patient has a history of liver abscess and finished Augmentin last Tuesday. CT imaging did show some slight enlargement but radiology did not feel it was infected. Case was also discussed with infectious disease specialist who is previously involved with care. Radiologist did read the CT abdomen pelvis showing findings of day which were concern for prostatitis and a urine with some mild leukocyte esterase and elevated WBCs and it was felt that fevers are coming from urine. He was mildly hypotensive and tachypneic, given IV fluid in the ED. Blood cultures obtained in ED. And infectious disease with specialist recommended Rocephin and Flagyl. Patient fevers and chills but denies any chest pain coughing and dysuria. 10/29 No overnight events or new complaints, afebrile overnight. Awaiting urine culture. Electrolytes low will replace. Leukocytosis mildly improved 10/30 No overnight event or new complaints. Leukocytosis trending down. Procalcitonin improved. 10/31 Leukocytosis trending down. No overnight event or new complaints. Urine culture with Pseudomonas as well as a second gram-negative. 11/01 Stable, WBC continues trend down and near normal. Transitioned to oral Ciproflox acin, removed betancourt catheter and trial of bladder scan/straight cath. 11/02 Slightly higher WBC today, tempt of 99.1, procalcitonin continues to trend down. Transitioned Cipro to IV now until discharge then will transition to oral Cipro. Incontinent of urine, ordered condom catheter. Review of Systems: denies headache/fever/chills/nausea/vomiting/chest or abdominal pain/cough/dyspnea/diarrhea. Otherwise see above. Constitutional Vitals: Vital Signs Temp Pulse Resp BP Pulse Ox 98.9 F 91 H 16 131/85 91 11/02/20 11:50 11/02/20 04:00 11/02/20 11:50 11/02/20 11:50 11/02/20 11:50 Period Temp Pulse Resp BP Sys/Jung Pulse Ox Last 24 Hr 98.3 F-99.1 F 90-93 16-20 131-137/70-85 91-96 Intake and Output 11/01/20 11/02/20 11/02/20 21:59 05:59 13:59 Intake Total 400 100 Output Total 1901 3 350 Balance -1501 97 -350 Weight 110.223 kg Intake & Output: Intake & Output 11/01/20 11/02/20 11/02/20 21:59 05:59 13:59 Intake Total 400 100 Output Total 1901 3 350 Balance -1501 97 -350 Weight 110.223 kg Intake: Oral 400 100 Output: Urine Catheter Amount 1900 Void Amount 350 # of times incontinent of urine 1 3 Other: Urine Appearance Clear Clear Urine Color Dark Yellow Dark Yellow Blood Tinged Urine Odor Normal Normal Stool Size Smear Small Moderate Stool Color Brown Brown Brown Green Green Stool Consistency Loose Loose Loose # Voids 1 1 # Bowel Movements 1 # of times incontinent of 1 1 Bowels Exam: General: Alert, Awake, No acute Distress, obese Eyes/N/T: EOMI, Head/Neck: neck supple, CV: RRR, No murmurs, Pulm: Clear b/l, no wheezing/rhonchi/rales Abd: soft, nontender, +BS x4 Ext: no clubbing/cyanosis/edema, atrophied lower extremity musculature patient wheelchair-bound Neuro: Alert, no focal deficits, moves all extremities, Skin: warm/dry OBJ DATA Labs CBC & Chem 7: 11/02/20 09:00 11/02/20 09:00 Labs: Abnormal Lab Results 11/02/20 11/02/20 11/01/20 09:00 09:00 05:09 WBC 12.3 H 11.1 H RBC 4.49 L 4.15 L Hgb 11.8 L 11.0 L Hct 38.0 L 35.1 L RDW 15.2 H 15.4 H MPV 10.5 H Absolute Neutrophils Chloride Carbon Dioxide Procalcitonin 0.40 H 10/31/20 10/31/20 05:23 05:22 WBC 14.9 H RBC 3.98 L Hgb 10.4 L Hct 33.5 L RDW 15.7 H MPV Absolute Neutrophils 11.18 H Chloride 110 H Carbon Dioxide 21 L Procalcitonin Meds: Medications Acetaminophen (Acetaminophen 325 Mg Tablet) 650 mg PO Q6HP PRN PRN Reason: PAIN/FEVER > 101 Last Admin: 10/29/20 17:51 Dose: 650 mg Documented by: Hydrocodone Bitart/Acetaminophen (Hydrocodone/Apap 5/325mg Tablet) 1 tab PO Q4HP PRN PRN Reason: PAIN LEVEL 3-6 Last Admin: 11/01/20 10:02 Dose: 1 tab Documented by: Albuterol/Ipratropium (Ipratropium/Albuterol 3 Ml Ampul.Neb) 3 ml NEB Q4HP PRN PRN Reason: Shortness Of Breath Amlodipine Besylate (Amlodipine 5 Mg Tablet) 5 mg PO BID [facility] Last Admin: 11/02/20 09:09 Dose: 5 mg Documented by: Enoxaparin Sodium (Enoxaparin 40 Mg/0.4 Ml Syringe) 40 mg SQ DAILY [facility] Last Admin: 11/02/20 09:09 Dose: 40 mg Documented by: Hydralazine HCl (Hydralazine 10 Mg Tablet) 10 mg PO TID [facility] Last Admin: 11/02/20 09:09 Dose: 10 mg Documented by: Potassium Chloride 40 meq/ (Dextrose) 520 mls @ 130 mls/hr IV UD PRN PRN Reason: Potassium < 3 Magnesium Sulfate (Magnesium Sulfate) 2 gm in 50 mls @ 50 mls/hr IV UD PRN PRN Reason: Magnesium </= 1.6 Ciprofloxacin (Cipro) 400 mg in 200 mls @ 200 mls/hr IV Q12H [facility]; Protocol Lactobacillus Rhamnosus (Lactobacillus 1 Capsule) 1 cap PO BID [facility] Last Admin: 11/02/20 09:09 Dose: 1 cap Documented by: Loperamide HCl (Loperamide 2 Mg Capsule) 2 mg PO PRN PRN PRN Reason: Diarrhea Losartan Potassium (Losartan 50 Mg Tablet) 100 mg PO DAILY [facility] Last Admin: 11/02/20 09:09 Dose: 100 mg Documented by: [place] Carbonate Er (300 Mg Tab) 3 dose PO QHS [facility] Last Admin: 11/01/20 20:19 Dose: 3 dose Documented by: Omeprazole (Omeprazole 20 Mg Capsule) 20 mg PO ACB [facility] Last Admin: 11/02/20 07:17 Dose: 20 mg Documented by: Ondansetron HCl (Ondansetron 4 Mg/2 Ml Vial) 4 mg IV Q4HP PRN PRN Reason: Nausea And Vomiting Cranberry Fruit Concentrate 450 Mg Tablet 1 dose PO BID [facility] Last Admin: 11/02/20 09:10 Dose: Not Given Documented by: D-Mannose 500 Mg (Caps 500 Capsule) 1 dose PO DAILY [facility] Last Admin: 11/02/20 09:10 Dose: Not Given Documented by: Polyethylene Glycol (Polyethylene Glycol 3350 17 Gm Packet) 17 gm PO DAILYP PRN PRN Reason: Constipation Potassium Chloride (Potassium Chloride 20 Meq Tablet) 40 meq PO UD PRN PRN Reason: Potssium is 3-3.5 Last Admin: 11/02/20 11:07 Dose: 40 meq Documented by: Potassium Chloride (Potassium Chloride 20 Meq Tablet) 40 meq PO UD PRN PRN Reason: Potassium < 3 Senna (Sennosides 1 Tablet) 2 tab PO DAILYP PRN PRN Reason: Constipation Sodium Chloride (0.9 % Sodium Chloride 10 Ml Syringe) 10 ml IV Q8 [facility] Last Admin: 11/02/20 09:11 Dose: 10 ml Documented by: Venlafaxine HCl (Venlafaxine 75 Mg Cap.Xl.24h) 225 mg PO QAM [facility] Last Admin: 11/02/20 09:09 Dose: 225 mg Documented by: Vitamin D (Vitamin D3 1,000 Unit Tablet) 4,000 unit PO QDAY [facility] Last Admin: 11/02/20 09:09 Dose: 4,000 unit Documented by: A/P Narrative A/P Narrative: Assessment: 45-year-old male with history of cerebral palsy, bipolar disorder, obesity, recently treated liver abscess with a prolonged course of IV then PO antibiotics now admitted for sepsis secondary to prostatitis, culture growing Pseudomonas aeruginosa. *Sepsis: now resolved sepsis physiology-likely due to source as opposed to liver abscess *Prostatitis(Pseudomonals & 2nd GNB): *h/o Liver abscess: Recently finished Augmentin -radiologist and surgeon felt imaging not indicative of active infection -also was discussed with ID from the ED *Cerebral palsy/Debility: wheelchair-bound *Bipolar disorder: *Chronic LBP: *HTN: *Urinary incontinence *Obesity: P: -Ciprofloxacin IV BID, transition to oral Ciprofloxacin at discharge. Will need prolonged course of oral abx given prostatitis (4-6 weeks). -home hydralazine/norvasc/ARB -Condom catheter -Urology referral when discharged -DVT ppx: lovenox -Disposition: SNF probably 11/03 Time Spent With Patient Time: Total time spent is greater than 50% in coordination of care (as documented) at patient's floor/unit and/or counseling patient: QUALITY VTE Deep Vein Thrombosis/Pulmonary Embolism Present on Admission: No
[2020-11-02] MEDS: CIPROFLOXACIN 400 MG/200 ML BAG IV SCH (20:12)
[2020-11-02] MEDS: LITHIUM CARBONATE ER 300 MG TAB PO SCH (20:13)
[2020-11-03] MEDS: 0.9 % SODIUM CHLORIDE 10 ML SYRINGE IV SCH (05:52)
[2020-11-03 06:55] LABS: ALT/SGPT 26 U/L (<40); AST/SGOT 23 U/L (<40); Albumin 3.4 gm/dL (3.2-5.2); Albumin/Globulin Ratio 0.9 (1.0-2.3); Alkaline Phosphatase 98 U/L (39-117); Bilirubin,Direct < 0.2 mg/dL (0-0.3); Bilirubin,Total 0.2 mg/dL (0.1-1.0); Blood Urea Nitrogen 9 mg/dL (6-20); Calcium 10.2 mg/dL (8.6-10.4); Carbon Dioxide 25 mmol/L (22-30); Chloride 107 mmol/L (96-108); Globulin 3.8 gm/dL (2.2-3.7); Glomerular Filtration Rate 108; Glucose 93 mg/dL (70-105); Lactate Dehydrogenase 154 U/L (135-225); Phosphorous 3.2 mg/dL (2.5-4.5); Triglycerides 150 mg/dL (<150); Uric Acid 6.9 mg/dL (2.5-8.0)
--- NOTE | 2020-11-03 07:22 | Discharge Summary ---
Discharge Provider Provider Patient information: Note initiated : 11/03/20 at 7:16 am Service Date, if different from initiated Date: [] Patient: Jorge Luis Castrejon 45 y/o M admitted on 10/28/20 for fever. Chief Complaint: [] Date of admission: 10/28/20 16:30 Discharge date: 11/03/20 Primary care physician: Nick Jones MD Consults: 10/28/20 14:26 Consult to Physician [CONS] Stat Comment: Consulting Provider: Jose Hatfield Reason For Exam: Physician to Consult 10/28/20 16:46 Consult to Physician [CONS] Routine Comment: Consulting Provider: Araceli Knight Reason For Exam: Physician to Consult Consult to Physician [CONS] Routine Comment: Consulting Provider: Blake Kendrick Reason For Exam: Physician to Consult Discharge Meds Discharge Medications Home Medications Wheelchair 1 each .ROUTE DAILY 09/15/18 [History Confirmed 10/29/20 Last Taken 10/28/20] losartan 100 mg tablet 100 mg PO QDAY #30 tab 04/23/20 [Rx Confirmed 10/29/20 Last Taken 10/28/20 08:00] lithium carbonate 450 mg tablet,extended release 900 mg PO QHS #62 tab 05/14/20 [Rx Confirmed 10/29/20 Last Taken 10/27/20 20:00] amlodipine 10 mg tablet 5 mg PO BID #90 tab 05/20/20 [Rx Confirmed 10/28/20 Last Taken 10/28/20] metoprolol tartrate 50 mg tablet 50 mg PO BID #180 tab 05/20/20 [Rx Confirmed 10/29/20 Last Taken 10/28/20 17:00] omeprazole 20 mg capsule,delayed release 20 mg PO QDAY #90 cap 05/20/20 [Rx Confirmed 10/29/20 Last Taken 10/28/20 08:00] cranberry fruit concentrate 450 mg tablet 450 mg PO BID #180 tab 06/18/20 [Rx Confirmed 10/28/20 Last Taken 10/27/20] D-MANNOSE 500 MG CAPS 500 Capsule 1 cap PO DAILY 07/18/20 [History Confirmed 10/28/20 Last Taken 10/27/20] [facility] 1 cap PO BID #60 cap 08/05/20 [Rx Confirmed 10/29/20 Last Taken 10/28/20] magnesium hydroxide [Milk of Magnesia] 400 mg PO QDAY PRN 08/18/20 [History Confirmed 10/29/20 Last Taken Unknown] ascorbic acid (vitamin C) 1,000 mg tablet 500 mg PO QDAY tab 10/15/20 [History Confirmed 10/28/20 Last Taken 10/28/20] aripiprazole 10 mg tablet See Rx Instructions .ROUTE .COMPLEX #31 tablet 10/27/20 [Rx Confirmed 10/29/20 Last Taken 10/28/20 20:00] venlafaxine 150 mg capsule,extended release 24 hr 150 mg PO QAM #30 cap 10/27/20 [Rx Confirmed 10/29/20 Last Taken 10/28/20] venlafaxine 75 mg capsule,extended release 24 hr 75 mg PO QAM #30 cap 10/27/20 [Rx Confirmed 10/29/20 Last Taken 10/28/20] acetaminophen 325 mg tablet 325 mg PO Q4HP PRN #100 tab 10/28/20 [Rx Confirmed 10/28/20 Last Taken 10/04/20] cholecalciferol (vitamin D3) 50 mcg (2,000 unit) capsule 4,000 unit PO QDAY 90 Days #180 cap 10/28/20 [Rx Confirmed 10/28/20 Last Taken 10/28/20] hydralazine 10 mg tablet 10 mg PO TID 90 Days #270 tab 10/28/20 [Rx Confirmed 10/29/20 Last Taken 10/27/20] ciprofloxacin HCl [Cipro] 500 mg PO BID 24 Days #48 tab 11/03/20 [Rx Last Taken Unknown] COURSE Hospital Course Hospital course: Mr. Castrejon is a 45 year old male who presented to the ED for fevers. The patient has a history of liver abscess and recently finished Augmentin therapy. CT imaging did show some slight enlargement but radiology did not feel it was infected. Case was also discussed with infectious disease specialist who is previously involved with care. Radiologist did read the CT abdomen pelvis showing findings of processing day which were concern for prostatitis and a urine with some mild leukocyte esterase and elevated WBCs and it was felt that fevers are coming from urine. He was mildly hypotensive and tachypneic, given IV fluid in the ED. Blood cultures obtained in ED. And infectious disease with specialist recommended Rocephin and Flagyl. Patient fevers and chills but denies any chest pain coughing and dysuria. 10/29 No overnight events or new complaints, afebrile overnight. Awaiting urine culture. Electrolytes low will replace. Leukocytosis mildly improved 10/30 No overnight event or new complaints. Leukocytosis trending down. Procalcito calros improved. 10/31 Leukocytosis trending down. No overnight event or new complaints. Urine culture with Pseudomonas as well as a second gram-negative. 11/01 Stable, WBC continues trend down and near normal. Transitioned to Ciprofloxacin, removed betancourt catheter and trial of bladder scan/straight cath which did not reveal urinary retention. 11/02 Slightly higher WBC today, tempt of 99.1, but procalcitonin continues to trend down. Incontinent of urine, ordered condom catheter but anatomy not amenable. 11/03 Afebrile overnight, continues to have incontinence which is chronic. Will place a urology referral for chronic urinary incontinence. Discharged to SNF on prolonged course (about 4 weeks) of Ciprofloxacin PO BID to complete treatment for acute prostatitis secondary to Pseudomonas sensitive to Ciprofloxacin. Discharge diagnosis: Acute bacterial prostatitis Secondary discharge diagnosis: Chronic urinary incontinence Cerebral palsy Time Spent with Patient Time attestation: Total time spent providing and/or coordinating discharge services: EXAM Constitutional Vitals: Temp Pulse Resp BP Pulse Ox 98.3 F 85 18 120/73 92 11/03/20 03:39 11/03/20 03:39 11/03/20 03:39 11/03/20 03:39 11/03/20 03:39 Additional findings Additional findings: Head: Atraumatic, normal inspection. Eyes: normal appearance, no scleral icterus. Neck: full ROM Respiratory: no respiratory distress. Cardiovascular: normal rate and rhythm, S1, S2. GI/Abdominal: soft, nontender, no guarding. Extremities: full range of motion, nontender. Neurological: CN II-XII intact, intact motor, intact sensation. Psychiatric: normal mood. Skin: warm, normal color Discharge Data Data Completed and Pending Labs on day of discharge: Labs from last 24 hours 11/03/20 11/03/20 11/02/20 04:59 04:59 09:00 WBC Pending RBC Pending Hgb Pending Hct Pending MCV Pending MCH Pending MCHC Pending RDW Pending Plt Count Pending MPV Pending Seg Neutrophils % Lymphocytes % Monocytes % (Manual) Eosinophils % (Manual) Reactive Lymphocytes Platelet Estimate Pending RBC Morphology Pending Sodium 141 Potassium 3.7 Chloride 107 Carbon Dioxide 25 Anion Gap 9.0 BUN 9 Creatinine 0.8 GFR Calculation 108 Glucose 93 Uric Acid 6.9 Calcium 10.2 Phosphorus 3.2 Magnesium 2.2 Total Bilirubin 0.2 Direct Bilirubin < 0.2 GGT 45 AST 23 ALT 26 Alkaline Phosphatase 98 Lactate Dehydrogenase 154 Total Protein 7.2 Albumin 3.4 Globulin 3.8 H Albumin/Globulin Ratio 0.9 L Triglycerides 150 H Procalcitonin 0.40 H 11/02/20 11/02/20 09:00 09:00 WBC 12.3 H RBC 4.49 L Hgb 11.8 L Hct 38.0 L MCV 84.6 MCH 26.3 MCHC 31.1 RDW 15.2 H Plt Count 297 MPV 9.4 Seg Neutrophils % 65 Lymphocytes % 23 Monocytes % (Manual) 5 Eosinophils % (Manual) 5 Reactive Lymphocytes 2 Platelet Estimate Normal RBC Morphology Normal Sodium 138 Potassium 3.5 Chloride 105 Carbon Dioxide 25 Anion Gap 8.0 BUN 11 Creatinine 0.8 GFR Calculation 108 Glucose 101 Uric Acid Calcium 9.5 Phosphorus Magnesium Total Bilirubin Direct Bilirubin GGT AST ALT Alkaline Phosphatase Lactate Dehydrogenase Total Protein Albumin Globulin Albumin/Globulin Ratio Triglycerides Procalcitonin Discharge Plan Patient/Caregiver Discharge Instructions Activity: increase activity as tolerated Diet: Regular Diet Prescriptions: New ciprofloxacin HCl [Cipro] 500 mg tablet 500 mg PO BID 24 Days Qty: 48 RF: 0 Continued losartan [Cozaar] 100 mg tablet 100 mg PO QDAY Qty: 30 RF: 5 lithium carbonate 450 mg tablet extended release 900 mg PO QHS Qty: 62 RF: 3 metoprolol tartrate [Lopressor] 50 mg tablet 50 mg PO BID Qty: 180 RF: 1 amlodipine [Norvasc] 10 mg tablet 5 mg PO BID Qty: 90 RF: 1 omeprazole 20 mg capsule,delayed release(DR/EC) 20 mg PO QDAY Qty: 90 RF: 1 cranberry fruit concentrate 450 mg tablet 450 mg PO BID Qty: 180 RF: 1 aripiprazole 10 mg tablet See Rx Instructions .ROUTE .COMPLEX Qty: 31 RF: 1 venlafaxine 150 mg capsule,extended release 24hr 150 mg PO QAM Qty: 30 RF: 5 venlafaxine 75 mg capsule,extended release 24hr 75 mg PO QAM Qty: 30 RF: 2 acetaminophen 325 mg tablet 325 mg PO Q4HP PRN (Reason: Pain/Fever > 101) Qty: 100 RF: 2 hydralazine 10 mg tablet 10 mg PO TID 90 Days Qty: 270 RF: 0 cholecalciferol (vitamin D3) [Vitamin D3] 50 mcg (2,000 unit) capsule 4,000 unit PO QDAY 90 Days Qty: 180 RF: 1 ascorbic acid (vitamin C) [Vitamin C] 1,000 mg tablet 500 mg PO QDAY RF: 0 Wheelchair Each 1 each .Route DAILY RF: 0 D-MANNOSE 500 MG CAPS 500 Capsule 1 cap PO DAILY RF: 0 [facility] 10 billion cell -200 mg Capsule, Sprinkle 1 cap PO BID Qty: 60 RF: 0 magnesium hydroxide [Milk of Magnesia] 400 mg/5 mL Suspension 400 mg PO QDAY PRN (Reason: Constipation) RF: 0 Follow Up Plan Follow up with: Nick Jones MD [Primary Care Provider] - Laron Sprague MD [Physician] - (Suspected acute prostatitis hospital follow-up. Chronic urinary incontinence. ) Patient Disposition: Xfer SNF Rehab Potential: Fair I certify that the patient requires SNF services: Yes Overall status at discharge: patient is progressing back to baseline Discharge Orders: Discharge Order (Routine); Ordered 11/03/20 Ordered By: Bob AZUL VTE Deep Vein Thrombosis/Pulmonary Embolism Present on Admission: No
[2020-11-03] MEDS: OMEPRAZOLE 20 MG CAPSULE PO SCH (07:34)
[2020-11-03] MEDS: ENOXAPARIN 40 MG/0.4 ML SYRINGE SQ SCH (09:23)
[2020-11-03] MEDS: VENLAFAXINE 75 MG CAP.XL.24H PO SCH (09:23)
[2020-11-03] MEDS: ARIPIPRAZOLE 5 MG TABLET PO SCH (09:23)
[2020-11-03] MEDS: VITAMIN D3 1,000 UNIT TABLET PO SCH (09:23)
[2020-11-03] MEDS: LOSARTAN 50 MG TABLET PO SCH (09:24)
[2020-11-03] MEDS: hydrALAZINE 10 MG TABLET PO SCH (09:24)
[2020-11-03] MEDS: LACTOBACILLUS 1 CAPSULE PO SCH (09:24)
[2020-11-03] MEDS: CIPROFLOXACIN 400 MG/200 ML BAG IV SCH (09:24)
[2020-11-03] MEDS: amLODIPine 5 MG TABLET PO SCH (09:24)
[2020-11-03] MEDS: CRANBERRY FRUIT 450 MG PO SCH (10:04)
[2020-11-03] MEDS: D MANNOSE 500 MG PO SCH (10:04)
[2020-11-03 10:20] LABS: Hematocrit 37.9 % (41.0-55.0); Hemoglobin 11.6 g/dL (13.5-16.5); Mean Cell Volume 85.4 fL (80.0-100.0); Mean Corpuscular HGB Conc 30.6 g/dL (31.0-36.0); Mean Platelet Volume 9.8 fL (7.4-10.4); Platelet Count 313 K/mcL (140-440); RBC 4.44 M/mcL (4.50-5.90); Red Cell Distribution Width 15.1 % (11.5-14.5); WBC 13.2 K/mcL (4.5-11.0)
[2020-11-03 11:14] LABS: Anisocytosis 1+ (None Seen); Band Neutrophils % 1 % (0-10); Eosinophils % (Manual) 6 % (0-7); Lymphocytes % 27 % (15-49); Metamyelocytes % 1 %; Monocytes % (Manual) 8 % (1-12); Myelocytes % 1 %; Platelet Estimate NORMAL (Normal); Polychromasia 1+ (None Seen); RBC Morphology ABNORMAL (Normal); Reactive Lymphocytes 1 % (0-2); Segmented Neutrophils % 55 % (38-78); Toxic Granulation 1+ (None Seen)
== END 2020-11-03 12:20 | DRG 728 ==
LOC: ED 10:05 → MEDSUR 16:30
PROVIDERS: ADMIT Internal Medicine; ATTEND Internal Medicine